=== PATIENT | female | born 1955 | race Caucasian/White ===

== ENCOUNTER → 2017-11-07 | Outpatient (CLI) | payer MEDICARE, SELFPAY | PROVIDERS: Visit Provider Physician Assistant | DX: I48.91 Unspecified atrial fibrillation (principal); I25.10 Atherosclerotic heart disease of native coronary artery without angina pectoris | CPT/HCPCS: 36415; 71020; 80053; 83735; 84443 ==

== ENCOUNTER → 2017-11-14 08:22 | Outpatient (CLI) | payer MEDICARE, SELFPAY ==
--- NOTE | 2017-11-14 08:35 | CA_ITS ---
PROCEDURE: 2-D M-mode and color Doppler study INDICATIONS FOR THE TEST: Chest pain COPD Heart Murmur Tobacco Smoking Palpitations Fatigue Syncope Edema HypertensionXDiabetes Mellitus Rheumatic Fever SOB BEARD ObesityXHyperlipidemiaX Family History HD Additional History CM,ICD,CAD,CABG PATIENT INFORMATION HEIGHT: 61 WEIGHT:190 GENDER: Female B/P:140/80 2-D/M-MODE INTERPRETATION: 2-D MEASUREMENTS OBSERVED VALUES IN CMS Right Ventricular Dimension (RVDd) 2.2 Interventricular Septum (Thickness)(IVsd) .6 Left Ventricular Internal Dimensions(LVIDd) 6.9 Left Ventricular Posterior Wall (Thickness)(LVPWd) .6 Aortic Root 3.0 Aortic Cusp Separation 1.4 Left Atrial Dimensions (LAD) 3.9 2D 1. Left atrium is mildly enlarged, left ventricle is moderately dilated, there is severely reduced left ventricular systolic function, visually estimated ejection fraction approximately 25-30%, left ventricle is globally hypokinetic, superimposed segmental wall motion abnormalities cannot be excluded as endocardial surfaces are very poorly visualized. 2. The right atrium and right ventricle are normal size and contractility, there is a catheter noted in the right ventricle which is likely an ICD lead. 3. The aortic valve is minimally thickened and fibrosed. 4. The mitral and tricuspid valve leaflets are minimally thickened. 5. The pulmonic valve is poorly visualized. 6. No significant pericardial effusion noted. DOPPLER INTERROGATION: Doppler interrogation of the aortic, mitral and tricuspid valvular presence of mild mitral and tricuspid regurgitation, tricuspid regurgitant jet velocity is insufficient for calculation of the right ventricular systolic pressure, grade 1 diastolic dysfunction seen without tissue Doppler evidence of raised left atrial pressure. CONCLUSION: 1. Mildly enlarged left atrium, moderately dilated left ventricle, severely reduced left ventricular systolic function visually estimated ejection fraction is approximately 25-30% as described above. Grade 1 diastolic dysfunction seen without tissue Doppler evidence of raised left atrial pressure. 2. Mild mitral and tricuspid regurgitation. 3. No significant pericardial effusion noted.
== END ==
PROVIDERS: Family Provider Family Medicine; PCP Family Medicine; Visit Provider Physician Assistant
DX: I42.8 Other cardiomyopathies (principal); I48.91 Unspecified atrial fibrillation; I25.10 Atherosclerotic heart disease of native coronary artery without angina pectoris
CPT/HCPCS: 93306

== ENCOUNTER → 2017-11-25 10:21 | Outpatient (CLI) | payer MEDICARE, SELFPAY ==
[2017-11-25 11:58] LABS: Anion Gap 15.3 mEq/L (5-15); Blood Urea Nitrogen 18 mg/dL (7-18); Carbon Dioxide 25 mmol/L (21.0-32.0); Chloride 106 mmol/L (98-107); Creatinine,Serum 1.14 mg/dL (0.55-1.02); Estimated Glomerular Filt Rate 48 ml/min (>60); GFR (African American) 58 ML/MIN (>60); Glucose 112 mg/dL (74-106); Potassium 4.3 mmoL/L (3.5-5.1); Sodium 142 mmol/L (136-145)
== END ==
PROVIDERS: PCP Nurse Practitioner; Visit Provider Physician Assistant
DX: I48.91 Unspecified atrial fibrillation (principal); I42.9 Cardiomyopathy, unspecified; I10 Essential (primary) hypertension
CPT/HCPCS: 36415; 80048

== ENCOUNTER → 2017-12-20 11:45 | Outpatient (CLI) | payer MEDICARE, SELFPAY ==
[2017-12-20 13:00] LABS: Anion Gap 13.6 mEq/L (5-15); Blood Urea Nitrogen 20 mg/dL (7-18); Carbon Dioxide 28 mmol/L (21.0-32.0); Chloride 107 mmol/L (98-107); Creatinine,Serum 1.28 mg/dL (0.55-1.02); Estimated Glomerular Filt Rate 42 ml/min (>60); GFR (African American) 51 ML/MIN (>60); Glucose 141 mg/dL (74-106); Potassium 4.6 mmoL/L (3.5-5.1); Sodium 144 mmol/L (136-145)
== END ==
PROVIDERS: PCP Nurse Practitioner; Visit Provider Physician Assistant
DX: I25.10 Atherosclerotic heart disease of native coronary artery without angina pectoris (principal); I10 Essential (primary) hypertension
CPT/HCPCS: 36415; 80048

== ENCOUNTER → 2018-04-15 09:34 | Outpatient (CLI) | payer MEDICARE, SELFPAY ==
--- NOTE | 2018-04-15 09:49 | XR_ITS ---
XR chest 2V HISTORY: ITS.REASON: AMIODARONE SURVEILLANCE ORDERING PHYSICIAN: BRITTNY Pinzon PATIENT AGE: 62 years COMPARISON: 11/07/2017 FINDINGS: Prior median sternotomy/CABG. Bipolar pacemaker present from left subclavian approach. Mild cardiomegaly without failure. Lungs are clear bilaterally.. No pulmonary fibrosis apparent. No acute bony anomalies. IMPRESSION: Prior CABG with mild cardiomegaly and cardiac pacemaker. No radiographic evidence of amiodarone lung toxicity
[2018-04-15 11:23] LABS: Albumin Level 4.4 gm/dL (3.4-5.0); Albumin/Globulin Ratio 1.4 (1.1-1.8); Chloride 102 mmol/L (98-107); Globulin 3.2 gm/dl (1.3-3.2); Glucose 125 mg/dL (74-106); Sodium 137 mmol/L (136-145); Total Protein,Serum 7.6 gm/dL (6.4-8.2)
[2018-04-15 11:25] LABS: Alanine Aminotransferase 57 U/L (12-78); Alkaline Phosphatase 112 U/L (46-116); Anion Gap 14.7 mEq/L (5-15); Aspartate Amino Transferase 24 U/L (15-37); Bilirubin,Total 0.3 mg/dL (0.2-1.0); Blood Urea Nitrogen 29 mg/dL (7-18); Calcium 10.1 mg/dL (8.5-10.1); Carbon Dioxide 25 mmol/L (21.0-32.0); Estimated Glomerular Filt Rate 38 ml/min (>60); GFR (African American) 46 ML/MIN (>60); Potassium 4.7 mmoL/L (3.5-5.1); Thyroid Stimulating Hormone 1.77 uIU/ml (0.358-3.740)
== END ==
PROVIDERS: Visit Provider Physician Assistant
DX: Z79.899 Other long term (current) drug therapy (principal)
CPT/HCPCS: 36415; 71046; 80053; 84443

== ENCOUNTER → 2018-05-20 09:12 | Outpatient (CLI) | payer MEDICARE, SELFPAY ==
[2018-05-20 10:10] LABS: Anion Gap 11.7 mEq/L (5-15); Blood Urea Nitrogen 23 mg/dL (7-18); Carbon Dioxide 27 mmol/L (21.0-32.0); Chloride 106 mmol/L (98-107); Estimated Glomerular Filt Rate 38 ml/min (>60); GFR (African American) 46 ML/MIN (>60); Glucose 124 mg/dL (74-106); Potassium 4.7 mmoL/L (3.5-5.1); Sodium 140 mmol/L (136-145)
== END ==
PROVIDERS: Visit Provider Physician Assistant
DX: I10 Essential (primary) hypertension (principal); I25.10 Atherosclerotic heart disease of native coronary artery without angina pectoris; N28.9 Disorder of kidney and ureter, unspecified
CPT/HCPCS: 36415; 80048

== ENCOUNTER → 2018-06-09 13:19 | Outpatient (CLI) | payer MEDICARE, SELFPAY ==
[2018-06-09 14:57] LABS: Anion Gap 15.6 mEq/L (5-15); Blood Urea Nitrogen 18 mg/dL (7-18); Calcium 9.4 mg/dL (8.5-10.1); Carbon Dioxide 25 mmol/L (21.0-32.0); Chloride 108 mmol/L (98-107); Creatinine,Serum 1.29 mg/dL (0.55-1.02); Estimated Glomerular Filt Rate 42 ml/min (>60); GFR (African American) 51 ML/MIN (>60); Glucose 121 mg/dL (74-106); Magnesium 2.2 mg/dL (1.4-2.2); Potassium 4.6 mmoL/L (3.5-5.1); Sodium 144 mmol/L (136-145)
== END ==
PROVIDERS: Visit Provider Physician Assistant
DX: I50.9 Heart failure, unspecified (principal); I25.10 Atherosclerotic heart disease of native coronary artery without angina pectoris
CPT/HCPCS: 36415; 80048; 83735

== ENCOUNTER → 2018-10-27 12:33 | Outpatient (CLI) | payer MEDICARE, SELFPAY ==
--- NOTE | 2018-10-27 12:43 | XR_ITS ---
XR chest 2V HISTORY: Heart disease, amiodarone therapy ITS.REASON: CAD, AMIODARONE THERAPY ORDERING PHYSICIAN: BRITTNY Pinzon PATIENT AGE: 63 years COMPARISON: 04/15/2018 FINDINGS: There is cardiomegaly without failure in this patient that has had a prior CABG with a bipolar pacemaker present. There is a faint area of increased density in the right middle lobe region suggesting an area of wispy infiltrate. No other significant anomalies are evident. IMPRESSION: 1. Infiltrate in the region of the right middle lobe which could be infectious or inflammatory. Cannot exclude the possibility of amiodarone toxicity in the absence of pneumonia symptoms. 2. Cardiomegaly with pacemaker, prior CABG
[2018-10-27 14:09] LABS: Alanine Aminotransferase 48 U/L (12-78); Albumin Level 4.1 gm/dL (3.4-5.0); Albumin/Globulin Ratio 1.3 (1.1-1.8); Alkaline Phosphatase 104 U/L (46-116); Anion Gap 11.4 mEq/L (5-15); Aspartate Amino Transferase 14 U/L (15-37); Bilirubin,Total 0.4 mg/dL (0.2-1.0); Blood Urea Nitrogen 15 mg/dL (7-18); Calcium 8.8 mg/dL (8.5-10.1); Carbon Dioxide 27 mmol/L (21.0-32.0); Chloride 108 mmol/L (98-107); Chol/HDL Ratio 2.1 (1-3.5); Cholesterol 120 mg/dL (140-200); Estimated Glomerular Filt Rate 45 ml/min (>60); GFR (African American) 55 ML/MIN (>60); Globulin 3.2 gm/dl (1.3-3.2); Glucose 102 mg/dL (74-106); HDL Cholesterol 57 mg/dL (29-89); LDL Cholesterol 47 mg/dL (0-130); Potassium 4.4 mmoL/L (3.5-5.1); Sodium 142 mmol/L (136-145); Thyroid Stimulating Hormone 1.49 uIU/ml (0.358-3.740); Total Protein,Serum 7.3 gm/dL (6.4-8.2); Triglycerides 82 mg/dL (30-200); VLDL Cholesterol 16 mg/dL (0-40)
== END ==
PROVIDERS: Visit Provider Physician Assistant
DX: Z79.899 Other long term (current) drug therapy (principal); E78.5 Hyperlipidemia, unspecified
CPT/HCPCS: 36415; 71046; 80053; 80061; 84443

== ENCOUNTER → 2018-10-30 12:36 | Outpatient (CLI) | payer MEDICARE, SELFPAY ==
[2018-10-30 13:54] VITALS: PULSE 70
--- NOTE | 2018-10-30 14:22 | CT_ITS ---
CT chest wo con HISTORY: Amiodarone therapy, cough, abnormal chest x-ray ITS.REASON: ABN CXR,HIGH RISK MEDS ORDERING PHYSICIAN: BRITTNY Pinzon PATIENT AGE: 63 years COMPARISON: 10/27/2018 Technique: Axial images obtained with sagittal and coronal reformats. All CT scans at the facility use one or more dose reduction, viz: automated exposure control, ma/kV adjustment per patient size (including targeted exams where dose is matched to indication, i.e. head), or iterative reconstruction technique. FINDINGS: No mediastinal or hilar mass or adenopathy is evident. There is an AICD device present from a left subclavian approach. There has been a prior CABG. Normal heart size. No evidence of pericardial effusion.. There is some superficial patchy areas of groundglass density in the superior segment of the right lower lobe. This is nonspecific. There is also some patchy groundglass density in the infrahilar region on the left within the left lower lobe. These would correspond to the radiographic abnormalities. Atelectatic changes are present in the left lung base. There are some mild fibrotic changes in the lung bases. Upper abdominal images show a hyperdense liver measuring up to 80 Hounsfield units. This may also be seen with amiodarone toxicity. No acute bony anomalies. IMPRESSION: 1. There are scattered groundglass infiltrates in both lower lobes. These are nonspecific but can be seen with amiodarone toxicity. There is some minimal fibrotic change in the lung bases which are also nonspecific. 2. Hyperdensity of the liver may also be seen with amiodarone toxicity. High hepatic attenuation may also be seen in patient's exposed to amiodarone in the absence of drug toxicity.
== END ==
PROVIDERS: PCP Family Medicine; Visit Provider Physician Assistant
DX: R93.89 Abnormal findings on diagnostic imaging of other specified body structures (principal); Z79.899 Other long term (current) drug therapy
CPT/HCPCS: 71250; 94060; 94618; 94640; 94726; 94729

== ENCOUNTER → 2018-11-14 11:55 | Outpatient (POV) | payer MEDICARE, SELFPAY | PROVIDERS: Visit Provider Internal Medicine | DX: Z00.00 Encounter for general adult medical examination without abnormal findings (principal) ==

== ENCOUNTER → 2019-04-14 14:33 | Outpatient (POV) | payer MEDICARE, SELFPAY | PROVIDERS: Visit Provider Internal Medicine | DX: Z00.00 Encounter for general adult medical examination without abnormal findings (principal) ==

== ENCOUNTER → 2019-08-10 10:51 | Outpatient (CLI) | payer MEDICARE, SELFPAY ==
--- NOTE | 2019-08-10 10:55 | CT_ITS ---
PROCEDURE: CT LUNG SCREENING CLINICAL INDICATION: H/O NICOTINE DEPENDENCE COMPARISON: CHESTWO CT chest wo con from 10/30/2018 TECHNIQUE: The exam was performed on a GE Light Speed [address] scanner using 2.90 mGy CTDI. A low dose helical CT CHEST was performed on a multi-detector scanner. All CT scans at the facility use one or more dose reduction, viz: automated exposure control, ma/kV adjustment per patient size (including targeted exams where dose is matched to indication, i.e. head), or iterative reconstruction technique. The LDCT was performed in a facility that meets the criteria for the screening program. Data regarding this exam was submitted to ACR which is an approved registry. The order for this exam indicates that it came as a result of a lung cancer screening counseling shard decision-making visit that included all the elements required of such a visit including smoking cessation. The radiologist interpreting this exam meets the CMS criteria for the LDCT lung cancer screening program. The exam is reported using the Lung-RADS classification scale and reported to the ACR registry. NOTE: This study was performed for the specific purposes of lung cancer screening and is not an alternative to diagnostic chest CT. RADIATION DOSE: CTDI vol(CT dose Index-volume) = 2.90mG DLP (Dose Length Product) = 97 mGcm FINDINGS: There is a noncalcified 2 millimeter nodule in the posterior aspect of the lingula. OTHER FINDINGS: There are a few noncalcified pleural-based indistinct nodular areas along the posterior aspect of the superior segment of the right lower lobe. There are coronary and aortic arch calcified plaques. Heart size is normal. Hilar and mediastinal areas are unremarkable. IMPRESSION: Noncalcified 2.0 millimeter lingular nodule. Lung rads 2, benign. Suggest annual follow-up if risk factors. Pleural based small right lower lobe nodular densities are more nonspecific and could be focal pleural thickening although likely benign as well. Dictated by: Je Giles 08/13/2019 17:19 Electronically signed by Je Giles in [place] 08/13/2019 17:19
== END ==
PROVIDERS: PCP Nurse Practitioner; Visit Provider Nurse Practitioner
DX: Z87.891 Personal history of nicotine dependence (principal); Z12.2 Encounter for screening for malignant neoplasm of respiratory organs

== ENCOUNTER → 2019-11-30 09:57 | Outpatient (CLI) | payer MEDICARE, SELFPAY ==
--- NOTE | 2019-11-30 10:42 | ECG_ITS ---
APPROVED REPORT Exam: Resting ECG HR:71 bpm ECG Measurements Heart Rate 71 AXES FL 150 P 89 QRSd 96 QRS 88 QT 428 T -63 QTc 465 <Conclusion> Electronic atrial pacemaker Incomplete RBBB NDST-T Changes Possible Old Lateral AL Abnormal EKG Electronically signed by : Eliud Massey, 11/30/2019 10:55:50
[2019-11-30 11:55] LABS: Anion Gap 10.5 mEq/L (5-15); Blood Urea Nitrogen 15 mg/dL (7-18); Calcium 9.1 mg/dL (8.5-10.1); Carbon Dioxide 29 mmol/L (21.0-32.0); Chloride 107 mmol/L (98-107); Creatinine,Serum 1.09 mg/dL (0.55-1.02); Estimated Glomerular Filt Rate 51 ml/min (>60); GFR (African American) 61 ML/MIN (>60); Glucose 109 mg/dL (74-106); Magnesium 1.9 mg/dL (1.4-2.2); Potassium 4.5 mmoL/L (3.5-5.1); Sodium 142 mmol/L (136-145)
== END ==
PROVIDERS: Visit Provider Internal Medicine Clinical Cardiac Electrophysiology
DX: I48.0 Paroxysmal atrial fibrillation (principal)
CPT/HCPCS: 36415; 80048; 83735; 93005

== ENCOUNTER → 2019-12-04 11:14 | Outpatient (CLI) | payer MEDICARE, SELFPAY ==
--- NOTE | 2019-12-04 11:30 | ECG_ITS ---
APPROVED REPORT Exam: Resting ECG HR:73 bpm ECG Measurements Heart Rate 73 AXES WV 178 P 46 QRSd 92 QRS 88 QT 472 T 59 QTc 519 <Conclusion> Electronic atrial pacemaker Abnormal ECG Electronically signed by : Jose Pedraza, 12/05/2019 19:06:30
== END ==
PROVIDERS: PCP Nurse Practitioner; Visit Provider Internal Medicine Clinical Cardiac Electrophysiology
DX: I48.91 Unspecified atrial fibrillation (principal)
CPT/HCPCS: 93005

== ENCOUNTER → 2020-03-31 11:20 | Outpatient (CLI) | payer MEDICARE, SELFPAY ==
[2020-03-31 13:12] LABS: T4 (Thyroxine) 9.5 ug/dl (5.53-11.0); Triiodothryronine (T3) Uptake 39 % (23.5-40.5)
[2020-03-31 13:13] LABS: Free T4 (Free Thyroxine) 1.49 ng/dl (0.78-2.19)
[2020-03-31 13:26] LABS: Thyroid Stimulating Hormone < 0.02 uIU/mL (0.465-4.68)
== END ==
PROVIDERS: Visit Provider Internal Medicine Endocrinology, Diabetes & Metabolism
DX: E03.9 Hypothyroidism, unspecified (principal); E06.9 Thyroiditis, unspecified
CPT/HCPCS: 36415; 84436; 84439; 84443; 84479

== ENCOUNTER → 2021-01-10 10:23 | Outpatient (POV) | payer MEDICARE, SELFPAY | PROVIDERS: Visit Provider Dermatology | DX: Z00.00 Encounter for general adult medical examination without abnormal findings (principal) ==

== ENCOUNTER → 2021-03-09 06:36 | Outpatient (CLI) | payer MEDICARE, SELFPAY ==
--- NOTE | 2021-03-09 06:43 | CT_ITS ---
PROCEDURE: CT LUNG SCREENING CLINICAL INDICATION: CURRENT SMOKER 30 pack year smoking history COMPARISON: CT CT LUNG SCREENING from 08/10/2019 TECHNIQUE: The exam was performed on a GE Light Speed [address] scanner using 2.90 mGy CTDI. A low dose helical CT CHEST was performed on a multi-detector scanner. All CT scans at the facility use one or more dose reduction, viz: automated exposure control, ma/kV adjustment per patient size (including targeted exams where dose is matched to indication, i.e. head), or iterative reconstruction technique. The LDCT was performed in a facility that meets the criteria for the screening program. Data regarding this exam was submitted to ACR which is an approved registry. The order for this exam indicates that it came as a result of a lung cancer screening counseling shard decision-making visit that included all the elements required of such a visit including smoking cessation. The radiologist interpreting this exam meets the [facility] criteria for the LDCT lung cancer screening program. The exam is reported using the Lung-RADS classification scale and reported to the ACR registry. NOTE: This study was performed for the specific purposes of lung cancer screening and is not an alternative to diagnostic chest CT. RADIATION DOSE: CTDI vol(CT dose Index-volume) = 2.90mG DLP (Dose Length Product) = 100.03 mGcm FINDINGS: COPD changes. There is a small patchy subpleural area of increased density in the right lower lobe posteriorly and also in the left lower lobe and may be due to areas of atelectasis or patchy infiltrate. Scarring is present in the left lower lobe medially. 3 mm noncalcified nodule in the lingula once again noted unchanged. No new nodules are evident. OTHER FINDINGS: Prior median sternotomy. Artifact present from cardiac pacemaker device. IMPRESSION: Lung-RADS Category 2 Benign Appearance or Behavior Follow-up: Continue annual screening with LDCT in 12 months Atelectasis versus patchy ground-glass infiltrate in the right lower lobes posteriorly Dictated by: Rafiq Servin MD 03/10/2021 13:37 Rafiq Servin MD in [place] 03/10/2021 13:37
== END ==
PROVIDERS: PCP Nurse Practitioner Family; Visit Provider Nurse Practitioner Family
DX: Z87.891 Personal history of nicotine dependence (principal); Z12.2 Encounter for screening for malignant neoplasm of respiratory organs
CPT/HCPCS: 71271

== ENCOUNTER → 2021-04-04 08:07 | Outpatient (CLI) | payer MEDICARE, SELFPAY | PROVIDERS: Visit Provider Surgery | DX: Z01.812 Encounter for preprocedural laboratory examination (principal); Z20.822 Contact with and (suspected) exposure to COVID-19; Z12.11 Encounter for screening for malignant neoplasm of colon | CPT/HCPCS: U0003 ==

== ENCOUNTER 2021-04-06 07:08 | Day surgery (SDC) | payer MEDICARE, SELFPAY ==
[2021-04-04 10:02] VITALS: BMI 37.8
[2021-04-06] VITALS (8 sets, daily range): BP systolic 96–173; BP diastolic 54–80; PULSE 70–74; RESP 16–18; TEMP 36.1–37.1; O2SAT 93–99
--- NOTE | 2021-04-06 08:36 | P.PCN_ITS ---
- Procedure: Date: 04/06/21 Patient Date of :: 1955 Procedure Performed:: Colonoscopy with polypectomy Indications:: Screening Performing Provider:: Hayes Snyder MD Referring Provider:: . Sedation:: Monitored anesthesia care Procedure:: After informed consent was obtained the patient was taken to the endoscopy suite. Sedation ensued after the patient was transferred to the left lateral decubitus position. Pulse, blood pressure, and oxygen saturation were monitored throughout the procedure. Digital rectal exam revealed no significant ab normality. The colonoscope was placed in position. The entire colon was evaluated. The colonoscope was carefully removed and the patient was transferred to recovery in stable condition. Please see findings and specimens below for detail. Findings:: Bowel preparation relatively fair Moderate lack of relaxation Polyps (see specimens) Specimens:: Lobulated complex cecal polyp (snare) Cluster of hyperplastic-appearing polyps between 10-15 cm (multiple biopsies) Recommendations:: Timing of repeat colonoscopy is pending pathology but will likely be between 2-3 years secondary to complex/lobulated nature of cecal polyp and lack of relaxation. Complications:: No immediate Estimated blood obtained (mL): 1
--- NOTE | 2021-04-06 10:16 | P.PN_ITS ---
[facility] Anesthesia Checklist - Patient Identification Patient Identification: Arm Band - Structural Data Admitted From: Home Planned Operative Procedure/s: Colonoscopy Consent for Planned Operative Procedure(s) Verified: Yes Verified Documents: Surgical Consent, History and Physical - NPO Status Verified Time NPO: 00:00 - Airway Assessment C-Spine Mobility Assessed: Yes TMJ Mobility Assessed: Yes Dentition: Poor Dentition - Neurological Assessment Level of Consciousness: Awake, Alert - Anesthesia Plan Anesthesia Risk discussed: Yes Anesthesia Plan: Verified ASA Class: III Anesthesia Type: MAC [facility] History Medical History: Reports:: Arrhythmia, Atherosclerotic Heart Disease, Atrial F ibrillation, Hyperlipidemia, Hypertension, Internal Pacemaker Denies:: Cancer, Diabetes Mellitus Type 1, Diabetes Mellitus Type 2, MRSA, Seizures *Have you ever received a pneumonia vaccine?: Yes *Have you received a flu vaccine this season?: Yes Other Medical History: Reports: Thyroid Disease Anesthesia experience/problems:: None Other Surgeries: Yes: Open Heart Surgery (2013), Pacemaker Amputation: No Fractures: No - *Social History Smoking Status: Never smoker Alcohol Intake: never Substance Use Type: denies use *Occupational Status:: disabled Housing: house Household Members: none *Travel in the last 8 weeks: None Family Hx:: No significant family history
== END 2021-04-06 09:49 | disposition home or self-care (01) ==
LOC: OUTP 07:10
PROVIDERS: PCP Nurse Practitioner Family; Visit Provider Surgery
PROC: 0DJD8ZZ Inspection of Lower Intestinal Tract, Via Natural or Artificial Opening Endoscopic (ICD-10-PCS; principal; 2021-04-06 08:30)
DX: Z12.11 Encounter for screening for malignant neoplasm of colon (principal); K63.5 Polyp of colon; K62.1 Rectal polyp; K63.89 Other specified diseases of intestine; I25.10 Atherosclerotic heart disease of native coronary artery without angina pectoris; I48.91 Unspecified atrial fibrillation; E78.5 Hyperlipidemia, unspecified; I10 Essential (primary) hypertension; Z95.0 Presence of cardiac pacemaker; Z79.82 Long term (current) use of aspirin; Z79.899 Other long term (current) drug therapy
CPT/HCPCS: 45380; 45385; 88305; J1610

== ENCOUNTER → 2022-03-14 13:58 | Outpatient (CLI) | payer MEDICARE, SELFPAY ==
--- NOTE | 2022-03-14 13:58 | CT_ITS ---
FINAL REPORT CLINICAL HISTORY: . lung cancer screening, previous smoker, quit 8 years ago, previously smoked 1-2 packs a day for 40 years COMPARISON: March 09, 2021 and August 10, 2019 FINDINGS: Low-Dose Chest CT CTDI vol (mGy): 2.90 DLP (mGy-cm): 107.59 Axial images were obtained from the lung apex to the mid abdomen by computed tomography. Low-dose protocol was utilized. FINDINGS: CHEST: There is no axillary adenopathy. There is no hilar or mediastinal adenopathy. The heart is proper size. There are postoperative changes from median sternotomy. A left subclavian pacemaker is present. There is no pericardial or pleural effusion. Limited images of the upper abdomen are unremarkable. Lung window images demonstrate mild pulmonary scarring. There is a 4 mm nodule in the posterior lingula which is stable. There are improved ground-glass opacities in the posterior lower lobes. There is a 5 mm pleural based nodule in the posterior right upper lobe which is stable. There is an 8 mm nodule in the right lower lobe on image 47. This previously measured 5 mm. There is a calcified granuloma in the left lower lobe. IMPRESSION: 8 mm nodule in the right lower lobe that previously measured 5 mm. Lung RADS category 4B. Recommend PET-CT for further evaluation. Reviewed, Interpreted and Dictated by Hola Poe III, MD Transcribed by Manju Murphy Authenticated by Hola Poe III, MD on 03/14/2022 03:28:42 PM [facility]
[2022-03-14 15:25] VITALS: PULSE 87; PULSE 90
== END ==
PROVIDERS: PCP Nurse Practitioner Family; Visit Provider Internal Medicine Pulmonary Disease
DX: Z87.891 Personal history of nicotine dependence (principal); Z12.2 Encounter for screening for malignant neoplasm of respiratory organs; R06.09 Other forms of dyspnea
CPT/HCPCS: 71271; 94060; 94618; 94640; 94727; 94729

== ENCOUNTER → 2022-03-17 08:15 | Outpatient (CLI) | payer MEDICARE, SELFPAY | PROVIDERS: Visit Provider Ophthalmology | DX: Z01.812 Encounter for preprocedural laboratory examination (principal); Z11.52 Encounter for screening for COVID-19 | CPT/HCPCS: C9803; U0003; U0005 ==

== ENCOUNTER 2022-03-20 06:51 | Day surgery (SDC) | payer MEDICARE, SELFPAY ==
[2022-03-15 14:09] VITALS: BMI 37.0
[2022-03-20 07:08] VITALS: BP 127/60; PULSE 65; RESP 18; TEMP 36.3; O2SAT 98
[2022-03-20 07:22] LABS: POC Glucose,Bedside 132 (70-110)
[2022-03-20 08:36] VITALS: BP 139/62; PULSE 66; RESP 18; O2SAT 99
[2022-03-20 08:41] VITALS: BP 133/65; PULSE 65; RESP 18; O2SAT 99
[2022-03-20 08:46] VITALS: BP 123/61; PULSE 65; RESP 18; O2SAT 99
[2022-03-20 08:51] VITALS: BP 131/66; PULSE 66; RESP 18; O2SAT 100
[2022-03-20 08:55] VITALS: BP 140/69; PULSE 85; RESP 16; TEMP 36.6; O2SAT 94
== END 2022-03-20 09:00 | disposition home or self-care (01) ==
LOC: OR 06:52
PROVIDERS: PCP Nurse Practitioner Family; Visit Provider Ophthalmology
DX: H25.813 Combined forms of age-related cataract, bilateral (principal); H02.831 Dermatochalasis of right upper eyelid; H02.834 Dermatochalasis of left upper eyelid; E11.9 Type 2 diabetes mellitus without complications; I10 Essential (primary) hypertension; E07.9 Disorder of thyroid, unspecified; Z79.82 Long term (current) use of aspirin; Z79.84 Long term (current) use of oral hypoglycemic drugs; Z79.899 Other long term (current) drug therapy
CPT/HCPCS: 66984; 82962; V2632

== ENCOUNTER → 2022-03-31 08:10 | Outpatient (CLI) | payer MEDICARE, SELFPAY | PROVIDERS: Visit Provider Ophthalmology | DX: Z01.812 Encounter for preprocedural laboratory examination (principal); Z20.822 Contact with and (suspected) exposure to COVID-19 | CPT/HCPCS: C9803; U0003; U0005 ==

== ENCOUNTER 2022-04-03 06:32 | Day surgery (SDC) | payer MEDICARE, SELFPAY ==
[2022-03-29 11:01] VITALS: BMI 37.0
[2022-04-03] VITALS (7 sets, daily range): BP systolic 119–134; BP diastolic 57–75; PULSE 67–80; RESP 18; TEMP 36.4–36.6; O2SAT 94–100
[2022-04-03 07:11] LABS: POC Glucose,Bedside 128 (70-110)
== END 2022-04-03 08:53 | disposition home or self-care (01) ==
LOC: OR 06:34
PROVIDERS: PCP Nurse Practitioner Family; Visit Provider Ophthalmology
DX: H25.813 Combined forms of age-related cataract, bilateral (principal); H02.831 Dermatochalasis of right upper eyelid; H02.834 Dermatochalasis of left upper eyelid; I48.91 Unspecified atrial fibrillation; I10 Essential (primary) hypertension; E78.5 Hyperlipidemia, unspecified; E05.90 Thyrotoxicosis, unspecified without thyrotoxic crisis or storm; I51.89 Other ill-defined heart diseases
CPT/HCPCS: 66984; 82962; V2632

== ENCOUNTER → 2022-06-12 14:46 | Outpatient (CLI) | payer MEDICARE, SELFPAY ==
--- NOTE | 2022-06-12 14:46 | CT_ITS ---
FINAL REPORT TECHNIQUE: Axial images were obtained from the lung apex to the mid abdomen by computed tomography. Coronal reformatted images were obtained. This study was performed with techniques to keep radiation doses as low as reasonably achievable, (ALARA). Individualized dose reduction techniques using automated exposure control or adjustment of mA and/or kV according to the patient''s size were employed. CLINICAL HISTORY: 3 mth F/U COMPARISON: March 14, 2022 FINDINGS: Postoperative changes are seen from sternotomy. There is a left subclavian pacemaker. There is no axillary adenopathy. There is no hilar or mediastinal adenopathy. Heart size is normal. There is no pericardial or pleural effusion. Limited images of the upper abdomen are unremarkable. An 8 mm nodule is again seen in the right lower lobe on image 44, stable. There is a 4 mm nodule in the posterior lingula that previously measured 4 mm. There is a stable 5 mm pleural based nodule in the posterior right upper lobe. There is no new mass or pulmonary nodule. IMPRESSION: Stable pulmonary nodules. Recommend six-month follow-up. Reviewed, Interpreted and Dictated by Hola Poe III, MD Transcribed by Jurgen Gomez Authenticated and [facility]
== END ==
PROVIDERS: PCP Nurse Practitioner Family; Visit Provider Internal Medicine Pulmonary Disease
DX: R91.8 Other nonspecific abnormal finding of lung field (principal)
CPT/HCPCS: 71250

== ENCOUNTER → 2023-01-29 10:40 | Outpatient (CLI) | payer MEDICARE, SELFPAY ==
--- NOTE | 2023-01-29 10:46 | XR_ITS ---
FINAL REPORT CLINICAL HISTORY: RT HIP PAIN FINDINGS: Right hip with pelvis Three views were obtained. There is no acute fracture. There is no dislocation. The joint spaces are preserved. There is no acute soft tissue abnormality. IMPRESSION: No acute process. Reviewed, Interpreted and Dictated by Leodan Up MD Transcribed by Jurgen Gomez Authenticated and [facility]
== END ==
PROVIDERS: PCP Nurse Practitioner Family; Visit Provider Nurse Practitioner Family
DX: M25.551 Pain in right hip (principal)
CPT/HCPCS: 73502

== ENCOUNTER → 2023-02-12 09:06 | Outpatient (CLI) | payer MEDICARE, SELFPAY ==
--- NOTE | 2023-02-12 09:14 | XR_ITS ---
FINAL REPORT CLINICAL HISTORY: POST MENOPAUSAL FINDINGS: Using L1-4, the bone mineral density of the spine is 0.987 g/cm2, corresponding to T-score of -0.5. Using the left hip, the bone mineral density of the femoral neck is 0.757 g/cm2, corresponding to a T-score of -0.8. FRAX data: 7.4% risk for major osteoporotic fracture. Using the right hip, the bone mineral density of the femoral neck is 0.680 g/cm2, corresponding to a T-score of -1.5. FRAX data: 8.6% risk for major osteoporotic fracture. IMPRESSION: Diminished bone mineral density of the right hip consistent with osteopenia. Normal bone mineral density of the lumbar spine and left hip. Reviewed, Interpreted and Dictated by Leodan Up MD Transcribed by Jurgen Gomez Authenticated and . [facility]
--- NOTE | 2023-02-12 09:14 | MM_ITS ---
PROCEDURE INFORMATION: Exam: Bilateral Screening 3D Mammography Exam date and time: 02/12/2023 9:38 AM Age: 67 years old Clinical indication: Baseline. History of right benign excisional biopsy. TECHNIQUE: Imaging protocol: Bilateral Screening tomosynthesis and 2D mammography including computer-aided detection (CAD) when performed. COMPARISON: No relevant prior studies available.If prior mammograms are provided, I am happy to add an addendum. FINDINGS: MAMMOGRAPHY: Breast composition: There are scattered areas of fibroglandular density. Mass: Scattered bilateral oval sub cm circumscribed masses. No dominant or suspicious mass. Architectural distortion: None. Calcifications: No suspicious calcifications. Asymmetric density: None. Skin thickening: None. Axillary adenopathy: None. Other: Pacemaker in the left axilla, limits evaluation and accentuates the importance of clinical breast exam. IMPRESSION: Scattered bilateral sub cm oval masses may be considered benign finding on screening mammography. No mammographic evidence of malignancy. Annual screening is recommended unless otherwise clinically indicated. ASSESSMENT: BI-RADS Category 2: Benign
== END ==
PROVIDERS: PCP Nurse Practitioner Family; Visit Provider Nurse Practitioner Family
DX: Z12.31 Encounter for screening mammogram for malignant neoplasm of breast (principal); Z78.0 Asymptomatic menopausal state; Z13.820 Encounter for screening for osteoporosis
CPT/HCPCS: 77063; 77067; 77080

== ENCOUNTER → 2023-03-15 12:43 | Outpatient (CLI) | payer MEDICARE, SELFPAY ==
--- NOTE | 2023-03-15 12:44 | CT_ITS ---
FINAL REPORT TECHNIQUE: Axial images were obtained through the chest without contrast. This study was performed with techniques to keep radiation doses as low as reasonably achievable (ALARA). Individualized dose reduction techniques using automated exposure control or adjustment of mA and/or kV according to the patient's size were employed. CLINICAL HISTORY: 9 mth F/U March 2022 COMPARISON: 07/02/2022 FINDINGS: The heart size is normal. There is no pericardial or pleural effusion. Limited images of the upper abdomen are unremarkable. There is a pleural base nodule in the posterior right upper lobe measuring 5 mm, unchanged. There is an ill-defined right lower lobe nodule measuring 7 mm. Finding is best seen on image 135 of series 3. There is a 4 mm nodule in the posterior lingula which is stable. Finding is best seen on image 123. No new mass or nodule is identified. There is streak artifact from median sternotomy wires and left subclavian pacer. IMPRESSION: Stable nodules as detailed above. Resume routine screening in 12 months. Reviewed, Interpreted and Dictated by Leodan Up MD Transcribed by Kadie Gray Authenticated and [facility][1]
== END ==
PROVIDERS: PCP Nurse Practitioner Family; Visit Provider Internal Medicine Pulmonary Disease
DX: R91.8 Other nonspecific abnormal finding of lung field (principal); R06.02 Shortness of breath
CPT/HCPCS: 71250

== ENCOUNTER → 2023-04-04 11:50 | Outpatient (CLI) | payer MEDICARE, SELFPAY ==
[2023-04-04 12:44] LABS: Basophils # 0.1 K/mm3 (0-0.2); Basophils % 0.8 % (0.1-2.0); Eosinophils # 0.1 K/mm3 (0.0-0.4); Eosinophils % 1.5 % (0.1-12.0); Hematocrit 44.3 % (37.0-47.0); Hemoglobin 14.4 g/dL (12.2-16.2); Lymphocytes # 2.4 K/mm3 (0.7-4.5); Lymphocytes % 35.5 % (10-50); Mean Corpuscular HGB Conc 32.6 g/dL (31.8-35.4); Mean Corpuscular Hemoglobin 29.9 pg (27.0-31.2); Mean Corpuscular Volume 91.8 fl (81-99); Mean Platelet Volume 13.7 fl (7.4-10.4); Monocytes # 0.3 K/mm3 (0.1-1.0); Monocytes % 4.5 % (1.7-9.3); Neutrophils % 57.7 % (37.0-80.0); Platelet Count 127 K/mm3 (142-424); Red Blood Count 4.82 M/mm3 (4.20-5.40); Red Cell Distribution Width 14.5 % (11.5-17.5); White Blood Count 6.9 K/mm3 (4.8-10.8)
[2023-04-04 15:29] LABS: Vitamin B12 519 pg/mL (239-931)
[2023-04-06 11:53] LABS: Peripheral Smear Review Scanned Result
== END ==
PROVIDERS: PCP Nurse Practitioner Family; Visit Provider Internal Medicine Medical Oncology
DX: D69.9 Hemorrhagic condition, unspecified (principal)
CPT/HCPCS: 36415; 82607; 82746; 85025

== ENCOUNTER 2023-04-12 11:00 | Outpatient (RCR) | payer MEDICARE, SELFPAY | END 2023-04-12 11:05 | disposition home or self-care (01) | LOC: PT 11:00 | PROVIDERS: PCP Nurse Practitioner Family; Visit Provider Nurse Practitioner Family | DX: M25.551 Pain in right hip (principal); M25.512 Pain in left shoulder; M54.41 Lumbago with sciatica, right side | CPT/HCPCS: 20560; 20561; 97010; 97035; 97110; 97112; 97140; 97163; 97164; 97530 ==

== ENCOUNTER → 2023-04-15 08:11 | Outpatient (CLI) | payer MEDICARE, SELFPAY ==
--- NOTE | 2023-04-15 08:16 | US_ITS ---
FINAL REPORT TECHNIQUE: Ultrasound images through the abdomen were obtained. CLINICAL HISTORY: LOW PLATLETS FINDINGS: Pancreas is unremarkable. Liver is fatty infiltrated without focal lesion. There are no gallstones or pericholecystic fluid. Gallbladder wall thickness is normal. Common duct is within normal limits at 3 mm. The right kidney measures 10.4 cm in length. Left kidney measures 10.2 cm in length. There is no hydronephrosis. Spleen is normal measuring 9.1 cm. There is no abdominal aortic aneurysm. There is no evidence of ascites. IMPRESSION: Fatty infiltration of the liver, otherwise unremarkable exam. Reviewed, Interpreted and Dictated by Shikha Merlos MD Transcribed by Beverly Lee Authenticated and [facility]
== END ==
PROVIDERS: PCP Nurse Practitioner Family; Visit Provider Internal Medicine Medical Oncology
DX: D64.9 Anemia, unspecified (principal); R10.11 Right upper quadrant pain; R10.12 Left upper quadrant pain
CPT/HCPCS: 76700

== ENCOUNTER 2023-05-26 22:49 | Emergency (ER) | payer MEDICARE, SELFPAY ==
[2023-05-26 22:52] VITALS: BP 189/108; PULSE 61; O2SAT 96
[2023-05-26 22:56] VITALS: BP 189/108; PULSE 60; RESP 22; TEMP 36.4; O2SAT 97; BMI 36.2
[2023-05-26 23:00] VITALS: BP 182/82; PULSE 60; RESP 17; O2SAT 96
--- NOTE | 2023-05-26 23:00 | ECG_ITS ---
APPROVED REPORT Exam: Resting ECG HR:61 bpm ECG Measurements Heart Rate 61 AXES IN 171 P -34 QRSd 98 QRS 87 QT 435 T 133 QTc 438 Conclusion ELECTRONIC ATRIAL PACEMAKER ABNORMAL ECG UNCONFIRMED REPORT Electronically signed by : Jose Pedraza MD 05/27/2023 07:09:08
--- NOTE | 2023-05-26 23:02 | XR_ITS ---
PROCEDURE INFORMATION: Exam: XR Chest Exam date and time: 05/26/2023 11:15 PM Age: 67 years old Clinical indication: Other: Palpitations; Prior surgery; Surgery date: 6+ months; Surgery type: Pacemaker TECHNIQUE: Imaging protocol: Radiologic exam of the chest. Views: 1 view. COMPARISON: CT CHEST WO CON 03/15/2023 12:52 PM FINDINGS: Tubes, catheters and devices: Pacer/AICD electrodes. Lungs: Normal pulmonary vessels. No focal infiltrates. Pleural spaces: Unremarkable. No pleural effusion. No pneumothorax. Heart/Mediastinum: Mild cardiomegaly. Prior CABG. Bones/joints: Unremarkable. IMPRESSION: No acute cardiopulmonary disease.
[2023-05-26 23:14] LABS: Basophils # 0.1 K/mm3 (0-0.2); Basophils % 0.8 % (0.1-2.0); Eosinophils # 0.2 K/mm3 (0.0-0.4); Eosinophils % 2.1 % (0.1-12.0); Hematocrit 42.9 % (37.0-47.0); Hemoglobin 13.9 g/dL (12.2-16.2); Lymphocytes # 3.2 K/mm3 (0.7-4.5); Lymphocytes % 42.2 % (10-50); Mean Corpuscular HGB Conc 32.4 g/dL (31.8-35.4); Mean Corpuscular Hemoglobin 29.6 pg (27.0-31.2); Mean Corpuscular Volume 91.4 fl (81-99); Mean Platelet Volume 13.2 fl (7.4-10.4); Monocytes # 0.5 K/mm3 (0.1-1.0); Monocytes % 6.1 % (1.7-9.3); Neutrophils # 3.8 K/mm3 (1.8-7.8); Neutrophils % 48.8 % (37.0-80.0); Platelet Count 129 K/mm3 (142-424); Red Cell Distribution Width 14.3 % (11.5-17.5); White Blood Count 7.7 K/mm3 (4.8-10.8)
[2023-05-26 23:16] LABS: Alanine Aminotransferase 40 U/L (12-78); Albumin/Globulin Ratio 1.5 (1.1-1.8); Alkaline Phosphatase 108 U/L (38-126); Anion Gap 14.4 mEq/L (5-15); Aspartate Amino Transferase 35 U/L (14-36); Bilirubin,Total 0.4 mg/dl (0.2-1.3); Blood Urea Nitrogen 19 mg/dl (7-17); Calcium 10.2 mg/dl (8.4-10.2); Carbon Dioxide 28 mmol/L (22.0-30.0); Chloride 105 mmol/L (98-107); Creatinine Clearance Estimated 75 mL/min (50-200); Estimated Glomerular Filt Rate 62 ml/min (>60); GFR (African American) 76 ML/MIN (>60); Globulin 3.4 g/dL (1.3-3.2); Glucose 103 mg/dl (74-100); Potassium 4.4 mmoL/L (3.5-5.1); Sodium 143 mmol/L (136-145); Total Protein,Serum 8.4 g/dl (6.3-8.2)
[2023-05-26 23:29] LABS: Troponin I < 0.01 ng/ml (0.00-0.034)
[2023-05-26 23:31] VITALS: BP 156/68; PULSE 60; RESP 13; O2SAT 96
[2023-05-26 23:37] LABS: Magnesium 2.1 mg/dl (1.6-2.3)
--- NOTE | 2023-05-26 23:50 | HMH.EDGENADL ---
Discharge Plan Disposition Patient Disposition: Home, Self-Care Condition: Good Prescriptions Prescriptions: No Action losartan 50 mg tablet 50 mg PO DAILY furosemide 20 mg tablet 20 mg PO DAILY carvedilol 25 mg tablet 25 mg PO DAILY sotalol 120 mg tablet 120 mg PO DAILY atorvastatin 80 mg tablet 80 mg PO DAILY aspirin [Adult Low Dose Aspirin] 81 mg tablet,delayed release (DR/EC) 81 mg PO DAILY Xarelto 20 mg tablet 20 mg PO DAILY Rx Instructions: must administer with evening meal levothyroxine 75 mcg tablet 75 mcg PO DAILY albuterol sulfate 90 mcg/actuation HFA aerosol inhaler 2 inh IH Q6H PRN (Reason: shortness of breath or wheezing) 90 Days Qty: 8.5 3RF potassium chloride 20 mEq tablet,ER particles/crystals 20 meq PO metformin 500 mg tablet extended release 24 hr 500 mg PO DAILY Referrals Follow up/Referrals: Provider,Referral, MD [Primary Care Provider] - See instructions Activity Restrictions/Add. Instructions Additional Instructions/Restrictions: You were evaluated in the emergency department today. Please contact your design engineer marine equipment in the morning and ask them if they would like to make any medication changes related to your atrial fibrillation. Return to the emergency department for any new or worsening symptoms. Clinical Impressions Clinical Impression: Heart palpitations Atrial fibrillation Qualifiers: Atrial fibrillation type: paroxysmal Qualified Code(s): I48.0 - Paroxysmal atrial fibrillation Instructions Patient Instructions: DI for Atrial Fibrillation Discharge ED Provider: Lani Price General Adult HPI General Chief complaint: Arrhythmia/Palpitations Stated complaint: heart fluttering Time Seen by Provider: 05/26/23 22:59 Mode of Arrival: Family Vehicle Source of Information: Patient Limitations: No Limitations Description of Symptoms (Recalled from ER Triage Doc. by RN): 67 yo presents with CC of heart palpitations after laying down for approximately an hour. Patient has a history of controlled atrial fib; for which she takes medication for and follows with cardiology in [facility]. Patient states she is not having any chest discomfort, but got nervous when she checked vs and noted elevated HR, and ^BP. History of Present Illness HPI narrative: This patient is a 67-year-old female with a history of atrial fibrillation status post AICD placement on Xarelto presented to the emergency department for evaluation with concern for palpitations. She reports that she recently saw her design engineer marine equipment at [facility] in [place], who decreased her sotalol from 120 mg to 80 mg. She has been compliant with this, but tonight whenever she went to bed she started feeling palpitations. It felt like her heart was racing. This lasted for approximately an hour. She states that she checked her vital signs and her heart rate was in the 120s. She was also hypertensive with systolics in the 180s. Given this, she decided to come to the emergency department for evaluation. Prior to arrival, her palpitations resolved, however she notes that she has a pressure and sensation of fullness in her upper chest. No other recent symptoms such as fevers, chills, cough, congestion, shortness of breath, abdominal pain, nausea, vomiting, or other concerns. She notes that she felt well all day today. Related Data Home Medications Medication Instructions Recorded Confirmed aspirin 81 mg tablet,delayed 81 mg PO DAILY Blood thinner 10/10/20 05/22/23 release (Adult Low Dose Aspirin) atorvastatin 80 mg tablet 80 mg PO DAILY Cholesterol 10/10/20 05/22/23 carvedilol 25 mg tablet 25 mg PO DAILY bp 10/10/20 05/22/23 furosemide 20 mg tablet 20 mg PO DAILY Fluid 10/10/20 05/22/23 losartan 50 mg tablet 50 mg PO DAILY bp 10/10/20 05/22/23 sotalol 120 mg tablet 120 mg PO DAILY bp 10/10/20 05/22/23 rivaroxaban 20 mg tablet (Xarelto) 20 mg PO D
--- NOTE | 2023-05-26 23:55 | PC.NURSE ---
Rounded on pt. No needs voiced at this time.
[2023-05-27] VITALS: BP 131/62; PULSE 60; RESP 12; O2SAT 96
--- NOTE | 2023-05-27 00:16 | PC.NURSE ---
Dr. Price at [facility]
[2023-05-27 00:30] VITALS: BP 119/68; PULSE 61; RESP 12; O2SAT 97
[2023-05-27 01:01] VITALS: BP 139/64; PULSE 60; RESP 12; O2SAT 95
[2023-05-27 01:31] VITALS: BP 165/69; RESP 8; O2SAT 95
[2023-05-27 01:42] LABS: Troponin I 0.02 ng/ml (0.00-0.034)
[2023-05-27 02:01] VITALS: BP 160/66; PULSE 55; RESP 14; O2SAT 95
--- NOTE | 2023-05-27 02:02 | PC.NURSE ---
call placed to [id number] and spoke with wendy. requested sotalol dose
[2023-05-27 02:24] VITALS: BP 172/94; PULSE 71; RESP 15; TEMP 36.7; O2SAT 98
== END 2023-05-27 02:28 | disposition home or self-care (01) ==
PROVIDERS: Emergency Provider Emergency Medicine
DX: I48.0 Paroxysmal atrial fibrillation (principal); Z95.810 Presence of automatic (implantable) cardiac defibrillator; Z79.01 Long term (current) use of anticoagulants; J44.9 Chronic obstructive pulmonary disease, unspecified; Z87.891 Personal history of nicotine dependence
CPT/HCPCS: 71045; 80053; 83735; 84484; 85025; 93005; 99285

== ENCOUNTER → 2023-08-07 14:54 | Outpatient (CLI) | payer MEDICARE, SELFPAY ==
[2023-08-07 15:46] LABS: Alanine Aminotransferase 40 U/L (12-78); Albumin/Globulin Ratio 1.5 (1.1-1.8); Alkaline Phosphatase 107 U/L (38-126); Anion Gap 17.3 mEq/L (5-15); Aspartate Amino Transferase 31 U/L (14-36); Bilirubin,Total 0.6 mg/dl (0.2-1.3); Blood Urea Nitrogen 15 mg/dl (7-17); Carbon Dioxide 25 mmol/L (22.0-30.0); Chloride 105 mmol/L (98-107); Chol/HDL Ratio 2.7 (1-3.5); Cholesterol 109 mg/dl (140-200); Estimated Glomerular Filt Rate 62 ml/min (>60); GFR (African American) 75 ML/MIN (>60); Globulin 3.3 g/dL (1.3-3.2); Glucose 110 mg/dl (74-100); HDL Cholesterol 40 mg/dl (40-60); Potassium 5.3 mmoL/L (3.5-5.1); Sodium 142 mmol/L (136-145); Total Protein,Serum 8.3 g/dl (6.3-8.2); Triglycerides 123 mg/dl (30-150); VLDL Cholesterol 25 mg/dL (0-40)
[2023-08-07 15:57] LABS: Direct LDL Cholesterol 57.83 mg/dL (100-129)
[2023-08-07 16:07] LABS: Hemoglobin A1C 6.6 % (4.0-6.0)
[2023-08-07 16:17] LABS: Thyroid Stimulating Hormone 1.32 uIU/mL (0.465-4.68)
== END ==
PROVIDERS: PCP Nurse Practitioner Family; Visit Provider Nurse Practitioner Family
DX: E11.9 Type 2 diabetes mellitus without complications (principal); E78.5 Hyperlipidemia, unspecified; Z79.84 Long term (current) use of oral hypoglycemic drugs
CPT/HCPCS: 80053; 80061; 83036; 84443

== ENCOUNTER → 2023-10-01 12:03 | Outpatient (CLI) | payer MEDICARE, SELFPAY ==
--- NOTE | 2023-10-01 12:14 | XR_ITS ---
FINAL REPORT CLINICAL HISTORY: right foot pain, swelling FINDINGS: Right foot Three views were obtained. There is no acute fracture or dislocation. There are mild degenerative changes. Note is made of plantar calcaneal spur. No soft tissue abnormality is identified. IMPRESSION: No acute process. Reviewed, Interpreted and Dictated by Hola Poe III, MD Transcribed by Kadie Gray Authenticated and [facility]
[2023-10-01 13:55] LABS: Ferritin 54.9 ng/ml (11.1-264)
[2023-10-01 16:10] LABS: Vitamin B12 560 pg/mL (239-931)
== END ==
LOC: LAB 12:05
PROVIDERS: PCP Nurse Practitioner Family; Visit Provider Nurse Practitioner Family
DX: D69.6 Thrombocytopenia, unspecified (principal); R20.0 Anesthesia of skin; M79.671 Pain in right foot; M79.89 Other specified soft tissue disorders; L03.031 Cellulitis of right toe; B96.89 Other specified bacterial agents as the cause of diseases classified elsewhere
CPT/HCPCS: 36415; 73630; 82607; 82728; 84443; 87070; 87205

== ENCOUNTER → 2023-10-01 13:30 | Outpatient (CLI) | payer MEDICARE, SELFPAY | PROVIDERS: PCP Nurse Practitioner Family; Visit Provider Nurse Practitioner Family | DX: I48.91 Unspecified atrial fibrillation (principal) ==

== ENCOUNTER → 2023-10-30 13:45 | Outpatient (CLI) | payer MEDICARE, SELFPAY ==
[2023-10-30 15:12] LABS: Hemoglobin A1C 6.7 % (4.0-6.0)
[2023-10-30 15:19] LABS: Microalbumin < 6.000 mg/L (0-16.7)
[2023-10-30 15:24] LABS: Alanine Aminotransferase 33 U/L (12-78); Albumin Level 4.7 g/dl (3.5-5.0); Albumin/Globulin Ratio 1.6 (1.1-1.8); Alkaline Phosphatase 88 U/L (38-126); Anion Gap 11.6 mEq/L (5-15); Aspartate Amino Transferase 30 U/L (14-36); Bilirubin,Total 0.5 mg/dl (0.2-1.3); Blood Urea Nitrogen 16 mg/dl (7-17); Calcium 9.4 mg/dl (8.4-10.2); Carbon Dioxide 27 mmol/L (22.0-30.0); Chloride 104 mmol/L (98-107); Cholesterol 114 mg/dl (140-200); Estimated Glomerular Filt Rate 62 ml/min (>60); GFR (African American) 75 ML/MIN (>60); Glucose 115 mg/dl (74-100); HDL Cholesterol 38 mg/dl (40-60); Potassium 4.6 mmoL/L (3.5-5.1); Sodium 138 mmol/L (136-145); Total Protein,Serum 7.7 g/dl (6.3-8.2); Triglycerides 108 mg/dl (30-150); VLDL Cholesterol 22 mg/dL (0-40)
[2023-10-30 15:35] LABS: Direct LDL Cholesterol 61.74 mg/dL (100-129)
[2023-10-30 15:53] LABS: Thyroid Stimulating Hormone 0.86 uIU/mL (0.465-4.68)
== END ==
PROVIDERS: PCP Nurse Practitioner Family; Visit Provider Nurse Practitioner Family
DX: E11.40 Type 2 diabetes mellitus with diabetic neuropathy, unspecified (principal); E78.5 Hyperlipidemia, unspecified; I10 Essential (primary) hypertension; E03.9 Hypothyroidism, unspecified; Z79.84 Long term (current) use of oral hypoglycemic drugs; Z87.891 Personal history of nicotine dependence
CPT/HCPCS: 80053; 80061; 82043; 83036; 84443

== ENCOUNTER 2023-11-25 09:37 | Outpatient (CLI) | payer MEDICARE, SELFPAY ==
[2023-11-25 10:20] LABS: Basophils # 0.1 K/mm3 (0-0.2); Basophils % 0.8 % (0.1-2.0); Eosinophils # 0.2 K/mm3 (0.0-0.4); Eosinophils % 2.4 % (0.1-12.0); Hematocrit 40.9 % (37.0-47.0); Hemoglobin 13.7 g/dL (12.2-16.2); Lymphocytes # 2.3 K/mm3 (0.7-4.5); Lymphocytes % 35.9 % (10-50); Mean Corpuscular HGB Conc 33.4 g/dL (31.8-35.4); Mean Corpuscular Hemoglobin 31.5 pg (27.0-31.2); Mean Corpuscular Volume 94.6 fl (81-99); Mean Platelet Volume 13.7 fl (7.4-10.4); Monocytes # 0.4 K/mm3 (0.1-1.0); Monocytes % 5.5 % (1.7-9.3); Neutrophils # 3.6 K/mm3 (1.8-7.8); Neutrophils % 55.4 % (37.0-80.0); Platelet Count 87 K/mm3 (142-424); Red Blood Count 4.33 M/mm3 (4.20-5.40); Red Cell Distribution Width 14.3 % (11.5-17.5); White Blood Count 6.5 K/mm3 (4.8-10.8)
== END 2023-11-25 23:59 ==
LOC: LAB 09:38
PROVIDERS: Internal Medicine Medical Oncology; PCP Nurse Practitioner Family; Visit Provider Internal Medicine Medical Oncology
DX: D69.3 Immune thrombocytopenic purpura (principal)
CPT/HCPCS: 36415; 85025

== ENCOUNTER 2024-01-27 12:55 | Outpatient (CLI) | payer MEDICARE, SELFPAY ==
[2024-01-27 13:15] LABS: Basophils # 0.1 K/mm3 (0-0.2); Eosinophils # 0.1 K/mm3 (0.0-0.4); Eosinophils % 1.9 % (0.1-12.0); Hematocrit 41.5 % (37.0-47.0); Hemoglobin 13.2 g/dL (12.2-16.2); Lymphocytes % 33.8 % (10-50); Mean Corpuscular HGB Conc 31.8 g/dL (31.8-35.4); Mean Corpuscular Hemoglobin 31.4 pg (27.0-31.2); Mean Corpuscular Volume 98.7 fl (81-99); Mean Platelet Volume 14.5 fl (7.4-10.4); Monocytes # 0.3 K/mm3 (0.1-1.0); Monocytes % 5.2 % (1.7-9.3); Neutrophils # 3.4 K/mm3 (1.8-7.8); Neutrophils % 58.1 % (37.0-80.0); Platelet Count 125 K/mm3 (142-424); Red Cell Distribution Width 14.5 % (11.5-17.5); White Blood Count 5.9 K/mm3 (4.8-10.8)
[2024-01-27 14:20] LABS: Alanine Aminotransferase 35 U/L (12-78); Albumin Level 4.5 g/dl (3.5-5.0); Albumin/Globulin Ratio 1.6 (1.1-1.8); Alkaline Phosphatase 104 U/L (38-126); Anion Gap 13.8 mEq/L (5-15); Aspartate Amino Transferase 28 U/L (14-36); Bilirubin,Total 0.3 mg/dl (0.2-1.3); Blood Urea Nitrogen 10 mg/dl (7-17); Calcium 9.6 mg/dl (8.4-10.2); Carbon Dioxide 24 mmol/L (22.0-30.0); Chloride 108 mmol/L (98-107); Chol/HDL Ratio 3.3 (1-3.5); Cholesterol 115 mg/dl (140-200); Estimated Glomerular Filt Rate 71 ml/min (>60); GFR (African American) 86 ML/MIN (>60); Globulin 2.8 g/dL (1.3-3.2); Glucose 134 mg/dl (74-100); HDL Cholesterol 35 mg/dl (40-60); Potassium 4.8 mmoL/L (3.5-5.1); Sodium 141 mmol/L (136-145); Total Protein,Serum 7.3 g/dl (6.3-8.2); Triglycerides 80 mg/dl (30-150); VLDL Cholesterol 16 mg/dL (0-40)
[2024-01-27 14:31] LABS: Direct LDL Cholesterol 62.78 mg/dL (100-129)
[2024-01-27 14:41] LABS: Microalbumin < 6.000 mg/L (0-16.7)
[2024-01-27 14:50] LABS: Thyroid Stimulating Hormone 0.98 uIU/mL (0.465-4.68)
[2024-01-27 16:01] LABS: Hemoglobin A1C 7.1 % (4.0-6.0)
== END 2024-01-27 23:59 ==
LOC: LAB.DROPOF 12:55
PROVIDERS: PCP Nurse Practitioner Family; Visit Provider Nurse Practitioner Family
DX: R06.02 Shortness of breath; E03.9 Hypothyroidism, unspecified; E11.40 Type 2 diabetes mellitus with diabetic neuropathy, unspecified; E78.5 Hyperlipidemia, unspecified; Z79.84 Long term (current) use of oral hypoglycemic drugs
CPT/HCPCS: 80053; 80061; 82043; 83036; 84443; 85025

== ENCOUNTER 2024-02-04 13:44 | Outpatient (CLI) | payer MEDICARE, SELFPAY ==
[2024-02-04 15:17] VITALS: BMI 36.9
== END 2024-02-04 23:59 ==
PROVIDERS: PCP Nurse Practitioner Family; Visit Provider Nurse Practitioner Family
DX: E11.40 Type 2 diabetes mellitus with diabetic neuropathy, unspecified (principal); Z79.84 Long term (current) use of oral hypoglycemic drugs
CPT/HCPCS: 97802

== ENCOUNTER 2024-02-25 10:24 | Outpatient (CLI) | payer MEDICARE, SELFPAY ==
[2024-02-25 10:58] LABS: Basophils # 0.1 K/mm3 (0-0.2); Basophils % 1.1 % (0.1-2.0); Eosinophils # 0.1 K/mm3 (0.0-0.4); Eosinophils % 2.3 % (0.1-12.0); Hematocrit 40.1 % (37.0-47.0); Hemoglobin 12.8 g/dL (12.2-16.2); Lymphocytes # 2.4 K/mm3 (0.7-4.5); Lymphocytes % 37.2 % (10-50); Mean Corpuscular HGB Conc 31.9 g/dL (31.8-35.4); Mean Corpuscular Hemoglobin 30.6 pg (27.0-31.2); Mean Platelet Volume 14.3 fl (7.4-10.4); Monocytes # 0.3 K/mm3 (0.1-1.0); Monocytes % 4.7 % (1.7-9.3); Neutrophils # 3.5 K/mm3 (1.8-7.8); Neutrophils % 54.8 % (37.0-80.0); Platelet Count 111 K/mm3 (142-424); Red Blood Count 4.18 M/mm3 (4.20-5.40); Red Cell Distribution Width 14.2 % (11.5-17.5); White Blood Count 6.4 K/mm3 (4.8-10.8)
== END 2024-02-25 23:59 ==
LOC: LAB 10:25
PROVIDERS: PCP Nurse Practitioner Family; Visit Provider Internal Medicine Medical Oncology
DX: D69.3 Immune thrombocytopenic purpura (principal)
CPT/HCPCS: 36415; 85025

== ENCOUNTER 2024-02-27 07:45 | Outpatient (CLI) | payer MEDICARE, SELFPAY ==
--- NOTE | 2024-02-27 07:45 | MM_ITS ---
PROCEDURE INFORMATION: Exam: MG Bilateral Screening 3D Mammography Exam date and time: 02/27/2024 7:54 AM Age: 68 years old Clinical indication: Screening examination TECHNIQUE: Imaging protocol: Bilateral Screening tomosynthesis and 2D mammography including computer-aided detection (CAD) when performed. COMPARISON: MG MM DIG SCREENING MAMM BI W/CAD 02/12/2023 9:38 AM FINDINGS: MAMMOGRAPHY: Breast composition: There are scattered areas of fibroglandular density. Mass: None. Architectural distortion: None. Calcifications: No suspicious calcifications. Asymmetric density: None. Skin thickening: None. Axillary adenopathy: None. IMPRESSION: No mammographic evidence of malignancy. Annual screening is recommended unless otherwise clinically indicated. ASSESSMENT: BI-RADS Category 1: Negative
== END 2024-02-27 23:59 ==
LOC: RAD 07:45
PROVIDERS: PCP Nurse Practitioner Family; Visit Provider Nurse Practitioner Family
DX: Z12.31 Encounter for screening mammogram for malignant neoplasm of breast (principal)
CPT/HCPCS: 77063; 77067

== ENCOUNTER 2024-03-10 08:15 | Day surgery (SDC) | payer MEDICARE, SELFPAY ==
[2024-03-09 12:21] VITALS: BMI 35.8
[2024-03-10 08:30] VITALS: BP 148/47; PULSE 62; RESP 18; TEMP 36.3; O2SAT 98
--- NOTE | 2024-03-10 08:34 | HMH.SCOPE ---
Procedure: Date: 03/10/24 Patient Date of :: 1955 Indications:: History of colon polyps Note: Colonoscopy in March 2021 was somewhat complicated by moderate lack of relaxation. A lobulated complex cecal polyp was excised by way of snare and found to be inflammatory. A cluster of hyperplastic-appearing polyps between 10 and 15 cm were also noted. Multiple biopsies confirmed hyperplasia. Performing Provider:: Hayes Snyder MD Referring Provider:: . Sedation:: Monitored anesthesia care Procedure:: After informed consent was obtained the patient was taken to the endoscopy suite. Sedation ensued after the patient was transferred to the left lateral decubitus position. Pulse, blood pressure, and oxygen saturation were monitored throughout the procedure. Digital rectal exam revealed no significant abnormality. The colonoscope was placed in position. The entire colon was evaluated. The colonoscope was carefully removed and the patient was transferred to recovery in stable condition. Please see findings and specimens below for detail. Complications:: No immediate Colonoscopy Component Colonoscopy Component Was a colonoscopy performed during today's procedure?: Yes Recommended follow up colonoscopy of at least 10 years?: No If no, follow up colonoscopy recommended in ___ years?: (See above) Reason for not recommending >/= 10 yr follow-up interval?: (See above)
[2024-03-10 08:42] LABS: POC Glucose,Bedside 118 (70-110)
[2024-03-10] MEDS: LACTATED RINGERS 1000ML 1,000 ML 25 ML IV (08:47)
--- NOTE | 2024-03-10 09:01 | SUR.PREOP ---
Colonoscopy cancelled today r/t Anesthesia needs cardiac clearance before procedure, Dr Snyder in agreement, Patient is in agreement as well and will see cardio doctor tomorrow, IV removed and patient dressing
--- NOTE | 2024-03-10 09:10 | SUR.PREOP ---
SPOKE WITH MARLON IN DR MERINO'S OFFICE TO UPDATE ON PROCEDURE CANCELLATION PER ANESTHESIA FOR NOT HAVING CARDIAC CLEARANCE. INSTRUCTED BJ THAT PT IS SEEING CARDIOLOGY 03/11/24 AND WILL NEED TO OBTAIN A CARDIAC CLEARANCE AND PT WILL NEED RESCHEDULED FOR COLONOSCOPY. VERBALIZED UNDERSTANDING.
== END 2024-03-10 09:09 | disposition home or self-care (01) ==
PROVIDERS: PCP Nurse Practitioner Family; Visit Provider Surgery
PROC: 0DJD8ZZ Inspection of Lower Intestinal Tract, Via Natural or Artificial Opening Endoscopic (ICD-10-PCS; CPT G0105; principal; 2024-03-10 09:30)
DX: Z53.8 Procedure and treatment not carried out for other reasons (principal); Z86.010 Personal history of colon polyps; Z79.899 Other long term (current) drug therapy
CPT/HCPCS: G0105; 82962

== ENCOUNTER 2024-03-16 07:45 | Outpatient (CLI) | payer MEDICARE, SELFPAY ==
--- NOTE | 2024-03-16 07:46 | CT_ITS ---
FINAL REPORT TECHNIQUE: Thin section axial images were obtained from the lung apices to the upper abdomen by computed tomography. Reformatted images were obtained and reviewed. This study was performed with techniques to keep radiation doses al low as reasonably achievable (ALARA). Individualized dose reduction techniques using automated exposure control or adjustment of mA and/or kV according to the patient's size were employed. CLINICAL HISTORY: lung cancer screening former smoker, quit 10 years ago. smoked 2 ppds per day 40 years COMPARISON: 03/15/2023 FINDINGS: CHEST CT LOW DOSE 69-year-old female, former smoker who quit 10 years ago, 12-[id number] history. CTDI vol (mGy): 2.9 DLP (mGy-cm): 99.77 The patient has undergone a previous midline sternotomy. A left subclavian pacer is present. There is no axillary adenopathy. Small nonspecific mediastinal nodes are present. The heart is normal in size. A small right pleural effusion is present. There is mild emphysema and mild pulmonary scarring. Lung window images demonstrate a 4 mm pleural-based nodule in the posterior right upper lobe seen best on image #18, stable. There is a 7 mm groundglass nodule in the right lower lobe seen best on image #43, also stable. A small calcified granuloma is present in the left lower lung field. No evidence of new mass or nodule is present. Limited images of the upper abdomen are unremarkable. IMPRESSION: Lung-RADS category 2. Recommend 12 month follow up low dose chest CT. Reviewed, Interpreted and Dictated by Hola Poe III, MD Transcribed by Ashley Mascorro Authenticated and [facility]
== END 2024-03-16 23:59 | disposition home or self-care (01) ==
LOC: RAD 07:46
PROVIDERS: PCP Nurse Practitioner Family; Visit Provider Internal Medicine Pulmonary Disease
DX: F17.210 Nicotine dependence, cigarettes, uncomplicated (principal); Z12.2 Encounter for screening for malignant neoplasm of respiratory organs
CPT/HCPCS: 71271

== ENCOUNTER 2024-03-31 06:16 | Day surgery (SDC) | payer MEDICARE, SELFPAY ==
[2024-03-30 09:39] VITALS: BMI 34.5
--- NOTE | 2024-03-30 09:42 | SUR.PREOP ---
[id number]- Reviewed medical chart and heart history with Juliet TYLER before pre-oping patient via telephone. Ok per anesthesia to proceed with case.
[2024-03-31] VITALS (7 sets, daily range): BP systolic 101–147; BP diastolic 44–73; PULSE 52–61; RESP 16–18; TEMP 36.5–36.6; O2SAT 95–97; BMI 34.5
[2024-03-31 06:36] LABS: POC Glucose,Bedside 104 (70-110)
[2024-03-31] MEDS: LACTATED RINGERS 1000ML 1,000 ML 100 ML IV (06:47)
--- NOTE | 2024-03-31 07:11 | HMH.SCOPE ---
Procedure: Date: 03/31/24 Patient Date of :: 1955 Procedure Performed:: Colonoscopy with polypectomy Indications:: History of colon polyps Colonoscopy March 2021 was somewhat complicated by poor relaxation. A cluster of hyperplastic-appearing polyps between 10 and 15 cm was noted. Biopsies confirmed hyperplasia. An additional cecal polyp was excised. Performing Provider:: Hayes Snyder MD Referring Provider:: . Sedation:: Monitored anesthesia care Procedure:: After informed consent was obtained the patient was taken to the endoscopy suite. Sedation ensued after the patient was transferred to the left lateral decubitus position. Pulse, blood pressure, and oxygen saturation were monitored throughout the procedure. Digital rectal exam revealed no significant abnormality. The colonoscope was placed in position. The entire colon was evaluated. The colonoscope was carefully removed and the patient was transferred to recovery in stable condition. Please see findings and specimens below for detail. Findings:: Bowel preparation moderate Sessile polyp at 15 cm Specimens:: Sessile polyp at 15 cm (cold snare) Recommendations:: Timing of repeat colonoscopy is pending pathology will likely be between 3-5 years. Complications:: No immediate Estimated blood obtained (mL): 1 Colonoscopy Component Colonoscopy Component Was a colonoscopy performed during today's procedure?: Yes Recommended follow up colonoscopy of at least 10 years?: No If no, follow up colonoscopy recommended in ___ years?: (See above) Reason for not recommending >/= 10 yr follow-up interval?: (See above)
--- NOTE | 2024-03-31 07:14 | EXP.ANES.CKL ---
[facility] Disclaimer: The information contained in this section may have been updated after the patient was seen, as this information can be updated by other users. Medical History Allergic rhinitis Pre-diabetes Hypothyroidism Hyperlipidemia Hypertension Past heart attack Encounter for screening for malignant neoplasm of lung Pulmonary emphysema COPD (chronic obstructive pulmonary disease) Dyspnea on exertion Multiple pulmonary nodules Screening for lung cancer Stopped smoking with greater than 30 pack year history Surgical History AICD (automatic cardioverter/defibrillator) present H/O bladder repair surgery H/O cardiac radiofrequency ablation Hx of CABG History of tubal ligation History of hysterectomy History of colonoscopy History of permanent cardiac pacemaker placement Family History Other Diabetes Heart attack Social History (Updated 03/31/24 @ 06:29 by Melinda Pinto RN) Smoking Status: Former smoker smoking status stop date: oct 2014 alcohol intake: never substance use type: denies use current occupational status: retired Travel in the last 8 weeks: None household members: none housing: house current occupational exposures/hazards: No caffeine: Yes [facility] Anesthesia Checklist Patient Identification Patient Identification: Arm Band, Family and Verbal (Name & ) Structural Data Admitted From: Home Planned Operative Procedure/s: Colonoscopy Consent for Planned Operative Procedure(s) Verified: Yes Verified Documents: Surgical Consent and History and Physical NPO Status Verified Time NPO: 02:30 Chart Verification Results Verified: CBC, BMP, ECG and Chest Xray Additional verifications Fingerstick Blood Glucose: 104 Patient : No Anesthesia Reactions: No Cardiovascular Assessment Heart Sounds: S1 & S2 Pulse Rhythm: Irregular Peripheral Edema: No Airway Assessment Mallampati Score:: Class II C-Spine Mobility Assessed: Yes (FROM) TMJ Mobility Assessed: Yes Dentition: Dentures-good fit (Nothing loose per pt.) Neurological Assessment Level of Consciousness: Awake, Alert, Appropriate and Follows Commands Hx Seizures: No Numbness or tingling in extremities: Yes (RT. Foot) Anesthesia Plan Anesthesia Risk discussed: Yes Anesthesia Plan: Verified ASA Class: III Anesthesia Type: MAC
--- NOTE | 2024-03-31 07:55 | EXP.ANES.I ---
[facility] Anesthesia Record Part I Anesthesia Record I Intake, IV Amount: 400 Hydration: Adequate Estimated blood loss (mL): 1 Urine output (mL): 0 Blood Products used (#): none Blood Pressure: 101/44 SaO2: 95 Pulse Rate: 52 Airway Patency: Patent Respiratory Rate: 16 Temperature: 97.9 F Patient is:: Awake (Talking) and Stable Stable to PACU at:: 07:55
[2024-03-31 08:01] LABS: POC Glucose,Bedside 99 (70-110)
== END 2024-03-31 08:22 | disposition home or self-care (01) ==
PROVIDERS: PCP Nurse Practitioner Family; Visit Provider Surgery
PROC: 0DJD8ZZ Inspection of Lower Intestinal Tract, Via Natural or Artificial Opening Endoscopic (ICD-10-PCS; CPT 45385; principal; 2024-03-31 07:30)
DX: Z12.11 Encounter for screening for malignant neoplasm of colon (principal); Z86.010 Personal history of colon polyps; K63.5 Polyp of colon; R73.03 Prediabetes
CPT/HCPCS: 45385; 82962

== ENCOUNTER 2024-04-21 15:00 | Outpatient (CLI) | payer MEDICARE, SELFPAY ==
[2024-04-21 14:50] LABS: Alanine Aminotransferase 28 U/L (12-78); Albumin Level 4.6 g/dl (3.5-5.0); Albumin/Globulin Ratio 1.6 (1.1-1.8); Alkaline Phosphatase 104 U/L (38-126); Anion Gap 16.9 mEq/L (5-15); Aspartate Amino Transferase 23 U/L (14-36); Bilirubin,Total 0.5 mg/dl (0.2-1.3); Blood Urea Nitrogen 12 mg/dl (7-17); Carbon Dioxide 27 mmol/L (22.0-30.0); Chloride 103 mmol/L (98-107); Estimated Glomerular Filt Rate 71 ml/min (>60); GFR (African American) 86 ML/MIN (>60); Globulin 2.9 g/dL (1.3-3.2); Glucose 129 mg/dl (74-100); Potassium 4.9 mmoL/L (3.5-5.1); Sodium 142 mmol/L (136-145); Total Protein,Serum 7.5 g/dl (6.3-8.2)
[2024-04-21 15:01] LABS: Hemoglobin A1C 6.5 % (4.0-6.0); Microalbumin < 6.000 mg/L (0-16.7)
[2024-04-21 15:19] LABS: Thyroid Stimulating Hormone 0.29 uIU/mL (0.465-4.68)
[2024-04-21 15:37] LABS: Vitamin B12 400 pg/mL (239-931)
== END 2024-04-21 23:59 | disposition home or self-care (01) ==
LOC: LAB.DROPOF 15:01
PROVIDERS: PCP Nurse Practitioner Family; Visit Provider Nurse Practitioner Family
DX: E03.9 Hypothyroidism, unspecified (principal); E78.5 Hyperlipidemia, unspecified; E11.40 Type 2 diabetes mellitus with diabetic neuropathy, unspecified; Z68.34 Body mass index [BMI] 34.0-34.9, adult; Z79.84 Long term (current) use of oral hypoglycemic drugs
CPT/HCPCS: 80053; 82043; 82607; 82728; 83036; 84443

== ENCOUNTER 2024-05-19 11:56 | Outpatient (CLI) | payer MEDICARE, SELFPAY ==
[2024-05-19 12:23] LABS: Basophils % 0.8 % (0.1-2.0); Eosinophils # 0.1 K/mm3 (0.0-0.4); Eosinophils % 2.4 % (0.1-12.0); Hematocrit 39.1 % (37.0-47.0); Hemoglobin 12.9 g/dL (12.2-16.2); Lymphocytes # 1.8 K/mm3 (0.7-4.5); Lymphocytes % 33.4 % (10-50); Mean Corpuscular HGB Conc 33.1 g/dL (31.8-35.4); Mean Corpuscular Hemoglobin 31.5 pg (27.0-31.2); Mean Corpuscular Volume 95.1 fl (81-99); Mean Platelet Volume 14.4 fl (7.4-10.4); Monocytes # 0.3 K/mm3 (0.1-1.0); Monocytes % 5.7 % (1.7-9.3); Neutrophils # 3.1 K/mm3 (1.8-7.8); Neutrophils % 57.7 % (37.0-80.0); Platelet Count 115 K/mm3 (142-424); Red Blood Count 4.11 M/mm3 (4.20-5.40); Red Cell Distribution Width 14.8 % (11.5-17.5); White Blood Count 5.3 K/mm3 (4.8-10.8)
[2024-05-19 12:51] LABS: Alanine Aminotransferase 32 U/L (12-78); Albumin Level 4.5 g/dl (3.5-5.0); Albumin/Globulin Ratio 1.6 (1.1-1.8); Alkaline Phosphatase 106 U/L (38-126); Anion Gap 13.7 mEq/L (5-15); Aspartate Amino Transferase 25 U/L (14-36); Bilirubin,Total 0.5 mg/dl (0.2-1.3); Blood Urea Nitrogen 16 mg/dl (7-17); Calcium 10.2 mg/dl (8.4-10.2); Carbon Dioxide 26 mmol/L (22.0-30.0); Chloride 103 mmol/L (98-107); Estimated Glomerular Filt Rate 71 ml/min (>60); GFR (African American) 86 ML/MIN (>60); Globulin 2.9 g/dL (1.3-3.2); Glucose 127 mg/dl (74-100); Potassium 4.7 mmoL/L (3.5-5.1); Sodium 138 mmol/L (136-145); Total Protein,Serum 7.4 g/dl (6.3-8.2)
[2024-05-19 13:05] LABS: T4 (Thyroxine) 6.7 ug/dl (5.53-11.0)
[2024-05-19 13:18] LABS: Thyroid Stimulating Hormone 1.53 uIU/mL (0.465-4.68)
[2024-05-19 18:11] LABS: Free T4 (Free Thyroxine) 0.96 ng/dl (0.78-2.19)
[2024-05-20 08:21] LABS: Triiodothyronine (T3) Free 2.4 pg/mL (2.0-4.4)
[2024-05-20 15:34] LABS: Hemoglobin A1C 6.5 % (4.0-6.0)
== END 2024-05-19 23:59 | disposition home or self-care (01) ==
LOC: LAB.DROPOF 11:56
PROVIDERS: PCP Nurse Practitioner Family; Visit Provider Nurse Practitioner Family
DX: E03.9 Hypothyroidism, unspecified (principal); D69.6 Thrombocytopenia, unspecified; E78.5 Hyperlipidemia, unspecified; E11.40 Type 2 diabetes mellitus with diabetic neuropathy, unspecified; I10 Essential (primary) hypertension
CPT/HCPCS: 80050; 80053; 83036; 84436; 84439; 84443; 84481; 85025

== ENCOUNTER 2024-07-29 08:14 | Outpatient (CLI) | payer MEDICARE, SELFPAY ==
--- NOTE | 2024-07-29 08:31 | CA_ITS ---
FINAL REPORT CLINICAL HISTORY: BLE pain, Pain at rest in bilaterl upper legs and inguinal area. Ex-smoker, CAD/CABG, DM, HTN, HLD FINDINGS: Right lower extremity, flow velocities (cm per second): Common femoral artery: 156 Profunda: 77 Proximal SFA: 178 Mid SFA 112 Distal SFA: 147 Posterior tibial artery mid: 101 Posterior tibial artery distal: 72 Anterior tibial artery: 39 Peroneal: 72 Waveforms are biphasic with the exception of the tibial waveforms which are monophasic and biphasic. There is moderate echogenic plaque in the right common femoral artery. Left lower extremity, flow velocities (cm per second): Common femoral artery: 113 Profunda: 80 Proximal SFA: 69 Mid SFA: 113 Distal SFA: 327 Posterior tibial artery mid: 79 Posterior tibial artery distal: 55 Anterior tibial artery: 55 Peroneal: 43 There is moderate plaque in the left common femoral artery. There are biphasic waveforms in the common femoral artery. There are biphasic waveforms in the femoral artery. There is a focal stenosis in the distal left superficial femoral artery. There are monophasic waveforms distal to the stenosis in the distal superficial femoral, popliteal and tibial vessels. IMPRESSION: Moderate plaque in the common femoral arteries bilaterally. Significant stenosis in the distal left superficial femoral artery with monophasic waveforms distal to the stenosis. Recommend CTA. Reviewed, Interpreted and Dictated by Leodan Up MD Transcribed by Kadie Gray Authenticated and [facility]
--- NOTE | 2024-07-29 09:05 | XR_ITS ---
FINAL REPORT CLINICAL HISTORY: right lower back pain with radiculopathy COMPARISON: None FINDINGS: 3 views of the lumbar spine were obtained. There is no evidence of fracture. There is no malalignment. The vertebrae are normal in height. Moderate facet sclerosis is noted in the lower lumbar spine. No paraspinous soft tissue abnormalities identified. IMPRESSION: Degenerative changes without acute process. Reviewed, Interpreted and Dictated by Leodan Up MD Transcribed by Leah Flowers Authenticated and . [facility]
--- NOTE | 2024-07-29 09:05 | XR_ITS ---
FINAL REPORT CLINICAL HISTORY: Right hip pain COMPARISON: None FINDINGS: RIGHT HIP Two views of the right hip and an AP pelvis demonstrate no acute fracture or dislocation. The joint spaces appear normal. The visualized bony structures are well aligned. No soft tissue abnormality is seen. IMPRESSION: No acute bony abnormality. Reviewed, Interpreted and Dictated by Leodan Up MD Transcribed by Leah Flowers Authenticated and [facility]
== END 2024-07-29 23:59 | disposition home or self-care (01) ==
LOC: RT 08:15
PROVIDERS: PCP Nurse Practitioner Family; Visit Provider Nurse Practitioner Family
DX: I73.9 Peripheral vascular disease, unspecified (principal); R20.8 Other disturbances of skin sensation; E11.40 Type 2 diabetes mellitus with diabetic neuropathy, unspecified; M54.50 Low back pain, unspecified; M25.551 Pain in right hip
CPT/HCPCS: 72100; 73502; 93925

== ENCOUNTER 2024-08-17 12:23 | Outpatient (CLI) | payer MEDICARE, SELFPAY ==
[2024-08-17 13:39] LABS: Albumin Level 4.3 g/dl (3.5-5.0); Chloride 104 mmol/L (98-107); Potassium 4.3 mmoL/L (3.5-5.1); Sodium 138 mmol/L (136-145)
[2024-08-17 13:41] LABS: Blood Urea Nitrogen 15 mg/dl (7-17); Estimated Glomerular Filt Rate 71 ml/min (>60); GFR (African American) 86 ML/MIN (>60)
[2024-08-17 13:42] LABS: Alanine Aminotransferase 30 U/L (12-78); Albumin/Globulin Ratio 1.7 (1.1-1.8); Alkaline Phosphatase 81 U/L (38-126); Anion Gap 11.3 mEq/L (5-15); Aspartate Amino Transferase 26 U/L (14-36); Bilirubin,Total 0.6 mg/dl (0.2-1.3); Calcium 9.7 mg/dl (8.4-10.2); Carbon Dioxide 27 mmol/L (22.0-30.0); Globulin 2.6 g/dL (1.3-3.2); Glucose 198 mg/dl (74-100); Total Protein,Serum 6.9 g/dl (6.3-8.2)
== END 2024-08-17 23:59 | disposition home or self-care (01) ==
LOC: LAB 12:25
PROVIDERS: PCP Nurse Practitioner Family; Visit Provider Nurse Practitioner Family
DX: I10 Essential (primary) hypertension (principal); E11.42 Type 2 diabetes mellitus with diabetic polyneuropathy
CPT/HCPCS: 36415; 80053

== ENCOUNTER 2024-08-18 10:10 | Outpatient (CLI) | payer MEDICARE, SELFPAY ==
--- NOTE | 2024-08-18 10:11 | CT_ITS ---
FINAL REPORT TECHNIQUE: Thin section axial CT images of the abdomen, pelvis and lower extremities were obtained with contrast. Multiplanar reformatted images were also obtained and reviewed. This study was performed with techniques to keep radiation doses as low as reasonably achievable, (ALARA). Individualized dose reduction techniques using automated exposure control or adjustment of mA and/or kV according to the patient's size were employed. CLINICAL HISTORY: Peripheral vascular disease. COMPARISON: None. FINDINGS: ABDOMEN AND PELVIS: There are diffuse vascular calcifications. There is no abdominal aortic aneurysm or dissection. Celiac axis is not imaged. SMA origin is not imaged. Right renal artery origin is not imaged. Left renal artery origin is partially imaged. The inferior mesenteric artery is patent. There is no significant stenosis of the right common iliac artery or external right iliac artery. There is no significant stenosis of the left common iliac artery or external left iliac artery. The internal iliac arteries are patent. RIGHT LOWER EXTREMITY: There is mild irregularity of the SFA. There is no significant stenosis of the right common femoral or superficial femoral arteries. The right deep femoral artery is patent. The right popliteal artery is patent. There is three-vessel runoff to the distal lower leg. LEFT LOWER EXTREMITY: There is mild irregularity of the SFA. There is no significant stenosis of the left common femoral or superficial femoral arteries. The left deep femoral artery is patent. The left popliteal artery is patent. There is three-vessel runoff to the distal lower leg. IMPRESSION: No significant vascular disease. Reviewed, Interpreted and Dictated by Hola Poe III, MD Transcribed by Orquidea Ramires PA-C Authenticated and [facility]
[2024-08-18] MEDS: 0.9 % SODIUM CHLORIDE 50 ML VIAL IV (10:54)
[2024-08-18] MEDS: IOPAMIDOL-370 (76%);100ML BOTTLE 100 ML IV (10:54)
[2024-08-18] MEDS: SODIUM CHLORIDE 0.9% 10ML SYR (RAD ONLY) 10 ML IV (10:54)
== END 2024-08-18 23:59 | disposition home or self-care (01) ==
LOC: RAD 10:11
PROVIDERS: PCP Nurse Practitioner Family; Visit Provider Nurse Practitioner Family
DX: I73.9 Peripheral vascular disease, unspecified (principal)
CPT/HCPCS: 73706; Q9967

== ENCOUNTER 2024-08-27 12:42 | Outpatient (CLI) | payer MEDICARE, SELFPAY ==
--- NOTE | 2024-08-27 12:43 | CT_ITS ---
FINAL REPORT TECHNIQUE: Axial imaging of the lumbar spine was obtained without contrast. Reformatted images were also obtained and reviewed.This study was performed with techniques to keep radiation doses as low as reasonably achievable, (ALARA). Individualized dose reduction techniques using automated exposure control or adjustment of mA and/or kV according to the patient's size were employed. CLINICAL HISTORY: LBP with sciatica, facet joint syndrome FINDINGS: There is no acute fracture or subluxation. The vertebra are normal height. There is no malalignment. Facets are properly aligned. Prevertebral soft tissues unremarkable. At L4-5 there is moderate diffuse disc bulge with moderate bilateral facet hypertrophy and moderate to high-grade bilateral neuroforaminal narrowing. At L5-S1 there is mild diffuse disc bulge with mild bilateral neuroforaminal narrowing. IMPRESSION: No acute bony abnormality. Diffuse disc bulge at L4-5 with moderate facet hypertrophy and moderate to high-grade bilateral neuroforaminal narrowing. Reviewed, Interpreted and Dictated by Leodan Up MD Transcribed by Beverly Lee Authenticated and [facility]
== END 2024-08-27 23:59 | disposition home or self-care (01) ==
LOC: RAD 12:43
PROVIDERS: PCP Nurse Practitioner Family; Visit Provider Nurse Practitioner Family
DX: M47.816 Spondylosis without myelopathy or radiculopathy, lumbar region (principal); M54.50 Low back pain, unspecified; R20.8 Other disturbances of skin sensation
CPT/HCPCS: 72131

== ENCOUNTER 2024-09-14 09:07 | Outpatient (CLI) | payer MEDICARE, SELFPAY ==
[2024-09-14 09:30] LABS: Basophils # 0.1 K/mm3 (0-0.2); Basophils % 1.3 % (0.1-2.0); Eosinophils # 0.1 K/mm3 (0.0-0.4); Eosinophils % 2.1 % (0.1-12.0); Hematocrit 39.2 % (37.0-47.0); Hemoglobin 13.1 g/dL (12.2-16.2); Lymphocytes # 2.1 K/mm3 (0.7-4.5); Lymphocytes % 38.5 % (10-50); Mean Corpuscular HGB Conc 33.5 g/dL (31.8-35.4); Mean Corpuscular Volume 92.6 fl (81-99); Mean Platelet Volume 13.9 fl (7.4-10.4); Monocytes # 0.3 K/mm3 (0.1-1.0); Monocytes % 5.8 % (1.7-9.3); Neutrophils # 2.9 K/mm3 (1.8-7.8); Neutrophils % 52.4 % (37.0-80.0); Platelet Count 103 K/mm3 (142-424); Red Blood Count 4.23 M/mm3 (4.20-5.40); Red Cell Distribution Width 14.3 % (11.5-17.5); White Blood Count 5.5 K/mm3 (4.8-10.8)
[2024-09-14 10:29] LABS: Free T4 (Free Thyroxine) 1.17 ng/dl (0.78-2.19)
[2024-09-14 12:27] LABS: Thyroid Stimulating Hormone 0.99 uIU/mL (0.465-4.68)
[2024-09-14 12:55] LABS: Albumin Level 4.4 g/dl (3.5-5.0)
[2024-09-14 12:57] LABS: Blood Urea Nitrogen 19 mg/dl (7-17); Estimated Glomerular Filt Rate 55 ml/min (>60); GFR (African American) 67 ML/MIN (>60)
[2024-09-14 12:58] LABS: Alanine Aminotransferase 27 U/L (12-78); Alkaline Phosphatase 99 U/L (38-126); Aspartate Amino Transferase 40 U/L (14-36); Bilirubin,Total 0.6 mg/dl (0.2-1.3); Carbon Dioxide 23 mmol/L (22.0-30.0)
[2024-09-14 15:25] LABS: Chloride 106 mmol/L (98-107); Sodium 141 mmol/L (136-145)
[2024-09-14 15:28] LABS: Bilirubin,Direct 0.2 mg/dl (0.0-0.4); Bilirubin,Indirect 0.3 mg/dL (0.0-0.9); Bilirubin,Unconjugated 0.3 mg/dL (0.0-1.1); Calcium 10.1 mg/dl (8.4-10.2); Chol/HDL Ratio 2.2 (1-3.5); Cholesterol 101 mg/dl (140-200); Glucose 147 mg/dl (74-100); HDL Cholesterol 46 mg/dl (40-60); Total Protein,Serum 7.1 g/dl (6.3-8.2); Triglycerides 102 mg/dl (30-150); VLDL Cholesterol 20 mg/dL (0-40)
== END 2024-09-14 23:59 | disposition home or self-care (01) ==
LOC: LAB 09:08
PROVIDERS: PCP Nurse Practitioner Family; Visit Provider Nurse Practitioner
DX: I10 Essential (primary) hypertension (principal); I25.810 Atherosclerosis of coronary artery bypass graft(s) without angina pectoris; E03.9 Hypothyroidism, unspecified; E78.5 Hyperlipidemia, unspecified
CPT/HCPCS: 36415; 80048; 80061; 80076; 84439; 84443; 85025

== ENCOUNTER 2024-09-23 12:24 | Outpatient (CLI) | payer MEDICARE, SELFPAY ==
--- NOTE | 2024-09-23 12:54 | CA_ITS ---
APPROVED REPORT EXAM: Comprehensive 2D, Doppler, and color-flow Echocardiogram Chronometer Assembler And Adjuster: Eula Shea CRT Ht: 5 ft 2 in Wt: 195lbs BSA: 1.89 BP: 122/46 mmHg Indications: CABG, PR, AICD, A FIB, ABLATION ECHO 07/03 20% AT [facility] ECHO 11/28 25-30% 2D Dimensions Left Atrium 3.64 cm LVEF (Hernández's) 24.90 % LVOT 1.76 cm (M/F) 1.5-2.5 LV Volume 131.60 mL LA Volume 31.70 mL LA Volume Index 16.80 mL/m2 (M/F) 16-34 EF AP4 25.70 % EF AP2 35.7 % EF BP 24.9 % GL Strain -7.1 % M-Mode Dimensions RVDd 2.47 cm (0.9-2.6) LVDd 6.61 cm (3.5-5.7) Ao Diam 3.46 cm (2.0-3.7) LVDs 5.68 cm (3.5-5.7) IVSd 0.68 cm (0.6-1.1) PWd 0.75 cm (0.6-1.1) EF (Teich) 29.20% FS 14.10% EDV (Teich) 224.40 mL TAPSE 1.09 (<1.7) ESV (Teich) 158.80 mL LV Diastology E Decel Time 333 (160-240 msec) E/A Ratio 0.71 MED E' 4.0 (>= 7 cm/sec) MED A' 9.10 cm/s E'/MED E' Ratio 14.77 (<= 14) LAT E' 5.3 (>= 10 cm/sec) LAT A' 7.40 cm/s E/LAT E' Ratio 11.15 (<= 14) Aortic Valve AoV Peak Michael. 132.0 (50-130 cm/s) AO Peak GR. 7.00 mmHg Mitral Valve MV E Max Michael. 59.0 (40-130 cm/s) MV A Velocity 83.0 (40-130 cm/s) E/A Ratio 0.71 MV Decel. Time 333 (160-240 ms) Tricuspid Valve TR P. Velocity 462.00 cm/s RAP Estimate 10.00 mmHg RVSP 95.40 mmHg Left Ventricle The left ventricle is normal size. Left ventricular systolic function is severely decreased. There is normal LV wall thickness. There is severe global hypokinesis present. The mid to distal septal, anteroseptal, and anterior LV vaca or akinetic. The LV apex is akinetic. Grade 2 diastolic dysfunction is present. LVEF is 20%. Right Ventricle The right ventricle is normal size. The right ventricular systolic function is normal. Atria Left atrium is mildly dilated. The right atrium size is normal. There is no Doppler evidence of interatrial shunt. Aortic Valve The aortic valve is mildly thickened. There is no aortic valvular stenosis. Trace aortic regurgitation. Mitral Valve The mitral valve leaflets are mildly thickened. The posterior MV leaflet is tethered and restricted in motion. No evidence of mitral valve stenosis. Moderate mitral regurgitation. The MR jet is eccentric and posteriorly directed. The mechanism of MR is likely due to tethering of the posterior MV leaflet ([place] class IIIb). Tricuspid Valve The tricuspid valve leaflets are thin and pliable. Trace tricuspid regurgitation. There is insufficient TR jet to estimate RVSP. Pulmonic Valve The pulmonary valve is normal in structure. Trace pulmonic regurgitation. Great Vessels The aortic root is normal in size. The ascending aorta is not well-visualized. IVC is normal in size and collapses >50% with inspiration. Pericardium There is no pericardial effusion. Other Information Study Quality: Fair Conclusion Severely reduced LV systolic function (LVEF 20%). The mid to distal septal, anteroseptal, and anterior LV vaca or akinetic. The LV apex is akinetic. Grade 2 diastolic dysfunction. Mild LA dilation. Tethering of the posterior MV leaflet. Moderate MR (eccentric jet). Electronically signed by : Heike Long MD 09/28/2024 00:43:37
== END 2024-09-23 23:59 | disposition home or self-care (01) ==
LOC: RT 12:25
PROVIDERS: PCP Nurse Practitioner Family; Visit Provider Nurse Practitioner
DX: I51.7 Cardiomegaly (principal); I25.810 Atherosclerosis of coronary artery bypass graft(s) without angina pectoris; E03.9 Hypothyroidism, unspecified; E78.5 Hyperlipidemia, unspecified
CPT/HCPCS: 93306

== ENCOUNTER 2024-11-10 08:00 | Outpatient (RCR) | payer MEDICARE, SELFPAY ==
--- NOTE | 2024-09-03 09:42 | HMH.PTOPEV ---
PT Outpatient Evaluation Rehab PT Outpatient Evaluation Start: 09/03/24 07:55 Freq: Status: Active Protocol: Document 09/03/24 07:55 MYLA (Rec: 09/03/24 09:41 MYLA [id number]) E-signed By Lamar Troncoso, PT Outpatient Therapy Subjective History Subjective History This is an initial PT evaluation for 69 y/o female, Melida Mcduffie, who presents with referral for LBP. Pt reports these symptoms started years ago. Pt reports progressive worsening over past few years. Pt has been going to the chiropractor for ~40 years but reports she hasn 't received much relief recently. Pt's referral reports she has L4-L5 disc bulges with impingement of nerve roots. Pt has not had PT in past for her back. Pt denies any recent injury. Pt reports she was thrown off of a horse when she was 14 years old and has possibly had pain since. Pt's sciatic pain is mostly R-sided but may be starting on the left side. Pt also feels some groin pulling and hip stiffness. Pt's shooting pain goes down to her big toe. Denies any previous spinal surgeries. PMH: AICD present (no ESTIM), Hypothyroidism, Hyperlipidemia , Hypertension, Past heart attack, Pulmonary emphysema, COPD, neuropathy, Lumbar CT 08/27: No acute bony abnormality. Diffuse disc bulge at L4-5 with moderate facet hypertrophy and moderate to high-grade bilateral neuroforaminal narrowing. New diagnosis of cancer in past 12 No months? Chief Complaint Pain,Stiff,Weakness Symptom Type Ache,Shooting Symptoms Relieved By Rest/Positioning,Heat,Ice,OTC Meds Symptoms Aggravated By Sitting,Standing,Physical Activity,Walking Prior Functional Limitations None Current Functional Limitations Housework,Standing,Squatting, Recreation Activity,Walking, Stairs Symptom Description Constant but Variable,Activity Dependent Level of pain today (0-10) 4 Pain scale - at its best (0-10) 1 Pain scale - at its worst (0-10) 10 Lumbopelvic Eval Posture Thoracic Spine Posture Standing Position Neutral Lumbar Spine Posture Standing Position Neutral Assistive device Assistive Devices None / NA Gait Observation General Gait Pattern Observation No Deviations/Normal Palapation tenderness right lumbar spinal tenderness Yes: R side 2/4 TTP paraspinal tenderness Yes: R side 1/4 TTP buttock tenderness Yes: R side 1/4 TTP Lumbar/Sacral Palpation Findings Tenderness Accessory Movement L-spine Vertebrae Accessory Movements Right P/A Butner,Left P/A Butner that Elicit Symptoms L3 right L4 right,left Range of Motion Lumbar Spine Active Flexion Range of 60 degrees Motion (degrees) Lumbar Spine Active Extension Range of 25 degrees Motion (degrees) Left Lumbar Spine Lateral Flexion Active 20 degrees Range of Motion (degrees) Right Lumbar Spine Lateral Flexion 15, painful Active Range of Motion (degrees) Lumbar Spine ROM Limitations Pain Manual Muscle Test Left Knee Extension Strength Grade 5 Normal Knee Flexion Strength Grade 5 Normal Hip Flexion Strength Grade 4 Good Hip Abduction Strength Grade 5 Normal Hip Adduction Strength Grade 5 Normal Hip External Rotation Strength Grade 4 Good Right Knee Extension Strength Grade 4 Good Knee Flexion Strength Grade 4 Good Hip Flexion Strength Grade 4- Good- Hip Abduction Strength Grade 4 Good Hip Adduction Strength Grade 4 Good Hip External Rotation Strength Grade 4- Good- Special Tests Hip Scouring (Quadrant) Test Negative Right Hip Chavez (NORA) Test Negative Right Hip Piriformis Test Positive Right Sciatic Nerve Tension Test Positive Left,Positive Right Crossed Straight Leg Raise Test Negative Left,Negative Right Sacroiliac Joint Compression Test Negative Left,Negative Right Sacroiliac Joint Distraction Test Negative Left,Negative Right Lumbar Long Henriette Distraction Test/Manual Negative Traction Oswestry Index Section 1 Pain Intensity The pain comes and goes and is severe Section 2 Personal Care (Washing,Dresing) increase the pain, but I manage not to change my way of doing it Section 3 Lifting I can lift heavy weights without extra pain Section 4 Walking I have some pain when walking but it does not increase with distance Section 5 Sitting I can sit in my favorite chair for as long as I like Section 6 Standing I can stand as long as I want without pain Section 7 Sleeping Because of pain, my normal nights sleep is less than 2 hours sleep Section 8 Social Life Pain has no significant effect on my social life apart from limiting Section 9 Traveling I get some pain when traveling , but none of my usual forms of travel m Section 10 Changing Degreee of Pain My pain is neither getting better or worse Score and Risk Level Oswestry Sc 18 Oswestry Risk Level Moderate Disability Outpatient Therapy Assessment Impairments Problems/Impairmments Palpation Tenderness,Impaired Range of Motion,Impaired Strength,Impaired Walking, Impaired Standing,Impaired Sitting,Impaired Household Care,Impaired Stair Climbing, Impaired Stepping on Uneven Surface,Impaired Squatting, Impaired Bending,Impaired Recreational Activities, Impaired Balance,Subjective C/ O Pain Prognosis Rehab Potential Good Comment Pt presents with chronic LBP with radiating pain. Pt would benefit from skilled PT to address pain and improve QOL. Clinical Impression Consistent with Diagnosis Yes Short Term Goals Number of Weeks 4 Increase Strength Yes: Improve R LE hip strength to 4/5 globally to improve function. Improve Ability to Climb Stairs Yes: Negotiate 12 6 steps without HR to improve community navigation. Improve Oswestry Score Yes: Improve by 2 points to improve QOL. Decrease Subjective C/O Pain Yes: 48 hour pain average ( worst/best/current) of 5/10 to decrease severity Patient to be Ind w/ HEP Yes: Verbalize compliance with HEP. Residential Goals Number of Weeks 8 Increase Range of Motion Yes: Lumbar AROM WNL to improve daily functioning. Increase Strength Yes: BLE 5/5 to maximize strength and return to PLOF. Improve Oswestry Score Yes: Improve to score of 14 ( mild disability). Decrease Subjective C/O Pain Yes: 48 hour pain average ( worst/best/current) of 3/10 to decrease severity Patient to be Ind w/ Advanced HEP Yes: Verbalize adherence to HEP. Outpatient Therapy Plan of Care Treatment Plan May Include Therapeutic Exercise Including Home Yes Exercise Program Manual Therapy Techniques Yes Neuromuscular Re-education Yes Therapeutic Activities to Return to Yes Previous Functional/Work Level Gait Training Yes ADL/Self Care Education Yes Mechanical Traction Yes Dry Needling Yes Thermal Modalities Yes Electrical Stimulation No: Pacemaker Ultrasound/Phonophoresis Yes Iontophoresis Yes Parrafin Yes Orthotics/Bracing/Splinting Yes Massage Yes Eval/Re-Eval Yes Aquatic Therapy Yes Frequency Times per week 2-3 times Duration Number of Weeks 6-8 weeks Addendums This patient is a candidate for social No or vocational rehab? Patient/Guardian verbally acknowledges Yes understanding of treatment program and consents to further treatment? Patient/Guardian verbally acknowledges Yes understanding of diagnosis, prognosis and goals for treatment? Eval Complexity PT Charges 95895 - Moderate Complexity Shoulder/Elbow Eval Shoulder Objective Measurements Elbow Objective Measurements PHYSICIAN CERTIFICATION: I certify the specified therapy services for Melida Mcduffie are required, authorized, and reviewed every 30 days.
--- NOTE | 2024-10-01 10:08 | HMH.RHREAS ---
Rehab Reassessment Rehab OP Re-assessment Start: 09/03/24 07:55 Freq: Status: Active Protocol: Document 10/01/24 09:43 MYLA (Rec: 10/01/24 10:06 MYLA [id number]) E-signed By Lamar Troncoso, PT Oswestry Index Section 1 Pain Intensity The pain comes and goes and is moderate Section 2 Personal Care (Washing,Dresing) my way of washing or dressing even though it causes some pain Section 3 Lifting I can lift heavy weights, but it gives me extra pain Section 4 Walking I have some pain when walking but it does not increase with distance Section 5 Sitting Pain prevents me from sitting for more than 1/2 hour Section 6 Standing I cannot stand more than 1/2 hour without increasing pain Section 7 Sleeping Because of my pain, my normal night's sleep is less than 6 hours sleep Section 8 Social Life Pain has no significant effect on my social life apart from limiting Section 9 Traveling I get some pain when traveling , but none of my usual forms of travel m Section 10 Changing Degreee of Pain My pain fluctuates, but overall is definitely getting better Score and Risk Level Oswestry Sc 17 Oswestry Risk Level Moderate Disability Rehab Re-assessment Subjective Subjective Pt reports she feels 50% improved since IE. 48 hour pain average: 03/20 HEP: They are helping . Reports good compliance with HEP. I still have the sciatica but the pain is better. The IT band stretch has made me sore Objective Objective Notes RLE MMTs: - Hip FLEX = 4/5 - Hip ABD = 5/5 - Hip ADD = 5/5 - Knee FLEX = 5/5 - Knee EXT = 5/5 Lumbar AROM: - FLEX= 70 - EXT= 20 - R SB= 25 - L SB= 25 Assessment Progress Assessment Progressing as Expected Assessment Notes This is a reassessment for Melida Mcduffie who presents to PT for c/o chronic LBP with radiating pain (RLE). Since IE , pt has been seen for 9 treatment visits that have consisted of modalities prn, education, and therapeutic exercises focusing on ROM and core strength. Pt with good attendance to scheduled PT visits and reports adherence to HEP. Since IE, pt with improvements in RLE strength and subjective c/o of pain. Pt still presents with some subjective c/o pain. Pt would continue to benefit from skilled outpatient physical therapy to address remaining deficits and achieve LTGs. Patient goals met ST) Improve R LE hip strength to 4/5 globally to improve function: met 2) Negotiate 12 6 steps without HR to improve community navigation: met 3) Improve by 2 points to improve QOL: Not met (improved by 1 point) 4) 48 hour pain average (worst /best/current) of 5/10 to decrease severity: met 5) Verbalize compliance with HEP: met LTG: In progress Plan Plan Continue 2-3 more weeks to achieve LTGs Frequency of Therapy 2-3x weekly Duration of therapy 2-3 more weeks Time and Billing Re-Eval Time 10 Re-Eval Billing Units 0 Charge for PT reassessment? No PHYSICIAN CERTIFICATION: I certify the specified therapy services for Melida Mcduffie are required, authorized, and reviewed every 30 days.
--- NOTE | 2024-10-27 12:17 | HMH.RHREAS ---
Rehab Reassessment Rehab OP Re-assessment Start: 09/03/24 07:55 Freq: Status: Active Protocol: Document 10/27/24 10:21 MYLA (Rec: 10/27/24 12:17 MYLA [id number]) E-signed By Lamar Troncoso, PT Oswestry Index Section 1 Pain Intensity The pain comes and goes and is very mild Section 2 Personal Care (Washing,Dresing) my way of washing or dressing even though it causes some pain Section 3 Lifting I can lift heavy weights, but it gives me extra pain Section 4 Walking I have some pain when walking but it does not increase with distance Section 5 Sitting Pain prevents me from sitting for more than one hour Section 6 Standing I have some pain on standing, but it does not increase with time Section 7 Sleeping I get pain in bed, but it does not prevent me from sleeping well Section 8 Social Life Pain has no significant effect on my social life apart from limiting Section 9 Traveling I get some pain when traveling , but none of my usual forms of travel m Section 10 Changing Degreee of Pain My pain fluctuates, but overall is definitely getting better Score and Risk Level Oswestry Sc 11 Oswestry Risk Level Mild Disability Rehab Re-assessment Subjective Subjective Pt reports she feels 50% improved since IE. 48 hour pain average: 12/21 HEP: Reports good compliance with HEP. Pt reports she has noticed a positive difference since beginning mechanical traction and MHP. Pt reports her pain has gone from her R leg/hip to her LB (centralized). Pt reports she wishes to continue PT as she now believes it is helping well. Objective Objective Notes RLE MMTs: - Hip FLEX = 4+/5 - Hip ABD = 5/5 - Hip ADD = 5/5 - Knee FLEX = 5/5 - Knee EXT = 5/5 Lumbar AROM: - FLEX= 80 - EXT= 20 - R SB= 25 - L SB= 25 Palpation: 1/ TTP R paraspinals ALICIA: Mild disability 11 Assessment Progress Assessment Progressing as Expected Assessment Notes This is a reassessment for Melida Mcduffie who presents to PT for c/o chronic LBP with radiating pain (RLE). Since IE , pt has been seen for 16 treatment visits that have consisted of modalities prn, education, traction, and therapeutic exercises focusing on ROM and core strength. Pt with good attendance to scheduled PT visits and reports adherence to HEP. Since IE, pt with improvements in RLE strength and subjective c/o of pain. Pt with improved pain complaints after addition of mechanical lumbar traction. Pt still presents with some subjective c/o pain and has the goal to have no RLE pain. Pt would continue to benefit from skilled outpatient physical therapy to address remaining deficits and achieve last LTG. Patient goals met ST/5 MET 1) Improve R LE hip strength to 4/5 globally to improve function: met 2) Negotiate 12 6 steps without HR to improve community navigation: met 3) Improve by 2 points to improve QOL: met 4) 48 hour pain average (worst /best/current) of 5/10 to decrease severity: met 5) Verbalize compliance with HEP: met LT/5 MET 1) Lumbar AROM WNL to improve daily functioning: Met 2) BLE 5/5 to maximize strength and return to PLOF: Not Met 3) Improve to score of 14 ( mild disability): Met 4) 48 hour pain average (worst /best/current) of 3/10 to decrease severity: Met 5) Verbalize adherence to HEP: Met Plan Plan Continue POC Frequency of Therapy 2x weekly Time and Billing Re-Eval Time 17 Re-Eval Billing Units 0 Charge for PT reassessment? No PHYSICIAN CERTIFICATION: I certify the specified therapy services for Melida Mcduffie are required, authorized, and reviewed every 30 days.
== END 2024-11-10 23:59 | disposition home or self-care (01) ==
LOC: PT 08:00
PROVIDERS: PCP Nurse Practitioner Family; Visit Provider Nurse Practitioner Family
DX: M54.9 Dorsalgia, unspecified (principal)
CPT/HCPCS: 97010; 97012; 97110; 97163

== ENCOUNTER 2024-11-27 09:30 | Outpatient (CLI) | payer MEDICARE, SELFPAY ==
[2024-11-27 09:54] LABS: Basophils % 0.5 % (0.1-2.0); Eosinophils # 0.1 K/mm3 (0.0-0.4); Eosinophils % 2.1 % (0.1-12.0); Hematocrit 39.2 % (37.0-47.0); Hemoglobin 12.5 g/dL (12.2-16.2); Lymphocytes # 1.9 K/mm3 (0.7-4.5); Lymphocytes % 32.9 % (10-50); Mean Corpuscular HGB Conc 31.9 g/dL (31.8-35.4); Mean Corpuscular Hemoglobin 30.2 pg (27.0-31.2); Mean Corpuscular Volume 94.7 fl (81-99); Mean Platelet Volume 13.6 fl (7.4-10.4); Monocytes # 0.5 K/mm3 (0.1-1.0); Monocytes % 8.1 % (1.7-9.3); Neutrophils # 3.3 K/mm3 (1.8-7.8); Neutrophils % 56.2 % (37.0-80.0); Platelet Count 106 K/mm3 (142-424); Red Blood Count 4.14 M/mm3 (4.20-5.40); Red Cell Distribution Width 14.6 % (11.5-17.5); White Blood Count 5.8 K/mm3 (4.8-10.8)
== END 2024-11-27 23:59 | disposition home or self-care (01) ==
LOC: LAB 09:31
PROVIDERS: PCP Nurse Practitioner Family; Visit Provider Internal Medicine Medical Oncology
DX: D69.3 Immune thrombocytopenic purpura (principal)
CPT/HCPCS: 36415; 85025

== ENCOUNTER 2024-11-30 16:00 | Outpatient (RCR) | payer MEDICARE, SELFPAY | END 2024-11-30 23:59 | disposition home or self-care (01) | LOC: PT 16:00 | PROVIDERS: PCP Nurse Practitioner Family; Visit Provider Nurse Practitioner Family | DX: M51.360 Other intervertebral disc degeneration, lumbar region with discogenic back pain only (principal) | CPT/HCPCS: 97012; 97110; 97530 ==

== ENCOUNTER 2024-12-16 14:31 | Outpatient (CLI) | payer MEDICARE, SELFPAY ==
[2024-12-16 14:54] LABS: Creatinine,Urine Random 14 mg/dL (Not Estab.)
[2024-12-16 14:59] LABS: Microalbumin < 6.000 mg/L (0-16.7)
[2024-12-16 15:00] LABS: Albumin Level 5.4 g/dl (3.5-5.0); Chloride 104 mmol/L (98-107); Potassium 4.9 mmoL/L (3.5-5.1); Sodium 140 mmol/L (136-145)
[2024-12-16 15:03] LABS: Alanine Aminotransferase 35 U/L (12-78); Albumin/Globulin Ratio 2.7 (1.1-1.8); Alkaline Phosphatase 104 U/L (38-126); Anion Gap 16.9 mEq/L (5-15); Aspartate Amino Transferase 28 U/L (14-36); Bilirubin,Total 0.5 mg/dl (0.2-1.3); Blood Urea Nitrogen 18 mg/dl (7-17); Calcium 9.4 mg/dl (8.4-10.2); Carbon Dioxide 24 mmol/L (22.0-30.0); Cholesterol 113 mg/dl (140-200); Estimated Glomerular Filt Rate 71 ml/min (>60); GFR (African American) 86 ML/MIN (>60); Glucose 110 mg/dl (74-100); Magnesium 2.1 mg/dl (1.6-2.3); Total Protein,Serum 7.4 g/dl (6.3-8.2); Triglycerides 119 mg/dl (30-150); VLDL Cholesterol 24 mg/dL (0-40)
[2024-12-16 15:04] LABS: Chol/HDL Ratio 2.7 (1-3.5); HDL Cholesterol 42 mg/dl (40-60)
[2024-12-16 15:17] LABS: Direct LDL Cholesterol 44.75 mg/dL (100-129)
[2024-12-16 15:22] LABS: T4 (Thyroxine) 7.7 ug/dl (5.53-11.0)
[2024-12-16 15:36] LABS: Thyroid Stimulating Hormone 1.38 uIU/mL (0.465-4.68)
[2024-12-17 10:10] LABS: Triiodothyronine (T3) Free 2.7 pg/mL (2.0-4.4)
== END 2024-12-16 23:59 | disposition home or self-care (01) ==
LOC: LAB.DROPOF 14:31
PROVIDERS: PCP Nurse Practitioner Family; Visit Provider Nurse Practitioner Family
DX: E11.40 Type 2 diabetes mellitus with diabetic neuropathy, unspecified (principal); I48.0 Paroxysmal atrial fibrillation; E03.9 Hypothyroidism, unspecified; I10 Essential (primary) hypertension; E78.5 Hyperlipidemia, unspecified; R20.8 Other disturbances of skin sensation; I25.810 Atherosclerosis of coronary artery bypass graft(s) without angina pectoris
CPT/HCPCS: 80053; 80061; 82043; 82570; 83735; 84436; 84443; 84481

== ENCOUNTER 2024-12-23 15:01 | Outpatient (CLI) | payer MEDICARE, SELFPAY ==
[2024-12-23 16:40] LABS: Hemoglobin A1C 6.6 % (4.0-6.0)
== END 2024-12-23 23:59 | disposition home or self-care (01) ==
PROVIDERS: PCP Nurse Practitioner Family; Visit Provider Nurse Practitioner Family
DX: E11.40 Type 2 diabetes mellitus with diabetic neuropathy, unspecified (principal)
CPT/HCPCS: 83036

== ENCOUNTER 2025-03-16 15:14 | Outpatient (CLI) | payer MEDICARE, SELFPAY ==
[2025-03-16 14:21] LABS: Alanine Aminotransferase 24 U/L (12-78); Albumin Level 4.8 g/dl (3.5-5.0); Alkaline Phosphatase 108 U/L (38-126); Aspartate Amino Transferase 21 U/L (14-36); Bilirubin,Total 0.6 mg/dl (0.2-1.3); Blood Urea Nitrogen 24 mg/dl (7-17); Calcium 9.5 mg/dl (8.4-10.2); Carbon Dioxide 24 mmol/L (22.0-30.0); Chloride 108 mmol/L (98-107); Chol/HDL Ratio 3.1 (1-3.5); Cholesterol 126 mg/dl (140-200); Estimated Glomerular Filt Rate 62 ml/min (>60); GFR (African American) 75 ML/MIN (>60); Globulin 2.4 g/dL (1.3-3.2); Glucose 91 mg/dl (74-100); HDL Cholesterol 41 mg/dl (40-60); Magnesium 2.4 mg/dl (1.6-2.3); Sodium 138 mmol/L (136-145); Total Protein,Serum 7.2 g/dl (6.3-8.2); Triglycerides 174 mg/dl (30-150); VLDL Cholesterol 35 mg/dL (0-40)
[2025-03-16 14:41] LABS: Creatinine,Urine Random 21 mg/dL (Not Estab.); Microalbumin < 6.000 mg/L (0-16.7)
[2025-03-16 16:06] LABS: Hemoglobin A1C 6.3 % (4.0-6.0)
[2025-03-17 15:11] LABS: Cortisol,AM 17.6 ug/dL (6.2-19.4)
== END 2025-03-16 23:59 | disposition home or self-care (01) ==
LOC: LAB.DROPOF 15:14
PROVIDERS: PCP Nurse Practitioner Family; Visit Provider Nurse Practitioner Family
DX: E03.9 Hypothyroidism, unspecified (principal); E78.5 Hyperlipidemia, unspecified; I10 Essential (primary) hypertension; E11.40 Type 2 diabetes mellitus with diabetic neuropathy, unspecified; R53.83 Other fatigue
CPT/HCPCS: 80053; 80061; 82043; 82533; 82570; 83036; 83735; 84443

== ENCOUNTER 2025-03-19 16:38 | Outpatient (CLI) | payer MEDICARE, SELFPAY ==
--- NOTE | 2025-03-19 17:00 | MM_ITS ---
PROCEDURE INFORMATION: Exam: MG Bilateral Screening 3D Mammography Exam date and time: 03/19/2025 4:44 PM Age: 69 years old Clinical indication: Screening examination TECHNIQUE: Imaging protocol: Bilateral Screening tomosynthesis and 2D mammography including computer-aided detection (CAD) when performed. COMPARISON: 1. MG MM DIG SCREENING MAMM BI W/CAD 02/27/2024 7:54 AM 2. MG MM DIG SCREENING MAMM BI W/CAD 02/12/2023 9:38 AM FINDINGS: MAMMOGRAPHY: Breast composition: The breasts are almost entirely fatty. Mass: None. Architectural distortion: None. Calcifications: No suspicious calcifications. Asymmetric density: None. Skin thickening: None. Axillary adenopathy: A power pack overlies the left chest and obscures underlying breast tissue in the axillary tail region. IMPRESSION: No mammographic evidence of malignancy. Annual screening is recommended unless otherwise clinically indicated. ASSESSMENT: BI-RADS Category 1: Negative.
== END 2025-03-19 23:59 | disposition home or self-care (01) ==
LOC: RAD 16:40
PROVIDERS: PCP Nurse Practitioner Family; Referring Provider Nurse Practitioner Family; Visit Provider Nurse Practitioner Family
DX: Z12.31 Encounter for screening mammogram for malignant neoplasm of breast (principal); R92.313 Mammographic fatty tissue density, bilateral breasts
CPT/HCPCS: 77063; 77067

== ENCOUNTER 2025-03-23 13:56 | Outpatient (CLI) | payer MEDICARE, SELFPAY ==
--- OUTSIDE RECORDS SUMMARY | 2025-03-23 13:59 | XMS_ITS ---
Laboratory report Created on: March 19, 2025 ANDREWYESSYY : 1955 Sex: Female Author Organization Unknown PROBLEMS Problems List Code Description RESULTS Laboratory Orders Date Order Code Test 2025-03-16 [id number] CORTISOL - AM Laboratory Results Date LOINC Test Value Unit Reference Range Interpre tation 2025-03-16 [id number] CORTISOL - AM 17.6 UG/DL 6.2-19.4
--- NOTE | 2025-03-23 14:00 | CT_ITS ---
FINAL REPORT TECHNIQUE: Axial CT images of the chest were obtained without contrast. Coronal and sagittal reformatted images were also obtained. This study was performed with techniques to keep radiation doses as low as reasonably achievable, (ALARA). Individualized dose reduction techniques using automated exposure control or adjustment of mA and/or kV according to the patient's size were employed. CLINICAL HISTORY: Lung cancer screening FORMER SMOKER QUIT 11 YEARS AGO, 1.5 PPD X 40 YEARS COMPARISON: 03/16/2024 FINDINGS: CT CHEST WITHOUT, LOW DOSE SCREENING CTDl vol(mGy): 2.90 DLP (mGy-cm): 109.68 There is no axillary adenopathy. There is no hilar or mediastinal adenopathy. The heart size is normal. There is no pericardial or pleural effusion. Lung window images demonstrate scarring at the left lung base. There is a posterior right upper lobe pleural-based nodule measuring 7 mm best seen on image 22 of series 4. This does not appear to be significantly changed in size compared to previous exam. The previously noted groundglass nodule in the right lower lobe is again identified measuring 8 mm in diameter, image 47. Limited images of the upper abdomen are unremarkable. IMPRESSION: Stable pleural-based nodule posterior right upper lobe and stable groundglass nodule right lower lobe. Lung RADS category 2. Recommend 12 month follow-up low-dose chest CT per Fleischner criteria. Reviewed, Interpreted and Dictated by Leodan Up MD Transcribed by Leah Flowers Authenticated and . [facility]
[2025-03-23 15:10] VITALS: PULSE 60
[2025-03-23] MEDS: ALBUTEROL 0.083% 2.5 MG/3 ML NEB IH (15:10)
== END 2025-03-23 23:59 | disposition home or self-care (01) ==
PROVIDERS: PCP Nurse Practitioner Family; Visit Provider Internal Medicine Pulmonary Disease
DX: Z12.2 Encounter for screening for malignant neoplasm of respiratory organs (principal); R91.1 Solitary pulmonary nodule; J94.8 Other specified pleural conditions; Z87.891 Personal history of nicotine dependence
CPT/HCPCS: 71271; 94010; 94640

== ENCOUNTER 2025-04-09 08:23 | Outpatient (CLI) | payer MEDICARE, SELFPAY ==
--- NOTE | 2025-04-09 | CA_ITS ---
APPROVED REPORT EXAM: Comprehensive 2D, Doppler, and color-flow Echocardiogram Tv Production Assistant: Eula Shea CRT Ht: 5 ft 2 in Wt: 196lbs BSA: 1.90 BP: 149/75 mmHg Indications: COPD, Diabetes, Fatigue, Hyperlipidemia, Hypertension/HDD, AICD, CABG Echo Enhancing Agent Indication: Endocardial border delineation Agent(s) / Amount(s) Used: Definity 2 cc Comments: definity given 2D Dimensions LA Volume 24.00 mL LA Volume Index 12.40 mL/m2 (M/F) 16-34 M-Mode Dimensions RVDd 2.68 cm (0.9-2.6) LA Diam 3.35 cm (1.9-4.0) LVDd 5.39 cm (3.5-5.7) LVDs 4.64 cm (3.5-5.7) IVSd 0.86 cm (0.6-1.1) PWd 1.03 cm (0.6-1.1) EF (Teich) 29.40% FS 13.90% EDV (Teich) 140.70 mL TAPSE 1.98 (<1.7) ESV (Teich) 99.30 mL LV Diastology E Decel Time 337 (160-240 msec) E/A Ratio 0.56 MED A' 10.00 cm/s LAT A' 11.90 cm/s Aortic Valve AI PHT 561.00 ms AO Peak GR. 4.60 mmHg Mitral Valve MV E Max Michael. 38.0 (40-130 cm/s) MV A Velocity 67.0 (40-130 cm/s) E/A Ratio 0.56 MV PHT 99.0 ms Pulmonary Valve PV Peak Velocity 92.0 (50-150 cm/s) Tricuspid Valve TR P. Velocity 137.00 cm/s RAP Estimate 10.00 mmHg RVSP 17.50 mmHg Left Ventricle The left ventricle is normal size. The left ventricular systolic function is severely reduced. There is increased LV wall thickness. There is severe global hypokinesis. The septal, anteroseptal, and anterior LV vaca are nearly akinetic. The LV apex is akinetic. Grade 1 diastolic dysfunction is present. No left ventricle thrombus noted on this study. Right Ventricle The right ventricle is normal size. The right ventricular systolic function is normal. Atria Left atrium is mildly dilated. The right atrium size is normal. There is no Doppler evidence of interatrial shunt. Aortic Valve The aortic valve is mildly thickened. Trace aortic regurgitation. There is no aortic valvular stenosis. Mitral Valve The posterior mitral valve leaflet appears tethered. No evidence of mitral valve stenosis. At least mild mitral regurgitation is present. The MR jet is eccentric and may be underestimated in the setting of technically difficult study. Tricuspid Valve Tricuspid valve is grossly normal in structure and function. Trace tricuspid regurgitation. Pulmonic Valve The pulmonary valve is normal in structure. Mild pulmonic regurgitation. Great Vessels The aortic root is normal in size. IVC is normal in size and collapses >50% with inspiration. Pericardium There is no pericardial effusion. Other Information Study Quality: Technically Difficult Conclusion Technically difficult study due to poor acoustic windows. Severely reduced LV systolic function (LVEF 20%). The septal, anteroseptal, and anterior LV vaca are nearly akinetic. The LV apex is akinetic. Mild LA dilation. Tethering of the posterior MV leaflet. At least mild MR is present. The MR jet is eccentric and may be underestimated in the setting of technically difficult study. Electronically signed by : Heike Long MD 04/18/2025 20:19:03
[2025-04-09] MEDS: DEFINITY US ECHO CONTRAST 2ML INJ 2 MG IV (09:45)
== END 2025-04-09 23:59 | disposition home or self-care (01) ==
LOC: RT 08:25
PROVIDERS: PCP Nurse Practitioner Family; Visit Provider Physician Assistant
DX: I08.8 Other rheumatic multiple valve diseases (principal); I11.9 Hypertensive heart disease without heart failure; J44.9 Chronic obstructive pulmonary disease, unspecified; E11.9 Type 2 diabetes mellitus without complications; E78.5 Hyperlipidemia, unspecified; R93.1 Abnormal findings on diagnostic imaging of heart and coronary circulation; Z95.810 Presence of automatic (implantable) cardiac defibrillator; Z95.1 Presence of aortocoronary bypass graft
CPT/HCPCS: 93306; Q9957

== ENCOUNTER 2025-04-16 07:36 | Outpatient (CLI) | payer MEDICARE, SELFPAY ==
--- NOTE | 2025-04-16 08:00 | US_ITS ---
FINAL REPORT TECHNIQUE: Sonographic images of the thyroid gland were obtained in the longitudinal and transverse planes. CLINICAL HISTORY: hypothyroidism COMPARISON: None FINDINGS: The right lobe measures 1.0 x 4.1 x 1.4 cm. The right lobe is homogeneous. Peripherally calcified lesion measuring 7 mm. There are several tiny colloid cyst. There is also a mixed cystic and solid 15 mm TR 3 nodule. The left lobe measures 1.1 x 4.7 x 1.5 cm. The left lobe is homogeneous. Several subcentimeter TR 3 and TR 4 nodules. No nodules measure greater than 1 cm in size. The isthmus measures 4 mm. There is a 7 mm mixed cystic and solid nodule with calcifications, TR 4. IMPRESSION: 15 mm TR 3 lesion right thyroid. Recommend follow-up per TI-RADS criteria. Bilateral subcentimeter TR 4 nodules. Based on size, no follow-up required. Reviewed, Interpreted and Dictated by Shikha Merlos MD Transcribed by Terese Moore Authenticated and [facility]
== END 2025-04-16 23:59 | disposition home or self-care (01) ==
PROVIDERS: PCP Nurse Practitioner Family; Visit Provider Nurse Practitioner Family
DX: E04.2 Nontoxic multinodular goiter (principal); E07.9 Disorder of thyroid, unspecified; E03.9 Hypothyroidism, unspecified
CPT/HCPCS: 76536

== ENCOUNTER 2025-04-19 12:22 | Outpatient (CLI) | payer MEDICARE, SELFPAY ==
--- OUTSIDE RECORDS SUMMARY | 2025-02-15 20:00 | XMS_ITS | Encounter Summary ---
Author Organization [employer] Address [address] [place] [address] Care Team Providers Care Watchguard Name Role Phone Lucía Roman APRN Primary Care Provider [phone] Ranjan Talley MD Unavailable Reason for Visit * Reason Comments Pacemaker /ICD Home Monitoring Encounter Details Date Type Department Care Team (Late st Contact Info) Description 02/15/2025 8:00 PM EDT Clinical Support [facility] Electrophysiology [address] [facility] [address] [place] [address] Ranjan Talley MD [address] [facility] [address] [place] [address] Encounter for adjustment or management of cardiac device (Primary Dx) Social History Tobacco Use Types Packs/Day Years Used Date Smoking Tobacco: Former Cigarettes 1.8 40 1 974 - 2014 Passive Smoke Exposure: Never Smokeless Tobacco: Never Alcohol Use Standard Drinks/Week Comments Not Currently 0 (1 standard drink = 0.6 oz pur e alcohol) Interpersonal Safety Answer Date Record ed Family or friends hurt you Not on file 11/19 Family or friends insult you Not on file 07/2024 Family or friends threaten you Not on file 0 11/19/2023 Family or friends scream or curse at you Not on file 11/19/2023 Housing Stability Answer Date Recorded Living situation today Not on file Living situation problems Not on file 2023 Family and Community Support Answer Alonzo e Recorded Help with Day to Day Activities Not on file 11/19/2023 Feeling Lonely or Isolated Not on file 11/19 Educational Attainment Answer Date Wicho rded Speak language other than Thai at home Not on file 11/19/2023 Want help with school or training Not on file 11/19/2023 Depression Answer Date Recorded PHQ-2 Risk Not on file 11/19/2023 Disabilities Answer Date Recorded Difficulty concentrating Not on file 024 Difficulty doing errands alone Not on file 0 11/19/2023 Substance Use Answer Date Recorded Used prescription meds for non-medical reasons N ot on file 11/19/2023 Used illegal drugs past 12 months Not on file 11/19/2023 Comments No Sex and Gender Information Value Date Recorded Sex Assigned at Not on file Legal Sex Female 5:07 PM CDT Gender Identity Not on file Sexual Orientation Not on file documented as of this encounter Plan of Treatment Upcoming Encounters Date Type Department Care Team (Late st Contact Info) Description 04/27/2025 8:30 AM EDT Office Visit [facility] Electrophysiology [address] [place], [place] [phone] [place] [address] Ranjan Talley MD [address] [place] [address] [address] [place] [phone] documented as of this encounter Visit Diagnoses Diagnosis Encounter for adjustment or management of cardiac device- Primary documented in this encounter Care Teams Watchguard Relationship Specialty Start Date End Date Lucía Roman, MARKETING LIAISON [address] [place] [id number] PCP - General Nurse Practitioner 04/25/23 Ranjan Talley MD [address] [place] [address] [address] [place] [address] Self Propelled Dredge Operator Electrophysiology 08/17/24 documented as of this encounter
--- OUTSIDE RECORDS SUMMARY | 2025-03-17 06:00 | XMS_ITS | Encounter Summary ---
Author Organization [employer] Address [address] [place] [address] Care Team Providers Care Direct Service Provider Name Role Phone Lucía Roman APRN Primary Care Provider Ranjan Talley MD Unavailable Reason for Visit * Reason Comments Pacemaker /ICD Home Monitoring Encounter Details Date Type Department Care Team (Late st Contact Info) Description 03/17/2025 6:00 AM EDT Clinical Support [facility] Electrophysiology [address] [place] [address] Ranjan Talley MD [address] [facility] [place] [address] Encounter for adjustment or management of cardiac [...] Date Wicho rded Speak language other than Chadian at home Not on file 11/19/2023 Want [...] Description 04/27/2025 8:30 AM EDT Office Visit [facility] Electrophysiology [address] [place], [place] [address] [place] [address] Ranjan Talley MD [address] [place] [address] [address] [place] [phone] documented as of this encounter Visit Diagnoses Diagnosis Encounter for adjustment or management of cardiac device- Primary documented in this encounter Care Teams Direct Service Provider Relationship Specialty Start Date End Date Lucía Roman, INTERNET SALESPERSON [address] [place] [id number] PCP - General Nurse Practitioner 04/25/23 Ranjan Talley MD [address] [place] [address] [address] [place] [address] Senior Data Modeler Electrophysiology 08/17/24 documented as of this encounter
--- OUTSIDE RECORDS SUMMARY | 2025-03-29 06:00 | XMS_ITS | Encounter Summary ---
Author Organization [employer] Address [address] [place] [address] Care Team Providers Care Trans Router Name Role Phone Lucía Roman APRN Primary Care Provider [phone] Ranjan Talley MD Unavailable Reason for Visit * Reason Comments Pacemaker /ICD Home Monitoring Encounter Details Date Type Department Care Team (Late st Contact Info) Description 03/29/2025 6:00 AM EDT Clinical Support [facility] Electrophysiology [address] [facility] [address] [place] [address] Rnajan Talley MD [address] [facility] [address] [place] [address] Encounter for adjustment or management of cardiac [...] Date Wicho rded Speak language other than Jamaican at home Not on file 11/19/2023 Want [...] Description 04/27/2025 8:30 AM EDT Office Visit [facility] Electrophysiology [address] [place], [place] [address] [place] [address] Ranjan Talley MD [address] [place] [address] [address] [place] [phone] documented as of this encounter Visit Diagnoses Diagnosis Encounter for adjustment or management of cardiac device- Primary documented in this encounter Care Teams Trans Router Relationship Specialty Start Date End Date Lucía Roman, FARROWING MANAGER [address] [place] [address] PCP - General Nurse Practitioner 04/25/23 Ranjan Talley MD [address] [place] [address] [address] [place] [address] Veterinary Anatomist Electrophysiology 08/17/24 documented as of this encounter
--- OUTSIDE RECORDS SUMMARY | 2025-04-19 12:25 | XMS_ITS | Referral Summary ---
Author Organization [facility] Address [address] [place] [address] Care Team Providers Care Classroom Instructor Name Role Phone Lucía Roman APRN Primary Care Provider Ranjan Talley MD Unavailable Encounters Date Type Department Care Team Description 04/11/2025 Refill [facility] Electrophysiology [address] [place] [phone] Ranjan Talley MD 03/29/2025 6:00 AM EDT Clinical Support [facility] Electrophysiology [address] [place] [phone] Ranjan Talley MD Encounter for adjustment or management of cardiac device (Primary Dx) 03/17/2025 6:00 AM EDT Clinical Support [facility] Electrophysiology [address] [place] [phone] Ranjan Talley MD Encounter for adjustment or management of cardiac device (Primary Dx) 02/23/2025 Orders Only [facility] Electrophysiology [address] [place] [phone] Temo Mcdaniel, KHUSHBOO Palpitations 02/23/2025 Orders Only [facility] Electrophysiology [address] [place] [phone] Temo Mcdaniel, RN Palpitations 02/23/2025 Telephone [facility] Cardiology [address] [place], [place] [phone] Ranjan Talley MD Medication Refill 02/15/2025 8:00 PM EDT Clinical Support [facility] Electrophysiology [address] [address] Ranjan Talley MD Encounter for adjustment or management of cardiac device (Primary Dx) from Last 3 Months Allergies No known active allergies Medications atorvastatin (LIPITOR) 80 MG tablet Take 1 tablet (80 mg total) by mouth daily. 04/12/20 23 Active furosemide (LASIX) 20 MG tablet Take 1 tablet (20 mg total) by mouth daily. 04/01/20 23 Active levothyroxine (SYNTHROID, LEVOTHROID) 75 MCG tablet Take 1 tablet (75 mcg total) by mouth daily. 04/15/20 23 Active metFORMIN (GLUCOPHAGE-XR) 500 MG 24 hr tablet Take 1 tablet (500 mg total) by mouth daily. 04/01/20 23 Active isosorbide mononitrate (IMDUR) 30 MG 24 hr tabletIndications: Palpitations TAKE 1 TABLET BY MOUTH DAILY. 90 tablet 4 07/14/20 24 Active rivaroxaban (Xarelto) 20 mg tabletIndications: Ischemic cardiomyopathy with implantable cardioverter-defib rillator (ICD) TAKE 1 TABLET BY MOUTH DAILY WITH DINNER. 90 tablet 3 08/12/20 24 Active potassium chloride (KLOR-CON) 20 MEQ tabletIndications: Ischemic cardiomyopathy with implantable cardioverter-defib rillator (ICD) TAKE 1 TABLET BY MOUTH ONCE DAILY 30 tablet 9 10/27/20 24 Active gabapentin (NEURONTIN) 300 MG capsule Take 1 capsule (300 mg total) by mouth 3 (three) times daily. 09/25/20 24 Active fluticasone propionate (FLONASE) 50 mcg/actuation nasal spray 1 spray daily. 10/27/20 24 Active albuterol 90 mcg/actuation inhaler Inhale by mouth via inhaler every 6 (six) hours as needed for wheezing. Active dapagliflozin propanediol (Farxiga) 5 mg tabletIndications: Chronic combined systolic and diastolic congestive heart failure (HCC) Take 1 tablet (5 mg total) by mouth daily. 90 tablet 3 10/29/20 24 Active carvediloL (COREG) 25 MG tabletIndications: Ischemic cardiomyopathy with implantable cardioverter-defib rillator (ICD) TAKE 1 TABLET BY MOUTH 2 (TWO) TIMES DAILY. 180 tablet 3 11/12/19 25 Active sacubitriL-valsart an (ENTRESTO) 49-51 mg tabletIndications: Palpitations Take 1 tablet by mouth 2 (two) times daily. 180 tablet 3 02/24/20 25 Active sotaloL (BETAPACE) 80 MG tablet Take 1 tablet by mouth twice daily 180 tablet 3 04/12/20 25 Active sotaloL (BETAPACE) 80 MG tablet Take 1 tablet (80 mg total) by mouth 2 (two) times daily. 180 tablet 3 04/21/20 24 025 Discontinued Active Problems No known active problems Resolved Problems Problem Noted Date Diagnosed Date Resolved Date Encounter for adjustment or management of cardiac device 11/25/2024 12/28/2024 Hyperlipidemia 04/01/2024 04/01/2024 12/28/2024 COPD (chronic obstructive pulmonary disease) 04/01/2024 12/28/2024 Chronic ITP (idiopathic thrombocytopenia) 04/01/2024 04/01/2024 12/28/2024 AICD (automatic cardioverter /defibrillator) present 04/01/2024 12/28/2024 Atrial fibrillation, persistent 12/05/2021 12/28/2024 Overview (04/01/2024): H.o multiple cardioversions H.o amiodarone toxicity Sick sinus syndrome 12/05/2021 04/01/2024 12/28/19 25 Chronic combined systolic an d diastolic congestive heart failure 06/27/2021 04/01/2024 12/28/2024 Cardiomyopathy, ischemic 01/24/2021 04/01/2024 Hypothyroidism 07/21/2020 04/01/2024 12/28/2024 Hypertension 07/21/2020 04/01/2024 12/28/2024 Arteriosclerosis of coronary artery 11/26/201904/0112/28/2024 Social History Tobacco Use Types Packs/Day Years Used Date Smoking Tobacco: Former Cigarettes 1.8 40 1 974 - 2014 Passive Smoke Exposure: Never Smokeless Tobacco: Never Tobacco Cessation:Counseling Given: Not Answered Alcohol Use Standard Drinks/Week Comments Not Currently [...] Date Wicho rded Speak language other than Czech at home Not on file 11/19/2023 Want [...] on file Sexual Orientation Not on file Last Filed Vital Signs Vital Sign Reading Time Taken Comments Blood Pressure 135/80 01/07/2025 1:49 PM EST Pulse 61 01/07/2025 1:49 PM EST Temperature 36.8 C (98.3 F) 12/28/2024 1:12 PM EST Respiratory Rate 14 12/28/2024 6:15 PM EST Oxygen Saturation 96% 01/07/2025 1:49 PM EST Inhaled Oxygen Concentration - - Weight 89.5 kg (197 lb 6.4 oz) 01/07/2025 1:49 P M EST Height 157.5 cm (5' 2 ) 01/07/2025 1:49 PM EST Body Mass Index 36.1 01/07/2025 1:49 PM EST Plan of Treatment Upcoming Encounters Date Type Department Care Team (Late st Contact Info) Description 04/27/2025 8:30 AM EDT Office Visit [facility] Electrophysiology [address] [facility] [address] [place] [phone] Ranjan Talley MD [address] [facility] [address] [place] [address] Medical Devices Implanted Type Area Traffic Sign Supervisor Device Identifier Shelf Expiration Date Model / Serial / Lot Icd-08/06/2016 Implanted: (Quantity not on file) ICD [employer] 2411-36 / [id number] / Description:DEPENDENT Defib Snover Vr Df-1 [id number] - [id number] Implanted:Qty : 1 on 12/28/2024 at [facility] PACEMAKER/ ICD BI VALVE DEVICE Chest Wall GRIMM LAB:VASC DEV [id number] / / Insurance [employer] MEDICARE HMO Advance Directives For more information, please contact: [phone] Documents on File Type Date Recorded Patient Radiation Monitor Expl anation Advance Directives and Livin g Will 06/25/2023 6:35 AM * Full Code (Latest Code Status on File) Date Activated Date Inactivated Comments 12/28/2024 3:46 PM 12/29/2024 4:27 AM * Full Code Date Activated Date Inactivated Comments 12/28/2024 11:51 AM 12/28/2024 3:46 PM Care Teams Classroom Instructor Relationship Specialty Start Date End Date Lucía Roman, X RAY NURSE [address] [place] [address] PCP - General Nurse Practitioner 04/25/23 Ranjan Talley MD [address] [facility] [place] [address] Surgical Territory Manager Electrophysiology 08/17/24
--- OUTSIDE RECORDS SUMMARY | 2025-04-19 12:25 | XMS_ITS | Clinical Summary ---
Author Organization [facility] Address [address] [facility] [address] [place] [address] Phone Care Team Providers Care Donor Technician Name Role Phone Wally POLLACK, Branden Rai [ ] Conditions or Problems Problem Name Problem Code Onset Date Status Entry Date Provider Comment Standard Description Annotate ACUTE RESPIRATORY FAILURE 14292804 (SNOMED CT) 11/18 Active 11/18 Joyce Koo Acute respiratory failure ELEVATED LFTS 279067323 (SNOMED CT) 11/18 Active 11/18 Joyce Koo Liver function tests outside reference range ANEMIA 100296257 (SNOMED CT) 11/18 Active 11/18 Joyce Koo Anemia LEUKOCYTOSIS 754634566 (SNOMED CT) 11/18 Active 11/18 Joyce Koo Leukocytosis PNEUMONIA 797316061 (SNOMED CT) 11/18 Active 11/18 Joyce Koo Pneumonia PULMONARY INFILTRATE 72392787 (SNOMED CT) 11/18 Active 11/18 Joyce Koo Disorder of lung PLEURAL EFFUSION 02485445 (SNOMED CT) 11/18 Active 11/18 Joyce Koo Pleural effusion CAD 26886098 (SNOMED CT) 11/18 Active 11/18 Joyce Koo Coronary arteriosclerosis HX OF CABG 280604900 (SNOMED CT) 11/18 Active 11/18 Joyce Koo History of coronary artery bypass grafting Medications Medication Instructions Start Date Stop Date Generic Name NDC Provider LISINOPRIL 10 MG TABS p.o. b.i.d. 5 LISINOPRIL 10220798443 Jozef Omer DIGOXIN 125 MCG TABS p.o. daily 5 DIGOXIN 48057334513 Jozef Omer CARVEDILOL 3.125 MG TABS p.o. b.i.d. 5 CARVEDILOL 60264563357 Jozef Omer LIPITOR 40 MG TABS 2 tabs p.o. at bedtime 5 ATORVASTATIN CALCIUM 49122276054 Jozef Omer ASPIRIN 81 MG ORAL TABLET p.o. daily 5 ASPIRIN 65741918451 Jozef Omer NORVASC 5 MG TABS p.o. b.i.d. 5 AMLODIPINE BESYLATE 35084540953 Jozef Omer Medications Administered No information available. Allergies, Adverse Reactions, Alerts No information available. Results Date Name Value Unit Range Flag Description Clinical Lists Update: Prelo ad CIGARET SMKG yes Tobacco smoking status Office Visit: hosp f/u rm1 MEDS REVIEW Done Documenta tion of current medications (procedure) SMOK STATUS Former smoker Tob acco smoking status Plan of Care No information available. Procedures No information available. Vital Signs Date Name Value Unit Description BMI (Body Mass Index) 30.23 kg/m2 Bod y Mass Index (Ratio) Body Temperature 97.9 [degF] temperat ure E&M BP Diastolic 80 mm[Hg] blood pressu re, diastolic BP Systolic 130 mm[Hg] blood pressur e, systolic Heart Rate 74 /min pulse rate Height 61 [in_us] height E&M Respiratory Rate 12 /min respirat ory rate E&M Weight Measured 159.4 [lb_av] weight E& M Weight Measured 159.4 [lb_av] weight E& M Immunizations No information available. Advance Directives No information available.
--- OUTSIDE RECORDS SUMMARY | 2025-04-19 12:25 | XMS_ITS | Encounter Summary ---
Author Organization [facility] Address [address] [facility] [place] [address] Care Team Providers Care Asphalt Patcher Name Role Phone AbelLucía TITO Primary Care Provider Ranjan Talley MD Unavailable Reason for Visit * Reason Onset Date Comments Medication Refill Medication Refill 01/03/2023 Encounter Details Date Type Department Care Team (Late st Contact Info) Description 01/02/2023 Telephone [facility] Electrophysiology [address] [place] [address] [address] [facility] [place] [address] Ranjan Talley MD [address] [place] [address] [address] [place] [address] Medication Refill; Medication Refill Social History Tobacco Use Types Packs/Day Years Used Date Smoking Tobacco: Never Assessed Comments Unknown Sex and Gender Information Value Date Recorded Sex Assigned at Not on file Legal Sex Female 5:07 PM CDT Gender Identity Not on file Sexual Orientation Not on file documented as of this encounter Miscellaneous Notes * Telephone Encounter - Joyce Todd CMA - 01/04/2023 1:18 PM EST Gabe Strickland RN completed this on 01/03/2023 BARIATRIC * Telephone Encounter - Lizbeth Bradley - 01/03/2023 8:31 AM EST PT Calling needs refill on her Potassium Chloride BARIATRIC documented in this encounter Plan of Treatment Upcoming Encounters Date Type Department Care Team (Late st Contact Info) Description 04/27/2025 8:30 AM EDT Office Visit [facility] Electrophysiology [address] [place], [place] [address] [place] [address] Ranjan Talley MD [address] [place] [address] [place] [phone] documented as of this encounter Visit Diagnoses Diagnosis Ischemic cardiomyopathy with implantable cardioverter-defibrillator (ICD)- Primary documented in this encounter Care Teams Asphalt Patcher Relationship Specialty Start Date End Date Lucía Roman, PRINTED CIRCUIT BOARD DESIGNER [address] [address] PCP - General Nurse Practitioner 04/25/23 Ranjan Talley MD [address] [place] [address] [address] Health Service Coordinator Electrophysiology 08/17/24 documented as of this encounter
--- OUTSIDE RECORDS SUMMARY | 2025-04-19 12:26 | XMS_ITS | Encounter Summary ---
Author Organization [facility] Address [address] [place] [address] Care Team Providers Care Sap Security Architect Name Role Phone Abel Lucía FRANCIS Primary Care Provider Ranjan Talley MD Unavailable Encounter Details Date Type Department Care Team (Late st Contact Info) Description 02/23/2025 Orders Only [facility] Electrophysiology [address] [place] [address] [address] Temo Mcdaniel RN Palpitations Social History Tobacco Use Types Packs/Day Years [...] Date Wicho rded Speak language other than Cam[place] at home Not on file 11/19/2023 Want [...] Description 04/27/2025 8:30 AM EDT Office Visit [facility] Electrophysiology [address] [facility] [address] [place] [address] Ranjan Talley MD [address] [facility] [address] [place] [address] documented as of this encounter Visit Diagnoses Diagnosis Palpitations documented in this encounter Care Teams Sap Security Architect Relationship Specialty Start Date End Date Lucía Roman, [employer]ER [address] [place] [id number] PCP - General Nurse Practitioner 04/25/23 Ranjan Talley MD [address] [facility] [address] [place], [place] [id number] Cleaning Team Member Electrophysiology 08/17/24 documented as of this encounter
--- OUTSIDE RECORDS SUMMARY | 2025-04-19 12:26 | XMS_ITS | Encounter Summary ---
Author Organization [facility] In iatives Address [address] [place] [address] Care Team Providers Care Want Ad Receiver Name Role Phone Abel Lucíasheryl FRANCIS Primary Care Provider Ranjan Talley MD Unavailable Encounter Details Date Type Department Care Team (Late st Contact Info) Description 08/03/2021 Transcribed Document [facility] [place] Family Medicine [facility] [place] [address] ProviderSharla MD [address] [place] [id number] Social History Tobacco Use Types Packs/Day Years Used Date Smoking Tobacco: Never Assessed Comments Unknown Sex and Gender Information Value Date Recorded Sex Assigned at Not on file Legal Sex Female 5:07 PM CDT Gender Identity Not on file Sexual Orientation Not on file documented as of this encounter Miscellaneous Notes * Cerner Conversion Note - Sharla ProviderMD - 08/03/2021 2:42 PM CDT [facility] [place] [address] MITZI MCDUFFIE :1955 Visit Time:08/02/2021 Your Visit Summary Your Care Team Admitting Physician - RANJAN TALLEY MD-CAR Attending Physician - RANJAN TALLEY MD-CAR Primary Care Physician - DARREL BELL MD-[facility] Referring Physician - RANJAN TALLEY MD-CAR These Are Your Goals No qualifying data available. Discharge Vitals Temperature 36.9 ??C Heart Rate 79 Blood Pressure 113/49 What to do next Instructions From Your Care Team Discharge Activity: Discharge Activity: No strenuous activities Diet: Discharge Diet: Resume usual diet as tolerated Wound/Incision Care Instructions: Keep operative site/wound clean and dry Showering/Bathing Instructions: No tub bathing, soaking, or swimming x 3 days Driving Restriction: Do Not Drive 3 days post procedure. Return to Work or School: May return to work in 1 week. Follow-Up Appointments Follow Up with RANJAN TALLEY When 09/05/2021 08:30 AM EDT Where: [address] [facility] [address] [place] [id number]- Business (1) Medications What How Much When Instructions Next Dose potassium chloride (potassium chloride 20 mEq oral tablet, extended release) 2 Tablet(s) Oral Every Day atorvastatin (Lipitor 80 mg oral tablet) 1 Tablet(s) Oral Every Day carvedilol (Coreg 25 mg oral tablet) 1 Tablet(s) Oral Two Times A Day furosemide (furosemide 20 mg oral tablet) 1 Tablet(s) Oral Every Day levothyroxine (levothyroxine 75 mcg (0.075 mg) oral tablet) 1 Tablet(s) Oral Every Day losartan (losartan 50 mg oral tablet) 1 Tablet(s) Oral Two Times A Day sotalol (sotalol 120 mg oral tablet) 0.5 Tablet(s) Oral Two Times A Day aspirin (aspirin 81 mg oral tablet, chewable) 1 Tablet(s) Oral Every Day rivaroxaban (Xarelto 20 mg oral tablet) 1 Tablet(s) Oral Every Evening Take your medications faithfully. Do NOT skip medication. Do NOT stop taking medications without the direction of a physician. Carry a list of your medications with you at all times, and take this medication list with you to your first follow up visit. Report any side effects. Avoid herbal remedies unless discussed with your physician. As part of your treatment plan, your physician may have prescribed a limited course of a controlled substance. This medication may be given to help people with moderate or severe pain or for other medical conditions, but there are risks involved with treatment. Common side effects may include nausea, constipation, drowsiness, sweating, itching, dry mouth, and rash. More serious side effects may include cognitive and motor impairment, like problems with thinking, concentrating, alertness, and movement (e.g. slowed reflexes), and driving and operating heavy machinery can be dangerous. It is important for you to talk to your physician if you have these side effects or questions. These controlled substances can produce physical dependence and be habit-forming if taken for an extended period of time, which means that the body has gotten used to them and may experience withdrawal symptoms if they are abruptly stopped. Withdrawal symptoms can include runny nose, sweating, goose bumps, diarrhea, abdominal cramping, rapid heartbeat, difficulty sleeping, and nervousness. Please dispose of unused and medications per your retail pharmacy guidance. Allergies All Meds in D5W Immunizations This Visit No Immunizations Found Education Materials Cardiac Ablation Cardiac ablation is a procedure to destroy (ablate) some heart tissue that is sending bad signals. These bad signals cause problems in heart rhythm. The heart has many areas that make these signals. If there are problems in these areas, they can make the heart beat in a way that is not normal. Destroying some tissues can help make the heart rhythm normal. Tell your doctor about: ??? Any allergies you have. ??? All medicines you are taking. These include vitamins, herbs, eye drops, creams, and kgyn-zij-ptkmnih medicines. ??? Any problems you or family members have had with medicines that make you fall asleep (anesthetics). ??? Any blood disorders you have. ??? Any surgeries you have had. ??? Any medical conditions you have, such as kidney failure. ??? Whether you are or may be . What are the risks? This is a safe procedure. But problems may occur, including: ??? Infection. ??? Bruising and bleeding. ??? Bleeding into the chest. ??? Stroke or blood clots. ??? Damage to nearby areas of your body. ??? Allergies to medicines or dyes. ??? The need for a pacemaker if the normal system is damaged. ??? Failure of the procedure to treat the problem. What happens before the procedure? Medicines Ask your doctor about: ??? Changing or stopping your normal medicines. This is important. ??? Taking aspirin and ibuprofen. Do not take these medicines unless your doctor tells you to take them. ??? Taking other medicines, vitamins, herbs, and supplements. General instructions ??? Follow instructions from your doctor about what you cannot eat or drink. ??? Plan to have someone take you home from the hospital or clinic. ??? If you will be going home right after the procedure, plan to have someone with you for 24 hours. ??? Ask your doctor what steps will be taken to prevent infection. What happens during the procedure? An IV tube will be put into one of your veins. ??? You will be given a medicine to help you relax. ??? The skin on your neck or groin will be numbed. ??? A cut (incision) will be made in your neck or groin. A needle will be put through your cut and into a large vein. ??? A tube (catheter) will be put into the needle. The tube will be moved to your heart. ??? Dye may be put through the tube. This helps your doctor see your heart. ??? Small devices (electrodes) on the tube will send out signals. ??? A type of energy will be used to destroy some heart tissue. ??? The tube will be taken out. ??? Pressure will be held on your cut. This helps stop bleeding. ??? A bandage will be put over your cut. The exact procedure may vary among doctors and hospitals. What happens after the procedure? You will be watched until you leave the hospital or clinic. This includes checking your heart rate, breathing rate, oxygen, and blood pressure. ??? Your cut will be watched for bleeding. You will need to lie still for a few hours. ??? Do not drive for 24 hours or as long as your doctor tells you. Summary ??? Cardiac ablation is a procedure to destroy some heart tissue. This is done to treat heart rhythm problems. ??? Tell your doctor about any medical conditions you may have. Tell him or her about all medicines you are taking to treat them. ??? This is a safe procedure. But problems may occur. These include infection, bruising, bleeding, and damage to nearby areas of your body. ??? Follow what your doctor tells you about food and drink. You may also be told to change or stop some of your medicines. ??? After the procedure, do not drive for 24 hours or as long as your doctor tells you. This information is not intended to replace advice given to you by your health care provider. Make sure you discuss any questions you have with your health care provider. Document Revised: 09/29/2020 Document Reviewed: 09/29/2020 [employer] Patient Education ?? 2020 [employer] Cardiac Ablation, Care After This sheet gives you information about how to care for yourself after your procedure. Your health care provider may also give you more specific instructions. If you have problems or questions, contact your health care provider. What can I expect after the procedure? After the procedure, it is common to have: ??? Bruising around the insertion site. ??? Tenderness around the insertion site. ??? Skipped heartbeats. ??? Tiredness (fatigue). Follow these instructions at home: Insertion site care ??? Follow instructions from your health care provider about how to take care of your insertion site. Make sure you: ? Wash your hands with soap and water for at least 20 seconds before and after you change your bandage (dressing). If soap and water are not available, use hand women's activities adviser. ? Change your dressing as told by your health care provider. ? Leave stitches (sutures), skin glue, or adhesive strips in place. These skin closures may need to stay in place for up to 2 weeks. If adhesive strip edges start to loosen and curl up, you may trim the loose edges. Do not remove adhesive strips completely unless your health care provider tells you to do that. ??? Check your insertion site every day for signs of infection. Check for: ? More redness, swelling, or pain. ? Fluid or blood. ? Warmth. ? Pus or a bad smell. ??? If your insertion site starts to bleed, lie down on your back, apply firm pressure to the area, and contact your health care provider. Driving ??? If you were given a sedative during the procedure, it can affect you for several hours. Do not drive or operate machinery until your health care provider says that it is safe. ??? Ask your health care provider when it is safe for you to drive again after the procedure. Activity ??? Avoid activities that take a lot of effort for at least 3 days after your procedure. ??? Do not lift anything that is heavier than 10 lb (4.5 kg), or the limit that you are told, until your health care provider says that it is safe. ??? Return to your normal activities as told by your health care provider. Ask your health care provider what activities are safe for you. General instructions ??? Take zjax-vmp-qshvryn and prescription medicines only as told by your health care provider. ??? Do not use any products that contain nicotine or tobacco, such as cigarettes, e-cigarettes, and chewing tobacco. If you need help quitting, ask your health care provider. ??? Do not take baths, swim, or use a hot tub until your health care provider approves. Ask your health care provider if you may take showers. You may only be allowed to take sponge baths. ??? Do not drink alcohol for 24 hours after your procedure. ??? Keep all follow-up visits as told by your health care provider. This is important. Contact a health care provider if you: ??? Notice these things around the catheter insertion site: ? More redness, swelling, or pain. ? Fluid or blood that stops after applying firm pressure to the area. ? Warmth when you touch the area. ? Pus or a bad smell. ??? Have a fever. ??? Are sweating a lot. ??? Feel nauseous. ??? Have pain or numbness in the arm or leg closest to your insertion site. Get help right away if: ??? Your insertion site suddenly swells. ??? Your insertion site is bleeding and the bleeding does not stop after applying firm pressure to the area. ??? You have chest pain or discomfort that spreads to your neck, jaw, or arm. ??? You have a fast or irregular heartbeat. ??? You have shortness of breath. ??? You are dizzy or light-headed and feel the need to lie down. These symptoms may represent a serious problem that is an emergency. Do not wait to see if the symptoms will go away. Get medical help right away. Call your local emergency services (911 in the [place] Do not drive yourself to the hospital. Summary ??? After the procedure, it is common to have bruising and tenderness at the insertion site in your groin or your neck. ??? Check your insertion site every day for more redness, swelling, or pain. These are signs of infection. ??? Contact a health care provider if you notice any signs of infection. Also, contact a health care provider if you start sweating a lot, feel nauseous, or have pain or numbness in the arm or leg closest to your insertion site. ??? Get help right away if your puncture site is bleeding and the bleeding does not stop after applying firm pressure to the area. This is a medical emergency. This information is not intended to replace advice given to you by your health care provider. Make sure you discuss any questions you have with your health care provider. Document Revised: 09/05/2020 Document Reviewed: 09/05/2020 [employer] Patient Education ?? 2020 [employer]. potassium chloride (oral/injection) (denny TASS ee um) Fer Potassium 99, Klor-Con, K-Tab, Potassium Chloride Proamp What is the most important information I should know about potassium chloride? You should not use this medicine if you have high levels of potassium in your blood (hyperkalemia), or if you also take a 'potassium-sparing' diuretic. What is potassium chloride? Potassium is a mineral that is needed for several functions of your body, especially the beating of your heart. Potassium chloride is used to prevent or to treat low blood levels of potassium (hypokalemia). Potassium levels can be low as a result of a disease or from taking certain medicines, or after a prolonged illness with diarrhea or vomiting. Potassium chloride may also be used for purposes not listed in this medication guide. What should I discuss with my healthcare provider before taking potassium chloride? You should not use potassium chloride if you are allergic to it, or if: ?? you have high levels of potassium in your blood (hyperkalemia); or ?? you take a 'potassium-sparing' diuretic (water pill) such as amiloride, spironolactone, or triamterene. Tell your doctor if you have ever had: ?? heart problems; ?? high blood pressure; ?? liver or kidney disease; ?? a large tissue injury such as a severe burn; ?? an electrolyte imbalance (such as low levels of calcium or magnesium in your blood); ?? trouble swallowing; ?? slow digestion; ?? stomach bleeding, an ulcer, or a blockage in your stomach or intestines; ?? an adrenal gland disorder; ?? diabetes; or ?? severe dehydration. Tell your doctor if you are or . How should I take potassium chloride? Follow all directions on your prescription label and read all medication guides or instruction sheets. Your doctor may occasionally change your dose. Use the medicine exactly as directed. Potassium chloride oral is taken by mouth. Potassium chloride injection is given as a slow infusion into a vein. A healthcare provider will give you this medicine by injection if you have severely low potassium levels. Tell your caregivers if you feel any burning, pain, or swelling around the IV needle when potassium chloride is injected. Take oral potassium chloride with food if the medicine upsets your stomach. Always follow directions on the medicine label about giving this medicine to a child. Take the tablet or capsule with a full glass of water. Do not crush, chew, or suck on a potassium tablet or capsule. Sucking on the pill could irritate your mouth or throat. Measure liquid medicine carefully. Use the dosing syringe provided, or use a medicine dose-measuring device (not a kitchen spoon). Mix the oral solution with least 4 ounces of water before taking it. You may need to follow a special diet while using potassium chloride. Follow all instructions of your doctor or dietitian. Learn about the foods to eat or avoid to help control your condition. Call your doctor if you have trouble swallowing a potassium chloride capsule or tablet. You may be able to dissolve the tablet in water, or mix the medicine from a capsule with soft food. Carefully follow your doctor's instructions. You may need frequent medical tests. Your heart function may need to be checked using an electrocardiograph or ECG (sometimes called an EKG). Even if you have no symptoms, tests can help your doctor determine if this medicine is effective. Some tablets are made with a shell that is not absorbed or melted in the body. Part of this shell may appear in your stool. This is normal and will not make the medicine less effective. Store at room temperature away from moisture, heat, and light. Keep the medication in a closed container. What happens if I miss a dose? Take the medicine as soon as you can, but skip the missed dose if it is almost time for your next dose. Do not take two doses at one time. What happens if I overdose? Seek emergency medical attention or call the Poison Help line at . Overdose symptoms may include stomach pain, vomiting, irregular heartbeats, chest pain, muscle weakness, loss of movement, numbness or tingling, or feeling light-headed. What should I avoid while taking potassium chloride? Do not use potassium supplements or other products that contain potassium, unless your doctor has told you to. Salt substitutes or low-salt foods often contain potassium. Read the label of any food or medicine to see if it contains potassium. What are the possible side effects of potassium chloride? Get emergency medical help if you have signs of an allergic reaction: hives; difficult breathing; swelling of your face, lips, tongue, or throat. Stop using potassium chloride and call your doctor at once if you have: ?? severe throat irritation; ?? chest pain, trouble breathing; ?? pain, burning, bruising, swelling, irritation, or skin changes where the medicine was injected; ?? stomach bloating, severe vomiting, severe stomach pain; ?? high potassium level--nausea, weakness, tingly feeling, chest pain, irregular heartbeats, loss of movement; or ?? signs of stomach bleeding--bloody or tarry stools, coughing up blood or vomit that looks like coffee grounds. Common side effects may include: ?? nausea, vomiting, diarrhea; ?? gas, stomach pain; or ?? the appearance of a potassium chloride tablet in your stool. This is not a complete list of side effects and others may occur. Call your doctor for medical advice about side effects. You may report side effects to FDA at 6-314-GMJ-3256. What other drugs will affect potassium chloride? Tell your doctor about all your other medicines, especially: ?? medicine to prevent organ transplant rejection; ?? a diuretic or 'water pill'; or ?? heart or blood pressure medication. This list is not complete. Other drugs may affect potassium chloride, including prescription and fdxf-zmm-labcict medicines, vitamins, and herbal products. Not all possible drug interactions are listed here. Where can I get more information? Your pharmacist can provide more information about potassium chloride. Remember, keep this and all other medicines out of the reach of children, never share your medicines with others, and use this medication only for the indication prescribed. Every effort has been made to ensure that the information provided by [employer]. ('[employer]') is accurate, up-to-date, and complete, but no guarantee is made to that effect. Drug information contained herein may be time sensitive. [employer] information has been compiled for use by healthcare practitioners and consumers in the [place] and therefore [employer] does not warrant that uses outside of the [place] are appropriate, unless specifically indicated otherwise. [employer]'s drug information does not endorse drugs, diagnose patients or recommend therapy. [employer] drug information is an informational resource designed to assist licensed healthcare practitioners in caring for their patients and/or to serve consumers viewing this service as a supplement to, and not a substitute for, the expertise, skill, knowledge and judgment of healthcare practitioners. The absence of a warning for a given drug or drug combination in no way should be construed to indicate that the drug or drug combination is safe, effective or appropriate for any given patient. [employer] does not assume any responsibility for any aspect of healthcare administered with the aid of information [employer] provides. The information contained herein is not intended to cover all possible uses, directions, precautions, warnings, drug interactions, allergic reactions, or adverse effects. If you have questions about the drugs you are taking, check with your doctor, nurse or pharmacist. Copyright 3223-0174 [employer]. Version: 14.01. Revision Date: 04/07/2020. Emergency Awareness and Preventative Care STROKE is an EMERGENCY Every Minute Counts Act FAST and Check for these signs: FACE Does the face look uneven? ARM Does one arm drift down? SPEECH Does their speech sound strange? TIME Call at any sign of stroke Stroke Risk Factors Atrial Fibrillation (irregular heartbeat) Diabetes Family history of stroke Heart Disease Heavy alcohol use High Blood Pressure High Cholesterol Physical inactivity and obesity Smoking Cigarette Smoking The facts are clear, cigarette smoking will shorten your life. Smoking can cause many illnesses along the way. As a healthcare provider, we recommend that you stop smoking. Assistance with quitting is available by contacting 0-982-JJCL-NOW. This is a free resource providing counseling, support, and referral. Or you may contact your personal physician. National Suicide Prevention Lifeline: The National Suicide Prevention Lifeline is a national network of local crisis centers that provides free and confidential emotional support to people in suicidal crisis or emotional distress 24 hours a day, 7 days a week. Don't Wait! Stop a Heart Attack Before it Starts What is a heart attack? A heart attack is damage or to a part of the heart from severely decreased or lack of blood flow to the heart. Over time, arteries can become narrow from the buildup of fat and cholesterol, which is called plaque. The plaque can rupture causing a blood clot to form. When the blood clot forms, the artery can become severely narrowed or completely blocked, causing a heart attack. Heart attack is the leading cause of in the [place]. 85% of muscle damage occurs within the first 2 hours. Delay in the recognition of heart attack symptoms increases the chances of . Know the early symptoms of a heart attack: Nausea Feeling of fullness in chest Jaw Pain Pain that travels down one or both arms Fatigue/being tired Anxiety Back Pain Chest pressure, squeezing, or discomfort Shortness of breath Sweating, or a cold sweat Feeling of impending doom There are unusual signs of a heart attack, too! Women, the elderly, and diabetics may present with atypical symptoms: Fainting/dizziness Weakness Confusion Risk Factors for a Heart Attack Some heart disease risk factors, such as age and family history, cannot be changed. Others, like smoking and lack of exercise, can be changed. Smoking High Cholesterol High Blood Pressure Family History Obesity Age Gender (Males are at higher risk) Lack of Exercise Diabetes Diet Stress Excessive Alcohol Intake If you or someone you know is experiencing the signs and symptoms of a heart attack, DON???T DELAY. Call immediately and seek help. If someone collapses, perform CPR! Do not attempt to drive if you are having symptoms of heart attack. Hands-Only CPR Why Hands-Only CPR? Hands-Only CPR has been shown to be as effective as conventional CPR for cardiac arrests that occur outside of a hospital. Survival depends on immediately receiving CPR from someone nearby. How do you perform Hands-Only CPR? There are two easy steps: Call if you see a teen or adult collapse Push hard and fast in the center of the chest at a beat of 100 beats per minute. Save a life! 4 WAYS TO GET AHEAD OF SEPSIS SEPSIS is a MEDICAL EMERGENCY. Time matters! Infections put you and your family at risk for a life-threatening condition called sepsis. Sepsis is the body's extreme response to an infection. It is life-threatening, and without timely treatment, sepsis can rapidly lead to tissue damage, organ failure, and . Sepsis happens when an infection you already have-in your skin, lungs, urinary tract or somewhere else-triggers a chain reaction throughout your body. 1 PREVENT INFECTIONS Take good care of chronic conditions. Talk to your doctor about getting the recommended vaccines. 2 PRACTICE GOOD HYGIENE Wash your hands frequently. Keep cuts or open sores clean and covered until they are healed. 3 KNOW THE SYMPTOMS Confusion or disorientation Shortness of breath High heart rate Fever, shivering, or feeling very cold Extreme pain or discomfort Clammy or sweaty skin 4 ACT FAST Get medical care IMMEDIATELY if you suspect sepsis or if you have an infection that is not getting better or is getting worse. To learn more about sepsis and how to prevent infections, visit www.cdc.gov/sepsis. Test Results Laboratory or Other Results This Visit (last charted value for your 08/02/2021 visit) Hematology 08/03/2021 6:34 AM WBC: 9.7 K/uL -- Normal range between ( 4.5 and 10.5 ) RBC: 3.84 Million/uL -- Normal range between ( 3.93 and 5.22 ) Hct: 33.7 % -- Normal range between ( 34.1 and 44.9 ) Hgb: 11.0 g/dL -- Normal range between ( 11.2 and 15.7 ) Platelet Count: 108 K/uL -- Normal range between ( 163 and 369 ) MCH: 28.6 pg -- Normal range between ( 25.6 and 32.2 ) MCHC: 32.6 Gram/dL -- Normal range between ( 32.2 and 36.5 ) MCV: 87.8 fL -- Normal range between ( 79.0 and 94.8 ) Slide Review: No RDW: 18.3 % -- Normal range between ( 11.7 and 14.9 ) MPV: See Comment fL -- Normal range between ( 9.4 and 12.4 ) 08/02/2021 6:52 AM Eos %: 1.6 % -- Normal range between ( 0.0 and 7.0 ) [place] #: 0.64 K/uL -- Normal range between ( 0.16 and 1.00 ) Eos #: 0.10 x10(3)/uL -- Normal range between ( 0.00 and 0.80 ) [place] %: 10.5 % -- Normal range between ( 3.0 and 9.0 ) Baso %: 0.5 % -- Normal range between ( 0.0 and 1.5 ) Baso #: 0.03 x10(3)/uL -- Normal range between ( 0.00 and 0.20 ) Neut %: 58.9 % -- Normal range between ( 34.0 and 71.0 ) Neut #: 3.60 K/uL -- Normal range between ( 1.56 and 6.13 ) Lymph %: 28.0 % -- Normal range between ( 19.3 and 53.1 ) Lymph #: 1.71 x10(3)/uL -- Normal range between ( 1.00 and 3.90 ) IG#: 0.03 x10(3)/uL -- Normal range between ( 0.00 and 0.05 ) IG%: 0.50 % -- Normal range between ( 0.00 and 0.60 ) Microbiology 07/31/2021 9:00 AM SARS-CoV-2 (COVID19 PCR): Negative General Chemistry 08/03/2021 6:34 AM Creatinine Level: 1.00 mg/dL -- Normal range between ( 0.55 and 1.02 ) Sodium Level: 139 mmol/L -- Normal range between ( 136 and 146 ) Potassium Level: 3.2 mmol/L -- Normal range between ( 3.5 and 5.1 ) Chloride Level: 108 mmol/L -- Normal range between ( 102 and 112 ) Carbon Dioxide Level: 25 mmol/L -- Normal range between ( 21 and 32 ) Anion Gap: 9 -- Normal range between ( 9 and 20 ) Bilirubin Total: 0.6 mg/dL -- Normal range between ( 0.2 and 1.2 ) A/G Ratio: 1.0 -- Normal range between ( 1.1 and 2.5 ) ALT: 43 Units/Liter -- Normal range between ( 13 and 56 ) AST: 55 Units/Liter -- Normal range between ( 5 and 37 ) Globulin: 3.4 Gram/dL -- Normal range between ( 1.5 and 4.5 ) Alk Phos: 82 Units/Liter -- Normal range between ( 27 and 136 ) Bun/Creatinine: 14.0 -- Normal range between ( 8.0 and 20.0 ) Calcium Level: 8.1 mg/dL -- Normal range between ( 8.4 and 10.1 ) eGFR : >60 mL/min/1.73m2 eGFR NonAfrican: 55 mL/min/1.73m2 Glucose Level: 111 mg/dL -- Normal range between ( 74 and 106 ) Magnesium Level: 2.0 mg/dL -- Normal range between ( 1.5 and 2.4 ) Blood Urea Nitrogen: 14 mg/dL -- Normal range between ( 7 and 22 ) Protein Total: 6.8 Gram/dL -- Normal range between ( 6.4 and 8.2 ) Albumin Level: 3.4 Gram/dL -- Normal range between ( 3.4 and 5.0 ) Coagulation 08/02/2021 2:05 PM ACT POC: 334 Second(s) -- Normal range between ( 74 and 137 ) Echo 08/02/2021 7:40 AM EC Echo Complete: EC Echo Complete Patient Name:MITZI MCDUFFIE I have received and understand this information and was given the opportunity to ask questions. Patient/Putty Glazer Name: Patient/Putty Glazer Signature: Relationship to Patient: Clinician/Hospital Putty Glazer Signature: Date: Electronically signed by [facility], [facility] Conversion Data Processing Mechanic Cerner at 02/26/2023 4:37 PM CDT documented in this encounter Plan of Treatment Upcoming Encounters Date Type Department Care Team (Late st Contact Info) Description 04/27/2025 8:30 AM EDT Office Visit [facility] Electrophysiology [address] [place], [place] [address] [place] [address] Ranjan Talley MD [address] [place] [address] [address] [place] [address] documented as of this encounter Visit Diagnoses Not on filedocumented in this encounter Care Teams Want Ad Receiver Relationship Specialty Start Date End Date Lucía Roman, RAYON WINDER [address] [place] [address] PCP - General Nurse Practitioner 04/25/23 Ranjan Talley MD [address] [place] [address] [address] [place] [address] Wireless Cellular Technician Electrophysiology 08/17/24 documented as of this encounter
--- OUTSIDE RECORDS SUMMARY | 2025-04-19 12:26 | XMS_ITS | Encounter Summary ---
Author Organization [facility] Address [address] [place] [address] Care Team Providers Care Solution Consultant Name Role Phone Lucía Roman APRN Primary Care Provider Ranjan Talley MD Unavailable Encounter Details Date Type Department Care Team (Late st Contact Info) Description 08/03/2021 Transcribed Document [facility] Family Medicine [facility]ly [facility], [facility] [place] [address] ProviderSharla MD [address] [place] [id number] Social History Tobacco Use Types Packs/Day Years Used Date Smoking Tobacco: Never Assessed Comments Unknown Sex and Gender Information Value Date Recorded Sex Assigned at Not on file Legal Sex Female 5:07 PM CDT Gender Identity Not on file Sexual Orientation Not on file documented as of this encounter Miscellaneous Notes * Cerner Conversion Note - Sharla ProviderMD - 08/03/2021 11:24 AM CDT Final Discharge Planning Entered On: 08/03/2021 11:27 EDT Performed On: 08/03/2021 11:24 EDT by STEFAN CORONADO, RN-Care Management Final Discharge Planning Discharge Arrangements : Patient Post-Acute Information Patient Name: MITZI MCDUFFIE Gender: Female : [birth year] Age: 66 Years No Post-Acute Placement(s) Listed No Post-Acute Service(s) Listed No Cur[place] Referral(s) Listed Discharge To Care Management : Home/Residential/[facility] or Self Care -01 STEFAN CORONADO RN-Care Management - 08/03/2021 11:24 EDT Final Narrative Note Final Narrative Note : OPA-Cardiac ablation, ICD reprogramming, pulmonary vein isolation, Isuprel infusion and LV pacing. Pt. DC to home, no CM orders, Nursing to schedule f/u appointments. STEFAN CORONADO RN-Care Management - 08/03/2021 11:24 EDT Electronically signed by [facility] Conversion Solution Design And Analysis Manager Cerner at 02/26/2023 4:36 PM CDT documented in this encounter Plan of Treatment Upcoming Encounters Date Type Department Care Team (Late st Contact Info) Description 04/27/2025 8:30 AM EDT Office Visit [facility] Electrophysiology [address] [place], [place] [address] [place] [address] Ranjan Talley MD [address] [place] [address] [address] [place] [id number] documented as of this encounter Visit Diagnoses Not on filedocumented in this encounter Care Teams Solution Consultant Relationship Specialty Start Date End Date Lucía Roman, TITO [address] [address] PCP - General Nurse Practitioner 04/25/23 Ranjan Talley MD [address] [place] [address] [address] [place] [address] Exploration Driller Electrophysiology 08/17/24 documented as of this encounter
--- OUTSIDE RECORDS SUMMARY | 2025-04-19 12:26 | XMS_ITS | Encounter Summary ---
Author Organization [employer] Address [address] [place] [address] Care Team Providers Care Terrazzo Installer Name Role Phone Lucía Roman APRN Primary Care Provider Ranjan Talley MD Unavailable Reason for Visit * Reason Comments Medication Refill Encounter Details Date Type Department Care Team (Late Contact Info) Description 11/12/2023 Refill [facility] Electrophysiology [address] [place] [address] [address] Ranjan Talley MD [address] [place] [address] [address] [place] [address] Ischemic cardiomyopathy with implantable cardioverter-defibrillat or (ICD) Social History Tobacco Use Types Packs/Day Years Used Date Smoking Tobacco: Former Cigarettes 1.8 40 1 974 - 2014 Passive Smoke Exposure: Never Smokeless Tobacco: Never Alcohol Use Standard Drinks/Week Comments Not Currently 0 (1 standard drink = 0.6 oz pur e alcohol) Comments No Sex and Gender Information Value Date Recorded Sex Assigned at Not on file Legal Sex Female 5:07 PM CDT Gender Identity Not on file Sexual Orientation Not on file documented as of this encounter Plan of Treatment Upcoming Encounters Date Type Department Care Team (Late Contact Info) Description 04/27/2025 8:30 AM EDT Office Visit [facility] Electrophysiology [address] [place] [address] [address] Ranjan Talley MD [address] [place] [address] [address] documented as of this encounter Visit Diagnoses Diagnosis Ischemic cardiomyopathy with implantable cardioverter-defibrillator (ICD) documented in this encounter Care Teams Terrazzo Installer Relationship Specialty Start Date End Date Lucía Roman, MACHINE TECH [address] [address] PCP - General Nurse Practitioner 04/25/23 Ranjan Talley MD [address] [facility] [address] [address] Escrow Assistant Electrophysiology 08/17/24 documented as of this encounter
--- OUTSIDE RECORDS SUMMARY | 2025-04-19 12:26 | XMS_ITS | Encounter Summary ---
Author Organization [employer] Address [address] [place] [address] Care Team Providers Care Therapy Assistant Name Role Phone Lucía Roman APRN Primary Care Provider Ranjan Talley MD Unavailable Encounter Details Date Type Department Care Team (Late st Contact Info) Description 08/03/2021 Transcribed Document [facility] [place] [facility] [place] [address] ProviderSharla MD [address] [place] [phone] Social History Tobacco Use Types Packs/Day Years Used Date Smoking Tobacco: Never Assessed Comments Unknown Sex and Gender Information Value Date Recorded Sex Assigned at Not on file Legal Sex Female 5:07 PM CDT Gender Identity Not on file Sexual Orientation Not on file documented as of this encounter Miscellaneous Notes * Cerner Conversion Note - Historical ProviderMD - 08/03/2021 2:15 PM CDT Nursing Discharge Summary Entered On: 08/03/2021 14:17 EDT Performed On: 08/03/2021 14:15 EDT by Marti Joyner LPN-LVN-PATIENT CARE BEDSIDE Discharge Documentation Discharge Date/Time : 08/03/2021 14:15 EDT Patient Disposition, General : Discharge Discharge To : Home with ambulatory/outpatient follow-up Mode Of Departure, General Discharge : Wheelchair Accompanied By, Discharge : Daughter IV Discontinued : Yes Personal Belongings With Patient : Yes Pt's Own Supply of Medications Returned : No Prescriptions Given to Patient : Yes Medications Given to Patient : Yes Discharge Instructions Reviewed With, Opportunity For Questions Given : Patient, Daughter Patient Education Completed : Yes Teaching Method : Explanation Teaching Evaluation : Verbalizes understanding Marti Joyner LPN-LVN-PATIENT CARE BEDSIDE - 08/03/2021 14:15 EDT Electronically signed by [facility], [facility] Conversion Cooler Man Cerner at 02/26/2023 4:38 PM CDT documented in this encounter Plan of Treatment Upcoming Encounters Date Type Department Care Team (Late st Contact Info) Description 04/27/2025 8:30 AM EDT [facility] Visit [facility] Electrophysiology [address] [place] [address] Suite [facility] [place] [address] Ranjan Talley MD [address] [place] [address] [place] [id number] documented as of this encounter Visit Diagnoses Not on filedocumented in this encounter Care Teams Therapy Assistant Relationship Specialty Start Date End Date Lucía Roman, TITO [address] [address] PCP - General Nurse Practitioner 04/25/23 Ranjan Talley MD [address] [place] [address] [address] Final Assembler Electrophysiology 08/17/24 documented as of this encounter
--- OUTSIDE RECORDS SUMMARY | 2025-04-19 12:26 | XMS_ITS | Encounter Summary ---
Author Organization [employer] [facility] [employer] Address [address] [place] [address] Care Team Providers Care Chemistry Associate Name Role Phone Lucía Roman APRN Primary Care Provider Ranjan Talley MD Unavailable Encounter Details Date Type Department Care Team (Late st Contact Info) Description 08/02/2021 Transcribed Document [facility] [place] [address] ProviderSharla MD [address] [place] [address] Social History Tobacco Use Types Packs/Day Years Used Date Smoking Tobacco: Never Assessed Comments Unknown Sex and Gender Information Value Date Recorded Sex Assigned at Not on file Legal Sex Female 5:07 PM CDT Gender Identity Not on file Sexual Orientation Not on file documented as of this encounter Miscellaneous Notes * Cerner Conversion Note - Historical ProviderMD - 08/02/2021 2:52 PM CDT Patient: MITZI MCDUFFIE Age: 66 Years Sex: Female : 1955 Balance Wheel Facer: Ranjan Talley MD Indication: 65 year old female , with PMH significant for CAD s/p CABG 2013, ICM s/p [facility] DC ICD in 2015, Inappropriate ICD shocks, Paroxysmal Afib CHADS VASC 3 on Xarelto 20 mg daily and Sotalol 60 mg BID, hx of Amiodarone toxicity in 2018, HTN, HLD and Hypothyroidism. Patient said an ablation was discussed on her but Dr. blanton started her on sotalol. She also mentioned that she had some lung toxicity beside the thyroid toxicity with amiodarone. Her arrhythmia has been controlled so far with the sotalol with a borderline QT. We discussed the interaction with some antibiotics and hypokalemia in the past. She had also some inappropriate shocks. We discussed the risks and the benefits on an atrial fibrillation ablation and she is here for this. Procedure report: After written informed consent was obtained, the patient was brought to the Electrophysiology Laboratory in a fasting state. Sedation was managed by general anesthesia. The right and left groins were prepped and draped in the usual manner. 15 ml of 1% lidocaine was infiltrated in the groin for local anesthesia. The following catheters were placed using ultrasound guidance. 1)8 Fr in the right femoral vein. a venous sheath 8Fr in the right femoral vein with a long sheath for transeptal access and pentarray and 3.5 mm irrigated F/J ablation catheter 2.)8 Fr in the left femoral vein to advance a 6 Fr decapolar deflectable catheter which was placed in the CS for left atrial pacing and recording. 3.)11 Fr in the left femoral vein. This was used to 10 Fr phased area ICE catheter. The ICE catheter was used to inspect the heart prior to ablation. There was a very short CTI mostly the pouch visualized on ICE. There was no pericardial effusion present prior to ablation. Systemic anticoagulation with IV heparin boluses was administered immediately following sheaths insertion to achieve a target ACT greater around 250 sec. Next, the 10 Fr ICE catheter was used to assist with transseptal puncture and ablation. ICE imaging was used to confirm the presence of typical anatomy consisting of two left and two right pulmonary veins entering the left atrium. The transeptal puncture was difficult because the wire advanced in the SVC would be tangled on both the atrial and ventricular leads and the heart had also some rotation. We started with the non-deflectable baylis sheath then had to use the deflectable one to finally get transseptal. Successful puncture was verified by ultrasound and fluoroscopy. Systemic anticoagulation with IV heparin was increased following the trans-septal puncture to achieve a target ACT greater around 350 sec. A Pentarray catheter was advanced through the sheath and mapping of the LA was performed to create a 3D CARTO map. There was no scar on the posterior wall but some CFAE that were noted on the anterior septum. Next, RF ablation was then performed beginning with wide antral lesions set around the left and right pulmonary veins. Both veins were encircled and isolated including the carena areas under direct monitor of the temperature in the esophagus that raised on the posterior wall toward the right veins but the esosure was very effecitve to move the esophagus to the left side. Ablation was discontinued for any significant raise of the temperature, which occurrence did not happen during the case. Further ablation was performed anteriorly to eliminate the CFAEs as well. The study he was overall difficult on the posterior wall toward the right-sided veins. After a new map, there was still a gap on the posterior rosa as well as the anterior ridge. Further ablation was performed in those 2 areas. Isuprel was then infused at 1 mcg but no arrhythmia or PACs were observed. The ablation catheter was then placed in the left ventricle. Pacing was performed in the left ventricle and showed no retrograde conduction. The sheath was retracted from the left atrium into the right atrium. We started to ablate 2-3 lesions on the CTI but did not complete it because it would require a shorter curve with a small curve deflectable sheath to be able to complete it and the case was going on already for long time. Heparin was discontinued. ICE was used to verify the absence of a post-procedure pericardial effusion. All catheters were withdrawn and protamine sulfate was administered to reverse anticoagulation. The sheaths were all removed and Figure of 8 sutures were placed in each groin to achieve hemostasis. Complications: No immediate complications were observed. There was no pericardial effusion at the end of the procedure. Blood loss around 3 start 0 mL. Conclusion: Successful Procedure(s) of: 1. Pulmonary vein isolation 2. CFAE ablation 3. Isuprel infusion and LV pacing 4 ICD reprogramming pre-and postprocedure Plan: Monitor overnight. Electronically signed by [facility] Conversion Transportation Program Director Blancaner at 02/26/2023 4:51 PM CDT documented in this encounter Plan of Treatment Upcoming Encounters Date Type Department Care Team (Late st Contact Info) Description 04/27/2025 8:30 AM EDT Office Visit [facility] Electrophysiology [address] [place] [address] [address] [place] [address] [place] [address] [address] [place] [address] documented as of this encounter Visit Diagnoses Not on filedocumented in this encounter Care Teams Chemistry Associate Relationship Specialty Start Date End Date Lucía Roman, CHIEF DIGITAL OFFICER [address] [place] [address] PCP - General Nurse Practitioner 04/25/23 Ranjan Talley MD [address] [facility] [address] [place] [address] Changer Fixer Electrophysiology 08/17/24 documented as of this encounter
--- OUTSIDE RECORDS SUMMARY | 2025-04-19 12:26 | XMS_ITS | Encounter Summary ---
Author Organization [facility] Address [address] [place] [address] Care Team Providers Care Cashier Credit Name Role Phone Lucía Roman APRN Primary Care Provider [phone] Ranjan Talley MD Unavailable Encounter Details Date Type Department Care Team (Late st Contact Info) Description 08/03/2021 Transcribed Document [facility] Family Medicine [facility] [place] [address] ProviderSharla MD [address] [place] [phone] Social History Tobacco Use Types Packs/Day Years Used Date Smoking Tobacco: Never Assessed Comments Unknown Sex and Gender Information Value Date Recorded Sex Assigned at Not on file Legal Sex Female 5:07 PM CDT Gender Identity Not on file Sexual Orientation Not on file documented as of this encounter Miscellaneous Notes * Cerner Conversion Note - Sharla ProviderMD - 08/03/2021 12:28 PM CDT Spiritual Care Short Form Entered On: 08/03/2021 14:12 EDT Performed On: 08/03/2021 12:28 EDT by DANIEL HOWARD General Information, Spiritual Care Spiritual Care Referred by : Blood Bank Manager follow-up Reason for Visit : Follow Up Ministry Provided to : Patient Intervention/Comment/Summary Points : Post-op visit. Provided active listening and spiritual support. Patient anticipates discharge today. DANIEL HOWARD - 08/03/2021 14:11 EDT documented in this encounter Plan of Treatment Upcoming Encounters Date Type Department Care Team (Late st Contact Info) Description 04/27/2025 8:30 AM EDT Office Visit [facility] Electrophysiology [address] [facility] [address] [facility] [place] [address] Ranjan Talley MD [address] [facility] [address] [place], [place] [id number] documented as of this encounter Visit Diagnoses Not on filedocumented in this encounter Care Teams Cashier Credit Relationship Specialty Start Date End Date Lucía Roman, X RAY SERVICE ENGINEER [address] [place] [address] PCP - General Nurse Practitioner 04/25/23 Ranjan Talley MD [address] [facility] [address] [place] [address] Pipe Cleaner Electrophysiology 08/17/24 documented as of this encounter
--- OUTSIDE RECORDS SUMMARY | 2025-04-19 12:26 | XMS_ITS | Encounter Summary ---
Author Organization [facility] Address [address] [place] [address] Care Team Providers Care Activated Sludge Operator Name Role Phone Lucía Roman APRN Primary Care Provider Ranjan Talley MD Unavailable Reason for Visit * Reason Comments Medication Refill Encounter Details Date Type Department Care Team (Late st Contact Info) Description 04/11/2025 Refill [facility] Electrophysiology [address] [facility] [address] [place] [address] Ranjan Talley MD [address] [facility] [address] [place] [address] Social History Tobacco Use Types Packs/Day Years [...] Date Wicho rded Speak language other than Egyptian at home Not on file 11/19/2023 Want [...] Description 04/27/2025 8:30 AM EDT Office Visit [facility] Electrophysiology [address] [place] [address] [address] [facility] [place] [address] [place] [address] [place] [address] [address] [place] [address] documented as of this encounter Visit Diagnoses Not on filedocumented in this encounter Care Teams Activated Sludge Operator Relationship Specialty Start Date End Date Lucía Roman, SAFETY INVESTIGATOR/CAUSE ANALYST [address] [place] [id number] PCP - General Nurse Practitioner 04/25/23 [place] [address] [place] [address] [address] [place] [address] Newspaper Press Operator Apprentice Electrophysiology 08/17/24 documented as of this encounter
--- OUTSIDE RECORDS SUMMARY | 2025-04-19 12:26 | XMS_ITS | Encounter Summary ---
Author Organization [facility] Address [address] [place] [address] Care Team Providers Care Boot Turner Name Role Phone Abel Lucía FRANCIS Primary Care Provider [phone] Ranjan Talley MD Unavailable Encounter Details Date Type Department Care Team (Late st Contact Info) Description 02/23/2025 Orders Only [facility] Electrophysiology [address] [place] [address] [address] Temo Mcdaniel RN Palpitations Social [...] Date Wicho rded Speak language other than Nigerien at home Not on file 11/19/2023 Want [...] Description 04/27/2025 8:30 AM EDT Office Visit [facility] Electrophysiology [address] [facility] [address] [place] [address] Ranjan Talley MD [address] [facility] [address] [place] [address] documented as of this encounter Visit Diagnoses Diagnosis Palpitations documented in this encounter Care Teams Boot Turner Relationship Specialty Start Date End Date Lucía Roman, [employer] [address] [place] [address] PCP - General Nurse Practitioner 04/25/23 Ranjan Talley MD [address] [facility] [address] [place], [place] [id number] Cupola Man Electrophysiology 08/17/24 documented as of this encounter
--- OUTSIDE RECORDS SUMMARY | 2025-04-19 12:26 | XMS_ITS | Encounter Summary ---
Author Organization [facility] Address [address] [place] [address] Care Team Providers Care Insight Leader Name Role Phone Lucía Roman APRN Primary Care Provider [phone] Ranjan Talley MD Unavailable Encounter Details Date Type Department Care Team (Late st Contact Info) Description 08/02/2021 Transcribed Document [facility] Family Medicine [facility] [address] ProviderSharla MD [address] [place] [address] Social History Tobacco Use Types Packs/Day Years Used Date Smoking Tobacco: Never Assessed Comments Unknown Sex and Gender Information Value Date Recorded Sex Assigned at Not on file Legal Sex Female 5:07 PM CDT Gender Identity Not on file Sexual Orientation Not on file documented as of this encounter Miscellaneous Notes * Cerner Conversion Note - Sharla ProviderMD - 08/02/2021 7:51 PM CDT Event Note Entered On: 08/02/2021 19:52 EDT Performed On: 08/02/2021 19:51 EDT by TAVARES CARROLL RN Event Note Event Date/Time : 08/02/2021 19:50 EDT Description of Event : Report to Jolly CUELLO on 4IC. Pt transferred to [facility] via wheelchair with all belongings. TAVARES CARROLL RN - 08/02/2021 19:51 EDT Electronically signed by Arabella [facility] Conversion Volcanologist Cerkranthi at 02/26/2023 4:46 PM CDT documented in this encounter Plan of Treatment Upcoming Encounters Date Type Department Care Team (Late st Contact Info) Description 04/27/2025 8:30 AM EDT Office Visit [facility] Electrophysiology [address] [facility] [address] [place] [address] Ranjan Talley MD [address] [facility] [address] [place] [address] documented as of this encounter Visit Diagnoses Not on filedocumented in this encounter Care Teams Insight Leader Relationship Specialty Start Date End Date Lucía Roman, STOCK BROKER [address] [place] [address] PCP - General Nurse Practitioner 04/25/23 Ranjan Talley MD [address] [facility] [address] [place], [place] [id number] Behavior Analyst Electrophysiology 08/17/24 documented as of this encounter
--- OUTSIDE RECORDS SUMMARY | 2025-04-19 12:26 | XMS_ITS | Encounter Summary ---
Author Organization [facility] [employer] Address [address] [place] [address] Care Team Providers Care Unit Educator Name Role Phone Lucía Roman APRN Primary Care Provider Ranjan Talley MD Unavailable Encounter Details Date Type Department Care Team (Late st Contact Info) Description 08/02/2021 Transcribed Document [facility] [place] [facility] [place] [address] ProviderSharla MD [address] [place] [address] Social History Tobacco Use Types Packs/Day Years Used Date Smoking Tobacco: Never Assessed Comments Unknown Sex and Gender Information Value Date Recorded Sex Assigned at Not on file Legal Sex Female 5:07 PM CDT Gender Identity Not on file Sexual Orientation Not on file documented as of this encounter Miscellaneous Notes * Cerner Conversion Note - Sharla ProviderMD - 08/02/2021 7:35 AM CDT Spiritual Care Short Form Entered On: 08/02/2021 8:40 EDT Performed On: 08/02/2021 7:35 EDT by DANIEL HOWARD General Information, Spiritual Care Spiritual Care Referred by : Patient Reason for Visit : Referral/Consult Ministry Provided to : Patient, Family/Significant other Intervention/Comment/Summary Points : Provided pre-surgery visit and prayer with patient and daughter. DANIEL HOWARD - 08/02/2021 8:37 EDT documented in this encounter Plan of Treatment Upcoming Encounters Date Type Department Care Team (Late st Contact Info) Description 04/27/2025 8:30 AM EDT Office Visit [facility] Electrophysiology [address] [facility] [address] [place] [address] Ranjan Talley MD [address] [facility] [address] [place] [address] documented as of this encounter Visit Diagnoses Not on filedocumented in this encounter Care Teams Unit Educator Relationship Specialty Start Date End Date Lucía Roman, SUPERVISOR [employer] [address] [place] [address] PCP - General Nurse Practitioner 04/25/23 Ranjan Talley MD [address] [facility] [address] [place], [place] [id number] Plate Stacker Hand Electrophysiology 08/17/24 documented as of this encounter
--- OUTSIDE RECORDS SUMMARY | 2025-04-19 12:26 | XMS_ITS | Encounter Summary ---
Author Organization [employer] Address [address] [place] [address] Care Team Providers Care Drug And Alcohol Treatment Specialist Name Role Phone Lucía Roman APRN Primary Care Provider [phone] Ranjan Talley MD Unavailable Encounter Details Date Type Department Care Team (Late st Contact Info) Description 08/02/2021 Transcribed Document [facility] Family Medicine [facility] [place] [address] ProviderSharla MD [address] [place], [place] [id number] Social History Tobacco Use Types Packs/Day Years Used Date Smoking Tobacco: Never Assessed Comments Unknown Sex and Gender Information Value Date Recorded Sex Assigned at Not on file Legal Sex Female 5:07 PM CDT Gender Identity Not on file Sexual Orientation Not on file documented as of this encounter Miscellaneous Notes * Cerner Conversion Note - Sharla ProviderMD - 08/02/2021 4:50 PM CDT Admission History, Adult Entered On: 08/02/2021 16:51 EDT Performed On: 08/02/2021 16:50 EDT by TAVARES CARROLL RN Advance Directive Patient has Advance Directive *Q : No, patient refuses Advance Directive information TAVARES CARROLL RN - 08/02/2021 16:50 EDT Anesthesia/Transfusion History Family History of Anesthesia Reaction : No prior transfusion(s) Blood Transfusion Acceptable to Patient : Yes Transfusion History : Prior anesthesia without reaction Family History of Anesthesia Reaction : None Intubation History : Unknown TAVARES CARROLL RN - 08/02/2021 16:50 EDT Functional Assessment Living Situation : Home Patient Lives With : Significant other(s) Current Home Treatments : None TAVARES CARROLL RN - 08/02/2021 16:50 EDT General Info Preferred Name : Melida Support Person/Pt Rep Name : Nichole jenkins Contact Password : David Support Person/Pt Rep Contact Information : [phone] Want Family/Rep/Phys Notified of Admit : No Emergency Contact #1 : Nichole Emergency Contact #1 Phone Number : daughter Emergency Contact #1 Relationship : [phone] Emergency Contact #2 : none Emergency Contact #2 Phone Number : none Emergency Contact #2 Relationship : none Primary Language : Marshallese Preferred Communication Mode : Verbal Communication Barrier : None Foam Rubber Fabricator Needed : No TAVARES CARROLL RN - 08/02/2021 16:50 EDT Fall Risk Scales ABCs Fall Injury Risk Identification : None LING Hx Falls Immediate/Within 3 Months : No Ling Secondary Diagnosis : Yes LING Use of Ambulatory Aid : None LING IV Therapy or IV Access : No Scot Gait/Transferring : Normal, bedrest, immobile Ling Mental Status : Oriented to own ability Ling Fall Risk Score : 15 LING Fall Scale Risk Level : 0-24 Low Risk [place] Fall Interventions : Bed in low position, Non-slip footwear, Upper side-rails up, Wheels locked TAVARES CARROLL RN - 08/02/2021 16:50 EDT Health Histories Smoking Status : Former smoker, quit more than 30 days ago Smokeless Tobacco Status : Never TAVARES CARROLL RN - 08/02/2021 16:50 EDT Social History (As Of: 08/02/2021 16:51:39 EDT) Tobacco: Last Used: pt quit smoking in 2013. (Last Updated: 03/06/2016 08:03:54 EDT by RADHA GLEZ, RN) Alcohol: Alcohol Use History Yes. Alcohol Use Frequency Socially. (Last Updated: 02/28/2016 10:26:01 EDT by Wendie Daly, KHUSHBOO) Substance Abuse: Drug Use Hx: No. (Last Updated: 03/06/2016 08:03:58 EDT by RADHA GLEZ, RN) Height and Weight, Clinical Dosing Height Source : Stated Height Entry Format : [place] Height, Feet : 5 ft(Converted to: 152 cm, 60 Inch) Height, Inches : 1 Inch(Converted to: 0 ft 1 Inch, 2.54 cm) Clinical Height : 154.94 cm Weight Source : Standing scale Weight Entry Format : [place] Clinical Dosing Weight : 89.09 kg Weight, Pounds : 196 lb Body Surface Area (BSA) : 1.87 m2 Body Mass Index : 37.1 kg/m2 (HI) [place] Body Weight : 47 kg TAVARES CARROLL RN - 08/02/2021 16:50 EDT Infectious Disease History Does patient have symptoms of COVID-19? : No Has the Patient Been Tested for COVID-19 in the last 14 days? : Yes, Patient stated results Negative Does the Patient state known exposure to a COVID-19 positive case in the last 14 days? : No Patient Vaccinated for COVID-19 : Fully vaccinated TAVARES CARROLL RN - 08/02/2021 16:50 EDT Infectious Disease Risk Screening Grid Cough < 2 wks of unknown origin : NO Cough > 2 weeks : NO Blood in Sputum : NO Fever or self-reported Fever : NO Rash of unknown origin : NO Headache : NO Stiff neck : NO Night Sweats : NO Unexplained Weight Loss : NO Diarrhea (3 episode per day) : NO TAVARES CARROLL RN - 08/02/2021 16:50 EDT Physical contact outside [place] in the last 30 days : No Hospitalized in Foreign Country : No Infectious Disease History : Chicken pox/Shingles, Influenza, Measles, Mumps INF Disease TB Screening Calc : 0 INF Disease Recent Travel Calc : 0 TAVARES CARROLL RN - 08/02/2021 16:50 EDT Influenza Vaccine Asmt, Adult Previous Vaccines from Immunization Schedule : No qualifying data available. Influenza Immunization, Current Season : Yes TAVARES CARROLL RN - 08/02/2021 16:50 EDT Pneumococcal Vaccine Previous Vaccines from Immunization Schedule : No qualifying data available. Pneumonia Immunization Received : Yes TAVARES CARROLL RN - 08/02/2021 16:50 EDT Order Details Patient Needs Meds Crushed/Liquid : No TAVARES CARROLL RN - 08/02/2021 16:50 EDT Nutrition History Adaptive Feeding Equipment : Regular Eating Poorly Due to Decreased Appetite : No Unplanned Weight Loss in Past 3-6 Months : No Malnutrition Screening Tool Total(mal) : 0 Malnutrition Screening Tool Risk Level : Patient not at risk TAVARES CARROLL RN - 08/02/2021 16:50 EDT [place] Suicide Severity Rating Scale (C-SSRS) CSSRS Past Month Wish to be : No CSSRS Past Month Suicidal Thoughts : No CSSRS Lifetime Suicide Behavior : No Suicide Severity Rating Score : 0 Suicide Severity Rating : No Additional Care Required at this time TAVARES CARROLL RN - 08/02/2021 16:50 EDT Psychosocial History Do You Have a History of the Following? : Anxiety, Depression Currently in Unsafe Situation : No TAVARES CARROLL RN - 08/02/2021 16:50 EDT Sleep Apnea Risk Assmt BiPAP/CPAP Ordered for Home Use : Yes Hx of Obstructive Sleep Apnea Diagnosis : Yes BiPAP/CPAP Used at Home : No Reason BiPAP/CPAP Not Used at Home : just don't wear it Age over 50 Years Old : Yes Gender Male : No TAVARES CARROLL RN - 08/02/2021 16:50 EDT Valuables and Belongings Valuables and Belongings : Clothing Clothing : Common streetwear Clothing Disposition : Bedside TAVARES CARROLL RN - 08/02/2021 16:50 EDT documented in this encounter Plan of Treatment Upcoming Encounters Date Type Department Care Team (Late st Contact Info) Description 04/27/2025 8:30 AM EDT Office Visit [facility] Electrophysiology [address] [facility] [address] [place] [address] Ranjan Talley MD [address] [place] [address] [address] [place] [address] documented as of this encounter Visit Diagnoses Not on filedocumented in this encounter Care Teams Drug And Alcohol Treatment Specialist Relationship Specialty Start Date End Date Lucía Roman APRN [address] [place] [address] PCP - General Nurse Practitioner 04/25/23 Ranjan Talley MD [address] [place] [address] Repairer Veneer Sheet Electrophysiology 08/17/24 documented as of this encounter
--- OUTSIDE RECORDS SUMMARY | 2025-04-19 12:26 | XMS_ITS | Encounter Summary ---
Author Organization [employer] Address [address] [place] [address] Care Team Providers Care Application Helper Name Role Phone Lucía Roman APRN Primary Care Provider Hernandez Talley MD Unavailable Encounter Details Date Type Department Care Team (Late st Contact Info) Description 08/03/2021 Transcribed Document [facility] Family Medicine [facility] [place] [address] ProviderSharla MD [address] [place] [id number] Social History Tobacco Use Types Packs/Day Years Used Date Smoking Tobacco: Never Assessed Comments Unknown Sex and Gender Information Value Date Recorded Sex Assigned at Not on file Legal Sex Female 5:07 PM CDT Gender Identity Not on file Sexual Orientation Not on file documented as of this encounter Miscellaneous Notes * Cerner Conversion Note - Sharla Robledo MD - 08/03/2021 10:55 AM CDT Patient: MITZI MCDUFFIE Age: 66 years Sex: Female : 1955 Associated Diagnoses: None Author: HERNANDEZ TALLEY MD-CAR Allergies (1) Active Reaction All Meds in D5W None Documented [facility] Discharge Note - EP Primary Buildings And Grounds Superintendent: PCP: Lucía Roman Consults: NONE History of Present Illness: Patient is a 65 year old female , with PMH significant for CAD s/p CABG 2013, ICM s/p [facility] ICD in 2016, Inappropriate ICD shocks, Paroxysmal Afib CHADS VASC [...] antibiotics and hypokalemia in the past. She wants to follow-up with EP as she saw harvinder in the past. Patients reports one episode of heart racing before Thanksgiving did not receive a shock. She did not recall the episode captured on the download today. We transfer her monitoring to us today on Hay. In addition, we reprogrammed her device to have a monitor zone for VT lower to 170 beats per minutes. She did have one episode of A. fib on October 13 2020 that lasted 32 minutes. She also complained about some palpitation not picked up by the device every other day or so. We gave her a monitor for that. Ms. Mcduffie returns to clinic today for 6-month follow-up. Patient states that she has increased fatigue that is not easily relieved with rest. She states that she has frequent palpitations and she often feels tired and as though there is a heaviness in her chest. She states she has no chest pain, shortness of breath, PND or orthopnea. Device interrogation shows appropriately functioning [facility] AICD but heart rates about 230 beats per minutes where she got ATP 3 times but no shocks fortunately although the VF zone is 230 beats per minutes. In her life she get to shocks in the past. Device was reprogrammed to increase the VF zone 2/2/40 beats per minutes and extended delay detection. We had a very long conversation about different options that are limited in fact because her last GFR was 45 and we will repeat today to see where we are. We might have to decrease the Xarelto to 15 mg daily. Therefore it is unlikely that we can increase the sotalol further. The amiodarone is not an option because of prior toxicity so we are left trying to Tikosyn or doing an ablation. We discussed extensively the risks and benefits of an ablation as well as the complication about 3% that can be major and included stroke or even . Patient wants to proceed with ablation. We will stop the Xarelto the night before the procedure that she takes at night. We will hold the losartan the morning of the procedure as well as the carvedilol the morning of the procedure. She was still take her sotalol the morning of the procedure though. Patient admitted for PVI/ablation. Admitting Diagnosis: 1. atrial fibrillation Surgical History: History of Appendectomy History of CABG ?? 10/24/2014 Emergency coronary artery bypass graft x2, with the free internal mammary artery being anastomosed to the left anterior descending, saphenous vein being anastomosed to the obtuse marginal, endoscopic vein harvest.DPH/tja History of Hysterectomy Pertinent Labs/Results Blood Gases (Current Encounter/Past 24 Hours) No Blood Gas Results Found (Past 24 Hours) Labs (Last four charted values) WBC 9.7 (AUG 03) 6.1 (AUG 02) HB L 11.0 (AUG 03) 11.8 (AUG 02) HCT L 33.7 (AUG 03) 37.3 (AUG 02) Plt L 108 (AUG 03) L 101 (AUG 02) Na 139 (AUG 03) 140 (AUG 02) K L 3.2 (AUG 03) 4.0 (AUG 02) Cl 108 (AUG 03) 110 (AUG 02) CO2 25 (AUG 03) 23 (AUG 02) BUN 14 (AUG 03) 19 (AUG 02) Cr 1.00 (AUG 03) 1.00 (AUG 02) Glu R H 111 (AUG 03) H 124 (AUG 02) Ca L 8.1 (AUG 03) 9.3 (AUG 02) AST H 55 (AUG 03) ALT 43 (AUG 03) ALK P 82 (AUG 03) T Bili 0.6 (AUG 03) PTN 6.8 (AUG 03) ALB 3.4 (AUG 03) General: Alert and oriented. Eye: Pupils are equal, round and reactive to light. HENT: Normocephalic. Neck: Supple, Non-tender, No carotid bruit, No jugular venous distention. Respiratory: Lungs are clear to auscultation, Respirations are non-labored. Cardiovascular: No murmur, Good pulses equal in all extremities, Heart rate irregularly irregular. Jugular Veins: Not distended. Gastrointestinal: Soft, Non-tender, Non-distended, Normal bowel sounds. Musculoskeletal: Normal range of motion. Integumentary: Warm, Dry, [place]. Bilateral groins stable no hematoma or bleeding. STITCHES TO BE REMOVED Neurologic: Alert, Oriented. Psychiatric: Cooperative, Appropriate mood & affect. Cardiac Markers (Current Encounter/Past 24 Hours) No Cardiac Marker Results Found (Past 24 Hours) Telemetry: SR 75 Procedures this admission: 08/02/2021 Conclusion: Successful Procedure(s) of: 1. Pulmonary vein isolation 2. CFAE ablation 3. Isuprel infusion and LV pacing 4 ICD reprogramming pre-and postprocedure Discharge Diagnoses: 1. Successful PVI/ablation Discharge Medications: 1. Aspirin 81 MG Oral Tablet Delayed Release; take 1 tablet by mouth once daily 2. Atorvastatin Calcium 80 MG Oral Tablet; TAKE 1 TABLET DAILY 3. Carvedilol 25 MG Oral Tablet; TAKE ONE TABLET BY MOUTH TWICE A DAY 4. Doxycycline Hyclate 20 MG Oral Tablet 5. Furosemide 20 MG Oral Tablet; TAKE 1 TABLET EVERY OTHER DAY 6. Levothyroxine Sodium 75 MCG Oral Tablet 7. Losartan Potassium 50 MG Oral Tablet; TAKE 1 TABLET TWICE DAILY 8. Sotalol HCl - 120 MG Oral Tablet; TAKE 0.5 TABLET Twice daily 9. Xarelto 20 MG Oral Tablet; TAKE ONE TABLET DAILY WITH THE EVENING MEAL 10. Potassium 40 meq po daily for three days - CALLED IN NEW SCRIPT Allergies (1) Active Reaction All meds in D5W Disposition: Patient sent home in stable condition with family support. Discharge Instructions: Cardiac Diet. Post Cath Instructions. Activity as tolerated. Followup Appointments: PCP in 5 - 7 days. Primary Buildings And Grounds Superintendent in [address] Talley in 1 month Patient has been instructed on and verbalized an understanding of the above discharge instructions. Plan has been discussed and is in agreement with Dr. Gerri Velasco RN documenting for Dr. Talley documented in this encounter Plan of Treatment Upcoming Encounters Date Type Department Care Team (Late st Contact Info) Description 04/27/2025 8:30 AM EDT Office Visit [facility] Electrophysiology [address] [place] [address] [address] Hernandez Talley MD [address] [facility] [address] [place] [address] documented as of this encounter Visit Diagnoses Not on filedocumented in this encounter Care Teams Application Helper Relationship Specialty Start Date End Date Lucía Roman, EDITORIAL INTERN [address] [place] [address] PCP - General Nurse Practitioner 04/25/23 Hernandez Talley MD [address] [facility] [address] [place] [address] Buildings And Grounds Superintendent Electrophysiology 08/17/24 documented as of this encounter
--- OUTSIDE RECORDS SUMMARY | 2025-04-19 12:26 | XMS_ITS | Encounter Summary ---
Author Organization [facility] Address [address] [place] [address] Care Team Providers Care Middle School Football Coach Name Role Phone Lucía Roman APRN Primary Care Provider Ranjan Talley MD Unavailable Encounter Details Date Type Department Care Team (Late st Contact Info) Description 08/03/2021 Transcribed Document [facility] [place] [address] [place] [address] ProviderSharla MD [address] [place], [place] [id number] Social History Tobacco Use Types Packs/Day Years Used Date Smoking Tobacco: Never Assessed Comments Unknown Sex and Gender Information Value Date Recorded Sex Assigned at Not on file Legal Sex Female 5:07 PM CDT Gender Identity Not on file Sexual Orientation Not on file documented as of this encounter Miscellaneous Notes * Cerner Conversion Note - Sharla ProviderMD - 08/03/2021 12:07 PM CDT UM Authorization Entered On: 08/03/2021 12:07 EDT Performed On: 08/03/2021 12:07 EDT by JESSI ANDREW Rn-Utilization Review Primary Insurance Authorization Authorization and Policy Numbers : Insurance 1 Health Plan: [facility] MEDICARE REPL Policy Number: [id number] Authorization Number: [id number] Insurance Primary Name : [employer] MEDICARE REPL Policy Number: [id number] Observation Authorization Nbr-Primary : [id number] Historical Authorization Comments-Primary : No Authorization Comments Found ROSS, JESSI M, Rn-Utilization Review - 08/03/2021 12:07 EDT Electronically signed by Arabella, [facility] Conversion Signal Supervisor Cerner at 02/26/2023 4:42 PM CDT documented in this encounter Plan of Treatment Upcoming Encounters Date Type Department Care Team (Late st Contact Info) Description 04/27/2025 8:30 AM EDT Office Visit [facility] Electrophysiology [id number] [place] [address] [place] [address] [place] [address] [address] [place] [address] documented as of this encounter Visit Diagnoses Not on filedocumented in this encounter Care Teams Middle [employer] Football Coach Relationship Specialty Start Date End Date Lucía Roman, J2EE ENGINEER [address] [place] [address] PCP - General Nurse Practitioner 04/25/23 [place] [address] [place] [address] [address] [place] [address] Sales Engineer [employer]ered Products Electrophysiology 08/17/24 documented as of this encounter
--- OUTSIDE RECORDS SUMMARY | 2025-04-19 12:26 | XMS_ITS | Encounter Summary ---
Author Organization [facility] In iatives Address [address] [place] [address] Care Team Providers Care Behavioral Psychologist Name Role Phone Abel Lucía FRANCIS Primary Care Provider Ranjan Talley MD Unavailable Encounter Details Date Type Department Care Team (Late st Contact Info) Description 08/02/2021 Transcribed Document [facility] [place] Family Medicine [address] [place] [address] Sharla Robledo MD [address] [place] [address] Social History Tobacco Use Types Packs/Day Years Used Date Smoking Tobacco: Never Assessed Comments Unknown Sex and Gender Information Value Date Recorded Sex Assigned at Not on file Legal Sex Female 5:07 PM CDT Gender Identity Not on file Sexual Orientation Not on file documented as of this encounter Miscellaneous Notes * Cerner Conversion Note - Sharla ProviderMD - 08/02/2021 8:10 PM CDT Meds to Bed Enrollment Entered On: 08/03/2021 9:02 EDT Performed On: 08/02/2021 20:10 EDT by Chidi Medina Orange Peel Operator Cert Lead Meds to Bed Enrollment Patient Enrollment Decision: : Yes/enroll in meds to bed program Chidi Medina Orange Peel Operator Cert Lead - 08/03/2021 9:02 EDT documented in this encounter Plan of Treatment Upcoming Encounters Date Type Department Care Team (Late st Contact Info) Description 04/27/2025 8:30 AM EDT Office Visit [facility] Electrophysiology [address] [facility] [address] [place] [address] Ranjan Talley MD [address] [facility] [facility] [address] [place] [address] documented as of this encounter Visit Diagnoses Not on filedocumented in this encounter Care Teams Behavioral Psychologist Relationship Specialty Start Date End Date Lucía Roman, CURRICULUM COUNSELOR [address] [address] PCP - General Nurse Practitioner 04/25/23 Ranjan Talley MD [address] [facility] [address] [place], [place] [id number] Engraver Steel Plate Electrophysiology 08/17/24 documented as of this encounter
--- OUTSIDE RECORDS SUMMARY | 2025-04-19 12:26 | XMS_ITS | Encounter Summary ---
Author Organization [email or web address] Init [facility]atives Address [address] [place] [address] Care Team Providers Care Rubber Press Tender Name Role Phone Lucía Roman APRN Primary Care Provider Ranjan Talley MD Unavailable Encounter Details Date Type Department Care Team (Late st Contact Info) Description 08/03/2021 Transcribed Document [facility] [place] Family [facility] [place] [address] ProviderSharla MD [address] [place] [id number] Social History Tobacco Use Types Packs/Day Years Used Date Smoking Tobacco: Never Assessed Comments Unknown Sex and Gender Information Value Date Recorded Sex Assigned at Not on file Legal Sex Female 5:07 PM CDT Gender Identity Not on file Sexual Orientation Not on file documented as of this encounter Miscellaneous Notes * Cerner Conversion Note - Historical ProviderMD - 08/03/2021 2:41 PM CDT Nursing Discharge Summary Entered On: 08/03/2021 14:42 EDT Performed On: 08/03/2021 14:41 EDT by Marti Joyner LPN-LVN-PATIENT CARE BEDSIDE Discharge Documentation Discharge Date/Time : 08/03/2021 14:41 EDT Patient Disposition, General : Discharge Discharge To : Home with ambulatory/outpatient follow-up Mode Of Departure, General Discharge : Wheelchair Accompanied By, Discharge : Daughter IV Discontinued : Yes Personal Belongings With Patient : Yes Pt's Own Supply of Medications Returned : No patient supply of medications to return Prescriptions Given to Patient : Electronically sent Medications Given to Patient : No Discharge Instructions Reviewed With, Opportunity For Questions Given : Patient Patient Education Completed : Yes Teaching Method : Explanation Teaching Evaluation : Verbalizes understanding Marti Joyner LPN-LVN-PATIENT CARE BEDSIDE - 08/03/2021 14:41 EDT Electronically signed by [facility], [facility] Conversion Copy Worker Cerner at 02/26/2023 4:29 PM CDT documented in this encounter Plan of Treatment Upcoming Encounters Date Type Department Care Team (Late st Contact Info) Description 04/27/2025 8:30 AM EDT Office Visit [facility] Electrophysiology [address] [place] [address] [address] [facility] [place] [address] Ranjan Talley MD [address] [place] [address] [address] documented as of this encounter Visit Diagnoses Not on filedocumented in this encounter Care Teams Rubber Press Tender Relationship Specialty Start Date End Date Lucía Roman, SLEEP LAB TECHNICIAN [address] [place] [address] PCP - General Nurse Practitioner 04/25/23 Ranjan Talley MD [address] [place] [address] [address] Chemical Cell Changer Electrophysiology 08/17/24 documented as of this encounter
--- OUTSIDE RECORDS SUMMARY | 2025-04-19 12:26 | XMS_ITS | Encounter Summary ---
Author Organization [facility]atives Address [address] [place] [address] Care Team Providers Care Intelligence Operations Specialist Name Role Phone Lucía Roman APRN Primary Care Provider Ranjan Talley MD Unavailable Encounter Details Date Type Department Care Team (Late st Contact Info) Description 08/02/2021 Transcribed Document [facility] [place] [address] [place] [address] ProviderSharla MD [address] [place] [address] Social History Tobacco Use Types Packs/Day Years Used Date Smoking Tobacco: Never Assessed Comments Unknown Sex and Gender Information Value Date Recorded Sex Assigned at Not on file Legal Sex Female 5:07 PM CDT Gender Identity Not on file Sexual Orientation Not on file documented as of this encounter Miscellaneous Notes * Cerner Conversion Note - Sharla ProviderMD - 08/02/2021 9:52 AM CDT Pain Assessment Entered On: 08/03/2021 6:44 EDT Performed On: 08/03/2021 0:54 EDT by Kary Haskins RN Intervention Information: oxyCODONE Performed by Kary Haskins RN on 08/02/2021 23:54:00 EDT oxyCODONE,5mg Oral,Pain (Moderate 4-6) Pain Assessment Pain Assessment : Follow-up assessment Pain Scale Used : 0-10 Scale Kary Haskins RN - 08/03/2021 6:44 EDT Pain Scale Intensity : 3 Kary Haskins RN - 08/03/2021 6:44 EDT Image 4 - Images currently included in the form version of this document have not been included in the text rendition version of the form. documented in this encounter Plan of Treatment Upcoming Encounters Date Type Department Care Team (Late st Contact Info) Description 04/27/2025 8:30 AM EDT Office Visit [facility] Electrophysiology [address] [facility] [address] [place] [address] [place] [address] [place] [address] [address] [place], [place] [id number] documented as of this encounter Visit Diagnoses Not on filedocumented in this encounter Care Teams Intelligence Operations Specialist Relationship Specialty Start Date End Date Lucía Roman, HYDROLOGIST [address] [address] PCP - General Nurse Practitioner 04/25/23 [place] [address] [place] [address] [address] [place] [address] Outdoor Emergency Care Technician Electrophysiology 08/17/24 documented as of this encounter
--- OUTSIDE RECORDS SUMMARY | 2025-04-19 12:26 | XMS_ITS | Encounter Summary ---
Author Organization [email or web address] Init iatives Address [address] [place] [address] Care Team Providers Care Commercial Baker Helper Name Role Phone Lucía Roman APRN Primary Care Provider Ranjan Talley MD Unavailable Encounter Details Date Type Department Care Team (Late st Contact Info) Description 08/02/2021 Transcribed Document [facility] [place] [address] [place] [address] ProviderSharla MD [address] [place] [address] Social History Tobacco Use Types Packs/Day Years Used Date Smoking Tobacco: Never Assessed Comments Unknown Sex and Gender Information Value Date Recorded Sex Assigned at Not on file Legal Sex Female 5:07 PM CDT Gender Identity Not on file Sexual Orientation Not on file documented as of this encounter Miscellaneous Notes * Cerner Conversion Note - Sharla ProviderMD - 08/02/2021 7:06 AM CDT Pre Procedure Adult Entered On: 08/02/2021 7:11 EDT Performed On: 08/02/2021 7:06 EDT by JOAO BAKER RN Height and Weight, Clinical Dosing Height Source : Stated Height Entry Format : Divide Height, Feet : 5 ft(Converted to: 152 cm, 60 Inch) Height, Inches : 1 Inch(Converted to: 0 ft 1 Inch, 2.54 cm) Clinical Height : 154.94 cm Weight Source : Standing scale Weight Entry Format : Divide Clinical Dosing Weight : 89.09 kg Weight, Pounds : 196 lb Body Surface Area (BSA) : 1.87 m2 Body Mass Index : 37.1 kg/m2 (HI) Tiro Body Weight : 47 kg JOAO BAKER RN - 08/02/2021 7:06 EDT Health Histories Smoking Status : Former smoker, quit more than 30 days ago Smokeless Tobacco Status : Never JOAO BAKER RN - 08/02/2021 7:06 EDT Social History (As Of: 08/02/2021 07:11:32 EDT) Tobacco: Last Used: pt quit smoking in 2013. (Last Updated: 03/06/2016 08:03:54 EDT by RADHA GLEZ, RN) Alcohol: Alcohol Use History Yes. Alcohol Use Frequency Socially. (Last Updated: 02/28/2016 10:26:01 EDT by Wendie Daly RN) Substance Abuse: Drug Use Hx: No. (Last Updated: 03/06/2016 08:03:58 EDT by RADHA GLEZ, RN) Infectious Disease History Does patient have symptoms of COVID-19? : No Has the Patient Been Tested for COVID-19 in the last 14 days? : Yes, Patient stated results Negative Does the Patient state known exposure to a COVID-19 positive case in the last 14 days? : No Patient Vaccinated for COVID-19 : Fully vaccinated JOAO BAKER RN - 08/02/2021 7:06 EDT Infectious Disease Risk Screening Grid Cough < 2 wks of unknown origin : NO Cough > 2 weeks : NO Blood in Sputum : NO Fever or self-reported Fever : NO Rash of unknown origin : NO Headache : NO Stiff neck : NO Night Sweats : NO Unexplained Weight Loss : NO Diarrhea (3 episode per day) : NO JOAO BAKER RN - 08/02/2021 7:06 EDT Physical contact outside [place] in the last 30 days : No Hospitalized in Foreign Country : No Infectious Disease History : Chicken pox/Shingles, Influenza, Measles, Mumps INF Disease TB Screening Calc : 0 INF Disease Recent Travel Calc : 0 JOAO BAKER RN - 08/02/2021 7:06 EDT COVID19 PreProcedure Screening Is this an Emergent or Add on Procedure? : No Date PreProcedure COVID-19 test known? : Yes Date of PreProcedure COVID-19 : 07/31/2021 EDT Has patient been isolated since the test : Yes Exposed to COVID19 symptoms since test? : No JOAO BAKER RN - 08/02/2021 7:06 EDT Anesthesia/Transfusion History Family History of Anesthesia Reaction : No prior transfusion(s) Blood Transfusion Acceptable to Patient : Yes Transfusion History : Prior anesthesia without reaction Family History of Anesthesia Reaction : None Intubation History : Unknown JOAO BAKER RN - 08/02/2021 7:06 EDT Functional Assessment Living Situation : Home Patient Lives With : Significant other(s) Current Home Treatments : None JOAO BAKER RN - 08/02/2021 7:06 EDT Gosper Suicide Severity Rating Scale (C-SSRS) CSSRS Past Month Wish to be : No CSSRS Past Month Suicidal Thoughts : No CSSRS Lifetime Suicide Behavior : No Suicide Severity Rating Score : 0 Suicide Severity Rating : No Additional Care Required at this time JOAO BAKER RN - 08/02/2021 7:06 EDT Psychosocial History Do You Have a History of the Following? : Anxiety, Depression Currently in Unsafe Situation : No JOAO BAKER RN - 08/02/2021 7:06 EDT Advance Directive Patient has Advance Directive *Q : No, patient refuses Advance Directive information JOAO BAKER RN - 08/02/2021 7:06 EDT General Info Preferred Name : Melida Support Person/Pt Rep Name : Nichole jenkins Contact Password : David Support Person/Pt Rep Contact Information : [phone] Want Family/Rep/Phys Notified of Admit : No Emergency Contact #1 : Nichole Emergency Contact #1 Phone Number : daughter Emergency Contact #1 Relationship : [phone] Emergency Contact #2 : none Emergency Contact #2 Phone Number : none Emergency Contact #2 Relationship : none Primary Language : Lao Preferred Communication Mode : Verbal Communication Barrier : None Order Picker/Assembler Needed : No JOAO BAKER RN - 08/02/2021 7:06 EDT Sleep Apnea Risk Assmt BiPAP/CPAP Ordered for Home Use : Yes Hx of Obstructive Sleep Apnea Diagnosis : Yes BiPAP/CPAP Used at Home : No Reason BiPAP/CPAP Not Used at Home : just don't wear it Age over 50 Years Old : Yes Gender Male : No JOAO BAKER RN - 08/02/2021 7:06 EDT Steve Scale Steve Sensory Perception : No impairment Steve Moisture : Rarely moist Steve Activity : Walks frequently Steve Mobility : No limitation Steve Nutrition : Probably inadequate Steve Friction and Shear : Potential problem Steve Score : 20 JOAO BAKER RN - 08/02/2021 7:06 EDT Fall Risk Scales ABCs Fall Injury Risk Identification : Coagulation ABC Fall Injury Risk : Moderate to high injury risk ELLISON Hx Falls Immediate/Within 3 Months : No Ellison Secondary Diagnosis : No ELLISON Use of Ambulatory Aid : None ELLISON IV Therapy or IV Access : Yes Ellison Gait/Transferring : Normal, bedrest, immobile Ellison Mental Status : Oriented to own ability Ellison Fall Risk Score : 20 ELLISON Fall Scale Risk Level : 0-24 Low Risk [place] Fall Interventions : Adequate lighting, Assistive devices within reach, Bed in low position, Call device within reach, Fall prevention handout/education per facility policy, Hourly comfort/safety rounds, Non-slip footwear, Personal items within reach, Reinforced to call for assistance before getting out of bed, Room free of clutter/spills, Upper side-rails up, Wheels locked, Wires/Cords secured JOAO BAKER RN - 08/02/2021 7:06 EDT documented in this encounter Plan of Treatment Upcoming Encounters Date Type Department Care Team (Late st Contact Info) Description 04/27/2025 8:30 AM EDT Office Visit [facility] Electrophysiology [address] [place] [address] Ranjan Talley MD [address] [facility] [address] [place] [address] documented as of this encounter Visit Diagnoses Not on filedocumented in this encounter Care Teams Commercial Baker Helper Relationship Specialty Start Date End Date Lucía Roman APRN [address] [place] [address] PCP - General Nurse Practitioner 04/25/23 Ranjan Talley MD [address] [place] [address] Dental Professional Electrophysiology 08/17/24 documented as of this encounter
--- OUTSIDE RECORDS SUMMARY | 2025-04-19 12:26 | XMS_ITS | Encounter Summary ---
Author Organization [employer] [facility] Address [address] [place] [address] Care Team Providers Care Automotive Service Cashier Name Role Phone AbelLucía TITO Primary Care Provider Ranjan Talley MD Unavailable Reason for Visit * Reason Onset Date Comments Medication Refill 02/23/2025 Encounter Details Date Type Department Care Team (Late st Contact Info) Description 02/23/2025 Telephone [facility] Cardiology [address] [facility] [address] [place] [address] Ranjan Talley MD [address] [facility] [address] [place] [address] Medication Refill Social History Tobacco Use Types [...] Date Wicho rded Speak language other than Nicaraguan at home Not on file 11/19/2023 Want [...] encounter Miscellaneous Notes * Telephone Encounter - Temo Mcdaniel RN - 02/23/2025 1:32 PM EDT Refill sent per patient request to [facility] * Telephone Encounter - Lizbeth Bradley - 02/23/2025 10:52 AM EDT Patient needs refill on Entresto sent to [facility] for 90 days supply documented in this encounter Plan of Treatment Upcoming Encounters Date Type Department Care Team (Late st Contact Info) Description 04/27/2025 8:30 AM EDT Office Visit [facility] Electrophysiology [address] [facility] [address] [place] [address] Ranjan Talley MD [address] [facility] [address] [place] [address] documented as of this encounter Visit Diagnoses Not on filedocumented in this encounter Care Teams Automotive Service Cashier Relationship Specialty Start Date End Date Lucía Roman APRN [address] [place] [address] PCP - General Nurse Practitioner 04/25/23 [place] [address] [place] [address] Salesperson New Cars Electrophysiology 08/17/24 documented as of this encounter
--- OUTSIDE RECORDS SUMMARY | 2025-04-19 12:26 | XMS_ITS | Encounter Summary ---
Author Organization [employer] [facility]atives Address [address] [place] [address] Care Team Providers Care Abattoir Supervisor Name Role Phone Lucía Roman APRN Primary Care Provider Ranjan Talley MD Unavailable Encounter Details Date Type Department Care Team (Late st Contact Info) Description 08/03/2021 Transcribed Document [facility] [place] Family Medicine [address] [place] [address] ProviderSharla MD [address] [place], [place] [id number] Social History Tobacco Use Types Packs/Day Years Used Date Smoking Tobacco: Never Assessed Comments Unknown Sex and Gender Information Value Date Recorded Sex Assigned at Not on file Legal Sex Female 5:07 PM CDT Gender Identity Not on file Sexual Orientation Not on file documented as of this encounter Miscellaneous Notes * Cerner Conversion Note - Sharla ProviderMD - 08/03/2021 2:15 PM CDT Patient Education Materials Follows: Cardiac Ablation Cardiac ablation is a procedure [...] include vitamins, herbs, eye drops, creams, and blgy-hwz-ozjwndg medicines. ??? Any problems you or family [...] provider. Document Revised: 09/29/2020 Document Reviewed: 09/29/2020 [employer] Patient Education ? 2020 [employer]. Cardiac Ablation, Care After This sheet gives [...] and water are not available, use hand substance abuse nurse. ? Change your dressing as told by [...] safe for you. General instructions ??? Take nzzy-wvv-zzjtdzt and prescription medicines only as told by [...] provider. Document Revised: 09/05/2020 Document Reviewed: 09/05/2020 [employer] Patient Education ? 2020 [employer] documented in this encounter Plan of Treatment Upcoming Encounters Date Type Department Care Team (Late st Contact Info) Description 04/27/2025 8:30 AM EDT Office Visit [facility] Electrophysiology [address] [place] [address] [address] Ranjan Talley MD [address] [place] [address] [address] [place] [address] documented as of this encounter Visit Diagnoses Not on filedocumented in this encounter Care Teams Abattoir Supervisor Relationship Specialty Start Date End Date Lucía Roman, RUBBER GOODS SUPERVISOR [address] [place] [address] PCP - General Nurse Practitioner 04/25/23 Ranjan Talley MD [address] [facility] [address] [place] [address] Hvac Installer Electrophysiology 08/17/24 documented as of this encounter
--- OUTSIDE RECORDS SUMMARY | 2025-04-19 12:26 | XMS_ITS | Clinical Summary ---
Author Organization [employer] Address [address] [place] [address] Care Team Providers Care Real Estate Sales Agent Name Role Phone Lucía Roman APRN Primary Care Provider Ranjan Talley MD Unavailable Allergies No known active allergies Medications atorvastatin [...] 04/01/2024 12/28/2024 Arteriosclerosis of coronary artery 11/26/201904/0112/28/2024 Encounters Date Type Department Care Team Description 04/11/2025 Refill [facility] Electrophysiology [address] [place] [address] Ranjan Talley MD 03/29/2025 6:00 AM EDT Clinical Support [facility] Electrophysiology [address] [place] [address] Ranjan Talley MD Encounter for adjustment or management of cardiac device (Primary Dx) 03/17/2025 6:00 AM EDT Clinical Support [facility] Electrophysiology [address] [place] [address] Ranjan Talley MD Encounter for adjustment or management of cardiac device (Primary Dx) 02/23/2025 Orders Only [facility] Electrophysiology [address] [place], [place] [id number] Temo Mcdaniel, RN Palpitations 02/23/2025 Orders Only [facility] Electrophysiology [address] [place], [place] [address] Temo Mcdaniel, RN Palpitations 02/23/2025 Telephone [facility] Cardiology [address] [place] [address] Ranjan Talley MD Medication Refill 02/15/2025 8:00 PM EDT Clinical Support [facility] Electrophysiology [address] [place] [address] Ranjan Talley MD Encounter for adjustment or management of cardiac device (Primary Dx) from Last 3 Months Social History Tobacco Use Types Packs/Day Years [...] Date Wicho rded Speak language other than Equatorial Guinean at home Not on file 11/19/2023 Want [...] Description 04/27/2025 8:30 AM EDT Office Visit [facility] Electrophysiology [address] [facility] [address] [place] [address] [place] [address] [place] [address] [address] [place] [id number] Health Maintenance Due Date Last Done Comments CT Colonography 1955 Colonoscopy 1955 Colorectal Cancer Screening 1955 DXA SCAN 1955 FOBT/FIT 1955 Fit-DNA (Cologuard) 1955 Sigmoidoscopy 1955 Depression Screening (12+) 1967 Hepatitis C Screening 1973 Breast Cancer Screening 1995 Lung cancer screening 2005 Shingles Vaccine (Zoster) (1 of 2) 2005 Respiratory Syncytial Virus (RSV) Adult or (1 - Risk 60-74 years 1-dose series) 2015 Pneumococcal 50+ years (2 of 2 - PCV) 10/31/2015 10/31/2014 COVID-19 VACCINE (2023-2 5 season) 2024 08/29/2022, 08/29/2022, 09/08/2021, Additional history exists Falls Risk Screening 11/11/2024 Medicare IPPE (Welcome to Medicare) [id number] 11/11/2024 Influenza Vaccine (Season Ended) 2025 Tobacco Cessation Counseling and Screening (12+) 01/07/2026 01/07/2025 DTAP/TDAP/TD VACCINES (2 - T d or Tdap) 02/05/2030 02/06/2020 Medical Devices Implanted Type Area Outreach Representative Device Identifier Shelf Expiration Date Model / Serial / Lot Icd-08/06/2016 Implanted: (Quantity not on file) ICD [employer] 2411-36 / [id number] / Description:DEPENDENT Defib [place] Vr Df-1 [id number] - [id number] Implanted:Qty : 1 on 12/28/[address] [facility] PACEMAKER/ ICD BI VALVE DEVICE Chest Wall GRIMM LAB:VASC DEV [id number] / / Insurance [employer] MEDICARE HMO Advance Directives For more information, please contact: [phone] Documents on File Type Date Recorded Patient Critical Care Clinical Nurse Specialist Expl anation Advance Directives and Livin g Will 06/25/2023 6:35 AM * Full Code (Latest Code Status on File) Date Activated Date Inactivated Comments 12/28/2024 3:46 PM 12/29/2024 4:27 AM * Full Code Date Activated Date Inactivated Comments 12/28/2024 11:51 AM 12/28/2024 3:46 PM Care Teams Real Estate Sales Agent Relationship Specialty Start Date End Date Lucía Roman APRN [address] [place] [address] PCP - General Nurse Practitioner 04/25/23 Ranjan Talley MD [address] [facility] [address] [place] [address] Home Attendant Electrophysiology 08/17/24
--- OUTSIDE RECORDS SUMMARY | 2025-04-19 12:26 | XMS_ITS | Encounter Summary ---
Author Organization [facility] Address [address] [place] [address] Care Team Providers Care Typesetter Apprentice Name Role Phone Lucía Roman APRN Primary Care Provider [phone] Ranjan Talley MD Unavailable Encounter Details Date Type Department Care Team (Late st Contact Info) Description 08/03/2021 Transcribed Document [facility] Family Medicine Replaced by [facility] [address] ProviderSharla MD [address] [place] [address] Social History Tobacco Use Types Packs/Day [...] Sharla ProviderMD - 08/03/2021 2:15 PM CDT Stroke/Warfarin Instructions Entered On: 08/03/2021 14:15 EDT Performed On: 08/03/2021 14:15 EDT by Marti Joyner LPN-LVN-PATIENT CARE BEDSIDE Stroke/Warfarin Instructions Stroke/TIA Discharge Ins : N/A Warfarin Discharge Ins : N/A Marti Joyner LPN-LVN-PATIENT CARE BEDSIDE - 08/03/2021 14:15 EDT documented in this encounter Plan of Treatment Upcoming Encounters Date Type Department Care Team (Late st Contact Info) Description 04/27/2025 8:30 AM EDT Office Visit [facility] Electrophysiology [address] [facility] [address] [place] [address] Ranjan Talley MD [address] [facility] [address] [place], [place] [id number] documented as of this encounter Visit Diagnoses Not on filedocumented in this encounter Care Teams Typesetter Apprentice Relationship Specialty Start Date End Date Lucía Roman, VP PUBLISHER DEVELOPMENT [address] [place] [address] PCP - General Nurse Practitioner 04/25/23 Ranjan Talley MD [address] [facility] [address] [place] [address] Microbiological Lab Technician Electrophysiology 08/17/24 documented as of this encounter
[2025-04-19 13:08] LABS: Basophils # 0.1 K/mm3 (0-0.2); Basophils % 0.8 % (0.1-2.0); Eosinophils # 0.1 Kmm3 (0.0-0.4); Eosinophils % 1.8 % (0.1-12.0); Hematocrit 44.3 % (37.0-47.0); Hemoglobin 14.2 g/dL (12.2-16.2); Immature Granulocytes # 0.01 10^3uL; Immature Granulocytes % 0.2 %; Lymphocytes # 2.1 K/mm3 (0.7-4.5); Lymphocytes % 33.5 % (10-50); Mean Corpuscular HGB Conc 32.1 g/dL (31.8-35.4); Mean Corpuscular Hemoglobin 29.7 pg (27.0-31.2); Mean Corpuscular Volume 92.7 fl (81-99); Mean Platelet Volume 13.7 fl (7.4-10.4); Monocytes # 0.4 K/mm3 (0.1-1.0); Monocytes % 6.6 % (1.7-9.3); Neutrophils # 3.6 K/mm3 (1.8-7.8); Neutrophils % 57.1 % (37.0-80.0); Nucleated Red Blood Cells # 0 10^3/uL; Nucleated Red Blood Cells % 0 %; Platelet Count 126 K/mm3 (142-424); Red Blood Count 4.78 M/mm3 (4.20-5.40); Red Cell Distribution Width 14.6 % (11.5-17.5); White Blood Count 6.2 K/mm3 (4.8-10.8)
[2025-04-19 13:35] LABS: C-Reactive Protein 0.9 mg/L (0-4)
[2025-04-19 13:46] LABS: Free T4 (Free Thyroxine) 1.15 ng/dl (0.78-2.19)
[2025-04-19 13:48] LABS: T4 (Thyroxine) 8.1 ug/dl (5.53-11.0)
[2025-04-19 14:01] LABS: Thyroid Stimulating Hormone 0.09 uIU/mL (0.465-4.68)
[2025-04-20 08:15] LABS: Thyroid Peroxidase Antibodies <9 IU/mL (0-34); Triiodothyronine (T3) Free 2.8 pg/mL (2.0-4.4)
[2025-04-20 15:11] LABS: Thyroglobulin Level <1.0 IU/mL (0.0-0.9)
== END 2025-04-19 23:59 | disposition home or self-care (01) ==
LOC: LAB 12:24
PROVIDERS: PCP Nurse Practitioner Family; Visit Provider Nurse Practitioner Family
DX: E03.9 Hypothyroidism, unspecified (principal); L30.9 Dermatitis, unspecified
CPT/HCPCS: 36415; 84436; 84439; 84443; 84481; 85025; 86140; 86376; 86800

== ENCOUNTER 2025-06-02 11:54 | Outpatient (CLI) | payer MEDICARE, SELFPAY ==
--- OUTSIDE RECORDS SUMMARY | 2025-03-17 06:00 | XMS_ITS | Encounter Summary ---
Author Organization [email or web address] ([place], [place], [place], [place]) Address [address] [place] [address] Care Team Providers Care Ammonia Solution Preparer Name Role Phone Lucía Roman APRN Primary Care Provider Ranjan Talley MD Unavailable Reason for Visit * Reason Comments Pacemaker /ICD Home Monitoring Encounter Details Date Type Department Care Team (Late st Contact Info) Description 03/17/2025 6:00 AM EDT Clinical Support [facility] Electrophysiology [address] [place] [phone] Ranjan Talley MD [address] [place] [address] [address] [place] [address] Encounter for adjustment or management of cardiac device (Primary Dx) Social History Tobacco Use Types Packs/Day Years Used Date Smoking Tobacco: Former Cigarettes 1.8 40 1 974 - 2014 Passive Smoke Exposure: Never Smokeless Tobacco: Never Alcohol Use Standard Drinks/Week Comments Not Currently 0 (1 standard drink = 0.6 oz pur e alcohol) Family and Community Support Answer Alonzo e Recorded Help with Day to Day Activities Not on file 11/19/2023 Feeling Lonely or Isolated Not on file 11/19 Educational Attainment Answer Date Wicho rded Speak language other than Chinese at home Not on file 11/19/2023 Want help with school or training Not on file 11/19/2023 Substance Use Answer Date Recorded Used [...] Care Team (Late st Contact Info) Description 04/28/2026 8:30 AM EDT Office Visit [facility] Electrophysiology [address] [place] [phone] Ranjan Talley MD [address] [place] [address] [address] documented as of this encounter Visit Diagnoses Diagnosis Encounter for adjustment or management of cardiac device- Primary documented in this encounter Care Teams Ammonia Solution Preparer Relationship Specialty Start Date End Date Lucía Roman, VALET SERVICE ATTENDANT [address] [place] [phone] PCP - General Nurse Practitioner 04/25/23 Ranjan Talley MD [address] [place] [address] Supervisor Metal Fabricating Electrophysiology 08/17/24 documented as of this encounter
--- OUTSIDE RECORDS SUMMARY | 2025-03-29 06:00 | XMS_ITS | Encounter Summary ---
Author Organization [employer] ([place], [place], [place], [place]) Address [address] [place] [address] Care Team Providers Care Civil Engineer Name Role Phone Lucía Roman APRN Primary Care Provider [phone] Ranjan Talley MD Unavailable Reason for Visit * Reason Comments Pacemaker /ICD Home Monitoring Encounter Details Date Type Department Care Team (Late st Contact Info) Description 03/29/2025 6:00 AM EDT Clinical Support [facility] Electrophysiology [address] [place] [phone] Ranjan Talley MD [address] [place] [address] [address] [place] [address] Encounter for adjustment or management of cardiac [...] Date Wicho rded Speak language other than [place] Islander at home Not on file 11/19/2023 Want [...] Description 04/28/2026 8:30 AM EDT Office Visit [facility] Electrophysiology [address] [place] [phone] Ranjan Talley MD [address] [place] [address] [address] documented as of this encounter Visit Diagnoses Diagnosis Encounter for adjustment or management of cardiac device- Primary documented in this encounter Care Teams Civil Engineer Relationship Specialty Start Date End Date Lucaí Roman, SALES CENTER ASSOCIATE [address] [place] [address] PCP - General Nurse Practitioner 04/25/23 Ranjan Talley MD [address] [place] [address] Dental Secretary Electrophysiology 08/17/24 documented as of this encounter
--- OUTSIDE RECORDS SUMMARY | 2025-04-21 05:00 | XMS_ITS | Encounter Summary ---
Author Organization [employer] ([place], [place], [place], [place]) Address [address] [place] [address] Care Team Providers Care Precision Structural Metal Fitter Name Role Phone Lucía Roman APRN Primary Care Provider [phone] Ranjan Talley MD Unavailable Reason for Visit * Reason Comments Pacemaker /ICD Home Monitoring Encounter Details Date Type Department Care Team (Late st Contact Info) Description 04/21/2025 5:00 AM EDT Clinical Support [facility] Electrophysiology [address] [place] [phone] Ranjan Talley MD [address] [place] [address] [address] [place] [address] Encounter for adjustment or management of cardiac [...] Date Wicho rded Speak language other than Mosotho at home Not on file 11/19/2023 Want [...] [facility] Electrophysiology [address] [place] [phone] Ranjan Talley MD [address] [place] [address] [address] documented as of this encounter Visit Diagnoses Diagnosis Encounter for adjustment or management of cardiac device- Primary documented in this encounter Care Teams Precision Structural Metal Fitter Relationship Specialty Start Date End Date Lucía Roman, POTATO SPOTTER [address] [place] [address] PCP - General Nurse Practitioner 04/25/23 Ranjan Talely MD [address] [place] [address] [employer] Fruit Crop Farmer Electrophysiology 08/17/24 documented as of this encounter
--- OUTSIDE RECORDS SUMMARY | 2025-04-27 08:30 | XMS_ITS | Encounter Summary ---
Author Organization [employer] ([place], [place], [place], [place]) Address [address] [place] [address] Care Team Providers Care Firm Administrator Name Role Phone Lucía Roman APRN Primary Care Provider [phone] Ranjan Talley MD Unavailable Reason for Visit * Reason Comments Follow-up 3 month follow up fo r final healing Encounter Details Date Type Department Care Team (Late st Contact Info) Description 04/27/2025 8:30 AM EDT Office Visit [facility] Electrophysiology [address] [place] [address] Ranjan Talley MD [address] [place] [address] [address] [place] [address] Palpitations (Primary Dx) Social History Tobacco Use [...] Date Wicho rded Speak language other than Mozambican at home Not on file 11/19/2023 Want [...] Normal range of motion. Integumentary: Warm, Dry, [place]. Neurologic: Alert, Oriented. Psychiatric: Cooperative, Appropriate mood [...] pulmonary vein isolation performed on 08/02/2021 by amrik but the CTI was notperformed because it [...] that works as an OR nurse in [employer]. Patient underwent a dual-chamber Vallejo ICD [...] said she had an echo done in [place] and her EF is still 20%. Follow-up in 1 year. documented in this encounter Plan of Treatment Upcoming Encounters Date Type Department Care Team (Late st Contact Info) Description 04/28/2026 8:30 AM EDT Office Visit [facility] Electrophysiology [address] [place] [phone] Ranjan Talley MD [address] [place] [address] [address] [place] [address] documented as of this encounter Procedures Procedure Name Priority Date/Time Associated Diagnosis Comments FS_MODEL_IP_ECG 12-LEAD Routine 04/27/2025 8:17 A M EDT Palpitations documented in this encounter Results * ECG 12 lead (04/27/2025 8:17 AM EDT) us Ranjan Talley MD ECG ORDERABLES Final Result documented in this encounter Visit Diagnoses Diagnosis Palpitations- Primary documented in this encounter Care Teams Firm Administrator Relationship Specialty Start Date End Date Lucía Roman, COMMERCIAL DRONE PILOT [address] [address] PCP - General Nurse Practitioner 04/25/23 Ranjan Talley MD [address] [facility] [address] [place] [address] Outside Sales Inspector Electrophysiology 08/17/24 documented as of this encounter
--- OUTSIDE RECORDS SUMMARY | 2025-05-18 06:00 | XMS_ITS | Encounter Summary ---
Author Organization [employer] ([place], [place], [place], [place]) Address [address] [place] [address] Care Team Providers Care Analytical Chemist Name Role Phone Lucía Roman APRN Primary Care Provider Ranjan Talley MD Unavailable Reason for Visit * Reason Comments Pacemaker /ICD Home Monitoring Encounter Details Date Type Department Care Team (Late st Contact Info) Description 05/18/2025 6:00 AM EDT Clinical Support [facility] Electrophysiology [address] [place] [phone] Ranjan Talley MD [address] [place] [address] [address] [place] [address] Encounter for adjustment or management of cardiac [...] Description 04/28/2026 8:30 AM EDT Office Visit [facility] Electrophysiology [address] [place] [phone] Ranjan Talley MD [address] [place] [address] [address] documented as of this encounter Visit Diagnoses Diagnosis Encounter for adjustment or management of cardiac device- Primary documented in this encounter Care Teams Analytical Chemist Relationship Specialty Start Date End Date Lucía Roman, SOAPING MACHINE BACK TENDER [address] [place] [address] PCP - General Nurse Practitioner 04/25/23 Ranjan Talley MD [address] [place] [address] Scribing Machine Operator Electrophysiology 08/17/24 documented as of this encounter
[2025-06-02 18:38] LABS: Thyroid Stimulating Hormone 1.05 uIU/mL (0.465-4.68)
--- OUTSIDE RECORDS SUMMARY | 2025-06-03 15:23 | XMS_ITS | Encounter Summary ---
Author Organization [employer] ([place], [place], [place], [place]) Address [address] [place] [address] Care Team Providers Care Alteration Tailor Apprentice Name Role Phone AbelLucía TITO Primary Care Provider [phone] Ranjan Talley MD Unavailable Reason for Visit * Reason Onset Date Comments Medication Refill Medication Refill 01/03/2023 Encounter Details Date Type Department Care Team (Late st Contact Info) Description 01/02/2023 Telephone [facility] Electrophysiology [address] [place] [phone] Ranjan Talley MD [address] [place] [address] [address] [place] [phone] Medication Refill; Medication Refill Social History Tobacco [...] Gabe Strickland RN completed this on 01/03/2023 CONTROL OFFICE MANAGER * Telephone Encounter - Lizbeth Bradley - 01/03/2023 8:31 AM EST PT Calling needs refill on her Potassium Chloride CONTROL OFFICE MANAGER documented in this encounter Plan of Treatment Upcoming Encounters Date Type Department Care Team (Late st Contact Info) Description 04/28/2026 8:30 AM EDT Office Visit [facility] Electrophysiology [address] [place] [phone] Ranjan Talley MD [address] [place] [address] [address] [place] [phone] documented as of this encounter Visit Diagnoses Diagnosis Ischemic cardiomyopathy with implantable cardioverter-defibrillator (ICD)- Primary documented in this encounter Care Teams Alteration Tailor Apprentice Relationship Specialty Start Date End Date Lucía Roman, PHARMACY CLERK [address] [address] PCP - General Nurse Practitioner 04/25/23 Ranjan Talley MD [address] [place] [address] Zipper Trimmer Hand Electrophysiology 08/17/24 documented as of this encounter
--- OUTSIDE RECORDS SUMMARY | 2025-06-03 15:23 | XMS_ITS | Encounter Summary ---
Author Organization [employer] ([place], [place], [place], [place]) Address [address] [place] [address] Care Team Providers Care Electrical Equipment Assembler Name Role Phone Lucía Roman APRN Primary Care Provider Ranjan Talley MD Unavailable Reason for Visit * Reason Comments Medication Refill Encounter Details Date Type Department Care Team ([facility] Contact Info) Description 11/12/2023 Refill [facility] Electrophysiology [address] [place], [place] [phone] Ranjan Talley MD [address] [place] [address] [address] [place] [address] Ischemic cardiomyopathy with implantable cardioverter-defibrillat or (ICD) Social History Tobacco Use Types Packs/Day Years Used Date Smoking Tobacco: Former Cigarettes 1.8 40 1 974 - 2013 Passive Smoke Exposure: Never Smokeless Tobacco: Never [...] Department Care Team (Late Contact Info) Description 04/28/2026 8:30 AM EDT Office Visit [facility] Electrophysiology [address] [place] [phone] Ranjan Talley MD [address] [address] documented as of this encounter Visit Diagnoses Diagnosis Ischemic cardiomyopathy with implantable cardioverter-defibrillator (ICD) documented in this encounter Care Teams Electrical Equipment Assembler Relationship Specialty Start Date End Date Lucía Roman, CORPORATE RECEPTIONIST [address] [address] PCP - General Nurse Practitioner 04/25/23 Ranjan Talley MD [address] [facility] [address] [address] Channeler Runner Electrophysiology 08/17/24 documented as of this encounter
--- OUTSIDE RECORDS SUMMARY | 2025-06-03 15:23 | XMS_ITS | Clinical Summary ---
Author Organization [employer] ([place], [place], [place], [place]) Address [address] [place] [address] Care Team Providers Care Criminal Justice Faculty Name Role Phone Lucía Roman APRN Primary Care Provider Ranjan Talley MD Unavailable Allergies No known active allergies Medications atorvastatin (LIPITOR) 80 MG tablet Take 1 tablet (80 mg total) by mouth daily. 3 Active furosemide (LASIX) 20 MG tablet Take 1 tablet (20 mg total) by mouth daily. 3 Active levothyroxine (SYNTHROID, LEVOTHROID) 75 MCG tablet Take 1 tablet (75 mcg total) by mouth daily. 3 Active metFORMIN (GLUCOPHAGE-XR) 500 MG 24 hr tablet Take 1 tablet (500 mg total) by mouth daily. 3 Active isosorbide mononitrate (IMDUR) 30 MG 24 hr tabletIndications:P alpitations TAKE 1 TABLET BY MOUTH DAILY. 90 tablet 4 4 Active rivaroxaban (Xarelto) 20 mg tabletIndications:I schemic cardiomyopathy with implantable cardioverter-defibr illator (ICD) TAKE 1 TABLET BY MOUTH DAILY WITH DINNER. 90 tablet 3 4 Active potassium chloride (KLOR-CON) 20 MEQ tabletIndications:I schemic cardiomyopathy with implantable cardioverter-defibr illator (ICD) TAKE 1 TABLET BY MOUTH ONCE DAILY 30 tablet 9 4 Active gabapentin (NEURONTIN) 300 MG capsule Take 1 capsule (300 mg total) by mouth 3 (three) times daily. 4 Active fluticasone propionate (FLONASE) 50 mcg/actuation nasal spray 1 spray daily. 4 Active albuterol 90 mcg/actuation inhaler Inhale by mouth via inhaler every 6 (six) hours as needed for wheezing. Active dapagliflozin propanediol (Farxiga) 5 mg tabletIndications:C hronic combined systolic and diastolic congestive heart failure (HCC) Take 1 tablet (5 mg total) by mouth daily. 90 tablet 3 4 Active sacubitriL-valsarta n (ENTRESTO) 49-51 mg tabletIndications:P alpitations Take 1 tablet by mouth 2 (two) times daily. 180 tablet 3 5 Active sotaloL (BETAPACE) 80 MG tablet Take 1 tablet by mouth twice daily 180 tablet 3 5 Active metoprolol succinate (TOPROL-XL) 50 MG 24 hr tablet Take 1 tablet (50 mg total) by mouth daily. Active tirzepatide (Mounjaro) 2.5 mg/0.5 mL pnij Inject under the skin. Active Active Problems Problem Noted Date Diagnosed Date Pacemaker 04/28/2025 Pacemaker at end of battery life 04/28/2025 A-fib 04/28/2025 Resolved Problems Problem Noted Date Diagnosed Date Resolved Date Encounter for adjustment or management of cardiac device 11/25/2024 12/28/2024 Hyperlipidemia 04/01/2024 04/01/2024 12/28/2024 COPD (chronic obstructive pulmonary disease) 04/01/2024 12/28/2024 Chronic ITP (idiopathic thrombocytopenia) 04/01/2024 04/01/2024 12/28/2024 AICD (automatic cardioverter /defibrillator) present 04/01/2024 12/28/2024 Atrial fibrillation, persistent 12/05/2021 12/28/2024 Overview (04/01/2024): H.o multiple cardioversions H.o amiodarone toxicity Sick sinus syndrome 12/05/2021 04/01/2024 02/17/20 25 Chronic combined systolic an d diastolic congestive heart failure 06/27/2021 04/01/2024 12/28/2024 Cardiomyopathy, ischemic 01/24/2021 04/01/2024 Hypothyroidism 07/21/2020 04/01/2024 12/28/2024 Hypertension 07/21/2020 04/01/2024 12/28/2024 Arteriosclerosis of coronary artery 11/26/201904/0112/28/2024 Encounters Date Type Department Care Team Description 05/18/2025 6:00 AM EDT Clinical Support [facility] Electrophysiology [address] [place] [phone] Ranjan Talley MD Encounter for adjustment or management of cardiac device (Primary Dx) 04/27/2025 8:30 AM EDT Office Visit [facility] Electrophysiology [address] [place] [phone] Ranjan Talley MD Palpitations (Primary Dx) 04/27/2025 Travel 04/21/2025 5:00 AM EDT Clinical Support [facility] Electrophysiology [address] [place] [phone] Ranjan Talley MD Encounter for adjustment or management of cardiac device (Primary Dx) 04/11/2025 Refill [facility] Electrophysiology [address] [place] [phone] Ranjan Talley MD 03/29/2025 6:00 AM EDT Clinical Support [facility] Electrophysiology [address] [place] [phone] Ranjan Talley MD Encounter for adjustment or management of cardiac device (Primary Dx) 03/17/2025 6:00 AM EDT Clinical Support [facility] Electrophysiology [address] [place] [phone] Ranjan Talley MD Encounter for adjustment or [...] Pulse 60 04/27/2025 8:22 AM EDT Temperature 36.8 C (98.3 F) 12/28/2024 1:12 PM EST Respiratory Rate 14 12/28/2024 6:15 PM EST Oxygen Saturation 96% 04/27/2025 8:22 AM EDT Inhaled Oxygen Concentration - - Weight 86.8 kg (191 lb 6.4 oz) 04/27/2025 8:22 A M EDT Height 157.5 cm (5' 2 ) 04/27/2025 8:22 AM EDT Body Mass Index 35.01 04/27/2025 8:22 AM EDT Plan of Treatment Upcoming Encounters Date Type Department Care Team (Late st Contact Info) Description 04/28/2026 8:30 AM EDT Office Visit [facility] Electrophysiology [address] [place] [address] [place] [address] [place] [address] [address] [place] [address] Health Maintenance Due Date Last Done Comments [...] 2 - PCV) 10/31/2015 10/31/2014 COVID-19 VACCINE (5 - 2023-2 5 season) 2024 08/29/2022, 09/08/2021, 02/08/2021, Additional history exists Falls Risk Screening 11/11/2024 Medicare IPPE (Welcome to Medicare) G0402 11/11/2024 Influenza Vaccine (#1) 2025 Tobacco Cessation Counseling and Screening (12+) 04/27/2026 04/27/2025 DTAP/TDAP/TD VACCINES (2 - T d or Tdap) 02/05/2030 02/06/2020 Medical Devices Implanted Type Area Clinical Assistant Device Identifier Shelf Expiration Date Model / Serial / Lot Icd-08/06/2016 Implanted: (Quantity not on file) ICD [employer] 2411-36 / [id number] / Description:DEPENDENT Defib Sterling Vr Df-1 [id number] - [id number] Implanted:Qty : 1 on 12/28/2024 at [facility] PACEMAKER/ ICD BI VALVE DEVICE Chest Wall GRIMM LAB:VASC DEV [id number] / / Procedures Procedure Name Priority Date/Time Associated Diagnosis Comments FS_MODEL_IP_ECG 12-LEAD Routine 04/27/2025 8:17 A M EDT Palpitations from Last 3 Months Results * ECG 12 lead (04/27/2025 8:17 AM EDT) Ranjan Talley MD ECG ORDERABLES Final Result from Last 3 Months Insurance [employer] HMO Advance Directives For more information, please contact: [phone] Documents on File Type Date Recorded Patient Software Developer Consultant Expl anation Advance Directives and Livin g Will 06/25/2023 6:35 AM * Full Code (Latest Code Status on File) Date Activated Date Inactivated Comments 12/28/2024 3:46 PM 12/29/2024 4:27 AM * Full Code Date Activated Date Inactivated Comments 12/28/2024 11:51 AM 12/28/2024 3:46 PM Care Teams Criminal Justice Faculty Relationship Specialty Start Date End Date Lucía Roman, TITO [address] [place] [address] PCP - General Nurse Practitioner 04/25/23 Ranjan Talley MD [address] [facility] [address] [place] [address] Respooler Electrophysiology 08/17/24
--- OUTSIDE RECORDS SUMMARY | 2025-06-03 15:23 | XMS_ITS | Clinical Summary ---
Author Organization [facility] Address [address] [facility] [address] [place] [address] Phone Care Team Providers Care Enamel Buffer Name Role Phone Wally POLLACK, Branden Rai [phone] [ ] Conditions or Problems Problem Name Problem Code Onset Date Status Entry Date Provider Comment Standard Description Annotate ACUTE RESPIRATORY FAILURE 05737714 (SNOMED CT) 11/18 Active 11/18 Joyce Koo Acute respiratory failure ELEVATED LFTS 481174109 (SNOMED CT) 11/18 Active 11/18 Joyce Koo Liver function tests outside reference range ANEMIA 833095419 (SNOMED CT) 11/18 Active 11/18 Joyce Koo Anemia LEUKOCYTOSIS 253833948 (SNOMED CT) 11/18 Active 11/18 Joyce Koo Leukocytosis PNEUMONIA 037633949 (SNOMED CT) 11/18 Active 11/18 Joyce Koo Pneumonia PULMONARY INFILTRATE 23962960 (SNOMED CT) 11/18 Active 11/18 Joyce Koo Disorder of lung PLEURAL EFFUSION 27958955 (SNOMED CT) 11/18 Active 11/18 Joyce Koo Pleural effusion CAD 83998642 (SNOMED CT) 11/18 Active 11/18 Joyce Koo Coronary arteriosclerosis HX OF CABG 324100021 (SNOMED CT) 11/18 Active 11/18 Joyce Koo History of coronary artery bypass grafting Medications Medication Instructions Start Date Stop Date Generic Name NDC Provider LISINOPRIL 10 MG TABS p.o. b.i.d. 5 LISINOPRIL 79606680974 Jozef Omer DIGOXIN 125 MCG TABS p.o. daily 5 DIGOXIN 96207473970 Jozef Omer CARVEDILOL 3.125 MG TABS p.o. b.i.d. 5 CARVEDILOL 12338547646 Jozef Omer LIPITOR 40 MG TABS 2 tabs p.o. at bedtime 5 ATORVASTATIN CALCIUM 95176725442 Jozef Omer ASPIRIN 81 MG ORAL TABLET p.o. daily 5 ASPIRIN 43965805026 Jozef Omer NORVASC 5 MG TABS p.o. b.i.d. 5 AMLODIPINE BESYLATE 41705939122 Jozef Omer Medications Administered No information available. [...]
--- OUTSIDE RECORDS SUMMARY | 2025-06-03 15:23 | XMS_ITS | Referral Summary ---
Author Organization [employer] ([place], [place], [place], [place]) Address [address] [place] [address] Care Team Providers Care Billiard Parlor Manager Name Role Phone RomanLucía crisostomo APRN Primary Care Provider [phone] Ranjan Talley MD Unavailable Encounters Date Type Department Care Team Description 05/18/2025 6:00 AM EDT Clinical Support [facility] Electrophysiology [address] [place], [place] [phone] Ranjan Talley MD Encounter for adjustment or management of cardiac device (Primary Dx) 04/27/2025 Travel 04/27/2025 8:30 AM EDT Office Visit [facility] Electrophysiology [address] [place], [place] [phone] Ranjan Talley MD Palpitations (Primary Dx) 04/21/2025 5:00 AM EDT Clinical Support [facility] Electrophysiology [address] [place], [place] [phone] Ranjan Talley MD Encounter for adjustment or management of cardiac device (Primary Dx) 04/11/2025 Refill [facility] Electrophysiology [address] [place] [phone] Ranjan Talley MD 03/29/2025 6:00 AM EDT Clinical Support [facility] Electrophysiology [address] [place] [phone] Ranjan Talley MD Encounter for adjustment or management of cardiac device (Primary Dx) 03/17/2025 6:00 AM EDT Clinical Support [facility] Electrophysiology [address] [place] [phone] Ranjan Talley MD Encounter for adjustment or [...] 2 (two) times daily. 180 tablet 3 Active sotaloL (BETAPACE) 80 MG tablet Take 1 tablet by mouth twice daily 180 tablet 3 Active metoprolol succinate (TOPROL-XL) 50 MG 24 [...] toxicity Sick sinus syndrome 12/05/2021 04/01/2024 12/28/19 Chronic combined systolic an d diastolic congestive [...] Date Wicho rded Speak language other than Iranian at home Not on file 11/19/2023 Want [...] Description 04/28/2026 8:30 AM EDT Office Visit [facility] Electrophysiology [address] [place] [address] [place] [address] [place] [address] [address] [place] [address] Medical Devices Implanted Type Area Courier Driver Device Identifier Shelf Expiration Date Model / Serial / Lot Icd-08/06/2016 Implanted: (Quantity not on file) ICD [employer] 2411-36 / [id number] / Description:DEPENDENT David Ba Vr Df-1 [id number] - [id number] Implanted:Qty : 1 on 12/28/2024 at [facility] PACEMAKER/ ICD BI VALVE DEVICE Chest Wall GRIMM LAB:VASC DEV [id number] / / Procedures Procedure Name Priority Date/Time Associated Diagnosis Comments FS_MODEL_IP_ECG 12-LEAD Routine 04/27/2025 8:17 A M EDT Palpitations from Last 3 Months Results * ECG 12 lead (04/27/2025 8:17 AM EDT) us Ranjan Talley MD ECG ORDERABLES Final Result from Last 3 Months Insurance [employer] MEDIC[employer] HMO Advance Directives For more information, please contact: [phone] Documents on File Type Date Recorded Patient Mixer And Scaler Expl anation Advance Directives and Livin g Will 06/25/2023 6:35 AM * Full Code (Latest Code Status on File) Date Activated Date Inactivated Comments 12/28/2024 3:46 PM 12/29/2024 4:27 AM * Full Code Date Activated Date Inactivated Comments 12/28/2024 11:51 AM 12/28/2024 3:46 PM Care Teams Billiard Parlor Manager Relationship Specialty Start Date End Date Lucía Roman APRN [address] [address] PCP - General Nurse Practitioner 04/25/23 Ranjan Talely MD [address] [place] [address] Farm Manager Electrophysiology 08/17/24
--- OUTSIDE RECORDS SUMMARY | 2025-06-03 15:24 | XMS_ITS | Encounter Summary ---
Author Organization [employer] ([place], [place], [place], [place]) Address [address] [place] [address] Care Team Providers Care Ion Implant Machine Operator Name Role Phone Lucía Roman APRN Primary Care Provider Ranjan Talley MD Unavailable Encounter Details Date Type Department Care Team (Late st Contact Info) Description 08/02/2021 Transcribed Document [facility] Family Medicine [address] [place] [address] Sharla Robledo MD [address] [place], [place] [address] Social History Tobacco Use Types Packs/Day Years [...] Source : Stated Height Entry Format : [place] Height, Feet : 5 ft(Converted to: 152 cm, 60 Inch) Height, Inches : 1 Inch(Converted to: 0 ft 1 Inch, 2.54 cm) Clinical Height : 154.94 cm Weight Source : Standing scale Weight Entry Format : [place] Clinical Dosing Weight : 89.09 kg Weight, Pounds : 196 lb Body Surface Area (BSA) : 1.87 m2 Body Mass Index : 37.1 kg/m2 (HI) [place] Body Weight : 47 kg JOAO BAKER [...] JOAO BAKER RN - 08/02/2021 7:06 EDT [place] Suicide Severity Rating Scale (C-SSRS) CSSRS Past [...] David Support Person/Pt Rep Contact Information : [phone] Want Family/Rep/Phys Notified of Admit : No Emergency Contact #1 : Nichole Emergency Contact #1 Phone Number : daughter Emergency Contact #1 Relationship : [phone] Emergency Contact #2 : none Emergency Contact #2 Phone Number : none Emergency Contact #2 Relationship : none Primary Language : Central African Preferred Communication Mode : Verbal Communication Barrier : None Director Title Needed : JOAO Pedraza RN - 08/02/2021 7:06 EDT Sleep Apnea [...] Mental Status : Oriented to own ability [place]il[place] Fall Risk Score : 20 ELLISON Fall Scale Risk Level : 0-24 Low Risk [place] Fall Interventions : Adequate lighting, Assistive devices [...] Description 04/28/2026 8:30 AM EDT Office Visit [facility] Electrophysiology [address] [place] [address] Ranjan Talley MD [address] [facility] [address] [place] [address] documented as of this encounter Visit Diagnoses Not on filedocumented in this encounter Care Teams Ion Implant Machine Operator Relationship Specialty Start Date End Date Lucía Roman APRN [address] [place] [address] PCP - General Nurse Practitioner 04/25/23 Ranjan Talley MD [address] [place] [address] Will Call Order Clerk Electrophysiology 08/17/24 documented as of this encounter
--- OUTSIDE RECORDS SUMMARY | 2025-06-03 15:24 | XMS_ITS | Encounter Summary ---
Author Organization [employer] ([place], [place], [place], [place]) Address [address] [place] [address] Care Team Providers Care Utility Worker Woolen Mill Name Role Phone Lucía Roman APRN Primary Care Provider [phone] Ranjan Talley MD Unavailable Encounter Details Date Type Department Care Team (Late st Contact Info) Description 08/03/2021 Transcribed Document [facility] [place] [facility] [place] [address] Sharla Robledo MD [address] [place] [id number] Social History Tobacco Use Types Packs/Day Years Used Date Smoking Tobacco: Never Assessed Comments Unknown Sex and Gender Information Value Date Recorded Sex Assigned at Not on file Legal Sex Female 5:07 PM CDT Gender Identity Not on file Sexual Orientation Not on file documented as of this encounter Miscellaneous Notes * Cerner Conversion Note - Sharla Robledo MD - 08/03/2021 11:24 AM CDT Final Discharge Planning Entered On: 08/03/2021 11:27 EDT Performed On: 08/03/2021 11:24 EDT by STEFAN CORONADO, RN-Care Management Final Discharge Planning Discharge Arrangements : Patient Post-Acute Information Patient Name: MITZI MCDUFFIE Gender: Female : 55 Age: 66 Years No Post-Acute Placement(s) Listed No Post-Acute Service(s) Listed No [place] Referral(s) Listed Discharge To Care Management : Home/Residential/Detention or Self Care -01 STEFAN CORONADO RN-Care Management - 08/03/2021 11:24 EDT Final Narrative Note Final Narrative Note : OPA-Cardiac ablation, ICD reprogramming, pulmonary vein isolation, Isuprel infusion and LV pacing. Pt. DC to home, no CM orders, Nursing to schedule f/u appointments. STEFAN CORONADO RN-Care Management - 08/03/2021 11:24 EDT Electronically signed by [facility] Conversion Appraisal Specialist Cerner at 02/26/2023 4:36 PM CDT documented in this encounter Plan of Treatment Upcoming Encounters Date Type Department Care Team (Late st Contact Info) Description 04/28/2026 8:30 AM EDT Office Visit [facility] Electrophysiology [address] [place] [phone] Ranjan Talley MD [address] [place] [address] [address] [place] [address] documented as of this encounter Visit Diagnoses Not on filedocumented in this encounter Care Teams Utility Worker [employer]en Mill Relationship Specialty Start Date End Date Lucía RomanTITO [address] [place] [address] PCP - General Nurse Practitioner 04/25/23 Ranjan Talley MD [address] [place] [address] [address] [place] [address] Supervisor Burling And Joining Electrophysiology 08/17/24 documented as of this encounter
--- OUTSIDE RECORDS SUMMARY | 2025-06-03 15:24 | XMS_ITS | Encounter Summary ---
Author Organization [employer] ([place], [place], [place], [place]) Address [address] [place] [address] Care Team Providers Care Walnut Dehydrator Operator Name Role Phone Lucía Roman APRN Primary Care Provider Ranjan Talley MD Unavailable Encounter Details Date Type Department Care Team (Late st Contact Info) Description 08/02/2021 Transcribed Document [facility] Family Medicine [address] [place] [address] ProviderSharla MD [address] [place], [place] [address] Social History Tobacco Use Types Packs/Day Years [...] Description 04/28/2026 8:30 AM EDT Office Visit [facility] Electrophysiology [address] [place] [address] Ranjan Talley MD [address] [facility] [address] [place] [address] documented as of this encounter Visit Diagnoses Not on filedocumented in this encounter Care Teams Walnut Dehydrator Operator Relationship Specialty Start Date End Date Lucía Roman, GAMING DEPARTMENT HEAD [address] [address] PCP - General Nurse Practitioner 04/25/23 Ranjan Talley MD [address] [facility] [address] [address] Puppet Developer Electrophysiology 08/17/24 documented as of this encounter
--- OUTSIDE RECORDS SUMMARY | 2025-06-03 15:24 | XMS_ITS | Encounter Summary ---
Author Organization [employer] ([place], [place], [place], [place]) Address [address] [place] [address] Care Team Providers Care Dewaterer Operator Name Role Phone Lucía Roman APRN Primary Care Provider Ranjan Talley MD Unavailable Encounter Details Date Type Department Care Team (Late st Contact Info) Description 08/03/2021 Transcribed Document [facility] Family Medicine [address] [place] [address] ProviderSharla MD [address] [place] [address] Social History Tobacco Use Types Packs/Day Years [...] Policy Numbers : Insurance 1 Health Plan: ANTHEM MEDICARE REPL Policy Number: [id number] Authorization Number: [id number] Insurance Primary Name : ANTHEM MEDICARE REPL Policy Number: [id number] Observation Authorization Nbr-Primary : [id number] Historical Authorization Comments-Primary : No Authorization Comments Found ROSS, JESSI M, Rn-Utilization Review - 08/03/2021 12:07 EDT Electronically signed by [facility], [facility] Conversion Letter Of Credit Document Examiner Cerner at 02/26/2023 4:42 PM CDT documented in this encounter Plan of Treatment Upcoming Encounters Date Type Department Care Team (Late st Contact Info) Description 04/28/2026 8:30 AM EDT Office Visit [facility] Electrophysiology [address] [place] [phone] Ranjan Talley MD [address] [place] [address] [place] [address] documented as of this encounter Visit Diagnoses Not on filedocumented in this encounter Care Teams Dewaterer Operator Relationship Specialty Start Date End Date Lucía Roman, PRODUCT SAFETY TECHNICIAN [address] [address] PCP - General Nurse Practitioner 04/25/23 Ranjan Talley MD [address] [place] [address] [place] [phone] Plastic Products Sales Representative Electrophysiology 08/17/24 documented as of this encounter
--- OUTSIDE RECORDS SUMMARY | 2025-06-03 15:24 | XMS_ITS | Encounter Summary ---
Author Organization [employer] ([place], [place], [place], [place]) Address [address] [place] [address] Care Team Providers Care Asset Protection Detective Name Role Phone Abel Lucía FRANCIS Primary Care Provider Ranjan Talley MD Unavailable Encounter Details Date Type Department Care Team (Latest Contact Info) Description 04/27/2025 Travel Social History Tobacco Use Types Packs/Day Years [...] Date Wicho rded Speak language other than Bermudian at home Not on file 11/19/2023 Want [...] Description 04/28/2026 8:30 AM EDT Office Visit [address] [phone] Ranjan Talley MD [address] [facility] [address] [place] [address] documented as of this encounter Visit Diagnoses Not on filedocumented in this encounter Care Teams Asset Protection Detective Relationship Specialty Start Date End Date Lucía Roman, NATIONAL RECRUITER [address] [place] [address] PCP - General Nurse Practitioner 04/25/23 Ranjan Talley MD [address] [facility] [address] [place] [address] Exhaust Emissions Automotive Technician Electrophysiology 08/17/24 documented as of this encounter
--- OUTSIDE RECORDS SUMMARY | 2025-06-03 15:24 | XMS_ITS | Encounter Summary ---
Author Organization [employer] ([place], [place], [place], [place]) Address [address] [place] [address] Care Team Providers Care Reshipping Clerk Name Role Phone Lucía Roman TITO Primary Care Provider Ranjan Talley MD Unavailable Reason for Visit * Reason Comments Medication Refill Encounter Details Date Type Department Care Team (Late st Contact Info) Description 04/11/2025 Refill [facility] Electrophysiology [address] [place], [place] [phone] Ranjan Talley MD [address] [place] [address] [address] [place] [address] Social History Tobacco Use Types Packs/Day Years [...] Date Wicho rded Speak language other than Montserratian at home Not on file 11/19/2023 Want [...] Description 04/28/2026 8:30 AM EDT Office Visit [facility] Electrophysiology [address] [place] [phone] Ranjan Talley MD [address] [place] [address] Suite [place] [phone] documented as of this encounter Visit Diagnoses Not on filedocumented in this encounter Care Teams Reshipping Clerk Relationship Specialty Start Date End Date Lucía Roman, ORACLE TECHNICAL DEVELOPER [address] [address] PCP - General Nurse Practitioner 04/25/23 Ranjan Talley MD [address] [place] [address] [address] Food Service Associate Electrophysiology 08/17/24 documented as of this encounter
--- OUTSIDE RECORDS SUMMARY | 2025-06-03 15:24 | XMS_ITS | Encounter Summary ---
Author Organization [employer] ([place], [place], [place], [place]) Address [address] [facility] [place] [address] Care Team Providers Care Management Lead Name Role Phone Lucía Roman APRN Primary Care Provider Hernandez Talley MD Unavailable Encounter Details Date Type Department Care Team (Late st Contact Info) Description 08/03/2021 Transcribed Document [facility] [place] [facility] [place] [address] ProviderSharla MD [address] [place] [address] Social History Tobacco Use Types Packs/Day Years [...] Ben Cardiology Discharge Note - EP Primary Take Out Waiter/Waitress: PCP: Lucía Roman Consults: NONE History of [...] 03) L 101 (AUG 02) Na 139 (SEP ) 140 (AUG 02) K L 3.2 (AUG 03) 4.0 (AUG 02) Cl 108 (AUG 03) 110 (AUG 02) CO2 25 (AUG 03) 23 (SEP ) BUN 14 (AUG 03) 19 (AUG 02) [...] Normal range of motion. Integumentary: Warm, Dry, [place]. Bilateral groins stable no hematoma or bleeding. [...] PCP in 5 - 7 days. Primary Take Out Waiter/Waitress in [address] Talley [...] Description 04/28/2026 8:30 AM EDT Office Visit [facility] Electrophysiology [address] [place] [phone] Hernandez Talley MD [address] [facility] [address] [place] [address] documented as of this encounter Visit Diagnoses Not on filedocumented in this encounter Care Teams Management Lead Relationship Specialty Start Date End Date Lucía Roman, FORMING PRESS OPERATOR [address] [place] [address] PCP - General Nurse Practitioner 04/25/23 Hernandez Talley MD [address] [facility] [address] [place] [address] Take Out Waiter/Waitress Electrophysiology 08/17/24 documented as of this encounter
--- OUTSIDE RECORDS SUMMARY | 2025-06-03 15:24 | XMS_ITS | Encounter Summary ---
Author Organization [employer] ([place], [place], [place], [place]) Address [address] [place] [address] Care Team Providers Care Crane Hoist Or Lift Operator Name Role Phone Lucía Roman APRN Primary Care Provider Ranjan Talley MD Unavailable Encounter Details Date Type Department Care Team (Late st Contact Info) Description 08/03/2021 Transcribed Document [facility] [place] [address] [place] [address] ProviderSharla MD [address] [place] [phone] Social History Tobacco Use Types Packs/Day Years [...] Spiritual Care Spiritual Care Referred by : Air Traffic Control Manager follow-up Reason for Visit : Follow [...] Office Visit [facility] Electrophysiology [address] [place] [phone] [place] [address] [place] [address] [address] [place], [place] [phone] documented as of this encounter Visit Diagnoses Not on filedocumented in this encounter Care Teams Crane Hoist Or Lift Operator Relationship Specialty Start Date End Date Lucía Roman, HANDS AND DIAL INSPECTOR [address] [place] [address] PCP - General Nurse Practitioner 04/25/23 [place] [address] [place] [address] [address] [place] [address] Roof Bolting Coal Miner Electrophysiology 08/17/24 documented as of this encounter
--- OUTSIDE RECORDS SUMMARY | 2025-06-03 15:24 | XMS_ITS | Encounter Summary ---
Author Organization [employer] ([place], [place], [place], [place]) Address [address] [place] [address] Care Team Providers Care Visual Merchandising Assistant Name Role Phone Lucía Roman APRN Primary Care Provider Ranjan Talley MD Unavailable Encounter Details Date Type Department Care Team (Late st Contact Info) Description 08/02/2021 Transcribed Document [facility] Family Medicine [address] [place] [address] ProviderSharla MD [address] [place], [place] 9[address]161 Social History Tobacco Use Types Packs/Day Years Used Date Smoking Tobacco: Never Assessed Comments Unknown Sex and Gender Information Value Date Recorded Sex Assigned at Not on file Legal Sex Female 5:07 PM CDT Gender Identity Not on file Sexual Orientation Not on file documented as of this encounter Miscellaneous Notes * Cerner Conversion Note - Sharla Robledo MD - 08/02/2021 4:50 PM CDT Admission History, [...] David Support Person/Pt Rep Contact Information : [phone] Want Family/Rep/Phys Notified of Admit : No Emergency Contact #1 : Nichole Emergency Contact #1 Phone Number : daughter Emergency Contact #1 Relationship : [phone] Emergency Contact #2 : none Emergency Contact #2 Phone Number : none Emergency Contact #2 Relationship : none Primary Language : Sudanese Preferred Communication Mode : Verbal Communication Barrier : None Telecommunications Network Engineer Needed : No TAVARES CARROLL RN - 08/02/2021 16:50 EDT Fall Risk Scales ABCs Fall Injury Risk Identification : None LING Hx Falls Immediate/Within 3 Months : No Ling Secondary Diagnosis : Yes LING Use of Ambulatory Aid : None LING IV Therapy or IV Access : No Ling Gait/Transferring : Normal, bedrest, immobile Ling Mental Status : Oriented to own ability Ling Fall Risk Score : 15 LING Fall Scale Risk Level : 0-24 Low Risk [place] Fall Interventions : Bed in low position, [...] (Last Updated: 03/06/2016 08:03:58 EDT by RADHA GLEZ RN) Height and Weight, Clinical Dosing Height Source : Stated Height Entry Format : Vanduser Height, Feet : 5 ft(Converted to: 152 cm, 60 Inch) Height, Inches : 1 Inch(Converted to: 0 ft 1 Inch, 2.54 cm) Clinical Height : 154.94 cm Weight Source : Standing scale Weight Entry Format : Vanduser Clinical Dosing Weight : 89.09 kg Weight, Pounds : 196 lb Body Surface Area (BSA) : 1.87 m2 Body Mass Index : 37.1 kg/m2 ([place]) [place] Body Weight : 47 kg TAVARES CARROLL [...] TAVARES CARROLL RN - 08/02/2021 16:50 EDT Potter Suicide Severity Rating Scale (C-SSRS) CSSRS Past [...] Description 04/28/2026 8:30 AM EDT Office Visit [facility] Electrophysiology [address] [place] [address] Ranjan Talley MD [address] [facility] [address] [place] [address] documented as of this encounter Visit Diagnoses Not on filedocumented in this encounter Care Teams Visual Merchandising Assistant Relationship Specialty Start Date End Date Lucía Roman APRN [address] [place] [address] PCP - General Nurse Practitioner 04/25/23 Ranjan Talley MD [address] [place] [address] Forest Examiner Electrophysiology 08/17/24 documented as of this encounter
--- OUTSIDE RECORDS SUMMARY | 2025-06-03 15:24 | XMS_ITS | Encounter Summary ---
Author Organization [employer] ([place], [place], [place], [place]) Address [address] [facility] [place] [address] Care Team Providers Care Morals Squad Police Officer Name Role Phone Lucía Roman APRN Primary Care Provider Ranjan Talley MD Unavailable Encounter Details Date Type Department Care Team (Late st Contact Info) Description 08/02/[address] [facility] Family Medicine [facility] [place] [address] ProviderSharla MD [address] [place] [address] 854381 Social History Tobacco Use Types Packs/Day Years Used Date Smoking Tobacco: Never Assessed Comments Unknown Sex and Gender Information Value Date Recorded Sex Assigned at Not on file Legal Sex Female 5:07 PM CDT Gender Identity Not on file Sexual Orientation Not on file documented as of this encounter Miscellaneous Notes * Cerner Conversion Note - Sharla Robledo MD - 08/02/2021 2:52 PM CDT Patient: MITZI MCDUFFIE Age: 66 Years Sex: Female : 1955 Heel Dipper: Ranjan Talley MD Indication: 65 year old [...] ICD reprogramming pre-and postprocedure Plan: Monitor overnight. documented in this encounter Plan of Treatment Upcoming Encounters Date Type Department Care Team (Late st Contact Info) Description 04/28/2026 8:30 AM EDT Office Visit [facility] Electrophysiology [address] [place] [phone] Ranjan Talley MD [address] [facility] [address] [place] [address] documented as of this encounter Visit Diagnoses Not on filedocumented in this encounter Care Teams Morals Squad Police Officer Relationship Specialty Start Date End Date Lucía Roman, SHAFT HEADMAN [address] [place] [address] PCP - General Nurse Practitioner 04/25/23 Ranjan Talley MD [address] [facility] [address] [place] [address] Marketing Communications Leader Electrophysiology 08/17/24 documented as of this encounter
--- OUTSIDE RECORDS SUMMARY | 2025-06-03 15:24 | XMS_ITS | Encounter Summary ---
Author Organization [employer] ([place], [place], [place], [place]) Address [address] [place] [address] Care Team Providers Care Vacuum Pan Operator Name Role Phone Lucía Rmoan APRN Primary Care Provider Ranjan Talley MD Unavailable Encounter Details Date Type Department Care Team (Late st Contact Info) Description 08/03/2021 Transcribed Document [facility] Family Medicine [address] [place] [address] ProviderSharla MD [address] [place] [address] Social History Tobacco Use Types Packs/Day Years Used Date Smoking Tobacco: Never Assessed Comments Unknown Sex and Gender Information Value Date Recorded Sex Assigned at Not on file Legal Sex Female 5:07 PM CDT Gender Identity Not on file Sexual Orientation Not on file documented as of this encounter Miscellaneous Notes * Cerner Conversion Note - Sharla Robledo MD - 08/03/2021 2:42 PM CDT [facility] [place] [id number] ANDREWYESSYMichael Carrillo :1955 Visit Time:08/02/2021 Your Visit Summary Your Care Team Admitting Physician - RANJAN TALLEY MD-CAR Attending Physician - RANJAN TALLEY MD-CAR Primary Care Physician - DARREL BELL MD-FAM Referring Physician - RANJAN TALLEY MD-CAR These [...] TALLEY When 09/05/2021 08:30 AM EDT Where: [address] [place] [address] [place] [address]- Business (1) Medications What How Much When [...] include vitamins, herbs, eye drops, creams, and nljo-edj-vsqrmch medicines. ??? Any problems you or family [...] provider. Document Revised: 09/29/2020 Document Reviewed: 09/29/2020 [employer] Patient Education ?? 2020 [employer] Cardiac Ablation, Care After This sheet [...] and water are not available, use hand oil mixer. ? Change your dressing as told by [...] safe for you. General instructions ??? Take bpty-ogz-fzrdjcg and prescription medicines only as told by [...] provider. Document Revised: 09/05/2020 Document Reviewed: 09/05/2020 [employer] Patient Education ?? 2020 [employer]. potassium chloride (oral/injection) (denny TASS ee um) [...] may report side effects to FDA at 4-998-CFM-0637. What other drugs will affect potassium chloride? Tell your doctor about all your other medicines, especially: ?? medicine to prevent organ transplant rejection; ?? a diuretic or 'water pill'; or ?? heart or blood pressure medication. This list is not complete. Other drugs may affect potassium chloride, including prescription and qkzh-ldd-vkcdsca medicines, vitamins, and herbal products. Not all [...] to ensure that the information provided by [employer]. ('[employer]') is accurate, up-to-date, and complete, but no guarantee is made to that effect. Drug information contained herein may be time sensitive. [employer] information has been compiled for use by healthcare practitioners and consumers in the [place] and therefore [employer] does not warrant that uses outside of the [place] are appropriate, unless specifically indicated otherwise. [employer] drug information does not endorse drugs, diagnose patients or recommend therapy. [employer] drug information is an informational resource designed [...] effective or appropriate for any given patient. [employer] does not assume any responsibility for any aspect of healthcare administered with the aid of information [employer] provides. The information contained herein is not intended to cover all possible uses, directions, precautions, warnings, drug interactions, allergic reactions, or adverse effects. If you have questions about the drugs you are taking, check with your doctor, nurse or pharmacist. Copyright 3412-6209 [employer]. Version: 14.01. Revision Date: 04/07/2020. Emergency Awareness [...] Assistance with quitting is available by contacting 1-854-DIHP-NOW. This is a free resource providing counseling, [...] range between ( 0.0 and 7.0 ) Cameron #: 0.64 K/uL -- Normal range between ( 0.16 and 1.00 ) Eos #: 0.10 x10(3)/uL -- Normal range between ( 0.00 and 0.80 ) Cameron %: 10.5 % -- Normal range between [...] was given the opportunity to ask questions. Patient/Payment Analyst Name: Patient/Payment Analyst Signature: Relationship to Patient: Clinician/Hospital Payment Analyst Signature: Date: Electronically signed by [facility], [facility] Conversion Miller Head Cerner at 02/26/2023 4:37 PM CDT documented in this encounter Plan of Treatment Upcoming Encounters Date Type Department Care Team (Late st Contact Info) Description 04/28/2026 8:30 AM EDT Office Visit [facility] Electrophysiology [address] [place] [phone] Ranjan Talley MD [address] [place] [address] [place] [address] documented as of this encounter Visit Diagnoses Not on filedocumented in this encounter Care Teams Vacuum Pan Operator Relationship Specialty Start Date End Date Lucía Roman, DRAINLAYER [address] [address] PCP - General Nurse Practitioner 04/25/23 Ranjan Talley MD [address] [place] [address] [place] [id number] Farm Agent Electrophysiology 08/17/24 documented as of this encounter
--- OUTSIDE RECORDS SUMMARY | 2025-06-03 15:24 | XMS_ITS | Encounter Summary ---
Author Organization [employer] ([place], [place], [place], [place]) Address [address] [place] [address] Care Team Providers Care Daily Sales Audit Clerk Name Role Phone Lucía Roman APRN Primary Care Provider Ranjan Talley MD Unavailable Encounter Details Date Type Department Care Team (Late st Contact Info) Description 08/02/2021 Transcribed Document [facility] [place] [address] [place] [address] Sharla Robledo MD [address] [place], [place] 597[address] Social History Tobacco Use Types Packs/Day Years Used Date Smoking Tobacco: Never Assessed Comments Unknown Sex and Gender Information Value Date Recorded Sex Assigned at Not on file Legal Sex Female 5:07 PM CDT Gender Identity Not on file Sexual Orientation Not on file documented as of this encounter Miscellaneous Notes * Cerner Conversion Note - Sharla Robledo MD - 08/02/2021 8:10 PM CDT Meds to Bed Enrollment Entered On: 08/03/2021 9:02 EDT Performed On: 08/02/2021 20:10 EDT by Chidi Medina Radio Aerial Installer Cert Lead Meds to Bed Enrollment Patient Enrollment Decision: : Yes/enroll in meds to bed program Chidi Medina Radio Aerial Installer Cert Lead - 08/03/2021 9:02 EDT documented in this encounter Plan of Treatment Upcoming Encounters Date Type Department Care Team (Late st Contact Info) Description 04/28/2026 8:30 AM EDT Office Visit [facility] Electrophysiology [address] [place] [address] Ranjan Talley MD [address] [facility] [address] [place], [place] [id number] documented as of this encounter Visit Diagnoses Not on filedocumented in this encounter Care Teams Daily Sales Audit Clerk Relationship Specialty Start Date End Date Lucía Roman, PERSONNEL RECRUITER [address] [place] [address] PCP - General Nurse Practitioner 04/25/23 Ranjan Talley MD [address] [facility] [address] [place] [address] Open Hearth Melter Electrophysiology 08/17/24 documented as of this encounter
--- OUTSIDE RECORDS SUMMARY | 2025-06-03 15:24 | XMS_ITS | Encounter Summary ---
Author Organization [employer] ([place], [place], [place], [place]) Address [address] [place] [address] Care Team Providers Care Chief Transfer And Pumphouse Operator Name Role Phone Lucía Roman APRN Primary Care Provider Ranjan Talley MD Unavailable Encounter Details Date Type Department Care Team (Late st Contact Info) Description 08/02/2021 Transcribed Document [facility] Family Medicine [address] [place] [address] ProviderSharla MD [address] [place], [place] 082741 Social History Tobacco Use Types Packs/Day Years Used Date Smoking Tobacco: Never Assessed Comments Unknown Sex and Gender Information Value Date Recorded Sex Assigned at Not on file Legal Sex Female 5:07 PM CDT Gender Identity Not on file Sexual Orientation Not on file documented as of this encounter Miscellaneous Notes * Cerner Conversion Note - Sharla Robledo MD - 08/02/2021 9:52 AM CDT Pain Assessment [...] Description 04/28/2026 8:30 AM EDT Office Visit [facility] Electrophysiology [address] [place] [phone] Ranjan Talley MD [address] [place] [address] [address] documented as of this encounter Visit Diagnoses Not on filedocumented in this encounter Care Teams Chief Transfer And Pumphouse Operator Relationship Specialty Start Date End Date Lucía Roman, PLAYGROUND DIRECTOR [address] [place] [address] PCP - General Nurse Practitioner 04/25/23 Ranjan Talley MD [address] [place] [address] [address] Inventory Clerk Electrophysiology 08/17/24 documented as of this encounter
--- OUTSIDE RECORDS SUMMARY | 2025-06-03 15:24 | XMS_ITS | Encounter Summary ---
Author Organization [employer] ([place], [place], [place], [place]) Address [address] [place] [address] Care Team Providers Care Operating Systems Specialist Name Role Phone Lucía Roman APRN Primary Care Provider [phone] Ranjan Talley MD Unavailable Encounter Details Date Type Department Care Team (Late st Contact Info) Description 08/03/2021 Transcribed Document [facility] Family Medicine [address] [place] [address] ProviderSharla MD [address] [place] [address] Social History Tobacco Use Types Packs/Day Years [...] - 08/03/2021 14:41 EDT Electronically signed by Arabella, [facility] Conversion Asl Interpreter Cerner at 02/26/2023 4:29 PM CDT documented in this encounter Plan of Treatment Upcoming Encounters Date Type Department Care Team (Late st Contact Info) Description 04/28/2026 8:30 AM EDT Office Visit [facility] Electrophysiology [address] [place] [phone] Ranjan Talley MD [address] [place] [address] [place] [phone] documented as of this encounter Visit Diagnoses Not on filedocumented in this encounter Care Teams Operating Systems Specialist Relationship Specialty Start Date End Date Lucía Roman, TITO [address] [address] PCP - General Nurse Practitioner 04/25/23 Ranjan Talley MD [address] [place] [address] [address] Air Sealing Technician Electrophysiology 08/17/24 documented as of this encounter
--- OUTSIDE RECORDS SUMMARY | 2025-06-03 15:24 | XMS_ITS | Encounter Summary ---
Author Organization [employer] ([place], [place], [place], [place]) Address [address] [place] [address] Care Team Providers Care Aadc Plans Staff Officer Name Role Phone Lucía Roman APRN Primary Care Provider [phone] Ranjan Talley MD Unavailable Encounter Details Date Type Department Care Team (Late st Contact Info) Description 08/03/2021 Transcribed Document [facility] Family Medicine [address] [place] [address] ProviderSharla MD [address] [place] [address] Social History Tobacco Use Types Packs/Day Years Used Date Smoking Tobacco: Never Assessed Comments Unknown Sex and Gender Information Value Date Recorded Sex Assigned at Not on file Legal Sex Female 5:07 PM CDT Gender Identity Not on file Sexual Orientation Not on file documented as of this encounter Miscellaneous Notes * Cerner Conversion Note - Sharla ProviderMD - 08/03/2021 2:15 PM CDT Nursing [...] - 08/03/2021 14:15 EDT Electronically signed by [facility] Conversion Crane Engineer Cerner at 02/26/2023 4:38 PM CDT documented in this encounter Plan of Treatment Upcoming Encounters Date Type Department Care Team (Late st Contact Info) Description 04/28/2026 8:30 AM EDT Office Visit [facility] Electrophysiology [address] [place], [place] [phone] Ranjan Talley MD [address] [place] [address] [place] [phone] documented as of this encounter Visit Diagnoses Not on filedocumented in this encounter Care Teams Aadc Plans Staff Officer Relationship Specialty Start Date End Date Lucía Roman, TITO [address] [address] PCP - General Nurse Practitioner 04/25/23 Ranjan Talley MD [address] [place] [address] Grader Patrol Electrophysiology 08/17/24 documented as of this encounter
--- OUTSIDE RECORDS SUMMARY | 2025-06-03 15:24 | XMS_ITS | Encounter Summary ---
Author Organization [employer] ([place], [place], [place], [place]) Address [address] [place] [address] Care Team Providers Care Rn Social Work Name Role Phone Lucía Roman APRN Primary Care Provider Ranjan Talley MD Unavailable Encounter Details Date Type Department Care Team (Late st Contact Info) Description 08/02/2021 Transcribed Document [facility] [place] Family Medicine [facility] [place] [address] ProviderSharla MD [address] [place] [address] [phone] Social History Tobacco Use Types Packs/Day Years [...] Jolly CUELLO on 4IC. Pt transferred to [facility] via wheelchair with all belongings. TAVARES CARROLL RN - 08/02/2021 19:51 EDT Electronically signed by Arabella [facility] Conversion Media Arts Professor Cerner at 02/26/2023 4:46 PM CDT documented in this encounter Plan of Treatment Upcoming Encounters Date Type Department Care Team (Late st Contact Info) Description 04/28/2026 8:30 AM EDT Office Visit [facility] Electrophysiology [address] [place] [address] Ranjan Talley MD [address] [facility] [address] [place] [address] documented as of this encounter Visit Diagnoses Not on filedocumented in this encounter Care Teams Rn Social Work Relationship Specialty Start Date End Date Lucía Roman, PRODUCT SPECIALIST [address] [address] PCP - General Nurse Practitioner 04/25/23 Ranjan Talley MD 1401 [facility] [address] [address] Webbing Seamer Pound Net Electrophysiology 08/17/24 documented as of this encounter
--- OUTSIDE RECORDS SUMMARY | 2025-06-03 15:24 | XMS_ITS | Encounter Summary ---
Author Organization [employer] ([place], [place]) Address [address] [place] [address] Care Team Providers Care Bellman Captain Name Role Phone Lucía Roman APRN Primary Care Provider Ranjan Talley MD Unavailable Encounter Details Date Type Department Care Team (Late st Contact Info) Description 08/03/2021 Transcribed Document [facility] Family Medicine [address] [place] [address] Sharla Robledo MD [address] [place], [place] 332801 Social History Tobacco Use Types Packs/Day Years Used Date Smoking Tobacco: Never Assessed Comments Unknown Sex and Gender Information Value Date Recorded Sex Assigned at Not on file Legal Sex Female 5:07 PM CDT Gender Identity Not on file Sexual Orientation Not on file documented as of this encounter Miscellaneous Notes * Cerner Conversion Note - Sharla Robledo MD - 08/03/2021 2:15 PM CDT Patient Education [...] include vitamins, herbs, eye drops, creams, and gfpk-ydr-kcxdxqg medicines. ??? Any problems you or family [...] provider. Document Revised: 09/29/2020 Document Reviewed: 09/29/2020 [employer] Patient Education ? 2020 [employer]. Cardiac Ablation, Care After This sheet gives [...] and water are not available, use hand lease administrator. ? Change your dressing as told by [...] safe for you. General instructions ??? Take qrmn-wqr-ylhkgwn and prescription medicines only as told by [...] provider. Document Revised: 09/05/2020 Document Reviewed: 09/05/2020 [employer] Patient Education ? 2020 [employer]. documented in this encounter Plan of Treatment Upcoming Encounters Date Type Department Care Team (Late st Contact Info) Description 04/28/2026 8:30 AM EDT Office Visit [facility] Electrophysiology [address] [place] [phone] Ranjan Talley MD 1401 [facility] [address] [place] [address] documented as of this encounter Visit Diagnoses Not on filedocumented in this encounter Care Teams Bellman Captain Relationship Specialty Start Date End Date Lucía Roman, MEAT PUMPER [address] [place] [address] PCP - General Nurse Practitioner 04/25/23 Ranjan Talley MD [address] [facility] [address] [place] [address] Geodetic Advisor Electrophysiology 08/17/24 documented as of this encounter
--- OUTSIDE RECORDS SUMMARY | 2025-06-03 15:24 | XMS_ITS | Clinical Summary ---
[facility] Organization [facility] Address [address] [place] [address] Care Team Providers Care Etcher Electrolytic Name Role Phone Provider, No Known Primary Care Provider Unavail able Social History Tobacco Use Types Packs/Day Years Used Date Smoking Tobacco: Never Assessed Abuse Screen Answer Date Recorded Unsafe at Home or Work/School Not on file Feels Threatened by Someone? Not on file 10/2023 Does Anyone Keep You from Co ntacting Others or Doint Things Outside the Home? Not on file 08/22/2023 Physical Sign of Abuse Present Not on file 1 Housing Stability Answer Date Recorded Current Living Arrangements Not on file 08/11 Potentially Unsafe Housing Conditions Not on merna e 08/22/2023 Family and Community Support Answer Alonoz e Recorded Help with Day-to-Day Activities Not on file 08/22/2023 Lonely or Isolated Not on file 08/22/2023 Employment Answer Date Recorded Do you want help finding or keeping work or a mehdi b? Not on file 08/22/2023 Disabilities Answer Date Recorded Concentrating, Remembering, or Making Decisions Difficulty Not on file 08/22/2023 Doing Errands Independently Difficulty Not on fi le 08/22/2023 Education Answer Date Recorded Help with school or training? Not on file Preferred Language Not on file 08/22/2023 Comments Unknown Sex and Gender Information Value Date Recorded Sex Assigned at Not on file Legal Sex Female 9:28 AM EDT Gender Identity Not on file Sexual Orientation Not on file Plan of Treatment Health Maintenance Due Date Last Done Comments ANNUAL PHYSICAL 1955 DXA SCAN 1955 HEPATITIS C SCREENING 1955 TDAP/TD VACCINES (1 - Tdap) 1974 MAMMOGRAM 1995 COLOGUARD 2000 COLON CANCER SCREENING 5 YEAR SIGMOIDOSCOPY 2000 COLONOSCOPY 2000 COL[address]AL CANCER SCREENING 2000 CT COLONOGRAPHY 2000 FECAL OCCULT BLOOD TEST 2000 FIT Testing (1 year) 2000 Pneumococcal Vaccine 50+ (1 of 1 - PCV) 2005 ZOSTER VACCINE (1 of 2) 2005 COVID-19 Vaccine (1 - season) 2024 INFLUENZA VACCINE 08/11/2025 Insurance MEDICARE A & B Care Teams Etcher Electrolytic Relationship Specialty Start Date End Date Provider, No Known [facility] [place] [address] PCP - General 08/13/19
--- OUTSIDE RECORDS SUMMARY | 2025-06-03 15:25 | XMS_ITS | Encounter Summary ---
Author Organization [email or web address] ([place], [place], [place], [place]) Address [address] [address] Care Team Providers Care Economic Development Coordinator Name Role Phone Lucía Roman APRN Primary Care Provider Ranjan Talley MD Unavailable Encounter Details Date Type Department Care Team (Late st Contact Info) Description 08/03/2021 Transcribed Document [facility] Family Medicine [address] [place] [address] ProviderSharla MD [address] [place] [phone] Social History Tobacco Use Types Packs/Day Years Used Date Smoking Tobacco: Never Assessed Comments Unknown Sex and Gender Information Value Date Recorded Sex Assigned at Not on file Legal Sex Female 5:07 PM CDT Gender Identity Not on file Sexual Orientation Not on file documented as of this encounter Miscellaneous Notes * Cerner Conversion Note - Historical ProviderMD - 08/03/2021 2:15 PM CDT Stroke/Warfarin [...] Description 04/28/2026 8:30 AM EDT Office Visit [facility] Electrophysiology [address] [place] [address] [place] [address] [place] [address] [address] [place] [address] documented as of this encounter Visit Diagnoses Not on filedocumented in this encounter Care Teams Economic Development Coordinator Relationship Specialty Start Date End Date Lucía Roman, CHIEF LOCK TENDER OPERATOR [address] [place] [address] PCP - General Nurse Practitioner 04/25/23 [place] [address] [place] [address] [address] [place] [address] Stroke Belt Sander Operator Electrophysiology 08/17/24 documented as of this encounter
[2025-06-04 08:14] LABS: Triiodothyronine (T3) Free 2.4 pg/mL (2.0-4.4)
== END 2025-06-02 23:59 | disposition home or self-care (01) ==
LOC: LAB.DROPOF 06-03 15:19
PROVIDERS: PCP Nurse Practitioner Family; Visit Provider Nurse Practitioner Family
DX: R79.89 Other specified abnormal findings of blood chemistry (principal); I48.91 Unspecified atrial fibrillation
CPT/HCPCS: 84443; 84481

== ENCOUNTER 2025-06-22 09:17 | Outpatient (CLI) | payer MEDICARE, SELFPAY ==
--- OUTSIDE RECORDS SUMMARY | 2025-03-29 06:00 | XMS_ITS | Encounter Summary ---
Author Organization [employer] ([place], [place], [place], [place]) Address [address] [place] [address] [address] Care [address] Lab Technician Name Role Phone Lucía Roman APRN Primary Care Provider Ranjan Talley MD Unavailable Reason for Visit * Reason Comments Pacemaker /ICD Home Monitoring Encounter Details Date Type Department Care Team (Late st Contact Info) Description 03/29/2025 6:00 AM EDT Clinical Support [facility] Electrophysiology [address] [place] [phone] Ranjan Talley MD [address] [place] [address] [address] [place] [address] Encounter for adjustment or management of cardiac [...] Date Wicho rded Speak language other than Tunisian at home Not on file 11/19/2023 Want [...] Description 04/28/2026 8:30 AM EDT Office Visit [facility] Electrophysiology [address] [place] [phone] Ranjan Talley MD [address] [place] [address] [address] documented as of this encounter Visit Diagnoses Diagnosis Encounter for adjustment or management of cardiac device- Primary documented in this encounter Care Teams Rd Lab Technician Relationship Specialty Start Date End Date Lucía Roman, LEAD SYSTEMS ENGINEER [address] [place] [address] PCP - General Nurse Practitioner 04/25/23 Ranjan Talley MD [address] [place] [address] [facility] Electrophysiology 08/17/24 documented as of this encounter
--- OUTSIDE RECORDS SUMMARY | 2025-04-21 05:00 | XMS_ITS | Encounter Summary ---
Author Organization [employer] ([place], [place], [place], [place]) Address [address] [place] [address] Care Team Providers Care Supply Chain Coordinator Name Role Phone Lucía Roman APRN Primary Care Provider Ranjan Talley MD Unavailable Reason for Visit * Reason Comments Pacemaker /ICD Home Monitoring Encounter Details Date Type Department Care Team (Late st Contact Info) Description 04/21/2025 5:00 AM EDT Clinical Support [facility] Electrophysiology [address] [place] [phone] Ranjan Talley MD [address] [place] [address] [address] [place] [address] Encounter for adjustment or management of cardiac [...] Date Wicho rded Speak language other than Lithuanian at home Not on file 11/19/2023 Want [...] Description 04/28/2026 8:30 AM EDT Office Visit [facility] Electrophysiology [address] [place] [phone] Ranjan Talley MD [address] [place] [address] [address] documented as of this encounter Visit Diagnoses Diagnosis Encounter for adjustment or management of cardiac device- Primary documented in this encounter Care Teams Supply Chain Coordinator Relationship Specialty Start Date End Date Lucía Roman, PHOTOCOPY OPERATOR [address] [place] [address] PCP - General Nurse Practitioner 04/25/23 Ranjan Talley MD [address] [place] [address] Iso Coordinator Electrophysiology 08/17/24 documented as of this encounter
--- OUTSIDE RECORDS SUMMARY | 2025-04-27 08:30 | XMS_ITS | Encounter Summary ---
Author Organization [employer] ([place], [place], [place], [place]) Address [address] [place] [address] Care Team Providers Care School Health Assistant Name Role Phone Lucía Roman APRN Primary Care Provider [phone] Ranjan Talley MD Unavailable Reason for Visit * Reason Comments Follow-up 3 month follow up fo r final healing Encounter Details Date Type Department Care Team (Late st Contact Info) Description 04/27/2025 8:30 AM EDT Office Visit [facility] Electrophysiology [address] [place] [address] Ranjan Talley MD [address] [place] [address] [address] [place] [address] Palpitations (Primary Dx) Social History Tobacco Use Types [...] Date Wicho rded Speak language other than Slovak at home Not on file 11/19/2023 Want [...] on file documented as of this encounter Last Filed Vital Signs Vital Sign Reading Time Taken Comments Blood Pressure 130/70 04/27/2025 8:22 AM EDT Pulse 60 04/27/2025 8:22 AM EDT Temperature - - Respiratory Rate - - Oxygen Saturation 96% 04/27/2025 8:22 AM EDT Inhaled Oxygen Concentration - - Weight 86.8 kg (191 lb 6.4 oz) 04/27/2025 8:22 A M EDT Height 157.5 cm (5' 2 ) 04/27/2025 8:22 AM EDT Body Mass Index 35.01 04/27/2025 8:22 AM EDT documented in this encounter Progress Notes * Ranjan Talley MD - 04/27/2025 8:30 AM EDT Reason For Visit: 69 y.o. female here for a follow-up visit Medications: Scheduled Medications: More meds Current Outpatient Medications on File Prior to Visit Medication Sig Dispense Refill albuterol 90 mcg/actuation inhaler Inhale by mouth via inhaler every 6 (six) hours as needed for wheezing. atorvastatin (LIPITOR) 80 MG tablet Take 1 tablet (80 mg total) by mouth daily. dapagliflozin propanediol (Farxiga) 5 mg tablet Take 1 tablet (5 mg total) by mouth daily. 90 tablet 3 fluticasone propionate (FLONASE) 50 mcg/actuation nasal spray 1 spray daily. furosemide (LASIX) 20 MG tablet Take 1 tablet (20 mg total) by mouth daily. gabapentin (NEURONTIN) 300 MG capsule Take 1 capsule (300 mg total) by mouth 3 (three) times daily. isosorbide mononitrate (IMDUR) 30 MG 24 hr tablet TAKE 1 TABLET BY MOUTH DAILY. 90 tablet 4 levothyroxine (SYNTHROID, LEVOTHROID) 75 MCG tablet Take 1 tablet (75 mcg total) by mouth daily. (Patient taking differently: Take 1 tablet (50 mcg total) by mouth daily.) metoprolol succinate (TOPROL-XL) 50 MG 24 hr tablet Take 1 tablet (50 mg total) by mouth daily. potassium chloride (KLOR-CON) 20 MEQ tablet TAKE 1 TABLET BY MOUTH ONCE DAILY 30 tablet 9 rivaroxaban (Xarelto) 20 mg tablet TAKE 1 TABLET BY MOUTH DAILY WITH DINNER. 90 tablet 3 sacubitriL-valsartan (ENTRESTO) 49-51 mg tablet Take 1 tablet by mouth 2 (two) times daily. 180 tablet 3 sotaloL (BETAPACE) 80 MG tablet Take 1 tablet by mouth twice daily 180 tablet 3 tirzepatide (Mounjaro) 2.5 mg/0.5 mL pnij Inject under the skin. [DISCONTINUED] carvediloL (COREG) 25 MG tablet TAKE 1 TABLET BY MOUTH 2 (TWO) TIMES DAILY. 180 tablet 3 metFORMIN (GLUCOPHAGE-XR) 500 MG 24 hr tablet Take 1 tablet (500 mg total) by mouth daily. (Patientnot taking: Reported on 04/27/2025.) No current facility-administered medications on file prior to visit. Problem list and diagnosis Patient Active Problem List Diagnosis (none) - all problems resolved or deleted 1. Palpitations ECG 12 lead Allergies: No Known Allergies Physical Exam: Blood pressure 130/70, pulse 60, height 1.575 m (5' 2 ), weight 86.8 kg (191 lb 6.4 oz), SpO2 96%. General: Alert and oriented. Eye: Pupils are equal, round and reactive to light. HENT: Normocephalic. Neck: Supple, Non-tender, No carotid bruit, No jugular venous distention. Respiratory: Lungs are clear to auscultation, Respirations are non-labored. Cardiovascular: regular rhythm, No murmur, Good pulses equal in all extremities. Jugular Veins: Not distended. Gastrointestinal: Soft, Non-tender, Non-distended, Normal bowel sounds. Musculoskeletal: Normal range of motion. Integumentary: Warm, Dry, [place]. Neurologic: Alert, Oriented. Psychiatric: Cooperative, Appropriate mood & affect. Labs, Imaging, and Other Studies: Echo Results (last 7 days) No results found for the last 168 hours. Lab Results Component Value Date K 4.3 12/28/2024 Lab Results Component Value Date CREATININE 0.98 12/28/2024 eGFR (mL/min/1.73m2) Date Value Ref Range Status 12/28/2024 >60 >=60 mL/min/1.73m2 Final Comment: ESTIMATED GFR IS NOT ACCURATE CREATININE CLEARANCE IN PREDICTING GLOMERULAR FILTRATION RATE. ESTIMATED GFR IS NOT APPLICABLE FOR DIALYSIS PATIENTS. Lab Results Component Value Date HGB 13.1 12/28/2024 Lab Results Component Value Date PLT 130 (L) 12/28/2024 No results found for: TSH Magnesium Level Date Value Ref Range Status 08/03/2021 2.0 1.5 - 2.4 mg/dL Final AST Date Value Ref Range Status 12/28/2024 18 5 - 37 U/L Final ALT Date Value Ref Range Status 12/28/2024 36 13 - 56 U/L Final HPI: Patient is here for follow-up on 04/27/2025. She needed further device for optimization for the rate response and has been responding better with the changes. Assessment and Plan: Melida Mcduffie is a 69 y.o. female, with PMH significant for CAD s/p CABG 2013, ICM s/p [facility] [facility] ICD in 2015, used to follow-up with Dr. Blanton so prefers EP f/u only for now Inappropriate ICD shocks, Paroxysmal Afib CHADS VASC [...] so far with the sotalol with a borderlineQT. We discussed the interaction with some antibiotics and hypokalemia in the past. She wants to fol low-up with EP as she saw harvinder in the past. In her life she get 2 shocks in the past. Device was reprogrammed to increase the VF zone 2/2/40 beats per minutes and extended delay detection. The amiodarone is not an option because of prior toxicity so we were left trying to Tikosyn or doing an ablation. Ms. Mcduffie had simply pulmonary vein isolation performed on 08/02/2021 by marik but the CTI was notperformed because it was short and we did not have the appropriate short curve catheter and no posterior wall was ablated. In the past we wanted to increase her sotalol but her GFR was 45 at the time. More recently in June 2021 it was more than 60 so increasing the sotalol is definitely an optionif we need to. Patient is here for follow-up on 05/09/2023. Last time, we did some readjustment of the device as the rate response was kicking in too quickly. Her EKG today is fine after the sotalol increased to 80 mg twice a day since she was having elevated more A-fib still less than 1% but 1 episode lasting 53 minutes even though is still much better than before ablation.. The device interrogation shows no A-fib at all for the last week. However she has some PMT so device was reprogrammed accordingly. We will not increase her sotalol to 120 mg twice a day at this point of time and see her back in 6 months. Patient is here for follow-up on 06/20/2023. She still has less 1% A-fib but had an episode but she did feel on an evening that correlates with his tracings that show an A-fib around 20 minutes. Looking at everything with bill, it seems that there was some inappropriate a pacing that constantly induce A-fib, so the PVARP is an issue. If it is too long, it induces PMT but if too short and used to match a pacing and triggers A-fib monitor. Therefore the device was reprogrammed to AAI R. In addition during the A-fib at night, the patient had typical chest pain was very uncomfortable. At this stage I will add some Imdur 30 at night, order an echo and a stress test Lexiscan. I will see her back in 6 weeks. Patient is here for follow-up on 07/30/2023. Her EF is 20% on the echocardiogram. She had an abnormal Lexiscan Myoview perfusion study. No evidence of ischemia. Large area of anteroapical scar. Dilated left ventricle with severe left ventricular systolic dysfunction post stress. Her heart failure NYHA is class II. We briefly discussed about new medication options such as Entresto or Jardiance but patient does not want to change anything at this point of time. She says she feels better since we adjusted the pacemaker to AAIR mode. Follow- up in 6 months. Patient here for follow-up on 01/28/2024. She was finally switch to Entresto so I will increase it to 49/51 today. Device interrogation unremarkable especially no A-fib 10 months of battery.. Werediscussed the salt as she likes chips. Follow-up in 9 months Patient is here for follow-up on 10/29/2024. She has been doing well. Device interrogation shows she has no A-fib battery left 3 to 4 months. She has not reached antibiotics. She is on the remotes and we showed her the vibration for the SENTHIL. We discussed also starting Farxiga we will start at 5 mg give her sample then we will send her prescription. Follow-up in 5 months Patient is here for follow-up on 12/03/2024. She did hit SENTHIL a few days ago. She is here with Nichole her daughter that works as an OR nurse in [employer]. Patient underwent a dual-chamber Vallejo ICD change on 12/28/2024 by amrik. Patient was reprogrammed for optimization specially rate response to have her do more. Incision looks good. Follow-up in a few months for final healing. Patient is here for follow-up on 04/27/2025. She needed further device for optimization for the rateresponse and has been responding better with the changes. She said she had an echo done in [place] and her EF is still 20%. Follow-up in 1 year. documented in this encounter Plan of Treatment Upcoming Encounters Date Type Department Care Team (Late st Contact Info) Description 04/28/2026 8:30 AM EDT Office Visit [facility] Electrophysiology [address] [place] [phone] Ranjan Talley MD [address] [place] [address] [address] [place] [address] documented as of this encounter Procedures Procedure Name Priority Date/Time Associated Diagnosis Comments FS_MODEL_IP_ECG 12-LEAD Routine 04/27/2025 8:17 A M EDT Palpitations documented in this encounter Results * ECG 12 lead (04/27/2025 8:17 AM EDT) us Ranjan Talley MD ECG ORDERABLES Final Result documented in this encounter Visit Diagnoses Diagnosis Palpitations- Primary documented in this encounter Care Teams School Health Assistant Relationship Specialty Start Date End Date Lucía Roman, METAL CUTTER [address] [address] PCP - General Nurse Practitioner 04/25/23 Ranjan Talley MD [address] [facility] [address] [place] [address] Lodging Manager Electrophysiology 08/17/24 documented as of this encounter
--- OUTSIDE RECORDS SUMMARY | 2025-05-18 06:00 | XMS_ITS | Encounter Summary ---
Author Organization [employer] ([place], [place], [place], [place]) Address [address] [place] [address] Care Team Providers Care Email Developer Name Role Phone Lucía Roman APRN Primary Care Provider Ranjan Talley MD Unavailable Reason for Visit * Reason Comments Pacemaker /ICD Home Monitoring Encounter Details Date Type Department Care Team (Late st Contact Info) Description 05/18/2025 6:00 AM EDT Clinical Support [facility] Electrophysiology [address] [place] [phone] Ranjan Talley MD [address] [place] [address] [address] [place] [address] Encounter for adjustment or management of cardiac [...] Description 04/28/2026 8:30 AM EDT Office Visit [facility] Electrophysiology [address] [place] [phone] Ranjan Talley MD [address] [place] [address] [address] documented as of this encounter Visit Diagnoses Diagnosis Encounter for adjustment or management of cardiac device- Primary documented in this encounter Care Teams Email Developer Relationship Specialty Start Date End Date Lucía Roman, PALLIATIVE CARE COORDINATOR [address] [place] [address] PCP - General Nurse Practitioner 04/25/23 Ranjan Talley MD [address] [place] [address] Hangar Attendant Electrophysiology 08/17/24 documented as of this encounter
--- OUTSIDE RECORDS SUMMARY | 2025-06-18 03:00 | XMS_ITS | Encounter Summary ---
Author Organization [employer] ([place], [place], [place], [place]) Address [address] [place] [address] Care Team Providers Care Pump House Operator Name Role Phone Lucía Roman APRN Primary Care Provider Ranjan Talley MD Unavailable Reason for Visit * Reason Comments Pacemaker /ICD Home Monitoring Encounter Details Date Type Department Care Team (Late st Contact Info) Description 06/18/2025 3:00 AM EDT Clinical Support [facility] Electrophysiology [address] [place] [phone] Ranjan Talley MD [address] [place] [address] [address] [place] [address] Encounter for adjustment or management of cardiac [...] Date Wicho rded Speak language other than Indian at home Not on file 11/19/2023 Want [...] Description 04/28/2026 8:30 AM EDT Office Visit [facility] Electrophysiology [address] [place] [phone] Ranjan Talley MD [address] [place] [address] [address] documented as of this encounter Visit Diagnoses Diagnosis Encounter for adjustment or management of cardiac device- Primary documented in this encounter Care Teams Pump House Operator Relationship Specialty Start Date End Date Lucía Roman, ELECTRONIC PARTS DESIGNER [address] [place] [address] PCP - General Nurse Practitioner 04/25/23 Ranjan Talley MD [address] [place] [address] Community Assistant Electrophysiology 08/17/24 documented as of this encounter
[2025-06-22 14:36] LABS: Alanine Aminotransferase 37 U/L (12-78); Albumin Level 4.6 g/dl (3.5-5.0); Albumin/Globulin Ratio 1.6 (1.1-1.8); Alkaline Phosphatase 113 U/L (38-126); Anion Gap 13.1 mEq/L (5-15); Aspartate Amino Transferase 31 U/L (14-36); Bilirubin,Total 0.7 mg/dl (0.2-1.3); Blood Urea Nitrogen 17 mg/dl (7-17); Calcium 9.5 mg/dl (8.4-10.2); Carbon Dioxide 25 mmol/L (22.0-30.0); Chloride 107 mmol/L (98-107); Cholesterol 117 mg/dl (140-200); Creatinine,Serum 0.90 mg/dl (0.52-1.04); Estimated Glomerular Filt Rate 62 ml/min (>60); GFR (African American) 75 ML/MIN (>60); Globulin 2.8 g/dL (1.3-3.2); Glucose 75 mg/dl (74-100); HDL Cholesterol 49 mg/dl (40-60); Potassium 5.1 mmoL/L (3.5-5.1); Sodium 140 mmol/L (136-145); Total Protein,Serum 7.4 g/dl (6.3-8.2); Triglycerides 98 mg/dl (30-150)
[2025-06-22 15:06] LABS: Thyroid Stimulating Hormone 1.17 uIU/mL (0.465-4.68)
[2025-06-22 18:16] LABS: Hemoglobin A1C 6.0 % (4.0-6.0)
--- OUTSIDE RECORDS SUMMARY | 2025-06-23 12:06 | XMS_ITS | Clinical Summary ---
Author Organization [facility] Address [address] [facility] [address] [place] [address] Phone Care Team Providers Care Liquor Commissioner Name Role Phone Wally POLLACK, Branden Rai [ ] Conditions or Problems Problem Name Problem Code Onset Date Status Entry Date Provider Comment Standard Description Annotate ACUTE RESPIRATORY FAILURE 41930787 (SNOMED CT) 11/18 Active 11/18 Joyce Koo Acute respiratory failure ELEVATED LFTS 542266610 (SNOMED CT) 11/18 Active 11/18 Joyce Koo Liver function tests outside reference range ANEMIA 793859941 (SNOMED CT) 11/18 Active 11/18 Joyce Koo Anemia LEUKOCYTOSIS 470330225 (SNOMED CT) 11/18 Active 11/18 Joyce Koo Leukocytosis PNEUMONIA 386903427 (SNOMED CT) 11/18 Active 11/18 Joyce Koo Pneumonia PULMONARY INFILTRATE 15602779 (SNOMED CT) 11/18 Active 11/18 Joyce Koo Disorder of lung PLEURAL EFFUSION 43466840 (SNOMED CT) 11/18 Active 11/18 Joyce Koo Pleural effusion CAD 24153453 (SNOMED CT) 11/18 Active 11/18 Joyce Koo Coronary arteriosclerosis HX OF CABG 977901806 (SNOMED CT) 11/18 Active 11/18 Joyce Koo History of coronary artery bypass grafting Medications Medication Instructions Start Date Stop Date Generic Name NDC Provider LISINOPRIL 10 MG TABS p.o. b.i.d. 5 LISINOPRIL 16761667791 Jozef Omer DIGOXIN 125 MCG TABS p.o. daily 5 DIGOXIN 40189284797 Jozef Omer CARVEDILOL 3.125 MG TABS p.o. b.i.d. 5 CARVEDILOL 71612506631 Jozef Omer LIPITOR 40 MG TABS 2 tabs p.o. at bedtime 5 ATORVASTATIN CALCIUM 62792471342 Jozef Omer ASPIRIN 81 MG ORAL TABLET p.o. daily 5 ASPIRIN 68618468850 Jozef Omer NORVASC 5 MG TABS p.o. b.i.d. 5 AMLODIPINE BESYLATE 58976300115 Jozef Omer Medications Administered No information available. [...]
--- OUTSIDE RECORDS SUMMARY | 2025-06-23 12:06 | XMS_ITS | Encounter Summary ---
Author Organization [employer] ([place], [place], [place], [place]) Address [address] [place] [address] Care Team Providers Care Sex Crimes Detective Name Role Phone AbelLucía TITO Primary Care Provider Ranjan Talley MD Unavailable Reason for Visit * Reason Onset Date Comments Medication Refill Medication Refill 01/03/2023 Encounter Details Date Type Department Care Team (Late st Contact Info) Description 01/02/2023 Telephone [facility] Electrophysiology [address] [place] [phone] Ranjan Talley MD [address] [place] [address] [address] [place] [phone] Medication Refill; Medication Refill Social History Tobacco [...] Gabe Strickland RN completed this on 01/03/2023 SAW OPERATOR * Telephone Encounter - Lizbeth Bradley - 01/03/2023 8:31 AM EST PT Calling needs refill on her Potassium Chloride SAW OPERATOR documented in this encounter Plan of Treatment Upcoming Encounters Date Type Department Care Team (Late st Contact Info) Description 04/28/2026 8:30 AM EDT Office Visit [facility] Electrophysiology [address] [place] [phone] Ranjan Talley MD [address] [place] [address] [place] [phone] documented as of this encounter Visit Diagnoses Diagnosis Ischemic cardiomyopathy with implantable cardioverter-defibrillator (ICD)- Primary documented in this encounter Care Teams Sex Crimes Detective Relationship Specialty Start Date End Date Lucía Roman, AUTOMOBILE ACCESSORIES SALESPERSON [address] [address] PCP - General Nurse Practitioner 04/25/23 Ranjan Talley MD [address] [place] [address] Quick Sketch Artist Electrophysiology 08/17/24 documented as of this encounter
--- OUTSIDE RECORDS SUMMARY | 2025-06-23 12:06 | XMS_ITS | Referral Summary ---
Author Organization [employer] ([place], [place], [place], [place]) Address [address] [place] [address] Care Team Providers Care Military Nurse Name Role Phone RomanLucía crisostomo APRN Primary Care Provider Ranjan Talley MD Unavailable Encounters Date Type Department Care Team Description 06/18/2025 3:00 AM EDT Clinical Support [facility] Electrophysiology [address] [place], [place] [phone] Ranjan Talley MD Encounter for adjustment or management of cardiac device (Primary Dx) 05/18/2025 6:00 AM EDT Clinical Support [facility] Electrophysiology [address] [place], [place] [phone] Ranjan Talley MD Encounter for adjustment or management of cardiac device (Primary Dx) 04/27/2025 Travel 04/27/2025 8:30 AM EDT Office Visit [facility] Electrophysiology [address] [place], [place] [phone] Ranjan Talley MD Palpitations (Primary Dx) 04/21/2025 5:00 AM EDT Clinical Support [facility] Electrophysiology [address] [place] [phone] Ranjan Talley MD Encounter for adjustment or management of cardiac device (Primary Dx) 04/11/2025 Refill [facility] Electrophysiology [address] [place] [phone] Ranjan Talley MD 03/29/2025 6:00 AM EDT Clinical Support [facility] Electrophysiology [address] [place] [phone] Ranjan Talley MD Encounter for adjustment [...] Date Wicho rded Speak language other than [place] Zealander at home Not on file 11/19/2023 Want [...] Description 04/28/2026 8:30 AM EDT Office Visit [facility] Electrophysiology [address] [place] [address] [place] [address] [place] [address] [address] [place] [address] Medical Devices Implanted Type Area Staying Machine Operator Device Identifier Shelf Expiration Date Model / Serial / Lot Icd-08/06/2016 Implanted: (Quantity not on file) ICD [employer] 2411-36 / [id number] / Description:DEPENDENT David Ba Vr Df-1 [id number] - [id number] Implanted:Qty : 1 on 12/28/[address] [facility] PACEMAKER/ ICD BI VALVE DEVICE Chest Wall GRIMM LAB:VASC DEV [id number] / / Procedures Procedure Name Priority Date/Time Associated Diagnosis Comments FS_MODEL_IP_ECG 12-LEAD Routine 04/27/2025 8:17 A M EDT Palpitations from Last 3 Months Results * ECG 12 lead (04/27/2025 8:17 AM EDT) us Ranjan Talley MD ECG ORDERABLES Final Result from Last 3 Months Insurance [employer] MEDICARE HMO Advance Directives For more information, please contact: [phone] Documents on File Type Date Recorded Patient Research Environmental Scientist Expl anation Advance Directives and Livin g Will 06/25/2023 6:35 AM * Full Code (Latest Code Status on File) Date Activated Date Inactivated Comments 12/28/2024 3:46 PM 12/29/2024 4:27 AM * Full Code Date Activated Date Inactivated Comments 12/28/2024 11:51 AM 12/28/2024 3:46 PM Care Teams Military Nurse Relationship Specialty Start Date End Date Lucía Roman APRN [address] [address] PCP - General Nurse Practitioner 04/25/23 Ranjan Talley MD [address] [place] [address] Women'S Lacrosse Coach Electrophysiology 08/17/24
--- OUTSIDE RECORDS SUMMARY | 2025-06-23 12:07 | XMS_ITS | Encounter Summary ---
Author Organization [employer] ([place], [place], [place], [place]) Address [address] [place] [address] Care Team Providers Care Eyeglass Frames Polisher Name Role Phone Abel Lucía FRANCIS Primary [...] Date Wicho rded Speak language other than [place] at home Not on file 11/19/2023 [...] Description 04/28/2026 8:30 AM EDT Office Visit [address] [phone] Ranjan Talley MD [address] [facility] [address] [place] [address] documented as of this encounter Visit Diagnoses Not on filedocumented in this encounter Care Teams Eyeglass Frames Polisher Relationship Specialty Start Date End Date Lucía Roman, DUMP TRUCK OPERATOR [address] [place] [address] PCP - General Nurse Practitioner 04/25/23 Ranjan Talley MD [address] [facility] [address] [place] [address] Gatekeeper Electrophysiology 08/17/24 documented as of this encounter
--- OUTSIDE RECORDS SUMMARY | 2025-06-23 12:07 | XMS_ITS | Clinical Summary ---
[facility] Organization [facility] Address [address] [place] [address] Care Team Providers Care Traffic Routing Engineer Name Role Phone Provider, No Known Primary [...] e 08/22/2023 Family and Community Support Answer Alonzo e Recorded Help with Day-to-Day Activities Not [...] Insurance MEDICARE A & B Care Teams Traffic Routing Engineer Relationship Specialty Start Date End Date Provider, No Known [facility] [place] [place] [address] PCP - General 08/13/19
--- OUTSIDE RECORDS SUMMARY | 2025-06-23 12:07 | XMS_ITS | Encounter Summary ---
Author Organization [employer] ([place], [place], [place], [place]) Address [address] [place] [address] Care Team Providers Care Cut Press Operator Name Role Phone Lucía Roman APRN Primary Care Provider Ranjan Talley MD Unavailable Reason for Visit * Reason Comments Medication Refill Encounter Details Date Type Department Care Team (Late Contact Info) Description 11/12/2023 Refill [facility] Electrophysiology [address] [place], [place] [phone] Ranjan Talley MD [address] [place] [address] [address] [place] [address] Ischemic cardiomyopathy with implantable cardioverter-defibrillat or (ICD) [...] Description 04/28/2026 8:30 AM EDT Office Visit [facility] Electrophysiology [address] [place] [phone] Ranjan Talley MD [address] [address] documented as of this encounter Visit Diagnoses Diagnosis Ischemic cardiomyopathy with implantable cardioverter-defibrillator (ICD) documented in this encounter Care Teams Cut Press Operator Relationship Specialty Start Date End Date Lucía Rmoan, DIRECTOR OF EARLY CHILDHOOD EDUCATION [address] [address] PCP - General Nurse Practitioner 04/25/23 Ranjan Talley MD 1401 [facility] [address] [address] Oleo Hasher And Renderer Electrophysiology 08/17/24 documented as of this encounter
--- OUTSIDE RECORDS SUMMARY | 2025-06-23 12:07 | XMS_ITS | Clinical Summary ---
Author Organization [employer] ([place], [place], [place], [place]) Address [address] [place] [address] Care Team Providers Care Reaming Machine Operator For Plastic Name Role Phone Lucía Roman APRN Primary [...] Description 06/18/2025 3:00 AM EDT Clinical Support [facility] Electrophysiology [address] [place] [phone] Ranjan Talley MD Encounter for adjustment or management of cardiac device (Primary Dx) 05/18/2025 6:00 AM EDT Clinical Support [facility] Electrophysiology [address] [place] [phone] Ranjan Talley MD Encounter for adjustment or management of cardiac device (Primary Dx) 04/27/2025 8:30 AM EDT Office Visit [facility] Electrophysiology [address] [place] [phone] Ranjan Talley MD Palpitations (Primary Dx) 04/27/2025 Travel 04/21/2025 5:00 AM EDT Clinical Support [facility] Electrophysiology [address] [place] [phone] Ranjan Talley MD Encounter for adjustment or management of cardiac device (Primary Dx) 04/11/2025 Refill [facility] Electrophysiology [address] [place] [phone] Ranjan Talley MD 03/29/2025 6:00 AM EDT Clinical Support [facility] Electrophysiology [address] [place] [phone] Ranjan Talley MD Encounter for adjustment or [...] Date Wicho rded Speak language other than Jordanian at home Not on file 11/19/2023 Want [...] Description 04/28/2026 8:30 AM EDT Office Visit [facility] Electrophysiology [address] [place] [address] [place] [address] [place] [address] [address] [place] [address] Health Maintenance Due Date Last Done Comments [...] 02/05/2030 02/06/2020 Medical Devices Implanted Type Area Seismic Survey Assistant Device Identifier Shelf Expiration Date Model / Serial / Lot Icd-08/06/2016 Implanted: (Quantity not on file) ICD [employer] 2411-36 / [id number] / Description:DEPENDENT Defib Brewster Vr Df-1 [id number] - [id number] Implanted:Qty : 1 on 12/28/2024 at [facility] PACEMAKER/ ICD BI VALVE DEVICE Chest Wall GRIMM LAB:VASC DEV [id number] / / Procedures Procedure Name Priority Date/Time Associated Diagnosis Comments FS_MODEL_IP_ECG 12-LEAD Routine 04/27/2025 8:17 A M EDT Palpitations from Last 3 Months Results * ECG 12 lead (04/27/2025 8:17 AM EDT) Ranjan Talley MD ECG ORDERABLES Final Result from Last 3 Months Insurance [facility] MEDICARE HMO Advance Directives For more information, please contact: [phone] Documents on File Type Date Recorded Patient Travel Registered Nurse Nicu Expl anation Advance Directives and Livin g Will 06/25/2023 6:35 AM * Full Code (Latest Code Status on File) Date Activated Date Inactivated Comments 12/28/2024 3:46 PM 12/29/2024 4:27 AM * Full Code Date Activated Date Inactivated Comments 12/28/2024 11:51 AM 12/28/2024 3:46 PM Care Teams Reaming Machine Operator For Plastic Relationship Specialty Start Date End Date Lucía Roman, TITO [address] [place] [address] PCP - General Nurse Practitioner 04/25/23 Ranjan Talley MD [address] [facility] [address] [place] [address] Shank Paperer Electrophysiology 08/17/24
--- OUTSIDE RECORDS SUMMARY | 2025-06-23 12:08 | XMS_ITS | Encounter Summary ---
Author Organization [employer] ([place], [place], [place], [place]) Address [address] [place] [address] Care Team Providers Care Special Education Kindergarten Teacher Name Role Phone Lucía Roman APRN Primary Care Provider Ranjna Talley MD Unavailable Encounter Details Date Type Department Care Team (Late st Contact Info) Description 08/03/2021 Transcribed Document [facility] [place] [address] [place] [address] Sharla Robledo MD [address] [place], [place] 840751 Social History Tobacco Use Types Packs/Day Years [...] include vitamins, herbs, eye drops, creams, and utee-cdf-fogsatf medicines. ??? Any problems you or family [...] provider. Document Revised: 09/29/2020 Document Reviewed: 09/29/2020 Ripl Patient Education ? 2020 [employer]. Cardiac Ablation, Care After This sheet gives [...] and water are not available, use hand dynamics ax technical architect. ? Change your dressing as told by [...] safe for you. General instructions ??? Take jrpr-yrt-oumvzxg and prescription medicines only as told by [...] provider. Document Revised: 09/05/2020 Document Reviewed: 09/05/2020 [employer] TV Patient Education ? 2020 [employer]. Electronically signed by Simon Bell Conversion Venetian Blind Cleaner And Repairer Blancaner at 02/26/2023 4:51 PM CDT documented in this encounter Plan of Treatment Upcoming Encounters Date Type Department Care Team (Late st Contact Info) Description 04/28/2026 8:30 AM EDT Office Visit [facility] Electrophysiology [address] [place] [phone] Ranjan Talley MD [address] [facility] [address] [place] [address] documented as of this encounter Visit Diagnoses Not on filedocumented in this encounter Care Teams Special Education Kindergarten Teacher Relationship Specialty Start Date End Date Lucía Roman, TILE LAYER DRAINAGE [address] [place] [address] PCP - General Nurse Practitioner 04/25/23 Ranjan Talley MD [address] [facility] [address] [place] [address] Web Ui Designer Electrophysiology 08/17/24 documented as of this encounter
--- OUTSIDE RECORDS SUMMARY | 2025-06-23 12:08 | XMS_ITS | Encounter Summary ---
Author Organization [employer] ([place], [place], [place], [place]) Address [address] [place] [address] Care Team Providers Care Mechanical Service Technician Name Role Phone Lucía Roman APRN Primary Care Provider Ranjan Talley MD Unavailable Encounter Details Date Type Department Care Team (Late st Contact Info) Description 08/02/2021 Transcribed Document [facility] [place] Family Medicine [address] [place] [address] ProviderSharla MD [address] [place], [place] 501391 Social History Tobacco Use Types Packs/Day Years [...] Description 04/28/2026 8:30 AM EDT Office Visit [facility] Electrophysiology [address] [place] [phone] Ranjan Talley MD [address] [place] [address] [address] documented as of this encounter Visit Diagnoses Not on filedocumented in this encounter Care Teams Mechanical Service Technician Relationship Specialty Start Date End Date Lucía Roman, CONVEYOR LINE BAKERY WORKER [address] [place] [address] PCP - General Nurse Practitioner 04/25/23 Ranjan Talley MD [address] [place] [address] [address] Ekg/Ecg Technician Electrophysiology 08/17/24 documented as of this encounter
--- OUTSIDE RECORDS SUMMARY | 2025-06-23 12:08 | XMS_ITS | Encounter Summary ---
Author Organization [employer] ([place], [place], [place], [place]) Address [address] [place] [address] Care Team Providers Care Information And Referral Director Name Role Phone Lucía Roman APRN Primary Care Provider Ranjan Talley MD Unavailable Encounter Details Date Type Department Care Team (Late st Contact Info) Description 08/03/2021 Transcribed Document [facility] [place] Family Medicine [address] [place] [address] ProviderSharla MD [address] [place] [address] [phone] Social History Tobacco Use Types Packs/Day Years [...] - 08/03/2021 14:15 EDT Electronically signed by [facility] Conversion Medical Case Worker Cerner at 02/26/2023 4:38 PM CDT documented in this encounter Plan of Treatment Upcoming Encounters Date Type Department Care Team (Late st Contact Info) Description 04/28/2026 8:30 AM EDT Office Visit [facility] Electrophysiology [address] [place], [place] [phone] Ranjan Talley MD [address] [place] [address] [place] [phone] documented as of this encounter Visit Diagnoses Not on filedocumented in this encounter Care Teams Information And Referral Director Relationship Specialty Start Date End Date Lucía Roman, TITO [address] [address] PCP - General Nurse Practitioner 04/25/23 Ranjan Talley MD [address] [place] [address] Circus Supervisor Electrophysiology 08/17/24 documented as of this encounter
--- OUTSIDE RECORDS SUMMARY | 2025-06-23 12:08 | XMS_ITS | Encounter Summary ---
Author Organization [employer] ([place], [place], [place], [place]) Address [address] [facility] [place] [address] Care Team Providers Care Brake Operator Sheet Metal Name Role Phone Lucía Roman APRN Primary Care Provider Ranjan Talley MD Unavailable Encounter Details Date Type Department Care Team (Late st Contact Info) Description 08/02/2021 Transcribed Document [facility] [place] [facility] [place] [address] ProviderSharla MD [address] [place] [address] [phone] Social History Tobacco Use Types Packs/Day Years Used Date Smoking Tobacco: Never Assessed Comments Unknown Sex and Gender Information Value Date Recorded Sex Assigned at Not on file Legal Sex Female 5:07 PM CDT Gender Identity Not on file Sexual Orientation Not on file documented as of this encounter Miscellaneous Notes * Cerner Conversion Note - Historical MD Venkat - 08/02/2021 2:52 PM CDT Patient: MITZI MCDUFFIE Age: 66 Years Sex: Female : 1955 Drupal Web Developer: Ranjan Talley MD Indication: 65 year old [...] Description 04/28/2026 8:30 AM EDT Office Visit [facility] Electrophysiology [address] [place] [phone] Ranjan Talley MD [address] [facility] [address] [place] [address] documented as of this encounter Visit Diagnoses Not on filedocumented in this encounter Care Teams Brake Operator Sheet Metal Relationship Specialty Start Date End Date Lucía Roman, PER DIEM PHYSICAL THERAPIST [address] [place] [address] PCP - General Nurse Practitioner 04/25/23 Ranjan Talley MD [address] [facility] [address] [place] [address] Brake Operator Sheet Metal Electrophysiology 08/17/24 documented as of this encounter
--- OUTSIDE RECORDS SUMMARY | 2025-06-23 12:08 | XMS_ITS | Encounter Summary ---
Author Organization [employer] ([place], [place], [place], [place]) Address [address] [place] [address] Care Team Providers Care Food Service Associate Name Role Phone Lucía Roman APRN Primary Care Provider Hernandez Talley MD Unavailable Encounter Details Date Type Department Care Team (Late st Contact Info) Description 08/03/2021 Transcribed Document [facility] [place] Family Medicine [facility] [place] [address] ProviderSharla MD [address] [place] [address] Social History Tobacco Use Types Packs/Day Years [...] Ben Cardiology Discharge Note - EP Primary College Teacher: PCP: Lucía Roman Consults: NONE History of [...] transfer her monitoring to us today on [place]. In addition, we reprogrammed her device to [...] Normal range of motion. Integumentary: Warm, Dry, [place]. Bilateral groins stable no hematoma or bleeding. [...] PCP in 5 - 7 days. Primary College Teacher in [address] Talley [...] Office Visit [facility] Electrophysiology [address] [place] [phone] Hernandez Talley MD [address] [facility] [address] [place] [address] documented as of this encounter Visit Diagnoses Not on filedocumented in this encounter Care Teams Food Service Associate Relationship Specialty Start Date End Date Lucía Roman, FIELD LABORER [address] [place] [address] PCP - General Nurse Practitioner 04/25/23 Hernandez Talley MD [address] [facility] [address] [place] [address] College Teacher Electrophysiology 08/17/24 documented as of this encounter
--- OUTSIDE RECORDS SUMMARY | 2025-06-23 12:08 | XMS_ITS | Encounter Summary ---
Author Organization [employer] ([place], [place], [place], [place]) Address [address] [place] [address] Care Team Providers Care Stable Cleaner Name Role Phone Lucía Roman APRN Primary Care Provider Ranjan Talley MD Unavailable Encounter Details Date Type Department Care Team (Late st Contact Info) Description 08/03/2021 Transcribed Document [facility] [place] [address] [place] [address] ProviderSharla MD [address] [place] [address] [phone] Social History Tobacco Use Types Packs/Day Years [...] Spiritual Care Spiritual Care Referred by : Computer Lab Aide follow-up Reason for Visit : Follow Up Ministry Provided to : Patient Intervention/Comment/Summary Points : Post-op visit. Provided active listening and spiritual support. Patient anticipates discharge today. DANIEL HOWARD - 08/03/2021 14:11 EDT documented in this encounter Plan of Treatment Upcoming Encounters Date Type Department Care Team (Late st Contact Info) Description 04/28/2026 8:30 AM EDT Office Visit [facility] Electrophysiology [address] [place] [phone] [place] [address] [place] [address] [address] [place], [place] [phone] documented as of this encounter Visit Diagnoses Not on filedocumented in this encounter Care Teams Stable Cleaner Relationship Specialty Start Date End Date Lucía Roman, LAYOUT WORKER [address] [place] [address] PCP - General Nurse Practitioner 04/25/23 [place] [address] [place] [address] [address] [place] [address] Associate Electrophysiology 08/17/24 documented as of this encounter
--- OUTSIDE RECORDS SUMMARY | 2025-06-23 12:08 | XMS_ITS | Encounter Summary ---
Author Organization [employer] ([place], [place], [place], [place]) Address [address] [place] [address] Care Team Providers Care Collar Setter Name Role Phone Lucía Roman APRN Primary Care Provider Ranjan Talley MD Unavailable Encounter Details Date Type Department Care Team (Late st Contact Info) Description 08/03/2021 Transcribed Document [facility] [place] Family Medicine [address] [place] [address] ProviderSharla MD [address] [place] [address] [phone] Social History Tobacco Use Types Packs/Day Years [...] Description 04/28/2026 8:30 AM EDT Office Visit [facility] Electrophysiology [address] [place] [address] [place] [address] [place] [address] [address] [place] [address] documented as of this encounter Visit Diagnoses Not on filedocumented in this encounter Care Teams Collar Setter Relationship Specialty Start Date End Date Lucía Roman, APPLIED SCIENCE AND TECHNOLOGIES DEAN [address] [place] [address] PCP - General Nurse Practitioner 04/25/23 [place] [address] [place] [address] [address] [place] [address] Healthcare Economics Manager Electrophysiology 08/17/24 documented as of this encounter
--- OUTSIDE RECORDS SUMMARY | 2025-06-23 12:08 | XMS_ITS | Encounter Summary ---
Author Organization [employer] ([place], [place], [place], [place]) Address [address] [place] [address] Care Team Providers Care Hardware Press Operator Name Role Phone Lucía Roman APRN Primary Care Provider Ranjan Talley MD Unavailable Encounter Details Date Type Department Care Team (Late st Contact Info) Description 08/02/2021 Transcribed Document [facility] [address] [place] [address] Sharla Robledo MD [address] [place], [place] 409871 Social History Tobacco Use Types Packs/Day Years [...] Source : Stated Height Entry Format : [place] Height, Feet : 5 ft(Converted to: 152 cm, 60 Inch) Height, Inches : 1 Inch(Converted to: 0 ft 1 Inch, 2.54 cm) Clinical Height : 154.94 cm Weight Source : Standing scale Weight Entry Format : [place] Clinical Dosing Weight : 89.09 kg Weight, Pounds : 196 lb Body Surface Area (BSA) : 1.87 m2 Body Mass Index : 37.1 kg/m2 (HI) [place] Body Weight : 47 kg JOAO BAKER [...] JOAO BAKER RN - 08/02/2021 7:06 EDT [place] Suicide Severity Rating Scale (C-SSRS) CSSRS Past [...] David Support Person/Pt Rep Contact Information : [phone] Want Family/Rep/Phys Notified of Admit : No Emergency Contact #1 : Nichole Emergency Contact #1 Phone Number : daughter Emergency Contact #1 Relationship : [phone] Emergency Contact #2 : none Emergency Contact #2 Phone Number : none Emergency Contact #2 Relationship : none Primary Language : Kinyarwanda Preferred Communication Mode : Verbal Communication Barrier : None Trading Assistant Needed : JOAO Pedraza RN - 08/02/2021 [...] Scale Risk Level : 0-24 Low Risk [place] Fall Interventions : Adequate lighting, Assistive devices [...] EDT Office Visit [facility] Electrophysiology [address] [place] [address] Ranjan Talley MD [address] [facility] [address] [place] [address] documented as of this encounter Visit Diagnoses Not on filedocumented in this encounter Care Teams Hardware Press Operator Relationship Specialty Start Date End Date Lucía Roman APRN [address] [place] [address] PCP - General Nurse Practitioner 04/25/23 Ranjan Talley MD [address] [place] [address] Network Management Specialist Electrophysiology 08/17/24 documented as of this encounter
--- OUTSIDE RECORDS SUMMARY | 2025-06-23 12:08 | XMS_ITS | Encounter Summary ---
Author Organization [employer] ([place], [place], [place], [place]) Address [address] [place] [address] Care Team Providers Care Loader Magazine Grinder Name Role Phone Lucía Roman APRN Primary Care Provider Ranjan Talley MD Unavailable Encounter Details Date Type Department Care Team (Late st Contact Info) Description 08/02/2021 Transcribed Document [facility] [place] [address] [place] [address] Sharla Robledo MD [address] [place], [place] 679141 Social History Tobacco Use Types Packs/Day Years [...] On: 08/02/2021 20:10 EDT by Chidi Medina Psychiatric Therapist Cert Lead Meds to Bed Enrollment Patient Enrollment Decision: : Yes/enroll in meds to bed program Chidi Medina Psychiatric Therapist Cert Lead - 08/03/2021 9:02 EDT documented in this encounter Plan of Treatment Upcoming Encounters Date Type Department Care Team (Late st Contact Info) Description 04/28/2026 8:30 AM EDT Office Visit [facility] Electrophysiology [address] [place] [address] Ranjan Talely MD [address] [facility] [address] [place], [place] [phone] documented as of this encounter Visit Diagnoses Not on filedocumented in this encounter Care Teams Loader Magazine Grinder Relationship Specialty Start Date End Date Lucía Roman, PICTURE PAINTER [address] [place] [address] PCP - General Nurse Practitioner 04/25/23 Ranjan Talley MD [address] [facility] [address] [place] [address] Digital Media Planner Electrophysiology 08/17/24 documented as of this encounter
--- OUTSIDE RECORDS SUMMARY | 2025-06-23 12:08 | XMS_ITS | Encounter Summary ---
Author Organization [employer] ([place], [place], [place], [place]) Address [address] [place] [address] Care Team Providers Care Dustless Operator Name Role Phone Lucía Roman APRN Primary Care Provider Ranjan Talley MD Unavailable Encounter Details Date Type Department Care Team (Late st Contact Info) Description 08/03/2021 Transcribed Document [facility] [place] Family Medicine [facility] [place] [address] Sharla Robledo MD [address] [place] [phone] Social History Tobacco Use Types Packs/Day Years [...] Referral(s) Listed Discharge To Care Management : Home/Residential/Fpc or Self Care -01 STEFAN CORONADO RN-Care Management - 08/03/2021 11:24 EDT Final Narrative Note Final Narrative Note : OPA-Cardiac ablation, ICD reprogramming, pulmonary vein isolation, Isuprel infusion and LV pacing. Pt. DC to home, no CM orders, Nursing to schedule f/u appointments. STEFAN CORONADO RN-Care Management - 08/03/2021 11:24 EDT Electronically signed by [facility] Conversion Personal Insurance Advisor Cerner at 02/26/2023 4:36 PM CDT documented in this encounter Plan of Treatment Upcoming Encounters Date Type Department Care Team (Late st Contact Info) Description 04/28/2026 8:30 AM EDT Office Visit [facility] Electrophysiology [address] [place] [phone] Ranjan Talley MD [address] [place] [address] [address] [place] [address] documented as of this encounter Visit Diagnoses Not on filedocumented in this encounter Care Teams Dustless Operator Relationship Specialty Start Date End Date Lucía RomanTITO [address] [place] [address] PCP - General Nurse Practitioner 04/25/23 Ranjan Talley MD [address] [place] [address] [address] [place] [address] Receptionist Scheduler Electrophysiology 08/17/24 documented as of this encounter
--- OUTSIDE RECORDS SUMMARY | 2025-06-23 12:08 | XMS_ITS | Encounter Summary ---
Author Organization [employer] ([place], [place], [place], [place]) Address [address] [place] [address] Care Team Providers Care Assessment Manager Name Role Phone Lucía Roman APRN Primary Care Provider [phone] Ranjan Talley MD Unavailable Encounter Details Date Type Department Care Team (Late st Contact Info) Description 08/03/2021 Transcribed Document [facility] [place] Family Medicine [address] [place] [address] ProviderSharla MD [address] [place] [address] Social History Tobacco Use Types Packs/Day Years [...] 08/03/2021 14:41 EDT Electronically signed by Arabella, [facility] Conversion Hourly Shift Manager Cerner at 02/26/2023 4:29 PM CDT documented in this encounter Plan of Treatment Upcoming Encounters Date Type Department Care Team (Late st Contact Info) Description 04/28/2026 8:30 AM EDT Office Visit [facility] Electrophysiology [address] [place] [phone] Ranjan Talley MD [address] [place] [address] [place] [phone] documented as of this encounter Visit Diagnoses Not on filedocumented in this encounter Care Teams Assessment Manager Relationship Specialty Start Date End Date Lucía Roman, TITO [address] [address] PCP - General Nurse Practitioner 04/25/23 Ranjan Talley MD [address] [place] [address] [address] Before And After School Daycare Worker Electrophysiology 08/17/24 documented as of this encounter
--- OUTSIDE RECORDS SUMMARY | 2025-06-23 12:08 | XMS_ITS | Encounter Summary ---
Author Organization [employer] ([place], [place], [place], [place]) Address [address] [place] [address] Care Team Providers Care Technical Services Consultant Name Role Phone Lucía Roman APRN Primary Care Provider [phone] Ranjan Talley MD Unavailable Encounter Details Date Type Department Care Team (Late st Contact Info) Description 08/02/2021 Transcribed Document [facility] [place] Family Medicine [address] [place] [address] ProviderSharla MD [address] [place], [place] [phone] Social History Tobacco Use Types Packs/Day Years [...] David Support Person/Pt Rep Contact Information : [phone] Want Family/Rep/Phys Notified of Admit : No Emergency Contact #1 : Nichole Emergency Contact #1 Phone Number : daughter Emergency Contact #1 Relationship : [phone] Emergency Contact #2 : none Emergency Contact #2 Phone Number : none Emergency Contact #2 Relationship : none Primary Language : Burmese Preferred Communication Mode : Verbal Communication Barrier : None Image Processing Engineer Needed : No TAVARES CARROLL RN - 08/02/2021 16:50 EDT Fall Risk Scales ABCs Fall Injury Risk Identification : None LIGN Hx Falls Immediate/Within 3 Months : No Ling Secondary Diagnosis : Yes LING Use of Ambulatory Aid : None LING IV Therapy or IV Access : No Ling Gait/Transferring : Normal, bedrest, immobile Ling Mental Status : Oriented to own ability Ling Fall Risk Score : 15 LING Fall Scale Risk Level : 0-24 Low Risk [place] Fall Interventions : Bed in low position, [...] Source : Stated Height Entry Format : [place] Height, Feet : 5 ft(Converted to: 152 cm, 60 Inch) Height, Inches : 1 Inch(Converted to: 0 ft 1 Inch, 2.54 cm) Clinical Height : 154.94 cm Weight Source : Standing scale Weight Entry Format : [place] Clinical Dosing Weight : 89.09 kg Weight, Pounds : 196 lb Body Surface Area (BSA) : 1.87 m2 Body Mass Index : 37.1 kg/m2 (HI) [place] Body Weight : 47 kg TAVARES CARROLL [...] TAVARES CARROLL RN - 08/02/2021 16:50 EDT [place] Suicide Severity Rating Scale (C-SSRS) CSSRS Past [...] : Yes Gender Male : No TAVARES CRAROLL RN - 08/02/2021 16:50 EDT Valuables and Belongings Valuables and Belongings : Clothing Clothing : Common streetwear Clothing Disposition : Bedside TAVARES CARROLL RN - 08/02/2021 16:50 EDT documented in this encounter Plan of Treatment Upcoming Encounters Date Type Department Care Team (Late st Contact Info) Description 04/28/2026 8:30 AM EDT Office Visit [facility] Electrophysiology [address] [place] [address] Ranjan Talley MD [address] [facility] [address] [place] [address] documented as of this encounter Visit Diagnoses Not on filedocumented in this encounter Care Teams Technical Services Consultant Relationship Specialty Start Date End Date Lucía Roman APRN [address] [place] [address] PCP - General Nurse Practitioner 04/25/23 Ranjan Talley MD [address] [place] [address] Commodity Manager Electrophysiology 08/17/24 documented as of this encounter
--- OUTSIDE RECORDS SUMMARY | 2025-06-23 12:08 | XMS_ITS | Encounter Summary ---
Author Organization [employer] ([place], [place], [place], [place]) Address [address] [place] [address] Care Team Providers Care Sales Manager [place] Name Role Phone Lucía Roman APRN Primary Care Provider Ranjan Talley MD Unavailable Encounter Details Date Type Department Care Team (Late st Contact Info) Description 08/03/2021 Transcribed Document [facility] Family Medicine [address] [place] [address] ProviderSharla MD [address] [place] [address] Social History Tobacco Use Types [...] Robledo MD - 08/03/2021 2:42 PM CDT [facility] [place] [place] [id number] ANDREWYESSYMichael Carrillo :1955 Visit Time:08/02/2021 Your Visit [...] TALLEY When 09/05/2021 08:30 AM EDT Where: [address] [place] [address] [place] [address]- Business (1) Medications What How Much When [...] include vitamins, herbs, eye drops, creams, and whjg-ibn-qwgkhhk medicines. ??? Any problems you or family [...] provider. Document Revised: 09/29/2020 Document Reviewed: 09/29/2020 [employer]ek[employer]k Patient Education ?? 2020 [employer] Cardiac Ablation, Care After This sheet [...] and water are not available, use hand head refrigeration engineer. ? Change your dressing as told by [...] safe for you. General instructions ??? Take eqve-alc-meahmzo and prescription medicines only as told by [...] provider. Document Revised: 09/05/2020 Document Reviewed: 09/05/2020 [employer] Patient Education ?? 2020 [employer]. potassium chloride (oral/injection) (denny TASS ee um) [...] may report side effects to FDA at 6-614-YDD-7913. What other drugs will affect potassium chloride? Tell your doctor about all your other medicines, especially: ?? medicine to prevent organ transplant rejection; ?? a diuretic or 'water pill'; or ?? heart or blood pressure medication. This list is not complete. Other drugs may affect potassium chloride, including prescription and oyqt-rya-jkpxduq medicines, vitamins, and herbal products. Not all [...] to ensure that the information provided by [employer]. ('[employer]') is accurate, up-to-date, and complete, but no guarantee is made to that effect. Drug information contained herein may be time sensitive. [employer] information has been compiled for use by healthcare practitioners and consumers in the [place] and therefore [employer] does not warrant that uses outside of the [place] are appropriate, unless specifically indicated otherwise. [employer] drug information does not endorse drugs, diagnose patients or recommend therapy. Happ[employer] drug information is an informational resource designed [...] effective or appropriate for any given patient. [employer] does not assume any responsibility for any aspect of healthcare administered with the aid of information Sh[employer] provides. The information contained herein is not intended to cover all possible uses, directions, precautions, warnings, drug interactions, allergic reactions, or adverse effects. If you have questions about the drugs you are taking, check with your doctor, nurse or pharmacist. Copyright 2110-1914 [employer]. Version: 14.01. Revision Date: 04/07/2020. Emergency Awareness [...] Assistance with quitting is available by contacting 6-622-BKZZ-NOW. This is a free resource providing counseling, [...] range between ( 0.0 and 7.0 ) [place] #: 0.64 K/uL -- Normal range between ( 0.16 and 1.00 ) [place] #: 0.10 x10(3)/uL -- Normal range between ( 0.00 and 0.80 ) [place] %: 10.5 % -- Normal range between [...] was given the opportunity to ask questions. Patient/Sample Card Maker Name: Patient/Sample Card Maker Signature: Relationship to Patient: Clinician/Hospital Sample Card Maker Signature: Date: Electronically signed by [facility] Conversion Golf Tournament Consultant Cerner at 02/26/2023 4:37 PM CDT documented in this encounter Plan of Treatment Upcoming Encounters Date Type Department Care Team (Late st Contact Info) Description 04/28/2026 8:30 AM EDT Office Visit [facility] Electrophysiology [address] [place] [address] Ranjan Talley MD [address] [place] [address] [place] [address] documented as of this encounter Visit Diagnoses Not on filedocumented in this encounter Care Teams Sales Manager [place] Relationship Specialty Start Date End Date Lucía Roman, MANAGER ROOFING [address] [address] PCP - General Nurse Practitioner 04/25/23 Ranjan Talley MD [address] [place] [address] [place] [id number] Truck Technician Electrophysiology 08/17/24 documented as of this encounter
--- OUTSIDE RECORDS SUMMARY | 2025-06-23 12:08 | XMS_ITS | Encounter Summary ---
Author Organization [employer] ([place], [place], [place], [place]) Address [address] [place] [address] Care Team Providers Care Farm Equipment Engineer Name Role Phone Lucía Roman APRN Primary Care Provider Ranjan Talley MD Unavailable Encounter Details Date Type Department Care Team (Late st Contact Info) Description 08/02/[address] [facility] Family Medicine [facility] [place] [address] ProviderSharla MD [address] [place] [id number] Social History Tobacco Use Types Packs/Day Years [...] Jolly CUELLO on 4IC. Pt transferred to [facility] via wheelchair with all belongings. TAVARES CARROLL RN - 08/02/2021 19:51 EDT Electronically signed by Arabella [facility] Conversion Fnps Cerner at 02/26/2023 4:46 PM CDT documented in this encounter Plan of Treatment Upcoming Encounters Date Type Department Care Team (Late st Contact Info) Description 04/28/2026 8:30 AM EDT Office Visit [facility] Electrophysiology [address] [place] [address] Ranjan Talley MD [address] [facility] [address] [place] [address] documented as of this encounter Visit Diagnoses Not on filedocumented in this encounter Care Teams Farm Equipment Engineer Relationship Specialty Start Date End Date Lucía Roman, HOG PUSHER [address] [address] PCP - General Nurse Practitioner 04/25/23 Ranjan Talley MD [address] [facility] [address] [address] Head Operator Sulfide Electrophysiology 08/17/24 documented as of this encounter
--- OUTSIDE RECORDS SUMMARY | 2025-06-23 12:08 | XMS_ITS | Encounter Summary ---
Author Organization [employer] ([place], [place], [place], [place]) Address [address] [place] [address] Care Team Providers Care Part Maker Name Role Phone Lucía Roman APRN Primary Care Provider Ranjan Talley MD Unavailable Encounter Details Date Type Department Care Team (Late st Contact Info) Description 08/03/2021 Transcribed Document [facility] Family Medicine [address] [place] [address] ProviderSharla MD [address] [place] [address] Social History Tobacco Use Types Packs/Day Years [...] Health Plan: [employer] MEDICARE REPL Policy Number: [id number] Authorization Number: [id number] Insurance Primary Name : AN[employer]M MEDICARE REPL Policy Number: [id number] Observation Authorization Nbr-Primary : [id number] Historical Authorization Comments-Primary : No Authorization Comments Found ROSS, JESSI M, Rn-Utilization Review - 08/03/2021 12:07 EDT Electronically signed by [facility] Conversion Master [employer] Cerner at 02/26/2023 4:42 PM CDT documented in this encounter Plan of Treatment Upcoming Encounters Date Type Department Care Team (Late st Contact Info) Description 04/28/2026 8:30 AM EDT Office Visit [facility] Electrophysiology [address] [place] [address] Ranjan Talley MD [address] [place] [address] [place] [address] documented as of this encounter Visit Diagnoses Not on filedocumented in this encounter Care Teams Part Maker Relationship Specialty Start Date End Date Lucía Roman, CANAL EQUIPMENT MECHANIC [address] [address] PCP - General Nurse Practitioner 04/25/23 Ranjan Talley MD [address] [place] [address] [place] [phone] Masonry Inspector Electrophysiology 08/17/24 documented as of this encounter
--- OUTSIDE RECORDS SUMMARY | 2025-06-23 12:08 | XMS_ITS | Encounter Summary ---
Author Organization [employer] ([place], [place], [place], [place]) Address [address] [place] [address] Care Team Providers Care Cleaner Carpet And Upholstery Name Role Phone Lucía Roman APRN Primary Care Provider Ranjan Talley MD Unavailable Encounter Details Date Type Department Care Team (Late st Contact Info) Description 08/02/2021 Transcribed Document [facility] [place] [address] [place] [address] ProviderSharla MD [address] [place], [place] 486341 Social History Tobacco Use Types Packs/Day Years [...] Description 04/28/2026 8:30 AM EDT Office Visit [facility] Electrophysiology [address] [place] [address] Ranjan Talley MD 14[address] [facility] [address] [place] [address] documented as of this encounter Visit Diagnoses Not on filedocumented in this encounter Care Teams Cleaner Carpet And Upholstery Relationship Specialty Start Date End Date Lucía Roman, FACILITY DESIGNER [address] [address] PCP - General Nurse Practitioner 04/25/23 Ranjan Talley MD 14[address] [facility] [address] [address] Presser First Electrophysiology 08/17/24 documented as of this encounter
== END 2025-06-22 23:59 | disposition home or self-care (01) ==
LOC: LAB.DROPOF 06-23 12:05
PROVIDERS: PCP Nurse Practitioner Family; Visit Provider Nurse Practitioner Family
DX: E78.5 Hyperlipidemia, unspecified (principal); E03.9 Hypothyroidism, unspecified; E11.9 Type 2 diabetes mellitus without complications
CPT/HCPCS: 80053; 80061; 83036; 84443

== ENCOUNTER 2025-07-27 10:08 | Outpatient (CLI) | payer MEDICARE, SELFPAY ==
--- OUTSIDE RECORDS SUMMARY | 2025-05-18 06:00 | XMS_ITS | Encounter Summary ---
Author Organization [employer] ([place], [place], [place], [place]) Address [address] [place] [address] Care Team Providers Care Business Services Associate Name Role Phone Lucía Roman APRN Primary Care Provider Ranjan Talley MD Unavailable Reason for Visit * Reason Comments Pacemaker /ICD Home Monitoring Encounter Details Date Type Department Care Team (Late st Contact Info) Description 05/18/2025 6:00 AM EDT Clinical Support [facility] Electrophysiology [address] [place] [phone] Ranjan Talley MD [address] [place] [address] [address] [place] [address] Encounter for adjustment or management of cardiac [...] Date Wicho rded Speak language other than Bhutanese at home Not on file 11/19/2023 Want [...] Description 04/28/2026 8:30 AM EDT Office Visit [facility] Electrophysiology [address] [place] [phone] Ranjan Talley MD [address] [place] [address] [address] documented as of this encounter Visit Diagnoses Diagnosis Encounter for adjustment or management of cardiac device- Primary documented in this encounter Care Teams Business Services Associate Relationship Specialty Start Date End Date Lucía Roman, LAUNDRY WORKER [address] [place] [address] PCP - General Nurse Practitioner 04/25/23 Ranjan Talley MD [address] [place] [address] Doughmaker Electrophysiology 08/17/24 documented as of this encounter
--- OUTSIDE RECORDS SUMMARY | 2025-06-18 03:00 | XMS_ITS | Encounter Summary ---
Author Organization [employer] ([place], [place], [place], [place]) Address [address] [place] [address] Care Team Providers Care Accounts Payable Lead Name Role Phone Lucía Roman APRN Primary Care Provider Ranjan Talley MD Unavailable Reason for Visit * Reason Comments Pacemaker /ICD Home Monitoring Encounter Details Date Type Department Care Team (Late st Contact Info) Description 06/18/2025 3:00 AM EDT Clinical Support [facility] Electrophysiology [address] [place] [phone] Ranjan Talley MD [address] [place] [address] [address] [place] [address] Encounter for adjustment or management of cardiac [...] Date Wicho rded Speak language other than Ugandan at home Not on file 11/19/2023 Want [...] Description 04/28/2026 8:30 AM EDT Office Visit [facility] Electrophysiology [address] [place] [phone] Ranjan Talley MD [address] [place] [address] [address] documented as of this encounter Visit Diagnoses Diagnosis Encounter for adjustment or management of cardiac device- Primary documented in this encounter Care Teams Accounts Payable Lead Relationship Specialty Start Date End Date Lucía Roman, CARBONIZER TESTER [address] [place] [address] PCP - General Nurse Practitioner 04/25/23 Ranjan Talley MD [address] [place] [address] Floor Layer Helper Electrophysiology 08/17/24 documented as of this encounter
--- OUTSIDE RECORDS SUMMARY | 2025-06-28 03:00 | XMS_ITS | Encounter Summary ---
Author Organization [employer] ([place], [place], [place], [place]) Address [address] [place] [address] Care Team Providers Care Primer Powder Blender Wet Name Role Phone Lucía Roman APRN Primary Care Provider Ranjan Talley MD Unavailable Reason for Visit * Reason Comments Pacemaker /ICD Home Monitoring Encounter Details Date Type Department Care Team (Late st Contact Info) Description 06/28/2025 3:00 AM EDT Clinical Support [facility] Electrophysiology [address] [place] [address] Ranjan Talley MD [address] [place] [address] [address] [place] [address] Encounter for adjustment or management of cardiac [...] Date Wicho rded Speak language other than Puerto Rican at home Not on file 11/19/2023 Want [...] Description 04/28/2026 8:30 AM EDT Office Visit [facility] Electrophysiology [address] [place] [phone] Ranjan Talley MD [address] [place] [address] [address] documented as of this encounter Visit Diagnoses Diagnosis Encounter for adjustment or management of cardiac device- Primary documented in this encounter Care Teams Primer Powder Blender Wet Relationship Specialty Start Date End Date Lucía Roman, METAL EXPEDITER [address] [place] [address] PCP - General Nurse Practitioner 04/25/23 Ranjan Talley MD [address] [place] [address] Telecommunications Network Planner Electrophysiology 08/17/24 documented as of this encounter
[2025-07-27 14:44] LABS: Hematocrit 45.7 % (37.0-47.0); Hemoglobin 14.6 g/dL (12.2-16.2); Immature Granulocytes % 0.2 %; Mean Corpuscular HGB Conc 31.9 g/dL (31.8-35.4); Mean Corpuscular Hemoglobin 29.6 pg (27.0-31.2); Mean Corpuscular Volume 92.5 fl (81-99); Nucleated Red Blood Cells % 0 %; Platelet Count 102 K/mm3 (142-424); Red Blood Count 4.94 M/mm3 (4.20-5.40); Red Cell Distribution Width-SD 49.0 fL; White Blood Count 5.3 K/mm3 (4.8-10.8)
[2025-07-27 15:53] LABS: Albumin Level 4.6 g/dl (3.5-5.0); Chloride 103 mmol/L (98-107); Potassium 5.2 mmoL/L (3.5-5.1); Sodium 140 mmol/L (136-145)
[2025-07-27 15:56] LABS: Alanine Aminotransferase 30 U/L (12-78); Albumin/Globulin Ratio 1.8 (1.1-1.8); Alkaline Phosphatase 102 U/L (38-126); Anion Gap 15.2 mEq/L (5-15); Aspartate Amino Transferase 33 U/L (14-36); Bilirubin,Total 0.7 mg/dl (0.2-1.3); Blood Urea Nitrogen 14 mg/dl (7-17); Carbon Dioxide 27 mmol/L (22.0-30.0); Creatinine,Serum 0.90 mg/dl (0.52-1.04); Estimated Glomerular Filt Rate 62 ml/min (>60); GFR (African American) 75 ML/MIN (>60); Globulin 2.6 g/dL (1.3-3.2); Total Protein,Serum 7.2 g/dl (6.3-8.2)
[2025-07-27 15:57] LABS: Calcium 9.5 mg/dl (8.4-10.2); Glucose 83 mg/dl (74-100)
[2025-07-27 16:17] LABS: 25-OH Vitamin D, Total 27.3 ng/mL (30-100)
[2025-07-27 16:28] LABS: Thyroid Stimulating Hormone 1.05 uIU/mL (0.465-4.68)
[2025-07-27 16:32] LABS: Ferritin 35.5 ng/ml (11.1-264)
[2025-07-27 16:37] LABS: C-Reactive Protein 0.4 mg/L (0-4)
--- OUTSIDE RECORDS SUMMARY | 2025-07-28 12:12 | XMS_ITS | Encounter Summary ---
Author Organization [employer] ([place], [place], [place], [place]) Address [address] [place] [address] Care Team Providers Care Airplane Dispatch Clerk Name Role Phone Lucía Roman APRN Primary Care Provider [phone] Ranjan Talley MD Unavailable Encounter Details Date Type Department Care Team (Late st Contact Info) Description 08/02/2021 Transcribed Document [facility] [place] Family Medicine [address] [place] [address] Sharla Robledo MD [address] [place], [place] 136[address] Social History Tobacco Use Types Packs/Day Years [...] Source : Stated Height Entry Format : [place] Height, Feet : 5 ft(Converted to: 152 cm, 60 Inch) Height, Inches : 1 Inch(Converted to: 0 ft 1 Inch, 2.54 cm) Clinical Height : 154.94 cm Weight Source : Standing scale Weight Entry Format : [place] Clinical Dosing Weight : 89.09 kg Weight, Pounds : 196 lb Body Surface Area (BSA) : 1.87 m2 Body Mass Index : 37.1 kg/m2 (HI) [place] Body Weight : 47 kg JOAO BAKER [...] JOAO BAKER RN - 08/02/2021 7:06 EDT [place] Suicide Severity Rating Scale (C-SSRS) CSSRS Past [...] David Support Person/Pt Rep Contact Information : [phone] Want Family/Rep/Phys Notified of Admit : No Emergency Contact #1 : Nichole Emergency Contact #1 Phone Number : daughter Emergency Contact #1 Relationship : [phone] Emergency Contact #2 : none Emergency Contact #2 Phone Number : none Emergency Contact #2 Relationship : none Primary Language : Saudi Arabian Preferred Communication Mode : Verbal Communication Barrier : None Clothespin Drier Operator Needed : JOAO Pedraza RN - 08/02/2021 [...] Scale Risk Level : 0-24 Low Risk [place] Fall Interventions : Adequate lighting, Assistive devices within reach, Bed in low position, Call device within reach, Fall prevention handout/education per facility policy, Hourly comfort/safety rounds, Non-slip footwear, Personal items within reach, Reinforced to call for assistance before getting out of bed, Room free of clutter/spills, Upper side-rails up, Wheels locked, Wires/Cords secured JOAO BAEKR RN - 08/02/2021 7:06 EDT documented in this encounter Plan of Treatment Upcoming Encounters Date Type Department Care Team (Late st Contact Info) Description 04/28/2026 8:30 AM EDT Office Visit [facility] Electrophysiology [address] [place] [address] Ranjan Talley MD 1401 [facility] [address] [place] [address] documented as of this encounter Visit Diagnoses Not on filedocumented in this encounter Care Teams Airplane Dispatch Clerk Relationship Specialty Start Date End Date Lucía Roman APRN [address] [place] [address] PCP - General Nurse Practitioner 04/25/23 Ranjan Talley MD [address] [place] [address] Lamination Inspector Electrophysiology 08/17/24 documented as of this encounter
--- OUTSIDE RECORDS SUMMARY | 2025-07-28 12:12 | XMS_ITS | Encounter Summary ---
Author Organization [employer] ([place], [place], [place], [place]) Address [address] [place] [address] Care Team Providers Care Reamer Hand Name Role Phone Lucía Roman APRN Primary Care Provider Ranjan Talley MD Unavailable Reason for Visit * Reason Comments Medication Refill Encounter Details Date Type Department Care Team (Late Contact Info) Description 11/12/2023 Refill [facility] Electrophysiology [address] [place], [place] [phone] Ranjan Talley MD [address] [place] [address] [address] [place] [address] Ischemic cardiomyopathy with implantable cardioverter-defibrillat or (ICD) [...] EDT Office Visit [facility] Electrophysiology [address] [place] [address] Ranjan Talley MD [address] [address] documented as of this encounter Visit Diagnoses Diagnosis Ischemic cardiomyopathy with implantable cardioverter-defibrillator (ICD) documented in this encounter Care Teams Reamer Hand Relationship Specialty Start Date End Date Lucía Roman, DENTURE FINISHER [address] [address] PCP - General Nurse Practitioner 04/25/23 Ranjan Talley MD 1401 [facility] [address] [address] Television Schedule Coordinator Electrophysiology 08/17/24 documented as of this encounter
--- OUTSIDE RECORDS SUMMARY | 2025-07-28 12:12 | XMS_ITS | Clinical Summary ---
Author Organization [facility] Address [address] [facility] [address] [place] [address] Phone Care Team Providers Care Pediatric Psychiatrist Name Role Phone Wally POLLACK, Branden Rai [ ] Conditions or Problems Problem Name Problem Code Onset Date Status Entry Date Provider Comment Standard Description Annotate ACUTE RESPIRATORY FAILURE 34588295 (SNOMED CT) 11/18 Active 11/18 Joyce Koo Acute respiratory failure ELEVATED LFTS 769801975 (SNOMED CT) 11/18 Active 11/18 Joyce Koo Liver function tests outside reference range ANEMIA 653134763 (SNOMED CT) 11/18 Active 11/18 Joyce Koo Anemia LEUKOCYTOSIS 732875304 (SNOMED CT) 11/18 Active 11/18 Joyce Koo Leukocytosis PNEUMONIA 437743048 (SNOMED CT) 11/18 Active 11/18 Joyce Koo Pneumonia PULMONARY INFILTRATE 17577480 (SNOMED CT) 11/18 Active 11/18 Joyce Koo Disorder of lung PLEURAL EFFUSION 26706934 (SNOMED CT) 11/18 Active 11/18 Joyce Koo Pleural effusion CAD 07682187 (SNOMED CT) 11/18 Active 11/18 Joyce Koo Coronary arteriosclerosis HX OF CABG 731515379 (SNOMED CT) 11/18 Active 11/18 Joyce Koo History of coronary artery bypass grafting Medications Medication Instructions Start Date Stop Date Generic Name NDC Provider LISINOPRIL 10 MG TABS p.o. b.i.d. 5 LISINOPRIL [id number] Jozef Omer DIGOXIN 125 MCG TABS p.o. daily 5 DIGOXIN 30879261326 Jozef Omer CARVEDILOL 3.125 MG TABS p.o. b.i.d. 5 CARVEDILOL 79619766711 Jozef Omer LIPITOR 40 MG TABS 2 tabs p.o. at bedtime 5 ATORVASTATIN CALCIUM 85886209823 Jozef Omer ASPIRIN 81 MG ORAL TABLET p.o. daily 5 ASPIRIN 68572525174 Jozef Omer NORVASC 5 MG TABS p.o. b.i.d. 5 AMLODIPINE BESYLATE 15576358820 Jozef Omer Medications Administered No information available. [...]
--- OUTSIDE RECORDS SUMMARY | 2025-07-28 12:12 | XMS_ITS | Encounter Summary ---
Author Organization [employer] ([place], [place], [place], [place]) Address [address] [place] [address] Care Team Providers Care Audiology Director Name Role Phone Lucía Roman APRN Primary Care Provider Ranjan Talley MD Unavailable Encounter Details Date Type Department Care Team (Late st Contact Info) Description 08/03/2021 Transcribed Document [facility] Family Medicine [address] [place] [address] ProviderSharla MD [address] [place] [address] Social History Tobacco Use Types Packs/Day Years [...] 08/03/2021 14:41 EDT Electronically signed by Arabella, [facility] Conversion Personal Banker Cerner at 02/26/2023 4:29 PM CDT documented in this encounter Plan of Treatment Upcoming Encounters Date Type Department Care Team (Late st Contact Info) Description 04/28/2026 8:30 AM EDT Office Visit [facility] Electrophysiology [address] [place] [phone] Ranjan Talley MD [address] [place] [address] [place] [phone] documented as of this encounter Visit Diagnoses Not on filedocumented in this encounter Care Teams Audiology Director Relationship Specialty Start Date End Date Lucía Roman, TITO [address] [address] PCP - General Nurse Practitioner 04/25/23 Ranjan Talley MD [address] [place] [address] [address] Bleach Mixer Electrophysiology 08/17/24 documented as of this encounter
--- OUTSIDE RECORDS SUMMARY | 2025-07-28 12:12 | XMS_ITS | Referral Summary ---
Author Organization [employer] ([place], [place], [place]) Address [address] [place] [address] Care Team Providers Care Volcanologist Name Role Phone RomanLucía crisostomo APRN Primary Care Provider Ranjan Talley MD Unavailable Encounters Date Type Department Care Team Description 06/28/2025 3:00 AM EDT Clinical Support [facility] Electrophysiology [address] [place], [place] [phone] Ranjan Talley MD Encounter for adjustment or management of cardiac device (Primary Dx) 06/18/2025 3:00 AM EDT Clinical Support [facility] Electrophysiology [address] [place], [place] [phone] Ranjan Talley MD Encounter for adjustment or management of cardiac device (Primary Dx) 05/18/2025 6:00 AM EDT Clinical Support [facility] Electrophysiology [address] [place], [place] [phone] Ranjan Talley MD Encounter for adjustment or management of cardiac device (Primary Dx) 04/27/2025 Travel 04/27/2025 8:30 AM EDT Office Visit [facility] Electrophysiology [address] [place] [phone] Ranjan Talley MD Palpitations (Primary Dx) from Last 3 Months Allergies [...] tablet (50 mg total) by mouth daily. 5 Active tirzepatide (Mounjaro) 2.5 mg/0.5 mL pnij [...] Description 04/28/2026 8:30 AM EDT Office Visit [facility] Electrophysiology [address] [place], [place] [phone] Ranjan Talley MD [address] [place] [address] [address] [place] [address] Medical Devices Implanted Type Area Bean Roaster Device Identifier Shelf Expiration Date Model / Serial / Lot Icd-08/06/2016 Implanted: (Quantity not on file) ICD [employer] 2411-36 / [id number] / Description:DEPENDENT Defib [place] Vr Df-1 [id number] - [id number] Implanted:Qty : 1 on 12/28/2024 at [facility] PACEMAKER/ ICD BI VALVE DEVICE Chest Wall GRIMM LAB:VASC DEV [id number] / / Procedures Procedure Name Priority Date/Time Associated Diagnosis Comments FS_MODEL_IP_ECG 12-LEAD Routine 04/27/2025 8:17 A M EDT Palpitations from Last 3 Months Results * ECG 12 lead (04/27/2025 8:17 AM EDT) Ranjan Talley MD ECG ORDERABLES Final Result from Last 3 Months Insurance [employer] MEDICARE HMO Advance Directives For more information, please contact: [phone] Documents on File Type Date Recorded Patient Clutch Operator Expl anation Advance Directives and Livin g Will 06/25/2023 6:35 AM * Full Code (Latest Code Status on File) Date Activated Date Inactivated Comments 12/28/2024 3:46 PM 12/29/2024 4:27 AM * Full Code Date Activated Date Inactivated Comments 12/28/2024 11:51 AM 12/28/2024 3:46 PM Care Teams Volcanologist Relationship Specialty Start Date End Date Lucía Roman APRN [address] [place] [address] PCP - General Nurse Practitioner 04/25/23 Ranjan Talley MD [address] [facility] [address] [place] [address] Museum Informatics Specialist Electrophysiology 08/17/24
--- OUTSIDE RECORDS SUMMARY | 2025-07-28 12:12 | XMS_ITS | Clinical Summary ---
[facility] Organization [facility] Address [address] [place] [address] Care Team Providers Care Adult High School Instructor Name Role Phone Provider, No Known Primary [...] 2) 2005 COVID-19 Vaccine (1 - season) 2025 INFLUENZA VACCINE 08/11/2025 Insurance MEDICARE A & B Care Teams Adult High School Instructor Relationship Specialty Start Date End Date Provider, No Known [facility] [place] [address] PCP - General 08/13/19
--- OUTSIDE RECORDS SUMMARY | 2025-07-28 12:12 | XMS_ITS | Clinical Summary ---
Author Organization [employer] ([place], [place], [place], [place]) Address [address] [place] [address] Care Team Providers Care Chin Strap Cutter Name Role Phone Lucía Roman APRN Primary [...] Description 06/28/2025 3:00 AM EDT Clinical Support [facility] Electrophysiology [address] [place] [address] Ranjan Talley MD Encounter for adjustment or management of cardiac device (Primary Dx) 06/18/2025 3:00 AM EDT Clinical Support [facility] Electrophysiology [address] [place] [address] Ranjan Talley MD Encounter for adjustment or management of cardiac device (Primary Dx) 05/18/2025 6:00 AM EDT Clinical Support [facility] Electrophysiology [address] [place] [address] Ranjan Talley MD Encounter for adjustment or management of cardiac device (Primary Dx) 04/27/2025 8:30 AM EDT Office Visit [facility] Electrophysiology [address] [place] [address] Ranjan Talley MD Palpitations (Primary Dx) 04/27/2025 Travel from Last 3 Months Social History Tobacco [...] Date Wicho rded Speak language other than Uzbek at home Not on file 11/19/2023 Want [...] 04/28/2026 8:30 AM EDT Office Visit [facility] Electrophysiology [address] [place], [place] [phone] Ranjan Talley MD [address] [place] [address] [address] [place] [address] Health Maintenance Due Date Last Done Comments [...] (2 of 2 - PCV) 10/31/2015 10/31/2014 Falls Risk Screening 11/11/2024 Medicare IPPE (Welcome to Medicare) [id number] 11/11/2024 COVID-19 VACCINE (5 - 2024-2 6 season) 2025 08/29/2022, 08/29/2022, 09/08/2021, Additional history exists Influenza Vaccine (#1) 2025 Tobacco Cessation Counseling and Screening (12+) 04/27/2026 04/27/2025 DTAP/TDAP/TD VACCINES (2 - T d or Tdap) 02/05/2030 02/06/2020 Medical Devices Implanted Type Area Group Insurance Specialist Device Identifier Shelf Expiration Date Model / Serial / Lot Icd-08/06/2016 Implanted: (Quantity not on file) ICD [employer] 2411-36 / [id number] / Description:DEPENDENT Defib [place] Vr Df-1 [id number] - [id number] Implanted:Qty : 1 on 12/28/2024 at [facility] PACEMAKER/ ICD BI VALVE DEVICE Chest Wall GRIMM LAB:VASC DEV [id number] / / Procedures Procedure Name Priority Date/Time Associated Diagnosis Comments FS_MODEL_IP_ECG 12-LEAD Routine 04/27/2025 8:17 A M EDT Palpitations from Last 3 Months Results * ECG 12 lead (04/27/2025 8:17 AM EDT) Ranjan Talley MD ECG ORDERABLES Final Result from Last 3 Months Insurance [facility] MEDICARE HMO Advance Directives For more information, please contact: [phone] Documents on File Type Date Recorded Patient Lithograph Press Feeder Expl anation Advance Directives and Livin g Will 06/25/2023 6:35 AM * Full Code (Latest Code Status on File) Date Activated Date Inactivated Comments 12/28/2024 3:46 PM 12/29/2024 4:27 AM * Full Code Date Activated Date Inactivated Comments 12/28/2024 11:51 AM 12/28/2024 3:46 PM Care Teams Chin Strap Cutter Relationship Specialty Start Date End Date Lucía Roman APRN [address] [place] [address] PCP - General Nurse Practitioner 04/25/23 Ranjan Talley MD [address] [facility] [address] [place] [address] Resource Protection Specialist Electrophysiology 08/17/24
--- OUTSIDE RECORDS SUMMARY | 2025-07-28 12:12 | XMS_ITS | Encounter Summary ---
Author Organization [employer] ([place], [place], [place]) Address [address] [facility] [place] [address] Care Team Providers Care Combination Welder Name Role Phone AbelLucía TITO Primary Care Provider Ranjan Talley MD Unavailable Reason for Visit * Reason Onset Date Comments Medication Refill Medication Refill 01/03/2023 Encounter Details Date Type Department Care Team (Late st Contact Info) Description 01/02/2023 Telephone [facility] Electrophysiology [address] [place] [phone] Ranjan Talley MD [address] [place] [address] [address] [place] [phone] Medication Refill; Medication Refill Social History Tobacco [...] Gabe Strickland RN completed this on 01/03/2023 AND REWINDER OPERATOR * Telephone Encounter - Lizbeth Bradley - 01/03/2023 8:31 AM EST PT Calling needs refill on her Potassium Chloride AND REWINDER OPERATOR documented in this encounter Plan of Treatment Upcoming Encounters Date Type Department Care Team (Late st Contact Info) Description 04/28/2026 8:30 AM EDT Office Visit [facility] Electrophysiology [address] [place] [phone] Ranjan Talley MD [address] [place] [address] [place] [phone] documented as of this encounter Visit Diagnoses Diagnosis Ischemic cardiomyopathy with implantable cardioverter-defibrillator (ICD)- Primary documented in this encounter Care Teams Combination Welder Relationship Specialty Start Date End Date Lucía Roman, PET CARE ATTENDANT [address] [address] PCP - General Nurse Practitioner 04/25/23 Ranjan Talley MD [address] [place] [address] Steward/Stewardess Third Electrophysiology 08/17/24 documented as of this encounter
--- OUTSIDE RECORDS SUMMARY | 2025-07-28 12:13 | XMS_ITS | Encounter Summary ---
Author Organization [employer] ([place], [place], [place], [place]) Address [address] [place] [address] Care Team Providers Care Pipeline Operator Name Role Phone Lucía Roman APRN Primary Care Provider Ranjan Talley MD Unavailable Encounter Details Date Type Department Care Team (Late st Contact Info) Description 08/02/2021 Transcribed Document [facility] [place] [address] [place] [address] ProviderSharla MD [address] [place], [place] [phone] Social History Tobacco Use Types Packs/Day Years [...] David Support Person/Pt Rep Contact Information : [phone] Want Family/Rep/Phys Notified of Admit : No Emergency Contact #1 : Nichole Emergency Contact #1 Phone Number : daughter Emergency Contact #1 Relationship : [phone] Emergency Contact #2 : none Emergency Contact #2 Phone Number : none Emergency Contact #2 Relationship : none Primary Language : Samoan Preferred Communication Mode : Verbal Communication Barrier : None Mortgage Loan Officer Originator Needed : No TAVARES CARROLL RN - [...] Scale Risk Level : 0-24 Low Risk [place] Fall Interventions : Bed in low position, [...] Source : Stated Height Entry Format : [place] Height, Feet : 5 ft(Converted to: 152 cm, 60 Inch) Height, Inches : 1 Inch(Converted to: 0 ft 1 Inch, 2.54 cm) Clinical Height : 154.94 cm Weight Source : Standing scale Weight Entry Format : [place] Clinical Dosing Weight : 89.09 kg Weight, Pounds : 196 lb Body Surface Area (BSA) : 1.87 m2 Body Mass Index : 37.1 kg/m2 (HI) [place]win Body Weight : 47 kg TAVARES CARROLL [...] TAVARES CARROLL RN - 08/02/2021 16:50 EDT [place] Suicide Severity Rating Scale (C-SSRS) CSSRS Past [...] Description 04/28/2026 8:30 AM EDT Office Visit [facility] Electrophysiology [address] [place] [address] Ranjan Talley MD [address] [facility] [address] [place] [address] documented as of this encounter Visit Diagnoses Not on filedocumented in this encounter Care Teams Pipeline Operator Relationship Specialty Start Date End Date Lucía Roman APRN [address] [place] [address] PCP - General Nurse Practitioner 04/25/23 Ranjan Talley MD [address] [place] [address] Research Assistant Member Electrophysiology 08/17/24 documented as of this encounter
--- OUTSIDE RECORDS SUMMARY | 2025-07-28 12:13 | XMS_ITS | Encounter Summary ---
Author Organization [employer] ([place], [place], [place], [place]) Address [address] [place] [address] Care Team Providers Care Power House Engineer Name Role Phone Lucía Roman APRN Primary Care Provider Ranjan Talley MD Unavailable Encounter Details Date Type Department Care Team (Late st Contact Info) Description 08/03/2021 Transcribed Document [facility] Family Medicine [address] [place] [address] ProviderSharla MD [address] [place] [address] Social History Tobacco Use Types Packs/Day Years [...] Health Plan: [employer] MEDICARE REPL Policy Number: [id number] Authorization Number: [id number] Insurance Primary Name : [employer]M MEDICARE REPL Policy Number: [id number] Observation Authorization Nbr-Primary : [id number] Historical Authorization Comments-Primary : No Authorization Comments Found ROSS, JESSI M, Rn-Utilization Review - 08/03/2021 12:07 EDT Electronically signed by [facility], [facility] Conversion Assembler Type Bar And Segment Cerner at 02/26/2023 4:42 PM CDT documented in this encounter Plan of Treatment Upcoming Encounters Date Type Department Care Team (Late st Contact Info) Description 04/28/2026 8:30 AM EDT Office Visit [facility] Electrophysiology [address] [place] [phone] Ranjan Talley MD [address] [place] [address] [place] [address] documented as of this encounter Visit Diagnoses Not on filedocumented in this encounter Care Teams Power House Engineer Relationship Specialty Start Date End Date Lucía Roman, GLOBAL SAFETY OFFICER [address] [address] PCP - General Nurse Practitioner 04/25/23 Ranjan Talley MD [address] [place] [address] [place] [phone] Garment Manufacturer Electrophysiology 08/17/24 documented as of this encounter
--- OUTSIDE RECORDS SUMMARY | 2025-07-28 12:13 | XMS_ITS | Encounter Summary ---
Author Organization [employer] ([place], [place], [place], [place]) Address [address] [place] [address] Care Team Providers Care Support Services Coordinator Name Role Phone Lucía Roman APRN Primary Care Provider Ranjan Talley MD Unavailable Encounter Details Date Type Department Care Team (Late st Contact Info) Description 08/03/2021 Transcribed Document [facility] Family Medicine [address] [place] [address] ProviderSharla MD [address] [place] [phone] Social History Tobacco Use Types Packs/Day Years [...] Description 04/28/2026 8:30 AM EDT Office Visit [facility] Electrophysiology [address] [place] [address] [place] [address] [place] [address] [address] [place] [address] documented as of this encounter Visit Diagnoses Not on filedocumented in this encounter Care Teams Support Services Coordinator Relationship Specialty Start Date End Date Lucía Roman, FREIGHT LOADER [address] [place] [address] PCP - General Nurse Practitioner 04/25/23 [place] [address] [place] [address] [address] [place] [address] Deadener Electrophysiology 08/17/24 documented as of this encounter
--- OUTSIDE RECORDS SUMMARY | 2025-07-28 12:13 | XMS_ITS | Encounter Summary ---
Author Organization [employer] ([place], [place], [place], [place]) Address [address] [place] [address] Care Team Providers Care Product Development Ecologist Name Role Phone Lucía Roman APRN Primary Care Provider Ranjan Talley MD Unavailable Encounter Details Date Type Department Care Team (Late st Contact Info) Description 08/02/2021 Transcribed Document [facility] [place] [address] [place] [address] Sharla Robledo MD [address] [place], [place] 36[address] Social History Tobacco Use Types Packs/Day Years [...] On: 08/02/2021 20:10 EDT by Chidi Medina Stencil Typist Cert Lead Meds to Bed Enrollment Patient Enrollment Decision: : Yes/enroll in meds to bed program Chidi Medina Stencil Typist Cert Lead - 08/03/2021 9:02 EDT documented in this encounter Plan of Treatment Upcoming Encounters Date Type Department Care Team (Late st Contact Info) Description 04/28/2026 8:30 AM EDT Office Visit [facility] Electrophysiology [address] [place] [address] Ranjan Talley MD [address] [facility] [address] [place], [place] [phone] documented as of this encounter Visit Diagnoses Not on filedocumented in this encounter Care Teams Product Development Ecologist Relationship Specialty Start Date End Date Lucía Roman, ATTENDING RADIOLOGIST [address] [place] [address] PCP - General Nurse Practitioner 04/25/23 Ranjan Talley MD [address] [facility] [address] [place] [address] Capacity Planner Electrophysiology 08/17/24 documented as of this encounter
--- OUTSIDE RECORDS SUMMARY | 2025-07-28 12:13 | XMS_ITS | Encounter Summary ---
Author Organization [employer] ([place], [place], [place], [place]) Address [address] [place] [address] Care Team Providers Care Electrolytic De Scaler Name Role Phone Lucía Roman APRN Primary Care Provider Ranjan Talley MD Unavailable Encounter Details Date Type Department Care Team (Late st Contact Info) Description 08/02/2021 Transcribed Document [facility] [place] [address] [place] [address] ProviderSharla MD [address] [place], [place] 4735[address] Social History Tobacco Use Types Packs/Day Years [...] Description 04/28/2026 8:30 AM EDT Office Visit [facility] Electrophysiology [address] [place] [address] Ranjan Talley MD [address] [facility] [address] [place] [address] documented as of this encounter Visit Diagnoses Not on filedocumented in this encounter Care Teams Electrolytic De Scaler Relationship Specialty Start Date End Date Lucía Roman, VALET CASHIER [address] [address] PCP - General Nurse Practitioner 04/25/23 Ranjan Talley MD [address] [facility] [address] [address] Rebeamer Electrophysiology 08/17/24 documented as of this encounter
--- OUTSIDE RECORDS SUMMARY | 2025-07-28 12:13 | XMS_ITS | Encounter Summary ---
Author Organization [employer] ([place], [place], [place], [place]) Address [address] [facility] [address] Care Team Providers Care Candle Molder Machine Name Role Phone Lucía Roman APRN Primary Care Provider Ranjan Talley MD Unavailable Encounter Details Date Type Department Care Team (Late st Contact Info) Description 08/02/2021 Transcribed Document [facility] [place] [facility] [place] [address] ProviderSharla MD [address] [place] [address] Social History Tobacco Use Types Packs/Day Years [...] Age: 66 Years Sex: Female : 1955 Organ Pipe Voicer: Ranjan Talley MD Indication: 65 year old [...] Description 04/28/2026 8:30 AM EDT Office Visit [facility] Electrophysiology [address] [place] [address] Ranjan Talley MD [address] [facility] [address] [place] [address] documented as of this encounter Visit Diagnoses Not on filedocumented in this encounter Care Teams Candle Molder Machine Relationship Specialty Start Date End Date Lucía Roman, PRODUCT MANUFACTURING PROFESSIONAL [address] [place] [address] PCP - General Nurse Practitioner 04/25/23 Ranjan Talley MD [address] [facility] [address] [place] [address] Roll Threader Operator Electrophysiology 08/17/24 documented as of this encounter
--- OUTSIDE RECORDS SUMMARY | 2025-07-28 12:13 | XMS_ITS | Encounter Summary ---
Author Organization [employer] ([place], [place], [place], [place]) Address [address] [place] [address] Care Team Providers Care Payroll Administrative Assistant Name Role Phone Lucía Roman APRN Primary Care Provider Ranjan Talley MD Unavailable Encounter Details Date Type Department Care Team (Late st Contact Info) Description 08/02/2021 Transcribed Document [facility] Family Medicine [facility] [place] [address] ProviderSharla MD [address] [place] [phone] Social History Tobacco Use Types Packs/Day Years [...] on 4IC. Pt transferred to [facility] via wheelchair with all belongings. TAVARES CARROLL RN - 08/02/2021 19:51 EDT Electronically signed by Arabella [facility] Conversion Rn Clinical Quality Cerner at 02/26/2023 4:46 PM CDT documented in this encounter Plan of Treatment Upcoming Encounters Date Type Department Care Team (Late st Contact Info) Description 04/28/2026 8:30 AM EDT Office Visit [facility] Electrophysiology [address] [place] [address] Ranjan Talley MD [address] [facility] [address] [place] [address] documented as of this encounter Visit Diagnoses Not on filedocumented in this encounter Care Teams Payroll Administrative Assistant Relationship Specialty Start Date End Date Lucía Roman, DEPENDENCY CASE MANAGER [address] [address] PCP - General Nurse Practitioner 04/25/23 Ranjan Talley MD [address] [facility] [address] [address] Data Abstractor Electrophysiology 08/17/24 documented as of this encounter
--- OUTSIDE RECORDS SUMMARY | 2025-07-28 12:13 | XMS_ITS | Encounter Summary ---
Author Organization [employer] ([place], [place], [place], [place]) Address [address] [facility] [place] [address] Care Team Providers Care Ground Host/Hostess Name Role Phone Lucía Roman APRN Primary Care Provider Hernandez Talley MD Unavailable Encounter Details Date Type Department Care Team (Late st Contact Info) Description 08/03/2021 Transcribed Document [facility] Family Medicine [facility] [place] [address] ProviderSharla MD [address] [place] [address] Social History Tobacco Use Types Packs/Day Years [...] Ben Cardiology Discharge Note - EP Primary Aviation Boatswain'S Mate: PCP: Lucía Roman Consults: NONE History of [...] transfer her monitoring to us today on [place]. In addition, we reprogrammed her device to [...] Normal range of motion. Integumentary: Warm, Dry, Simla. Bilateral groins stable no hematoma or bleeding. [...] PCP in 5 - 7 days. Primary Aviation Boatswain'S Mate in [address] Talley [...] Description 04/28/2026 8:30 AM EDT Office Visit [facility] Electrophysiology [address] [place] [phone] Hernandez Talley MD [address] [facility] [address] [place] [address] documented as of this encounter Visit Diagnoses Not on filedocumented in this encounter Care Teams Ground Host/Hostess Relationship Specialty Start Date End Date Lucía Roman, BINDER FOLDER OPERATOR [address] [place] [address] PCP - General Nurse Practitioner 04/25/23 Hernandez Talley MD [address] [facility] [address] [place] [address] Aviation Boatswain'S Mate Electrophysiology 08/17/24 documented as of this encounter
--- OUTSIDE RECORDS SUMMARY | 2025-07-28 12:13 | XMS_ITS | Encounter Summary ---
Author Organization [employer] ([place], [place], [place], [place]) Address [address] [place] [address] Care Team Providers Care Product Managent Intern Name Role Phone Lucía Roman APRN Primary Care Provider Ranjan Talley MD Unavailable Encounter Details Date Type Department Care Team (Late st Contact Info) Description 08/03/2021 Transcribed Document [facility] Family Medicine [address] [place] [address] ProviderSharla MD [address] [place] [address] Social History Tobacco Use Types [...] Robledo MD - 08/03/2021 2:42 PM CDT [facility] [place] [id number] ANDREWYESSYMichael Carrillo :1955 Visit Time:08/02/2021 Your Visit [...] TALLEY When 09/05/2021 08:30 AM EDT Where: [address] [place] [address] [place] [address]- Business (1) Medications What How Much When [...] include vitamins, herbs, eye drops, creams, and nqtl-otv-uzutfqc medicines. ??? Any problems you or family [...] provider. Document Revised: 09/29/2020 Document Reviewed: 09/29/2020 [employer] Patient Education ?? 2020 [employer] Cardiac Ablation, Care After This sheet [...] and water are not available, use hand residence leasing agent. ? Change your dressing as told by [...] safe for you. General instructions ??? Take jyta-ujr-hduxbxe and prescription medicines only as told by [...] provider. Document Revised: 09/05/2020 Document Reviewed: 09/05/2020 [employer] Patient Education ?? 2020 [employer]. potassium chloride (oral/injection) (denny TASS ee um) [...] may report side effects to FDA at 3-841-QRV-3006. What other drugs will affect potassium chloride? Tell your doctor about all your other medicines, especially: ?? medicine to prevent organ transplant rejection; ?? a diuretic or 'water pill'; or ?? heart or blood pressure medication. This list is not complete. Other drugs may affect potassium chloride, including prescription and icfu-tpc-dnuihly medicines, vitamins, and herbal products. Not all [...] to ensure that the information provided by [employer]. ('[employer]') is accurate, up-to-date, and complete, but no guarantee is made to that effect. Drug information contained herein may be time sensitive. [employer] information has been compiled for use by healthcare practitioners and consumers in the [place] and therefore Fiz does not warrant that uses outside of the [place] are appropriate, unless specifically indicated otherwise. [employer] drug information does not endorse drugs, diagnose patients or recommend therapy. [employer] drug information is an informational resource designed [...] effective or appropriate for any given patient. F[employer] does not assume any responsibility for any aspect of healthcare administered with the aid of information Fiz provides. The information contained herein is not intended to cover all possible uses, directions, precautions, warnings, drug interactions, allergic reactions, or adverse effects. If you have questions about the drugs you are taking, check with your doctor, nurse or pharmacist. Copyright 8489-0631 [employer]. Version: 14.01. Revision Date: 04/07/2020. Emergency Awareness [...] Assistance with quitting is available by contacting 6-113-ITMG-NOW. This is a free resource providing counseling, [...] range between ( 0.0 and 7.0 ) Barry #: 0.64 K/uL -- Normal range between ( 0.16 and 1.00 ) Eos #: 0.10 x10(3)/uL -- Normal range between ( 0.00 and 0.80 ) Barry %: 10.5 % -- Normal range between [...] was given the opportunity to ask questions. Patient/Inside Polisher Name: Patient/Inside Polisher Signature: Relationship to Patient: Clinician/Hospital Inside Polisher Signature: Date: Electronically signed by [facility], [facility] Conversion Field Artillery Crewmember Cerner at 02/26/2023 4:37 PM CDT documented in this encounter Plan of Treatment Upcoming Encounters Date Type Department Care Team (Late st Contact Info) Description 04/28/2026 8:30 AM EDT Office Visit [facility] Electrophysiology [address] [place] [phone] Ranjan Talley MD [address] [place] [address] [place] [address] documented as of this encounter Visit Diagnoses Not on filedocumented in this encounter Care Teams Product Managent Intern Relationship Specialty Start Date End Date Lucía Roman, GRANT COORDINATOR [address] [address] PCP - General Nurse Practitioner 04/25/23 Ranjan Talley MD [address] [place] [address] [place] [id number] Payloader Operator Electrophysiology 08/17/24 documented as of this encounter
--- OUTSIDE RECORDS SUMMARY | 2025-07-28 12:13 | XMS_ITS | Encounter Summary ---
Author Organization [employer] ([place], [place], [place], [place]) Address [address] [place] [address] Care Team Providers Care Aluminum Siding Mechanic Name Role Phone Lucía Roman APRN Primary Care Provider [phone] Ranjan Talley MD Unavailable Encounter Details Date Type Department Care Team (Late st Contact Info) Description 08/03/2021 Transcribed Document [facility] [place] Medicine [address] [place] [address] ProviderSharla MD [address] [place] [phone] Social History Tobacco Use Types Packs/Day Years [...] Spiritual Care Spiritual Care Referred by : Driver Service Technician follow-up Reason for Visit : Follow Up Ministry Provided to : Patient Intervention/Comment/Summary Points : Post-op visit. Provided active listening and spiritual support. Patient anticipates discharge today. DANIEL HOWARD - 08/03/2021 14:11 EDT documented in this encounter Plan of Treatment Upcoming Encounters Date Type Department Care Team (Late st Contact Info) Description 04/28/2026 8:30 AM EDT Office Visit [facility] Electrophysiology [address] [place] [phone] [place] [address] [place] [address] [address] [place], [place] [id number] documented as of this encounter Visit Diagnoses Not on filedocumented in this encounter Care Teams Aluminum Siding Mechanic Relationship Specialty Start Date End Date Lucía Roman, HOSPITALIST MEDICAL DIRECTOR [address] [place] [address] PCP - General Nurse Practitioner 04/25/23 [place] [address] [place] [address] [address] [place] [address] Chemical Worker Electrophysiology 08/17/24 documented as of this encounter
--- OUTSIDE RECORDS SUMMARY | 2025-07-28 12:13 | XMS_ITS | Encounter Summary ---
Author Organization [employer] ([place], [place], [place], [place]) Address [address] [place] [address] Care Team Providers Care Security Team Lead Name Role Phone Lucía Roman APRN Primary Care Provider Ranjan Talley MD Unavailable Encounter Details Date Type Department Care Team (Late st Contact Info) Description 08/02/2021 Transcribed Document [facility] Family Medicine [address] [place] [address] ProviderSharal MD [address] [place], [place] [phone] Social History Tobacco Use Types Packs/Day Years [...] Description 04/28/2026 8:30 AM EDT Office Visit [facility] Electrophysiology [address] [place] [phone] Ranjan Talley MD [address] [place] [address] [address] documented as of this encounter Visit Diagnoses Not on filedocumented in this encounter Care Teams Security Team Lead Relationship Specialty Start Date End Date Lucía Roman, DROP WIRE STRINGER [address] [place] [address] PCP - General Nurse Practitioner 04/25/23 Ranjan Talley MD [address] [place] [address] [address] Basting Puller Electrophysiology 08/17/24 documented as of this encounter
--- OUTSIDE RECORDS SUMMARY | 2025-07-28 12:13 | XMS_ITS | Encounter Summary ---
Author Organization [employer] ([place], [place], [place], [place]) Address [address] [place] [address] Care Team Providers Care Patron Attendant Name Role Phone Lucía Roman APRN Primary Care Provider Ranjan Talley MD Unavailable Encounter Details Date Type Department Care Team (Late st Contact Info) Description 08/03/2021 Transcribed Document [facility] Family Medicine [facility] [place] [address] ProviderSharla MD [address] [place] [address] Social History Tobacco Use Types Packs/Day Years [...] - 08/03/2021 14:15 EDT Electronically signed by [facility], [facility] Conversion Latex Foam Worker Cerner at 02/26/2023 4:38 PM CDT documented in this encounter Plan of Treatment Upcoming Encounters Date Type Department Care Team (Late st Contact Info) Description 04/28/2026 8:30 AM EDT Office Visit [facility] Electrophysiology [address] [place], [place] [phone] Ranjan Talley MD [address] [place] [address] [place] [phone] documented as of this encounter Visit Diagnoses Not on filedocumented in this encounter Care Teams Patron Attendant Relationship Specialty Start Date End Date Lucía Roman, TITO [address] [address] PCP - General Nurse Practitioner 04/25/23 Ranjan Talley MD [address] [place] [address] Commanding Officer Traffic Division Electrophysiology 08/17/24 documented as of this encounter
--- OUTSIDE RECORDS SUMMARY | 2025-07-28 12:13 | XMS_ITS | Encounter Summary ---
Author Organization [employer] ([place], [place], [place], [place]) Address [address] [place] [address] Care Team Providers Care Education Instructor Name Role Phone Lucía Roman APRN Primary Care Provider [phone] Ranjan Talley MD Unavailable Encounter Details Date Type Department Care Team (Late st Contact Info) Description 08/03/2021 Transcribed Document [facility] Family Medicine [facility] [place] [address] Sharla Robledo MD [address] [place] [address] [phone] Social History Tobacco Use Types Packs/Day Years [...] Referral(s) Listed Discharge To Care Management : Home/Residential/Jail or Self Care -01 STEFAN CORONADO RN-Care Management - 08/03/2021 11:24 EDT Final Narrative Note Final Narrative Note : OPA-Cardiac ablation, ICD reprogramming, pulmonary vein isolation, Isuprel infusion and LV pacing. Pt. DC to home, no CM orders, Nursing to schedule f/u appointments. STEFAN CORONADO RN-Care Management - 08/03/2021 11:24 EDT Electronically signed by [facility] Conversion Toolroom Keeper Cerner at 02/26/2023 4:36 PM CDT documented in this encounter Plan of Treatment Upcoming Encounters Date Type Department Care Team (Late st Contact Info) Description 04/28/2026 8:30 AM EDT Office Visit [facility] Electrophysiology [address] [place] [phone] Ranjan Talley MD [address] [place] [address] [address] [place] [address] documented as of this encounter Visit Diagnoses Not on filedocumented in this encounter Care Teams Education Instructor Relationship Specialty Start Date End Date Lucía RomanTITO [address] [place] [address] PCP - General Nurse Practitioner 04/25/23 Ranjan Talley MD [address] [place] [address] [address] [place] [address] Venetian Blind Cleaner And Repairer Electrophysiology 08/17/24 documented as of this encounter
--- OUTSIDE RECORDS SUMMARY | 2025-07-28 12:13 | XMS_ITS | Encounter Summary ---
Author Organization [employer] ([place], [place], [place], [place]) Address [address] [place] [address] Care Team Providers Care Highway Maintenance Supervisor Name Role Phone Lucía Roman APRN Primary Care Provider Ranjan Talley MD Unavailable Encounter Details Date Type Department Care Team (Late st Contact Info) Description 08/03/2021 Transcribed Document [facility] Family Medicine [address] [place] [address] Sharla Robledo MD [address] [place], [place] 059621 Social History Tobacco Use Types Packs/Day Years [...] include vitamins, herbs, eye drops, creams, and izez-ivz-nxrmuob medicines. ??? Any problems you or family [...] provider. Document Revised: 09/29/2020 Document Reviewed: 09/29/2020 [employer] Patient Education ? 2020 [employer]. Cardiac Ablation, Care After This sheet gives [...] and water are not available, use hand supervisor benzene refining. ? Change your dressing as told by [...] safe for you. General instructions ??? Take nmho-nbj-ontrxvh and prescription medicines only as told by [...] provider. Document Revised: 09/05/2020 Document Reviewed: 09/05/2020 [employer] Patient Education ? 2020 [employer]. documented in this encounter Plan of Treatment Upcoming Encounters Date Type Department Care Team (Late st Contact Info) Description 04/28/2026 8:30 AM EDT Office Visit [facility] Electrophysiology [address] [place] [phone] Ranjan Talley MD [address] [facility] [address] [place] [address] documented as of this encounter Visit Diagnoses Not on filedocumented in this encounter Care Teams Highway Maintenance Supervisor Relationship Specialty Start Date End Date Lucía Roman, FARM EQUIPMENT MECHANIC APPRENTICE [address] [place] [address] PCP - General Nurse Practitioner 04/25/23 Ranjan Talley MD [address] [facility] [address] [place] [address] Record Label Internship Electrophysiology 08/17/24 documented as of this encounter
[2025-07-29 10:14] LABS: Triiodothyronine (T3) Free 2.4 pg/mL (2.0-4.4)
[2025-07-29 17:11] LABS: Cortisol,AM 11.5 ug/dL (6.2-19.4)
[2025-07-30 12:32] LABS: Antinuclear Antibodies (ANA) Negative (Negative)
== END 2025-07-27 23:59 | disposition home or self-care (01) ==
LOC: LAB.DROPOF 07-28 12:10
PROVIDERS: PCP Nurse Practitioner Family; Visit Provider Nurse Practitioner Family
DX: E11.9 Type 2 diabetes mellitus without complications (principal); L65.9 Nonscarring hair loss, unspecified; R79.89 Other specified abnormal findings of blood chemistry; E78.6 Lipoprotein deficiency; D64.9 Anemia, unspecified; L85.3 Xerosis cutis
CPT/HCPCS: 80053; 82306; 82533; 82728; 84443; 84481; 84630; 85025; 86140

== ENCOUNTER 2025-09-22 14:52 | Outpatient (CLI) | payer MEDICARE, SELFPAY ==
--- OUTSIDE RECORDS SUMMARY | 2025-06-28 02:00 | XMS_ITS | Encounter Summary ---
Author Organization [employer] ([place], [place], [place], [place], [place]) Address [address] [place] [address] Care Team Providers Care Superintendent Plant Protection Name Role Phone Lucía Roman APRN Primary Care Provider Ranjan Talley MD Unavailable Reason for Visit * Reason Comments Pacemaker /ICD Home Monitoring Encounter Details Date Type Department Care Team (Late st Contact Info) Description 06/28/2025 3:00 AM EDT Clinical Support [facility] [address]rophysiology [address] [place] [address] Ranjan Talley MD [address] [place] [address] [address] [place] [address] Encounter for adjustment or management of cardiac [...] Date Wicho rded Speak language other than Vietnamese at home Not on file 11/19/2023 Want [...] Description 04/28/2026 8:30 AM EDT Office Visit [facility] [address]rophys[address] [place] [phone] Ranjan Talley MD [address] [place] [address] [address] documented as of this encounter Visit Diagnoses Diagnosis Encounter for adjustment or management of cardiac device- Primary documented in this encounter Care Teams Superintendent Plant Protection Relationship Specialty Start Date End Date Lucía Roman, SUPPORT SERVICE TECH [address] [address] PCP - General Nurse Practitioner 04/25/23 Ranjan Talley MD [address] [place] [address] Casino Games Dealer Electrophysiology 08/17/24 documented as of this encounter
--- OUTSIDE RECORDS SUMMARY | 2025-07-19 02:00 | XMS_ITS | Encounter Summary ---
Author Organization [employer] ([place], [place], [place], [place], [place]) Address [address] [place] [address] Care Team Providers Care Leguillon Debeader Name Role Phone Lucía Roman APRN Primary Care Provider Ranjan Talley MD Unavailable Reason for Visit * Reason Comments Pacemaker /ICD Home Monitoring Encounter Details Date Type Department Care Team (Late st Contact Info) Description 07/19/2025 3:00 AM EDT Clinical Support [facility] Electrophysiology [address] [place] [phone] Ranjan Talley MD [address] [place] [address] [address] [place] [address] Encounter for adjustment or management of cardiac [...] Date Wicho rded Speak language other than Yakut at home Not on file 11/19/2023 Want [...] Description 04/28/2026 8:30 AM EDT Office Visit [facility] Electrophysiology [address] [place] [phone] Ranjan Talley MD [address] [place] [address] [address] documented as of this encounter Visit Diagnoses Diagnosis Encounter for adjustment or management of cardiac device- Primary documented in this encounter Care Teams Leguillon Debeader Relationship Specialty Start Date End Date Lucía Roman, FOUR H CLUB AGENT [address] [address] PCP - General Nurse Practitioner 04/25/23 Ranjan Talley MD [address] [place] [address] Metal Flow Coordinator Electrophysiology 08/17/24 documented as of this encounter
--- OUTSIDE RECORDS SUMMARY | 2025-08-19 02:00 | XMS_ITS | Encounter Summary ---
Author Organization [employer] ([place], [place], [place], [place], [place]) Address [address] [place] [address] Care Team Providers Care Development Coach Name Role Phone Lucía Roman APRN Primary Care Provider Ranjan Talley MD Unavailable Reason for Visit * Reason Comments Pacemaker /ICD Home Monitoring Encounter Details Date Type Department Care Team (Late st Contact Info) Description 08/19/2025 3:00 AM EDT Clinical Support [facility] Electrophysiology [address] [place] [phone] Ranjan Talley MD [address] [place] [address] [address] [place] [address] Encounter for adjustment or management of cardiac [...] Date Wicho rded Speak language other than Irish at home Not on file 11/19/2023 Want [...] [facility] Electrophysiology [address] [place] [phone] Ranjan Talley MD [address] [place] [address] [address] documented as of this encounter Visit Diagnoses Diagnosis Encounter for adjustment or management of cardiac device- Primary documented in this encounter Care Teams Development Coach Relationship Specialty Start Date End Date Lucía Roman, CONFIGURATION MANAGEMENT ANALYST [address] [address] PCP - General Nurse Practitioner 04/25/23 Ranjan Talley MD [address] [place] [address] Stock Preparation Supervisor Electrophysiology 08/17/24 documented as of this encounter
--- OUTSIDE RECORDS SUMMARY | 2025-09-20 03:00 | XMS_ITS | Encounter Summary ---
Author Organization [employer] ([place], [place], [place], [place], [place]) Address [address] [place] [address] Care Team Providers Care Supply Chain Business Analyst Name Role Phone Lucía Roman APRN Primary Care Provider Ranjan Talley MD Unavailable Reason for Visit * Reason Comments Pacemaker /ICD Home Monitoring Encounter Details Date Type Department Care Team (Late st Contact Info) Description 09/20/2025 3:00 AM EST Clinical Support [facility] Electrophysiology [address] [place] [phone] Ranajn Talley MD [address] [place] [address] [address] [place] [address] Encounter for adjustment or management of cardiac [...] Date Wicho rded Speak language other than Bulgarian at home Not on file 11/19/2023 Want [...] Description 04/28/2026 8:30 AM EDT Office Visit [facility] Electrophysiology [address] [place] [phone] Ranjan Talley MD [address] [place] [address] [address] [place] [phone] documented as of this encounter Visit Diagnoses Diagnosis Encounter for adjustment or management of cardiac device- Primary documented in this encounter Care Teams Supply Chain Business Analyst Relationship Specialty Start Date End Date Lucía Roman, WET END SUPERVISOR [address] [place] [address] PCP - General Nurse Practitioner 04/25/23 Ranjan Talley MD [address] [place] [address] Satellite Tv Technician Installer Electrophysiology 08/17/24 documented as of this encounter
--- OUTSIDE RECORDS SUMMARY | 2025-09-22 14:55 | XMS_ITS | Clinical Summary ---
Author Organization [employer] ([place], [place], [place], [place], [place]) Address [address] [place] [address] Care Team Providers Care Fruit Shipper Name Role Phone Lucía Roman APRN Primary Care Provider [phone] Ranjan Talley MD Unavailable Allergies No known [...] MOUTH DAILY. 90 tablet 4 4 Active potassium chloride (KLOR-CON) 20 MEQ [...] mL pnij Inject under the skin. 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 90 tablet 3 5 Active Active Problems Problem Noted Date Diagnosed [...] Encounters Date Type Department Care Team Description 09/20/2025 3:00 AM EST Clinical Support [facility] Electrophysiology [address] [place], [place] [phone] Ranjan Talley MD Encounter for adjustment or management of cardiac device (Primary Dx) 08/19/2025 3:00 AM EDT Clinical Support [facility] Electrophysiology [address] [place], [place] [phone] Ranjan Talley MD Encounter for adjustment or management of cardiac device (Primary Dx) 08/16/2025 Telephone [facility] Electrophysiology [address] [place], [place] [phone] Ranjan Talley MD Medication Refill 07/19/2025 3:00 AM EDT Clinical Support [facility] Electrophysiology [address] [place], [place] [phone] Ranjan Talley MD Encounter for adjustment or management of cardiac device (Primary Dx) 06/28/2025 3:00 AM EDT Clinical Support [facility] Electrophysiology [address] [place], [place] [phone] Ranjan Talley MD Encounter for adjustment or [...] Description 04/28/2026 8:30 AM EDT Office Visit [facility] Electrophysiology [address] [place] [phone] Ranjan Talley MD [address] [place] [address] [address] [place] [address] Health Maintenance Due Date Last Done Comments CT Colonography 1955 Colonoscopy 1955 Colorectal Cancer Screening 1955 DXA SCAN 1955 FOBT/FIT 1955 Fit-DNA (Cologuard) 1955 Sigmoidoscopy 1955 Depression Screening (12+) 1967 Hepatitis C Screening 1973 Breast Cancer Screening 1995 Lung Cancer Screening 2005 Shingles Vaccine (Zoster) (1 of 2) [...] 02/05/2030 02/06/2020 Medical Devices Implanted Type Area Sanding Machine Buffer Device Identifier Shelf Expiration Date Model / Serial / Lot Icd-08/06/2016 Implanted: (Quantity not on file) ICD [employer] 2411-36 / [id number] / Description:DEPENDENT Defib Stanford Vr Df-1 [id number] - [id number] Implanted:Qty : 1 on 12/28/2024 at [facility] PACEMAKER/ ICD BI VALVE DEVICE Chest Wall [facility] LAB:VASC DEV [id number] / / Insurance [facility] MEDICARE HMO Advance Directives For more information, please contact: [phone] Documents on File Type Date Recorded Patient Shoe Polisher Expl anation Advance Directives and Livin g Will 06/25/2023 6:35 AM * Full Code (Latest Code Status on File) Date Activated Date Inactivated Comments 12/28/2024 3:46 PM 12/29/2024 4:27 AM * Full Code Date Activated Date Inactivated Comments 12/28/2024 11:51 AM 12/28/2024 3:46 PM Care Teams Fruit Shipper Relationship Specialty Start Date End Date Lucía Roman APRN [address] [place] [address] PCP - General Nurse Practitioner 04/25/23 Ranjan Talley MD [address] [facility] [place] [address] Cop Breaker Electrophysiology 08/17/24
--- OUTSIDE RECORDS SUMMARY | 2025-09-22 14:55 | XMS_ITS | Encounter Summary ---
Author Organization [employer] ([place], [place], [place], [place], [place]) Address [address] [place] [address] Care Team Providers Care Data Entry Assistant Name Role Phone Lucía Roman APRN Primary Care Provider Ranjan Talley MD Unavailable Encounter Details Date Type Department Care Team (Late st Contact Info) Description 08/02/2021 Transcribed Document [facility] [place] [facility] [place] [address] ProviderSharla MD [address] [place] [address] [phone] Social History Tobacco Use Types Packs/Day Years [...] Office Visit [facility] Electrophysiology [address] [place] [address] [place] [address] [place] [address] [address] [place] [address] documented as of this encounter Visit Diagnoses Not on filedocumented in this encounter Care Teams Data Entry Assistant Relationship Specialty Start Date End Date Lucía Roman, DORMITORY COUNSELOR [address] [place] [address] PCP - General Nurse Practitioner 04/25/23 [place] [address] [place] [address] [address] Procurement Engineer Electrophysiology 08/17/24 documented as of this encounter
--- OUTSIDE RECORDS SUMMARY | 2025-09-22 14:55 | XMS_ITS | Encounter Summary ---
Author Organization [employer] ([place], [place], [place], [place], [place]) Address [address] [place] [address] Care Team Providers Care Plaster Pattern Caster Name Role Phone Lucía Roman APRN Primary Care Provider Ranjan Talley MD Unavailable Encounter Details Date Type Department Care Team (Late st Contact Info) Description 08/02/2021 Transcribed Document [facility] [place] [facility] [place] [address] ProviderSharla MD [address] [place] [address] [phone] Social History Tobacco Use Types Packs/Day Years Used Date Smoking Tobacco: Never Assessed Comments Unknown Sex and Gender Information Value Date Recorded Sex Assigned at Not on file Legal Sex Female 5:07 PM CDT Gender Identity Not on file Sexual Orientation Not on file documented as of this encounter Miscellaneous Notes * Cerner Conversion Note - Sharla Robledo MD - 08/02/2021 7:06 AM CDT Pre Procedure Adult Entered On: 08/02/2021 7:11 EDT Performed On: 08/02/2021 7:06 EDT by JOAO BAKER RN Height and Weight, Clinical Dosing Height Source : Stated Height Entry Format : [place] Height, Feet : 5 ft(Converted to: 152 cm, 60 Inch) Height, Inches : 1 Inch(Converted to: 0 ft 1 Inch, 2.54 cm) Clinical Height : 154.94 cm Weight Source : Standing scale Weight Entry Format : [place] Clinical Dosing Weight : 89.09 kg Weight, Pounds : 196 lb Body Surface Area (BSA) : 1.87 m2 Body Mass Index : 37.1 kg/m2 (HI) [place] Body Weight : 47 kg JOAO BAKER [...] Diarrhea (3 episode per day) : NO JOOA BAKER RN - 08/02/2021 7:06 EDT Physical [...] JOAO BAKER RN - 08/02/2021 7:06 EDT [place] Suicide Severity Rating Scale (C-SSRS) CSSRS Past [...] David Support Person/Pt Rep Contact Information : [phone] Want Family/Rep/Phys Notified of Admit : No Emergency Contact #1 : Nichole Emergency Contact #1 Phone Number : daughter Emergency Contact #1 Relationship : [phone] Emergency Contact #2 : none Emergency Contact #2 Phone Number : none Emergency Contact #2 Relationship : none Primary Language : Rwandan Preferred Communication Mode : Verbal Communication Barrier : None Strategic Planning Analyst Needed : No JOAO BAKER RN - [...] Rarely moist Steve Activity : Walks frequently Steev Mobility : No limitation Steve Nutrition : [...] Mental Status : Oriented to own ability Elliosn Fall Risk Score : 20 ELLISON Fall Scale Risk Level : 0-24 Low Risk [place] Fall Interventions : Adequate lighting, Assistive devices [...] Description 04/28/2026 8:30 AM EDT Office Visit [facility] Electrophysiology [address] [place] [address] Ranjan Talley MD [address] [facility] [address] [place] [address] documented as of this encounter Visit Diagnoses Not on filedocumented in this encounter Care Teams Plaster Pattern Caster Relationship Specialty Start Date End Date Lucía Roman APRN [address] [place], [place] [phone] PCP - General Nurse Practitioner 04/25/23 Ranjan Talley MD [address] [place] [address] Barber Stylist Electrophysiology 08/17/24 documented as of this encounter
--- OUTSIDE RECORDS SUMMARY | 2025-09-22 14:55 | XMS_ITS | Encounter Summary ---
Author Organization [employer] ([place], [place], [place], [place], [place]) Address [address] [place] [address] Care Team Providers Care Hall Porter Name Role Phone Lucía Roman APRN Primary Care Provider Ranjan Talley MD Unavailable Encounter Details Date Type Department Care Team (Late st Contact Info) Description 08/02/2021 Transcribed Document [facility] [place] Family [place] [facility] [place] [address] ProviderSharla MD [address] [place] [address] [phone] Social History Tobacco Use Types Packs/Day Years [...] EDT Pain Scale Intensity : 3 Kary Haskins, RN - 08/03/2021 6:44 EDT Image 4 - Images currently included in the form version of this document have not been included in the text rendition version of the form. documented in this encounter Plan of Treatment Upcoming Encounters Date Type Department Care Team (Late st Contact Info) Description 04/28/2026 8:30 AM EDT Office Visit [facility] Electrophysiology [address] [place], [place] [phone] Ranjan Talley MD [address] [place] [address] [place] [address] documented as of this encounter Visit Diagnoses Not on filedocumented in this encounter Care Teams Hall Porter Relationship Specialty Start Date End Date Lucía Roman, METAL GRADER [address] [place] [address] PCP - General Nurse Practitioner 04/25/23 Ranjan Talley MD [address] [place] [address] [address] Tumbling Instructor Electrophysiology 08/17/24 documented as of this encounter
--- OUTSIDE RECORDS SUMMARY | 2025-09-22 14:55 | XMS_ITS | Encounter Summary ---
Author Organization [employer] ([place], [place], [place], [place], [place]) Address [address] [facility] [address] Care Team Providers Care Stamping Die Maker Name Role Phone Lucía Roman APRN Primary Care Provider Ranjan Talley MD Unavailable Encounter Details Date Type Department Care Team (Late st Contact Info) Description 08/02/2021 Transcribed Document [facility] [place] Family Medicine [facility] [place] [address] ProviderSharla MD [address] [place] [address] [phone] Social History Tobacco Use Types Packs/Day Years [...] Age: 66 Years Sex: Female : 1955 Machine Bunch Maker: Ranjan Talley MD Indication: 65 year old [...] EDT Office Visit [facility] Electrophysiology [address] [place] [phone] Ranjan Talley MD [address] [facility] [address] [place] [address] documented as of this encounter Visit Diagnoses Not on filedocumented in this encounter Care Teams Stamping Die Maker Relationship Specialty Start Date End Date Lucía Roman, IP PARALEGAL [address] [place] [address] PCP - General Nurse Practitioner 04/25/23 Ranjan Talley MD [address] [facility] [address] [place] [address] Addiction Treatment Counselor Electrophysiology 08/17/24 documented as of this encounter
--- OUTSIDE RECORDS SUMMARY | 2025-09-22 14:55 | XMS_ITS | Encounter Summary ---
Author Organization [employer] ([place], [place], [place], [place], [place]) Address [address] [place] [address] Care Team Providers Care Ribbon Winder Name Role Phone Lucía Roman APRN Primary Care Provider Ranjan Talley MD Unavailable Encounter Details Date Type Department Care Team (Late st Contact Info) Description 08/03/2021 Transcribed Document [facility] [place] [facility] [place] [address] ProviderSharla MD [address] [place] [address] [phone] Social History Tobacco Use Types Packs/Day Years Used Date Smoking Tobacco: Never Assessed Comments Unknown Sex and Gender Information Value Date Recorded Sex Assigned at Not on file Legal Sex Female 5:07 PM CDT Gender Identity Not on file Sexual Orientation Not on file documented as of this encounter Miscellaneous Notes * Cerner Conversion Note - Sharla ProviderMD - 08/03/2021 2:41 PM CDT Nursing [...] - 08/03/2021 14:41 EDT Electronically signed by [facility] Conversion Vpk Teacher Cerner at 02/26/2023 4:29 PM CDT documented in this encounter Plan of Treatment Upcoming Encounters Date Type Department Care Team (Late st Contact Info) Description 04/28/2026 8:30 AM EDT Office Visit [facility] Electrophysiology [address] [place] [address] Ranjan Talley MD [address] [place] [address] [place] [address] documented as of this encounter Visit Diagnoses Not on filedocumented in this encounter Care Teams Ribbon Winder Relationship Specialty Start Date End Date Lucía Roman, TITO [address] [place] [address] [address] PCP - General Nurse Practitioner 04/25/23 Ranjan Talley MD [address] [place] [address] Director Medical Writing Electrophysiology 08/17/24 documented as of this encounter
--- OUTSIDE RECORDS SUMMARY | 2025-09-22 14:55 | XMS_ITS | Clinical Summary ---
[facility] Organization [facility] Address [address] [place] [address] Care Team Providers Care Operating Room Nurse Name Role Phone Provider, No Known Primary [...] 2005 ZOSTER VACCINE (1 of 2) 2005 INFLUENZA VACCINE 06/11/2025 COVID-19 Vaccine ( - season) 2025 Insurance MEDICARE A & B Care Teams Operating Room Nurse Relationship Specialty Start Date End Date Provider, No Known [facility] [place] [address] PCP - General 08/13/19
--- OUTSIDE RECORDS SUMMARY | 2025-09-22 14:55 | XMS_ITS | Encounter Summary ---
Author Organization [employer] ([place], [place], [place], [place], [place]) Address [address] [place] [address] Care Team Providers Care Instructor Of Nursing Name Role Phone Lucía Roman APRN Primary Care Provider Ranjan Talley MD Unavailable Encounter Details Date Type Department Care Team (Late st Contact Info) Description 08/02/2021 Transcribed Document [facility] [place] [facility] [address] ProviderSharla MD [address] [place] [phone] Social History Tobacco Use Types Packs/Day Years [...] David Support Person/Pt Rep Contact Information : [phone] Want Family/Rep/Phys Notified of Admit : No Emergency Contact #1 : Nichole Emergency Contact #1 Phone Number : daughter Emergency Contact #1 Relationship : [phone] Emergency Contact #2 : none Emergency Contact #2 Phone Number : none Emergency Contact #2 Relationship : none Primary Language : South African Preferred Communication Mode : Verbal Communication Barrier : None Window Decorator Needed : No TAVARES CARROLL RN - [...] Scale Risk Level : 0-24 Low Risk [place] Fall Interventions : Bed in low position, [...] Source : Stated Height Entry Format : [place] Height, Feet : 5 ft(Converted to: 152 cm, 60 Inch) Height, Inches : 1 Inch(Converted to: 0 ft 1 Inch, 2.54 cm) Clinical Height : 154.94 cm Weight Source : Standing scale Weight Entry Format : [place] Clinical Dosing Weight : 89.09 kg Weight, Pounds : 196 lb Body Surface Area (BSA) : 1.87 m2 Body Mass Index : 37.1 kg/m2 (HI) [place] Body Weight : 47 kg TAVARES CARROLL [...] TAVARES CARROLL RN - 08/02/2021 16:50 EDT [place] Suicide Severity Rating Scale (C-SSRS) CSSRS Past [...] Office Visit [facility] Electrophysiology [address] [place] [address] Ranjan Talley MD [address] [place] [address] [address] [place] [address] documented as of this encounter Visit Diagnoses Not on filedocumented in this encounter Care Teams Instructor Of Nursing Relationship Specialty Start Date End Date Lucía Roman, INSULATION INSTALLER [address] [place] [address] PCP - General Nurse Practitioner 04/25/23 Ranjan Talley MD [address] [place] [address] Human Projectile Electrophysiology 08/17/24 documented as of this encounter
--- OUTSIDE RECORDS SUMMARY | 2025-09-22 14:55 | XMS_ITS | Referral Summary ---
Author Organization [employer] ([place], [place], [place], [place], [place]) Address [address] [place] [address] Care Team Providers Care Professional Development Director Name Role Phone Lucía Roman APRN Primary Care Provider Ranjan Talley MD Unavailable Encounters Date Type Department Care Team Description 09/20/2025 3:00 AM EST Clinical Support [facility] Electrophysiology [address] [place], [place] [phone] Ranjan Talley MD Encounter for adjustment or management of cardiac device (Primary Dx) 08/19/2025 3:00 AM EDT Clinical Support [facility] Electrophysiology [address] [place], [place] [phone] Ranjan Talley MD Encounter for adjustment or management of cardiac device (Primary Dx) 08/16/2025 Telephone [facility] Electrophysiology [address] [place], [place] [phone] Ranjan Talley MD Medication Refill 07/19/2025 3:00 AM EDT Clinical Support [facility] Electrophysiology [address] [place] [address] Ranjan Talley MD Encounter for adjustment or management of cardiac device (Primary Dx) 06/28/2025 3:00 AM EDT Clinical Support [facility] Electrophysiology [address] [place] [address] Ranjan Talley MD Encounter for adjustment [...] mouth daily with dinner. 90 tablet 3 Active Active Problems Problem Noted Date Diagnosed [...] Date Wicho rded Speak language other than Guyanese at home Not on file 11/19/2023 Want [...] [facility] Electrophysiology [address] [place], [place] [phone] Ranjan Talley MD [address] [place] [address] [address] [place] [address] Medical Devices Implanted Type Area Woods Manager Device Identifier Shelf Expiration Date Model / Serial / Lot Icd-08/06/2016 Implanted: (Quantity not on file) ICD [employer] 2411-36 / [id number] / Description:DEPENDENT Defib [place] Vr Df-1 [id number] - [id number] Implanted:Qty : 1 on 12/28/2024 at [facility] PACEMAKER/ ICD BI VALVE DEVICE Chest Wall GRIMM LAB:VASC DEV [id number] / / Insurance [facility] MEDICARE HMO Advance Directives For more information, please contact: [phone] Documents on File Type Date Recorded Patient Accounting Policy Consultant Expl anation Advance Directives and Livin g Will 06/25/2023 6:35 AM * Full Code (Latest Code Status on File) Date Activated Date Inactivated Comments 12/28/2024 3:46 PM 12/29/2024 4:27 AM * Full Code Date Activated Date Inactivated Comments 12/28/2024 11:51 AM 12/28/2024 3:46 PM Care Teams Professional Development Director Relationship Specialty Start Date End Date Lucía Roman APRN [address] [place] [address] PCP - General Nurse Practitioner 04/25/23 Ranjan Talley MD [address] [facility] [address] [place] [address] School Athletic Director Electrophysiology 08/17/24
--- OUTSIDE RECORDS SUMMARY | 2025-09-22 14:55 | XMS_ITS | Encounter Summary ---
Author Organization [employer] ([place], [place], [place], [place], [place]) Address [address] [place] [address] Care Team Providers Care Emery Wheel Worker Name Role Phone Lucía Roman APRN Primary Care Provider [phone] Ranjan Talley MD Unavailable Encounter Details Date Type Department Care Team (Late st Contact Info) Description 08/03/2021 Transcribed Document [facility] [place] Family Medicine [address] [place] [address] ProviderSharla MD [address] [place], [place] [phone] Social History Tobacco Use Types Packs/Day Years [...] include vitamins, herbs, eye drops, creams, and fqfe-gyn-mfcdoun medicines. ??? Any problems you or family [...] provider. Document Revised: 09/29/2020 Document Reviewed: 09/29/2020 [employer] Patient Education ? 2020 [employer]. Cardiac Ablation, Care After This sheet gives [...] and water are not available, use hand security rover. ? Change your dressing as told by [...] safe for you. General instructions ??? Take tcbx-itg-kwqfubm and prescription medicines only as told by [...] provider. Document Revised: 09/05/2020 Document Reviewed: 09/05/2020 [employer] Patient Education ? 2020 [employer] documented in this encounter Plan of Treatment Upcoming Encounters Date Type Department Care Team (Late st Contact Info) Description 04/28/2026 8:30 AM EDT Office Visit [address] [address] Ranjan Talley MD [address] [facility] [address] [place] [address] documented as of this encounter Visit Diagnoses Not on filedocumented in this encounter Care Teams Emery Wheel Worker Relationship Specialty Start Date End Date Lucía Roman, SETUP TECHNICIAN [address] [place] [address] PCP - General Nurse Practitioner 04/25/23 Ranjan Talley MD [address] [facility] [address] [place] [address] Bobbin Handler Electrophysiology 08/17/24 documented as of this encounter
--- OUTSIDE RECORDS SUMMARY | 2025-09-22 14:55 | XMS_ITS | Encounter Summary ---
Author Organization [employer] ([place], [place], [place], [place], [place]) Address [address] [place] [address] Care Team Providers Care Ferry Terminal Agent Name Role Phone RomanLucía crisostomo TITO Primary Care Provider Ranjan Talley MD Unavailable Reason for Visit * Reason Onset Date Comments Medication Refill Medication Refill 01/03/2023 Encounter Details Date Type Department Care Team (Late st Contact Info) Description 01/02/2023 Telephone [facility] Electrophysiology [address] [place] [phone] Ranjan Talley MD [address] [place] [address] [address] [place] [phone] Medication Refill; Medication Refill Social History Tobacco [...] Gabe Strickland RN completed this on 01/03/2023 DING CUSTODIAN * Telephone Encounter - Lizbeth Bradley - 01/03/2023 8:31 AM EST PT Calling needs refill on her Potassium Chloride DING CUSTODIAN documented in this encounter Plan of Treatment Upcoming Encounters Date Type Department Care Team (Late st Contact Info) Description 04/28/2026 8:30 AM EDT Office Visit [facility] Electrophysiology [address] [place] [phone] Ranjan Talley MD [address] [place] [address] [place] [phone] documented as of this encounter Visit Diagnoses Diagnosis Ischemic cardiomyopathy with implantable cardioverter-defibrillator (ICD)- Primary documented in this encounter Care Teams Ferry Terminal Agent Relationship Specialty Start Date End Date Lucía Roman, PHILOSOPHY AND RELIGION INSTRUCTOR [address] [address] PCP - General Nurse Practitioner 04/25/23 Ranjan Talley MD [address] [place] [address] [phone] Operations Associate Electrophysiology 08/17/24 documented as of this encounter
--- OUTSIDE RECORDS SUMMARY | 2025-09-22 14:55 | XMS_ITS | Encounter Summary ---
Author Organization [employer] ([place], [place], [place], [place], [place]) Address [address] [place] [address] Care Team Providers Care Senior Net C Developer Name Role Phone Lucía Roman APRN Primary Care Provider Ranjan Talley MD Unavailable Encounter Details Date Type Department Care Team (Late st Contact Info) Description 08/03/2021 Transcribed Document [facility] [place] Family Medicine [facility] [place] [address] ProviderSharla MD [address] [place] [address] [phone] Social History Tobacco Use Types Packs/Day Years [...] Spiritual Care Spiritual Care Referred by : School Cook follow-up Reason for Visit : Follow Up Ministry Provided to : Patient Intervention/Comment/Summary Points : Post-op visit. Provided active listening and spiritual support. Patient anticipates discharge today. DANIEL HOWARD - 08/03/2021 14:11 EDT documented in this encounter Plan of Treatment Upcoming Encounters Date Type Department Care Team (Late st Contact Info) Description 04/28/2026 8:30 AM EDT Office Visit [facility] Electrophysiology [address] [place] [phone] [place] [address] [place] [address] [address] [place] [phone] documented as of this encounter Visit Diagnoses Not on filedocumented in this encounter Care Teams Senior Net C Developer Relationship Specialty Start Date End Date Lucía Roman, HOTEL CONCIERGE [address] [place] [address] PCP - General Nurse Practitioner 04/25/23 [place] [address] [place] [address] [address] [place] [address] Cancer Program Consultant Electrophysiology 08/17/24 documented as of this encounter
--- OUTSIDE RECORDS SUMMARY | 2025-09-22 14:55 | XMS_ITS | Encounter Summary ---
Author Organization [employer] ([place], [place], [place], [place], [place]) Address [address] [place] [facility] [place] [address] Care Team Providers Care Vinyl Installer Name Role Phone Lucía Roman APRN Primary Care Provider Hernandez Talley MD Unavailable Encounter Details Date Type Department Care Team (Late st Contact Info) Description 08/03/2021 Transcribed Document [facility] [place] Family [place] [facility] [place] [address] ProviderSharla MD [address] [place] [address] [phone] Social History Tobacco Use Types Packs/Day Years [...] Ben Cardiology Discharge Note - EP Primary Mechanical Facilities Technician: PCP: Lucía Roman Consults: NONE History of [...] Normal range of motion. Integumentary: Warm, Dry, Cal[place]. Bilateral groins stable no hematoma or bleeding. [...] PCP in 5 - 7 days. Primary Mechanical Facilities Technician in [address] Talley in 1 month Patient has been instructed on and verbalized an understanding of the above discharge instructions. Plan has been discussed and is in agreement with Dr. Gerri Velasco RN documenting for Dr. Talley Electronically signed by Simon Bell Conversion [employer]iconductor Wafers Etch Operator Cerner at 02/26/2023 4:33 PM CDT documented in this encounter Plan of Treatment Upcoming Encounters Date Type Department Care Team (Late st Contact Info) Description 04/28/2026 8:30 AM EDT Office Visit [facility] Electrophysiology [address] [place] [phone] Hernandez Talley MD [address] [facility] [address] [place], [place] [phone] documented as of this encounter Visit Diagnoses Not on filedocumented in this encounter Care Teams Vinyl Installer Relationship Specialty Start Date End Date Lucía Roman, TRIM INSTALLER [address] [place] [address] PCP - General Nurse Practitioner 04/25/23 Hernandez Talley MD [address] [facility] [address] [place] [address] Mechanical Facilities Technician Electrophysiology 08/17/24 documented as of this encounter
--- OUTSIDE RECORDS SUMMARY | 2025-09-22 14:55 | XMS_ITS | Encounter Summary ---
Author Organization [employer] ([place], [place], [place], [place], [place]) Address [address] [place] [address] Care Team Providers Care City Routeman Name Role Phone Lucía Roman APRN Primary Care Provider Ranjan Talley MD Unavailable Encounter Details Date Type Department Care Team (Late st Contact Info) Description 08/02/2021 Transcribed Document [facility] [place] [facility] [place] [address] Sharla Robledo MD [address] [place] [address] Social History Tobacco Use Types Packs/Day [...] On: 08/02/2021 20:10 EDT by Chidi Medina Plant Breeder Cert Lead Meds to Bed Enrollment Patient Enrollment Decision: : Yes/enroll in meds to bed program Chidi Medina Plant Breeder Cert Lead - 08/03/2021 9:02 EDT documented in this encounter Plan of Treatment Upcoming Encounters Date Type Department Care Team (Late st Contact Info) Description 04/28/2026 8:30 AM EDT Office Visit [facility] Electrophysiology [address] [place] [address] Ranjan Talley MD [address] [facility] [address] [place] [phone] documented as of this encounter Visit Diagnoses Not on filedocumented in this encounter Care Teams City Routeman Relationship Specialty Start Date End Date Lucía Roman, DIRECTOR OF COUNTERINTELLIGENCE [address] [place] [address] PCP - General Nurse Practitioner 04/25/23 Ranjan Talley MD [address] [facility] [address] [place], [place] [id number] Assembly Loader Electrophysiology 08/17/24 documented as of this encounter
--- OUTSIDE RECORDS SUMMARY | 2025-09-22 14:55 | XMS_ITS | Encounter Summary ---
Author Organization [employer] ([place], [place], [place], [place], [place]) Address [address] [place] [address] Care Team Providers Care Passenger Vessel Chef Name Role Phone RomanLucía crisostomo TITO Primary Care Provider Ranjan Talley MD Unavailable Reason for Visit * Reason Onset Date Comments Medication Refill 08/16/2025 Encounter Details Date Type Department Care Team (Late st Contact Info) Description 08/16/2025 Telephone [facility] Electrophysiology [address] [place] [phone] Ranjan Talley MD [address] [place] [address] [address] [place] [address] Medication Refill Social History Tobacco Use Types [...] Date Wicho rded Speak language other than Romanian at home Not on file 11/19/2023 Want [...] encounter Miscellaneous Notes * Telephone Encounter - Olive Reid - 08/16/2025 1:25 PM EDT [facility] [place] * Telephone Encounter - Bhargavi Khan - 08/16/2025 1:00 PM EDT Patient requesting a 90 days supply of the xarelto be send to [facility] [place] documented in this encounter Plan of Treatment Upcoming Encounters Date Type Department Care Team (Late st Contact Info) Description 04/28/2026 8:30 AM EDT Office Visit [facility] Electrophysiology [address] [place], [place] [phone] Ranjan Talley MD [address] [place] [address] documented as of this encounter Visit Diagnoses Diagnosis Ischemic cardiomyopathy with implantable cardioverter-defibrillator (ICD) documented in this encounter Care Teams Passenger Vessel Chef Relationship Specialty Start Date End Date Lucía Roman APRN [address] [address] PCP - General Nurse Practitioner 04/25/23 Ranjan Talley MD [address] [place] [address] [place] [address] Triple Drum Operator Electrophysiology 08/17/24 documented as of this encounter
--- OUTSIDE RECORDS SUMMARY | 2025-09-22 14:55 | XMS_ITS | Encounter Summary ---
Author Organization [employer] ([place], [place], [place], [place], [place]) Address [address] [place] [address] Care Team Providers Care Air Brake Man Name Role Phone Lucía Roman APRN Primary Care Provider Ranjan Talley MD Unavailable Encounter Details Date Type Department Care Team (Late st Contact Info) Description 08/03/2021 Transcribed Document [facility] [place] [address] [place] [address] ProviderSharla MD [address] [place] [phone] Social History Tobacco Use Types Packs/Day Years [...] Referral(s) Listed Discharge To Care Management : Home/Residential/Residential or Self Care -01 STEFAN CORONADO RN-Care Management - 08/03/2021 11:24 EDT Final Narrative Note Final Narrative Note : OPA-Cardiac ablation, ICD reprogramming, pulmonary vein isolation, Isuprel infusion and LV pacing. Pt. DC to home, no CM orders, Nursing to schedule f/u appointments. STEFAN CORONADO RN-Care Management - 08/03/2021 11:24 EDT Electronically signed by [facility] Conversion Cardiac Rehabilitation Program Director Cerner at 02/26/2023 4:36 PM CDT documented in this encounter Plan of Treatment Upcoming Encounters Date Type Department Care Team (Late st Contact Info) Description 04/28/2026 8:30 AM EDT [facility]iology [address] [place], [place] [phone] Ranjan Talley MD [address] [place] [address] [address] [place] [address] documented as of this encounter Visit Diagnoses Not on filedocumented in this encounter Care Teams Air Brake Man Relationship Specialty Start Date End Date Lucía Roman, SHREDDER/GRANULATOR OPERATOR [address] [address] PCP - General Nurse Practitioner 04/25/23 Ranjan Talley MD [address] [place] [address] [address] [place] [phone] Shortage Worker Electrophysiology 08/17/24 documented as of this encounter
--- OUTSIDE RECORDS SUMMARY | 2025-09-22 14:55 | XMS_ITS | Clinical Summary ---
Author Organization [facility] Address [address] [facility] [address] [place] [address] Phone Care Team Providers Care Receptionist Airline Lounge Name Role Phone Wally POLLACK, Branden Rai [ ] Conditions or Problems Problem Name Problem Code Onset Date Status Entry Date Provider Comment Standard Description Annotate ACUTE RESPIRATORY FAILURE 26596300 (SNOMED CT) 11/18 Active 11/18 Joyce Koo Acute respiratory failure ELEVATED LFTS 781843549 (SNOMED CT) 11/18 Active 11/18 Joyce Koo Liver function tests outside reference range ANEMIA 151436102 (SNOMED CT) 11/18 Active 11/18 Joyce Koo Anemia LEUKOCYTOSIS 134600624 (SNOMED CT) 11/18 Active 11/18 Joyce Koo Leukocytosis PNEUMONIA 195468491 (SNOMED CT) 11/18 Active 11/18 Joyce Koo Pneumonia PULMONARY INFILTRATE 20453238 (SNOMED CT) 11/18 Active 11/18 Joyce Koo Disorder of lung PLEURAL EFFUSION 47471856 (SNOMED CT) 11/18 Active 11/18 Joyce Koo Pleural effusion CAD 68149934 (SNOMED CT) 11/18 Active 11/18 Joyce Koo Coronary arteriosclerosis HX OF CABG 136733828 (SNOMED CT) 11/18 Active 11/18 Joyce Koo History of coronary artery bypass grafting Medications Medication Instructions Start Date Stop Date Generic Name NDC Provider LISINOPRIL 10 MG TABS p.o. b.i.d. 5 LISINOPRIL 27385761962 Jozef Omer DIGOXIN 125 MCG TABS p.o. daily 5 DIGOXIN 37317442080 Jozef Omer CARVEDILOL 3.125 MG TABS p.o. b.i.d. 5 CARVEDILOL 60609890435 Jozef Omer LIPITOR 40 MG TABS 2 tabs p.o. at bedtime 5 ATORVASTATIN CALCIUM 71415403517 Jozef Omer ASPIRIN 81 MG ORAL TABLET p.o. daily 5 ASPIRIN 79122703075 Jozef Omer NORVASC 5 MG TABS p.o. b.i.d. 5 AMLODIPINE BESYLATE 36850931812 Jozef Omer Medications Administered No information available. [...]
--- OUTSIDE RECORDS SUMMARY | 2025-09-22 14:55 | XMS_ITS | Encounter Summary ---
Author Organization [employer] ([place], [place], [place], [place], [place]) Address [address] [place] [address] Care Team Providers Care Head Of It Name Role Phone Lucía Roman APRN Primary Care Provider Ranjan Talley MD Unavailable Encounter Details Date Type Department Care Team (Late st Contact Info) Description 08/02/2021 Transcribed Document [facility] [place] [facility] [place] [address] ProviderSharla MD [address] [place] [address] Social History Tobacco Use Types Packs/Day [...] Jolly CUELLO on 4IC. Pt transferred to [facility] via wheelchair with all belongings. TAVARES CARROLL RN - 08/02/2021 19:51 EDT Electronically signed by [facility] Conversion Weapons Electrical Engineering Officer Cerner at 02/26/2023 4:46 PM CDT documented in this encounter Plan of Treatment Upcoming Encounters Date Type Department Care Team (Late st Contact Info) Description 04/28/2026 8:30 AM EDT Office Visit [facility] Electrophysiology [address] [place] [address] [place] [address] [place] [address] [address] [place] [address] documented as of this encounter Visit Diagnoses Not on filedocumented in this encounter Care Teams Head Of It Relationship Specialty Start Date End Date Lucía Roman, TITLE ONE TEACHER [address] [place] [address] PCP - General Nurse Practitioner 04/25/23 [place] [address] [place] [address] [address] Office Automation Clerk Electrophysiology 08/17/24 documented as of this encounter
--- OUTSIDE RECORDS SUMMARY | 2025-09-22 14:56 | XMS_ITS | Encounter Summary ---
Author Organization [employer] ([place], [place], [place], [place], [place]) Address [address] [place] [address] Care Team Providers Care Sole Cutter Name Role Phone Lucía Roman APRN Primary Care Provider Ranjan Talley MD Unavailable Encounter Details Date Type Department Care Team (Late st Contact Info) Description 08/03/2021 Transcribed Document [facility] [place] [facility] [place] [address] ProviderSharla MD [address] [place] [phone] Social History Tobacco Use Types Packs/Day Years [...] - 08/03/2021 14:15 EDT Electronically signed by [facility], [facility] Conversion Pulmonary Function Technologist Cerner at 02/26/2023 4:38 PM CDT documented in this encounter Plan of Treatment Upcoming Encounters Date Type Department Care Team (Late st Contact Info) Description 04/28/2026 8:30 AM EDT Office Visit [facility] Electrophysiology [address] [place] [phone] Ranjan Talley MD [address] [place] [address] [place] [phone] documented as of this encounter Visit Diagnoses Not on filedocumented in this encounter Care Teams Sole Cutter Relationship Specialty Start Date End Date Lucía Roman, ROD HANGER [address] [place] [address] PCP - General Nurse Practitioner 04/25/23 Ranjan Talley MD [address] [place] [address] [address] Real Estate Services Administrator Electrophysiology 08/17/24 documented as of this encounter
--- OUTSIDE RECORDS SUMMARY | 2025-09-22 14:56 | XMS_ITS | Encounter Summary ---
Author Organization [employer] ([place], [place], [place], [place], [place]) Address [address] [place] [address] Care Team Providers Care Automobile Lights Assembler Name Role Phone Lucía Roman APRN Primary Care Provider Ranjan Talley MD Unavailable Encounter Details Date Type Department Care Team (Late st Contact Info) Description 08/03/2021 Transcribed Document [facility] [place] [facility] [place] [address] ProviderSharla MD [address] [place] [address] Social History Tobacco Use Types Packs/Day [...] Description 04/28/2026 8:30 AM EDT Office Visit [facility] Electrophysiology [address] [place] [address] Ranjan Talley MD [address] [facility] [address] [place] [address] documented as of this encounter Visit Diagnoses Not on filedocumented in this encounter Care Teams Automobile Lights Assembler Relationship Specialty Start Date End Date Lucía Roman, MENS LOCKER ROOM ATTENDANT [address] [address] PCP - General Nurse Practitioner 04/25/23 Ranjan Talley MD [address] [facility] [address] [place] [address] Pulp Machine Operator Electrophysiology 08/17/24 documented as of this encounter
--- OUTSIDE RECORDS SUMMARY | 2025-09-22 14:56 | XMS_ITS | Encounter Summary ---
Author Organization [employer] ([place], [place], [place], [place], [place]) Address [address] [place] [address] Care Team Providers Care Melt Down Furnace Operator Name Role Phone Abel Lucíasheryl FRANCIS Primary Care Provider Ranjan Talley MD Unavailable Encounter Details Date Type Department Care Team (Late st Contact Info) Description 08/03/2021 Transcribed Document [facility] Family Medicine [address] [place] [address] ProviderSharla MD [address] [place] [address] Social History Tobacco Use Types Packs/Day [...] Robledo MD - 08/03/2021 2:42 PM CDT [facility] [place], [place] [id number] ANDREW MITZI M :1955 Visit Time:08/02/2021 Your Visit Summary Your Care Team Admitting Physician - RANJAN TALLEY MD-CAR Attending Physician - RANJAN TALLEY MD-CAR Primary Care Physician - DARREL BELL MD-HILDA Referring Physician - RANJAN TALLEY MD-CAR These [...] TALLEY When 09/05/2021 08:30 AM EDT Where: [address] [place] [address] [place] [address]- Business (1) Medications What How Much When [...] include vitamins, herbs, eye drops, creams, and glpp-auo-ydijase medicines. ??? Any problems you or family [...] provider. Document Revised: 09/29/2020 Document Reviewed: 09/29/2020 [employer] Patient Education ?? 2020 [employer] Cardiac Ablation, Care After This sheet [...] and water are not available, use hand grocery specialist. ? Change your dressing as told by [...] safe for you. General instructions ??? Take hrno-yeq-gnunksq and prescription medicines only as told by [...] provider. Document Revised: 09/05/2020 Document Reviewed: 09/05/2020 [employer] Patient Education ?? 2020 [employer]. potassium chloride (oral/injection) (denny TASS ee um) [...] may report side effects to FDA at 5-088-WBM-8320. What other drugs will affect potassium chloride? Tell your doctor about all your other medicines, especially: ?? medicine to prevent organ transplant rejection; ?? a diuretic or 'water pill'; or ?? heart or blood pressure medication. This list is not complete. Other drugs may affect potassium chloride, including prescription and dhlr-hcx-tejiauu medicines, vitamins, and herbal products. Not all [...] to ensure that the information provided by [employer]. ('[employer]') is accurate, up-to-date, and complete, but no guarantee is made to that effect. Drug information contained herein may be time sensitive. [employer] information has been compiled for use by healthcare practitioners and consumers in the [place] and therefore [employer] does not warrant that uses outside of the [place] are appropriate, unless specifically indicated otherwise. [employer] drug information does not endorse drugs, diagnose patients or recommend therapy. [employer] drug information is an informational resource designed [...] effective or appropriate for any given patient. [employer] does not assume any responsibility for any aspect of healthcare administered with the aid of information [employer] provides. The information contained herein is not intended to cover all possible uses, directions, precautions, warnings, drug interactions, allergic reactions, or adverse effects. If you have questions about the drugs you are taking, check with your doctor, nurse or pharmacist. Copyright 5158-2828 [employer]. Version: 14.01. Revision Date: 04/07/2020. Emergency Awareness [...] Assistance with quitting is available by contacting 8-608-AGYV-NOW. This is a free resource providing counseling, [...] range between ( 0.0 and 7.0 ) Cataño #: 0.64 K/uL -- Normal range between ( 0.16 and 1.00 ) Eos #: 0.10 x10(3)/uL -- Normal range between ( 0.00 and 0.80 ) Cataño %: 10.5 % -- Normal range between [...] Echo Complete: EC Echo Complete Patient Name:MITZI CMDUFFIE I have received and understand this information and was given the opportunity to ask questions. Patient/Product Test Engineer Name: Patient/Product Test Engineer Signature: Relationship to Patient: Clinician/Hospital Product Test Engineer Signature: Date: Electronically signed by [facility], [facility] Conversion Neighborhood Aide Cerner at 02/26/2023 4:37 PM CDT documented in this encounter Plan of Treatment Upcoming Encounters Date Type Department Care Team (Late st Contact Info) Description 04/28/2026 8:30 AM EDT Office Visit [facility] Electrophysiology [address] [place] [phone] Ranjan Talley MD [address] [place] [address] documented as of this encounter Visit Diagnoses Not on filedocumented in this encounter Care Teams Melt Down Furnace Operator Relationship Specialty Start Date End Date Lucía Roman, TURBINE ENGINE ASSEMBLER [address] [address] PCP - General Nurse Practitioner 04/25/23 Ranjan Talley MD [address] [place], [place] [phone] Dry Mill Worker Electrophysiology 08/17/24 documented as of this encounter
--- OUTSIDE RECORDS SUMMARY | 2025-09-22 14:56 | XMS_ITS | Encounter Summary ---
Author Organization [employer] ([place], [place], [place], [place], [place]) Address [address] [place] [address] Care Team Providers Care Manager Drug Name Role Phone Lucía Roman APRN Primary Care Provider Ranjan Talley MD Unavailable Encounter Details Date Type Department Care Team (Late st Contact Info) Description 08/03/2021 Transcribed Document [facility] [place] [address] ProviderSharla MD [address] [place] [phone] Social History Tobacco Use Types Packs/Day Years Used Date Smoking Tobacco: Never Assessed Comments Unknown Sex and Gender Information Value Date Recorded Sex Assigned at Not on file Legal Sex Female 5:07 PM CDT Gender Identity Not on file Sexual Orientation Not on file documented as of this encounter Miscellaneous Notes * Cerner Conversion Note - Sharla Robledo MD - 08/03/2021 12:07 PM CDT UM Authorization Entered On: 08/03/2021 12:07 EDT Performed On: 08/03/2021 12:07 EDT by JESSI ANDREW Rn-Utilization Review Primary Insurance Authorization Authorization and Policy Numbers : Insurance 1 Health Plan: [employer] REPL Policy Number: [id number] Authorization Number: [id number] Insurance Primary Name : [employer] REPL Policy Number: [id number] Observation Authorization Nbr-Primary : [id number] Historical Authorization Comments-Primary : No Authorization Comments Found ROSS, JESSI M, Rn-Utilization Review - 08/03/2021 12:07 EDT Electronically signed by [facility], [facility] Conversion Topographic Computator Cerner at 02/26/2023 4:42 PM CDT documented in this encounter Plan of Treatment Upcoming Encounters Date Type Department Care Team (Late st Contact Info) Description 04/28/2026 8:30 AM EDT Office Visit [facility] Electrophysiology [address] [place] [phone] Ranjan Talley MD [address] [place] [address] [place] [address] documented as of this encounter Visit Diagnoses Not on filedocumented in this encounter Care Teams Manager Drug Relationship Specialty Start Date End Date Lucía Roman, LOGISTICAL ENGINEER [address] [address] PCP - General Nurse Practitioner 04/25/23 Ranjan Talley MD [address] [place], [place] [phone] Office Machines Teacher Electrophysiology 08/17/24 documented as of this encounter
[2025-09-22 15:47] LABS: Cholesterol 113 mg/dl (140-200); HDL Cholesterol 48 mg/dl (40-60); Triglycerides 92 mg/dl (30-150)
[2025-09-22 16:36] LABS: Vitamin B12 430 pg/mL (239-931)
[2025-09-22 17:02] LABS: Hemoglobin A1C 5.5 % (4.0-6.0)
[2025-09-23 13:42] LABS: Testosterone,Total 39 ng/dL (3-67)
[2025-09-23 14:13] LABS: Antinuclear Antibodies (ANA) Negative (Negative)
== END 2025-09-22 23:59 | disposition home or self-care (01) ==
LOC: LAB.DROPOF 14:52
PROVIDERS: PCP Nurse Practitioner Family; Visit Provider Nurse Practitioner Family
DX: L65.9 Nonscarring hair loss, unspecified (principal); E11.9 Type 2 diabetes mellitus without complications; E78.5 Hyperlipidemia, unspecified
CPT/HCPCS: 80061; 82607; 83036; 84402; 84403; 84630

== ENCOUNTER 2025-10-22 09:38 | Outpatient (CLI) | payer MEDICARE, SELFPAY ==
[2025-10-22 14:17] LABS: Chloride 99 mmol/L (98-107); Potassium 5.4 mmoL/L (3.5-5.1); Sodium 139 mmol/L (136-145)
[2025-10-22 14:20] LABS: Alanine Aminotransferase 19 U/L (12-78); Alkaline Phosphatase 94 U/L (38-126); Aspartate Amino Transferase 25 U/L (14-36); Bilirubin,Total 0.6 mg/dl (0.2-1.3); Blood Urea Nitrogen 18 mg/dl (7-17); Calcium 9.3 mg/dl (8.4-10.2); Carbon Dioxide 29 mmol/L (22.0-30.0); Cholesterol 203 mg/dl (140-200); Creatinine,Serum 1.10 mg/dl (0.52-1.04); Estimated Glomerular Filt Rate 49 ml/min (>60); GFR (African American) 59 ML/MIN (>60); Glucose 76 mg/dl (74-100); Total Protein,Serum 7.4 g/dl (6.3-8.2); Triglycerides 118 mg/dl (30-150)
[2025-10-22 14:21] LABS: HDL Cholesterol 47 mg/dl (40-60)
[2025-10-22 14:22] LABS: Anion Gap 16.4 mEq/L (5-15)
[2025-10-22 16:05] LABS: Albumin Level 4.5 g/dl (3.5-5.0); Albumin/Globulin Ratio 1.6 (1.1-1.8); Globulin 2.9 g/dL (1.3-3.2)
== END 2025-10-22 23:59 | disposition home or self-care (01) ==
LOC: LAB.DROPOF 10-25 09:38
PROVIDERS: PCP Nurse Practitioner Family; Visit Provider Nurse Practitioner Family
DX: E78.6 Lipoprotein deficiency (principal)
CPT/HCPCS: 80053; 80061

== ENCOUNTER 2025-11-08 15:40 | Outpatient (CLI) | payer MEDICARE, SELFPAY ==
--- OUTSIDE RECORDS SUMMARY | 2025-08-19 02:00 | XMS_ITS | Encounter Summary ---
Author Organization [employer] ([place], [place], [place], [place], [place]) Address [address] [place] [address] Care Team Providers Care Contracting Analyst Name Role Phone Lucía Roman APRN Primary Care Provider Ranjan Talley MD Unavailable Reason for Visit * Reason Comments Pacemaker /ICD Home Monitoring Encounter Details Date Type Department Care Team (Late st Contact Info) Description 08/19/2025 3:00 AM EDT Clinical Support [facility] Electrophysiology [address] [place] [phone] Ranjan Talley MD [address] [place] [address] [address] [place] [address] Encounter for adjustment or management of cardiac [...] Date Wicho rded Speak language other than Urdu at home Not on file 11/19/2023 Want [...] 04/28/2026 8:30 AM EDT Office Visit [facility] Electrophysiology [address] [place] [phone] Ranjan Talley MD [address] [place] [address] [address] documented as of this encounter Visit Diagnoses Diagnosis Encounter for adjustment or management of cardiac device- Primary documented in this encounter Care Teams Contracting Analyst Relationship Specialty Start Date End Date Lucía Roman, MOTOR POOL CLERK [address] [address] PCP - General Nurse Practitioner 04/25/23 Ranjan Talley MD [address] [place] [address] Document Control Associate Electrophysiology 08/17/24 documented as of this encounter
--- OUTSIDE RECORDS SUMMARY | 2025-09-20 03:00 | XMS_ITS | Encounter Summary ---
Author Organization [employer] ([place], [place], [place], [place], [place]) Address [address] [place] [address] Care Team Providers Care Information Technology Security Analyst Name Role Phone Lucía Roman APRN Primary Care Provider Ranjan Talley MD Unavailable Reason for Visit * Reason Comments Pacemaker /ICD Home Monitoring Encounter Details Date Type Department Care Team (Late st Contact Info) Description 09/20/2025 3:00 AM EST Clinical Support [facility] Electrophysiology [address] [place] [phone] Ranjan Talley MD [address] [place] [address] [address] [place] [address] Encounter for adjustment or management of cardiac [...] Date Wicho rded Speak language other than Frisian at home Not on file 11/19/2023 Want [...] Description 04/28/2026 8:30 AM EDT Office Visit [facility] Electrophysiology [address] [place] [phone] Ranjan Talley MD [address] [place] [address] [place] [phone] documented as of this encounter Visit Diagnoses Diagnosis Encounter for adjustment or management of cardiac device- Primary documented in this encounter Care Teams Information Technology Security Analyst Relationship Specialty Start Date End Date Lucía Roman, CAFETERIA MANAGER [address] [place] [address] PCP - General Nurse Practitioner 04/25/23 Ranjan Talley MD [address] [place] [address] Electronic Engineering Technician Electrophysiology 08/17/24 documented as of this encounter
--- OUTSIDE RECORDS SUMMARY | 2025-09-28 03:00 | XMS_ITS | Encounter Summary ---
Author Organization [employer] ([place], [place], [place], [place], [place]) Address [address] [place] [address] Care Team Providers Care Load Test Mechanic Name Role Phone Lucía Roman APRN Primary Care Provider Ranjan Talley MD Unavailable Reason for Visit * Reason Comments Pacemaker /ICD Home Monitoring Encounter Details Date Type Department Care Team (Late st Contact Info) Description 09/28/2025 3:00 AM EST Clinical Support [facility] Electrophysiology [address] [place] [phone] Ranjan Talley MD [address] [place] [address] [address] [place] [address] Encounter for adjustment or management of cardiac [...] Date Wicho rded Speak language other than Faroese at home Not on file 11/19/2023 Want [...] Description 04/28/2026 8:30 AM EDT Office Visit [facility] Electrophysiology [address] [place] [phone] Ranjan Talley MD [address] [place] [address] [place] [phone] documented as of this encounter Visit Diagnoses Diagnosis Encounter for adjustment or management of cardiac device- Primary documented in this encounter Care Teams Load Test Mechanic Relationship Specialty Start Date End Date Lucía Roman, PLC ENGINEER [address] [place] [address] PCP - General Nurse Practitioner 04/25/23 Ranjan Talley MD [address] [place] [address] Sales And Marketing Analyst Electrophysiology 08/17/24 documented as of this encounter
--- OUTSIDE RECORDS SUMMARY | 2025-10-21 03:00 | XMS_ITS | Encounter Summary ---
Author Organization [employer] ([place], [place], [place], [place], [place]) Address [address] [place] [address] Care Team Providers Care Pipe Fittings Molder Name Role Phone Lucía Roman APRN Primary Care Provider Ranjan Talley MD Unavailable Reason for Visit * Reason Comments Pacemaker /ICD Home Monitoring Encounter Details Date Type Department Care Team (Late st Contact Info) Description 10/21/2025 3:00 AM EST Clinical Support [facility] Electrophysiology [address] [place] [phone] Ranjan Talley MD [address] [place] [address] [address] [place] [address] Encounter for adjustment or management of cardiac [...] Date Wicho rded Speak language other than Belarusian at home Not on file 11/19/2023 Want [...] EDT Office Visit [facility] Electrophysiology [address] [place] [phone] Ranjan Talley MD [address] [place] [address] [place] [phone] documented as of this encounter Visit Diagnoses Diagnosis Encounter for adjustment or management of cardiac device- Primary documented in this encounter Care Teams Pipe Fittings Molder Relationship Specialty Start Date End Date uLcía oRman, CONE PICKER [address] [place] [address] PCP - General Nurse Practitioner 04/25/23 Ranjan Talley MD [address] [place] [address] Leather Patcher Electrophysiology 08/17/24 documented as of this encounter
[2025-11-08 17:43] LABS: Albumin Level 4.8 g/dl (3.5-5.0); Chloride 102 mmol/L (98-107); Potassium 4.5 mmoL/L (3.5-5.1); Sodium 138 mmol/L (136-145)
[2025-11-08 17:46] LABS: Anion Gap 13.5 mEq/L (5-15); Blood Urea Nitrogen 16 mg/dl (7-17); Calcium 10.0 mg/dl (8.4-10.2); Carbon Dioxide 27 mmol/L (22.0-30.0); Creatinine,Serum 1.00 mg/dl (0.52-1.04); Estimated Glomerular Filt Rate 55 ml/min (>60); GFR (African American) 66 ML/MIN (>60); Glucose 77 mg/dl (74-100); Phosphorous 3.8 mg/dl (2.5-4.5)
--- OUTSIDE RECORDS SUMMARY | 2025-11-09 10:04 | XMS_ITS | Clinical Summary ---
Author Organization [facility] Address [address] [place] [address] Care Team Providers Care Credit Risk Modeler Name Role Phone Provider, No Known Primary [...] Insurance MEDICARE A & B Care Teams Credit Risk Modeler Relationship Specialty Start Date End Date Provider, No Known [facility] [place] [address] PCP - General 08/13/19
--- OUTSIDE RECORDS SUMMARY | 2025-11-09 10:04 | XMS_ITS | Clinical Summary ---
Author Organization [facility] Address [address] [facility] [address] [place] [address] Phone Care Team Providers Care Medical Staff Director Name Role Phone Wally POLLACK, Branden Rai [ ] Conditions or Problems Problem Name Problem Code Onset Date Status Entry Date Provider Comment Standard Description Annotate ACUTE RESPIRATORY FAILURE 77581472 (SNOMED CT) 11/18 Active 11/18 Joyce Koo Acute respiratory failure ELEVATED LFTS 144191506 (SNOMED CT) 11/18 Active 11/18 Joyce Koo Liver function tests outside reference range ANEMIA 466906686 (SNOMED CT) 11/18 Active 11/18 Joyce Koo Anemia LEUKOCYTOSIS 405345054 (SNOMED CT) 11/18 Active 11/18 Joyce Koo Leukocytosis PNEUMONIA 298693212 (SNOMED CT) 11/18 Active 11/18 Joyce Koo Pneumonia PULMONARY INFILTRATE 68773494 (SNOMED CT) 11/18 Active 11/18 Joyce Koo Disorder of lung PLEURAL EFFUSION 57757778 (SNOMED CT) 11/18 Active 11/18 Joyce Koo Pleural effusion CAD 30773481 (SNOMED CT) 11/18 Active 11/18 Joyce Koo Coronary arteriosclerosis HX OF CABG 226938919 (SNOMED CT) 11/18 Active 11/18 Joyce Koo History of coronary artery bypass grafting Medications Medication Instructions Start Date Stop Date Generic Name NDC Provider LISINOPRIL 10 MG TABS p.o. b.i.d. 5 LISINOPRIL 16968011095 Jozef Omer DIGOXIN 125 MCG TABS p.o. daily 5 DIGOXIN 66791028820 Jozef Omer CARVEDILOL 3.125 MG TABS p.o. b.i.d. 5 CARVEDILOL 69401298092 Jozef Omer LIPITOR 40 MG TABS 2 tabs p.o. at bedtime 5 ATORVASTATIN CALCIUM 86187026447 Jozef Omer ASPIRIN 81 MG ORAL TABLET p.o. daily 5 ASPIRIN 05722662700 Jozef Omer NORVASC 5 MG TABS p.o. b.i.d. 5 AMLODIPINE BESYLATE 41529433740 Jozef Omer Medications Administered No information available. [...]
--- OUTSIDE RECORDS SUMMARY | 2025-11-09 10:04 | XMS_ITS | Referral Summary ---
Author Organization [employer] ([place], [place], [place], [place], [place]) Address [address] [place] [address] Care Team Providers Care Sat Math Tutor Name Role Phone Lucía Roman APRN Primary Care Provider Ranjan Talley MD Unavailable Encounters Date Type Department Care Team Description 10/21/2025 3:00 AM EST Clinical Support [facility] Electrophysiology [address] [place], [place] [phone] Ranjan Talley MD Encounter for adjustment or management of cardiac device (Primary Dx) 09/28/2025 3:00 AM EST Clinical Support [facility] Electrophysiology [address] [place], [place] [phone] Ranjan Talley MD Encounter for adjustment or management of cardiac device (Primary Dx) 09/20/2025 3:00 AM EST Clinical Support [facility] Electrophysiology [address] [place], [place] [phone] Ranjan Talley MD Encounter for adjustment or management of cardiac device (Primary Dx) 08/19/2025 3:00 AM EDT Clinical Support [facility] Electrophysiology [address] [place] [phone] Ranjan Talley MD Encounter for adjustment or management of cardiac device (Primary Dx) 08/16/2025 Telephone [facility] Electrophysiology [address] [place] [phone] Ranjan Talley MD Medication Refill from Last 3 Months Allergies No known [...] mg total) by mouth daily. 3 Active potassium chloride (KLOR-CON) 20 MEQ tabletIndications:I [...] daily with dinner. 90 tablet 3 Active isosorbide mononitrate (IMDUR) 30 MG 24 hr tabletIndications:P alpitations Take 1 tablet by mouth once daily 90 tablet 4 Active Active Problems Problem Noted Date Diagnosed [...] Date Wicho rded Speak language other than Swiss at home Not on file 11/19/2023 Want [...] EDT Office Visit [facility] Electrophysiology [address] [place], [place] [phone] Ranjan Talley MD [address] [place] [address] [address] [place] [address] Medical Devices Implanted Type Area Glass Maker Device Identifier Shelf Expiration Date Model / Serial / Lot Icd-08/06/2016 Implanted: (Quantity not on file) ICD [employer] 2411-36 / [id number] / Description:DEPENDENT Defib [place] Vr Df-1 [id number] - [id number] Implanted:Qty : 1 on 12/28/2024 at [facility] PACEMAKER/ ICD BI VALVE DEVICE Chest Wall GRIMM LAB:VASC DEV [id number] / / Insurance [employer] MEDICARE HMO Advance Directives For more information, please contact: [phone] Documents on File Type Date Recorded Patient Lumber Press Operator Expl anation Advance Directives and Livin g Will 06/25/2023 6:35 AM * Full Code (Latest Code Status on File) Date Activated Date Inactivated Comments 12/28/2024 3:46 PM 12/29/2024 4:27 AM * Full Code Date Activated Date Inactivated Comments 12/28/2024 11:51 AM 12/28/2024 3:46 PM Care Teams Sat Math Tutor Relationship Specialty Start Date End Date Lucía Roman APRN [address] [place] [address] PCP - General Nurse Practitioner 04/25/23 Ranjan Talley MD [address] [facility] [address] [place] [address] Rivet Maker Electrophysiology 08/17/24
--- OUTSIDE RECORDS SUMMARY | 2025-11-09 10:04 | XMS_ITS | Clinical Summary ---
Author Organization [employer] ([place], [place], [place], [place], [place]) Address [address] [place] [address] Care Team Providers Care Fern Picker Name Role Phone Lucía Roman APRN Primary Care Provider [phone] Ranjan Talley MD Unavailable Allergies No known [...] with dinner. 90 tablet 3 5 Active isosorbide mononitrate (IMDUR) 30 MG 24 hr tabletIndications:P alpitations Take 1 tablet by mouth once daily 90 tablet 4 5 Active Active Problems Problem Noted Date [...] Description 10/21/2025 3:00 AM EST Clinical Support [facility] Electrophysiology [address] [place] [phone] Ranjan Talley MD Encounter for adjustment or management of cardiac device (Primary Dx) 09/28/2025 3:00 AM EST Clinical Support [facility] Electrophysiology [address] [place], [place] [phone] Ranjan Talley MD Encounter for adjustment or management of cardiac device (Primary Dx) 09/20/2025 3:00 AM EST Clinical Support [facility] Electrophysiology [address] [place] [phone] Ranjan Talley MD Encounter for adjustment or management of cardiac device (Primary Dx) 08/19/2025 3:00 AM EDT Clinical Support [facility] Electrophysiology [address] [place] [phone] Ranjan Talley MD Encounter for adjustment or management of cardiac device (Primary Dx) 08/16/2025 Telephone [facility] Electrophysiology [address] [place] [phone] Ranjan Talley MD Medication Refill from Last 3 Months Social History Tobacco [...] Date Wicho rded Speak language other than Djiboutian at home Not on file 11/19/2023 Want [...] AM EDT Office Visit [facility] [address] [place] [phone] Ranjan Talley MD [address] [place] [address] [address] [place] [address] Health Maintenance Due Date Last Done Comments [...] 02/05/2030 02/06/2020 Medical Devices Implanted Type Area Assistant Womens Volleyball Coach Device Identifier Shelf Expiration Date Model / Serial / Lot Icd-08/06/2016 Implanted: (Quantity not on file) ICD [employer] 2411-36 / [id number] / Description:DEPENDENT Defib Drake Vr Df-1 [id number] - [id number] Implanted:Qty : 1 on 12/28/2024 at [facility] PACEMAKER/ ICD BI VALVE DEVICE Chest Wall GRIMM LAB:VASC DEV [id number] / / Insurance [facility] MEDIC[facility] HMO Advance Directives For more information, please contact: [phone] Documents on File Type Date Recorded Patient Seasoner Hand Expl anation Advance Directives and Livin g Will 06/25/2023 6:35 AM * Full Code (Latest Code Status on File) Date Activated Date Inactivated Comments 12/28/2024 3:46 PM 12/29/2024 4:27 AM * Full Code Date Activated Date Inactivated Comments 12/28/2024 11:51 AM 12/28/2024 3:46 PM Care Teams Fern Picker Relationship Specialty Start Date End Date Lucía Roman, TITO [address] [place] [address] PCP - General Nurse Practitioner 04/25/23 Ranjan Talley MD [address] [facility] [place] [address] Body Cleaner Electrophysiology 08/17/24
--- OUTSIDE RECORDS SUMMARY | 2025-11-09 10:04 | XMS_ITS ---
Laboratory report Created on: October 12, 2025 MORALESMITZI : 1955 Sex: Female Author Organization Unknown PROBLEMS Problems List Code Description RESULTS Laboratory Orders Date Order Code Test 2025-03-16 [id number] CORTISOL - AM Laboratory Results Date LOINC Test Value Unit Reference Range Interpre tation 2025-03-16 9813-7 CORTISOL - AM 17.6 UG/DL 6.2-19.4
--- OUTSIDE RECORDS SUMMARY | 2025-11-09 10:04 | XMS_ITS | Encounter Summary ---
Author Organization [employer] ([place], [place], [place], [place], [place]) Address [address] [place] [address] Care Team Providers Care Cargo And Container Inspector Name Role Phone RomanLucía crisostomo TITO Primary Care Provider Ranjan Talley MD Unavailable Reason for Visit * Reason Onset Date Comments Medication Refill Medication Refill 01/03/2023 Encounter Details Date Type Department Care Team (Late st Contact Info) Description 01/02/2023 Telephone [facility] Electrophysiology [address] [place] [phone] Ranjan Talley MD [address] [place] [address] [address] [place] [id number] Medication Refill; Medication Refill Social History Tobacco [...] Gabe Strickland RN completed this on 01/03/2023 F OF STAFF DOCTOR * Telephone Encounter - Lizbeth Bradley - 01/03/2023 8:31 AM EST PT Calling needs refill on her Potassium Chloride F OF STAFF DOCTOR documented in this encounter Plan of Treatment Upcoming Encounters Date Type Department Care Team (Late st Contact Info) Description 04/28/2026 8:30 AM EDT Office Visit [facility] Electrophysiology [address] [place] [phone] Ranjan Talley MD [address] [place] [address] [address] [place] [phone] documented as of this encounter Visit Diagnoses Diagnosis Ischemic cardiomyopathy with implantable cardioverter-defibrillator (ICD)- Primary documented in this encounter Care Teams Cargo And Container Inspector Relationship Specialty Start Date End Date Lucía Roman, STAMPING OPERATOR [address] [address] PCP - General Nurse Practitioner 04/25/23 Ranjan Talley MD [address] [place] [phone] Superintendent Maintenance Electrophysiology 08/17/24 documented as of this encounter
--- OUTSIDE RECORDS SUMMARY | 2025-11-09 10:05 | XMS_ITS | Encounter Summary ---
Author Organization [employer] ([place], [place], [place], [place], [place]) Address [address] [place] [address] Care Team Providers Care Kennel Manager Dog Track Name Role Phone Lucía Roman APRN Primary Care Provider Ranjan Talley MD Unavailable Encounter Details Date Type Department Care Team (Late st Contact Info) Description 08/02/2021 Transcribed Document [facility] [place] Family Medicine [facility] [place] [address] ProviderSharla MD [address] [place] [address] Social History Tobacco Use Types Packs/Day [...] Jolly CUELLO on 4IC. Pt transferred to [facility] via wheelchair with all belongings. TAVARES CARROLL RN - 08/02/2021 19:51 EDT Electronically signed by [facility] Conversion Aircraft Structural Design Engineer Cerner at 02/26/2023 4:46 PM CDT documented in this encounter Plan of Treatment Upcoming Encounters Date Type Department Care Team (Late st Contact Info) Description 04/28/2026 8:30 AM EDT Office Visit [facility] Electrophysiology [address] [place] [address] [place] [address] [place] [address] [address] [place] [address] documented as of this encounter Visit Diagnoses Not on filedocumented in this encounter Care Teams Kennel Manager Dog Track Relationship Specialty Start Date End Date Lucía Roman, INTEGRATED MARKETING INTERN [address] [place] [address] PCP - General Nurse Practitioner 04/25/23 [place] [address] [place] [address] [address] Computer Analyst Supervisor Electrophysiology 08/17/24 documented as of this encounter
--- OUTSIDE RECORDS SUMMARY | 2025-11-09 10:05 | XMS_ITS | Encounter Summary ---
Author Organization [employer] ([place], [place], [place], [place], [place]) Address [address] [place] [address] Care Team Providers Care Traveling Electrician Name Role Phone Lucía Roman APRN Primary Care Provider Rajnan Talley MD Unavailable Encounter Details Date Type Department Care Team (Late st Contact Info) Description 08/02/2021 Transcribed Document [facility] [place] Family Medicine [facility] [place] [address] ProviderSharla MD [address] [place] [address] [phone] Social History Tobacco Use Types Packs/Day Years [...] AM EDT Office Visit [facility] Electrophysiology [address] [place], [place] [phone] Ranjan Talley MD [address] [place] [address] [place] [address] documented as of this encounter Visit Diagnoses Not on filedocumented in this encounter Care Teams Traveling Electrician Relationship Specialty Start Date End Date Lucía Roman, MANAGER ROOFING [address] [place] [address] PCP - General Nurse Practitioner 04/25/23 Ranjan Talley MD [address] [place] [address] [address] Integration Developer Electrophysiology 08/17/24 documented as of this encounter
--- OUTSIDE RECORDS SUMMARY | 2025-11-09 10:05 | XMS_ITS | Encounter Summary ---
Author Organization [employer] ([place], [place], [place], [place], [place]) Address [address] [place] [address] Care Team Providers Care Sql Server Developer Name Role Phone Lucía Roman APRN Primary Care Provider Ranjan Talley MD Unavailable Encounter Details Date Type Department Care Team (Late st Contact Info) Description 08/02/2021 Transcribed Document [facility] [address] Sharla Robledo MD [address] [place] [address] Social History Tobacco Use Types Packs/Day [...] On: 08/02/2021 20:10 EDT by Chidi Medina Police Crime Scene Technician Cert Lead Meds to Bed Enrollment Patient Enrollment Decision: : Yes/enroll in meds to bed program Chidi Medina Police Crime Scene Technician Cert Lead - 08/03/2021 9:02 EDT documented in this encounter Plan of Treatment Upcoming Encounters Date Type Department Care Team (Late st Contact Info) Description 04/28/2026 8:30 AM EDT Office Visit [facility] Electrophysiology [address] [place] [address] Ranjan Talley MD [address] [facility] [address] [place] [phone] documented as of this encounter Visit Diagnoses Not on filedocumented in this encounter Care Teams Sql Server Developer Relationship Specialty Start Date End Date Lucía Roman, FINAL INSPECTOR AND TESTER [address] [place] [address] PCP - General Nurse Practitioner 04/25/23 Ranjan Talley MD [address] [facility] [address] [place], [place] [phone] Forest Management Teacher Electrophysiology 08/17/24 documented as of this encounter
--- OUTSIDE RECORDS SUMMARY | 2025-11-09 10:05 | XMS_ITS ---
Laboratory report Created on: October 12, 2025 MORALESMITZI : 1955 Sex: Female Author Organization Unknown PROBLEMS Problems List Code Description RESULTS Laboratory Orders Date Order Code Test 2025-07-27 [id number] CORTISOL - AM Laboratory Results Date LOINC Test Value Unit Reference Range Interpre tation 2025-07-27 9813-7 CORTISOL - AM 11.5 UG/DL 6.2-19.4
--- OUTSIDE RECORDS SUMMARY | 2025-11-09 10:05 | XMS_ITS | Encounter Summary ---
Author Organization [employer] ([place], [place], [place], [place], [place]) Address [address] [place] [address] Care Team Providers Care Peanut Shaker Name Role Phone Abel Lucíasheryl FRANCIS Primary Care Provider Ranjan Talley MD Unavailable Encounter Details Date Type Department Care Team (Late st Contact Info) Description 08/03/2021 Transcribed Document [facility] [place] [place] Family Medicine [address] [place] [address] ProviderSharla MD [address] [place] [address] Social History Tobacco Use Types Packs/Day [...] Robledo MD - 08/03/2021 2:42 PM CDT [facility] [place], [place] [id number] ANDREW MITZI M :1955 Visit Time:08/02/2021 Your [...] TALLEY When 09/05/2021 08:30 AM EDT Where: [address] [place] [address] [place] [address]- Business (1) Medications What How Much When [...] include vitamins, herbs, eye drops, creams, and yuir-xji-afjcrme medicines. ??? Any problems you or family [...] provider. Document Revised: 09/29/2020 Document Reviewed: 09/29/2020 [employer] Patient Education ?? 2020 [employer] Cardiac Ablation, Care After This sheet [...] and water are not available, use hand batchmaker. ? Change your dressing as told by [...] safe for you. General instructions ??? Take ypsz-vny-uuenvlk and prescription medicines only as told by [...] provider. Document Revised: 09/05/2020 Document Reviewed: 09/05/2020 [employer] Patient Education ?? 2020 Be[employer]. potassium chloride (oral/injection) (denny TASS ee um) [...] may report side effects to FDA at 2-899-ZDR-3036. What other drugs will affect potassium chloride? Tell your doctor about all your other medicines, especially: ?? medicine to prevent organ transplant rejection; ?? a diuretic or 'water pill'; or ?? heart or blood pressure medication. This list is not complete. Other drugs may affect potassium chloride, including prescription and tjsw-adv-gemjtbp medicines, vitamins, and herbal products. Not all [...] to ensure that the information provided by [employer]. ('[employer]') is accurate, up-to-date, and complete, but no guarantee is made to that effect. Drug information contained herein may be time sensitive. [employer] information has been compiled for use by healthcare practitioners and consumers in the [place] and therefore [employer] does not warrant that uses outside of the [place] are appropriate, unless specifically indicated otherwise. [employer] drug information does not endorse drugs, diagnose patients or recommend therapy. [employer] drug information is an informational resource designed [...] effective or appropriate for any given patient. [employer] does not assume any responsibility for any aspect of healthcare administered with the aid of information [employer] provides. The information contained herein is not intended to cover all possible uses, directions, precautions, warnings, drug interactions, allergic reactions, or adverse effects. If you have questions about the drugs you are taking, check with your doctor, nurse or pharmacist. Copyright 4522-4982 [employer]. Version: 14.01. Revision Date: 04/07/2020. Emergency Awareness [...] Assistance with quitting is available by contacting 1-615-SBST-NOW. This is a free resource providing counseling, [...] range between ( 0.0 and 7.0 ) Dolores #: 0.64 K/uL -- Normal range between ( 0.16 and 1.00 ) Eos #: 0.10 x10(3)/uL -- Normal range between ( 0.00 and 0.80 ) Dolores %: 10.5 % -- Normal range between [...] was given the opportunity to ask questions. Patient/Ip Counsel Name: Patient/Ip Counsel Signature: Relationship to Patient: Clinician/Hospital Ip Counsel Signature: Date: Electronically signed by [facility], [facility] Conversion Retail Delivery Driver Cerner at 02/26/2023 4:37 PM CDT documented in this encounter Plan of Treatment Upcoming Encounters Date Type Department Care Team (Late st Contact Info) Description 04/28/2026 8:30 AM EDT Office Visit [facility] Electrophysiology [address] [place] [phone] Ranjan Talley MD [address] [place] [address] documented as of this encounter Visit Diagnoses Not on filedocumented in this encounter Care Teams Peanut Shaker Relationship Specialty Start Date End Date Lucía Roman, CAREER PORTALS TEACHER [address] [address] PCP - General Nurse Practitioner 04/25/23 Ranjan Talley MD [address] [place], [place] [phone] Labor Trainer Electrophysiology 08/17/24 documented as of this encounter
--- OUTSIDE RECORDS SUMMARY | 2025-11-09 10:05 | XMS_ITS | Encounter Summary ---
Author Organization [employer] ([place], [place], [place], [place], [place]) Address [address] [place] [address] Care Team Providers Care Communication Lecturer Name Role Phone Lucía Roman APRN Primary Care Provider Ranjan Talley MD Unavailable Encounter Details Date Type Department Care Team (Late st Contact Info) Description 08/03/2021 Transcribed Document [facility] [facility] [place] [address] ProviderSharla MD [address] [place] [phone] Social History Tobacco Use Types Packs/Day Years [...] - 08/03/2021 14:41 EDT Electronically signed by [facility], [facility] Conversion Board Catcher Cerner at 02/26/2023 4:29 PM CDT documented in this encounter Plan of Treatment Upcoming Encounters Date Type Department Care Team (Late st Contact Info) Description 04/28/2026 8:30 AM EDT Office Visit [facility] Electrophysiology [address] [place] [phone] Ranjan Talley MD [address] [place] [address] [place] [address] documented as of this encounter Visit Diagnoses Not on filedocumented in this encounter Care Teams Communication Lecturer Relationship Specialty Start Date End Date Lucía Roman, TITO [address] [address] PCP - General Nurse Practitioner 04/25/23 Ranjan Talley MD [address] [place] [address] Technical Solutions Consultant Electrophysiology 08/17/24 documented as of this encounter
--- OUTSIDE RECORDS SUMMARY | 2025-11-09 10:05 | XMS_ITS | Encounter Summary ---
Author Organization [employer] ([place], [place], [place], [place], [place]) Address [address] [place] [address] Care Team Providers Care Piece Presser Name Role Phone Lucía Roman APRN Primary Care Provider Ranjan Talley MD Unavailable Encounter Details Date Type Department Care Team (Late st Contact Info) Description 08/03/2021 Transcribed Document [facility] [place] Family Medicine [address] [place] [address] ProviderSharla MD [address] [place], [place] [phone] Social History Tobacco Use Types Packs/Day Years [...] include vitamins, herbs, eye drops, creams, and klwe-kzj-dlpsvdw medicines. ??? Any problems you or family [...] provider. Document Revised: 09/29/2020 Document Reviewed: 09/29/2020 [employer] Patient Education ? 2020 [employer]. Cardiac Ablation, Care After This sheet gives [...] and water are not available, use hand boat repairer. ? Change your dressing as told by [...] safe for you. General instructions ??? Take meem-hdp-tgvuvtw and prescription medicines only as told by [...] provider. Document Revised: 09/05/2020 Document Reviewed: 09/05/2020 ElseM[employer] Patient Education ? 2020 [employer] documented in this encounter Plan of Treatment Upcoming Encounters Date Type Department Care Team (Late st Contact Info) Description 04/28/2026 8:30 AM EDT Office Visit [address] [phone] Ranjan Talley MD [address] [facility] [address] [place] [address] documented as of this encounter Visit Diagnoses Not on filedocumented in this encounter Care Teams Piece Presser Relationship Specialty Start Date End Date Lucía Roman, AREA OPERATIONS MANAGER [address] [place] [address] PCP - General Nurse Practitioner 04/25/23 Ranjan Talley MD [address] [facility] [address] [place] [address] Telesales Specialist Electrophysiology 08/17/24 documented as of this encounter
--- OUTSIDE RECORDS SUMMARY | 2025-11-09 10:05 | XMS_ITS | Encounter Summary ---
Author Organization [employer] ([place], [place], [place], [place], [place]) Address [address] [place] [address] Care Team Providers Care Manager Product Support Name Role Phone Lucía Roman APRN Primary Care Provider Ranjan Talley MD Unavailable Encounter Details Date Type Department Care Team (Late st Contact Info) Description 08/03/2021 Transcribed Document [facility] [place] Family Medicine [address] [place] [address] ProviderSharla MD [address] [place] [address] [phone] Social History Tobacco Use Types Packs/Day Years [...] - 08/03/2021 11:24 EDT Electronically signed by [facility], [facility] Conversion Railway Station Manager Cerner at 02/26/2023 4:36 PM CDT documented in this encounter Plan of Treatment Upcoming Encounters Date Type Department Care Team (Late st Contact Info) Description 04/28/2026 8:30 AM EDT Office Visit [facility] Electrophysiology [address] [place], [place] [phone] Ranjan Talley MD [address] [place] [address] [address] [place] [address] documented as of this encounter Visit Diagnoses Not on filedocumented in this encounter Care Teams Manager Product Support Relationship Specialty Start Date End Date Lucía Roman, POT SANDER [address] [address] PCP - General Nurse Practitioner 04/25/23 Ranjan Talley MD [address] [place] [address] [address] [place] [id number] Drafter Electromechanical Electrophysiology 08/17/24 documented as of this encounter
--- OUTSIDE RECORDS SUMMARY | 2025-11-09 10:05 | XMS_ITS | Encounter Summary ---
Author Organization [employer] ([place], [place], [place], [place], [place]) Address [address] [place] [address] Care Team Providers Care Orthopedic Coder Name Role Phone Lucía Roman APRN Primary Care Provider Ranjan Talley MD Unavailable Encounter Details Date Type Department Care Team (Late st Contact Info) Description 08/02/2021 Transcribed Document [facility] [place] [facility] [place] [address] ProviderSharla MD [address] [place] [address] [id number] Social History Tobacco Use Types Packs/Day Years [...] David Support Person/Pt Rep Contact Information : [phone] Want Family/Rep/Phys Notified of Admit : No Emergency Contact #1 : Nichole Emergency Contact #1 Phone Number : daughter Emergency Contact #1 Relationship : [phone] Emergency Contact #2 : none Emergency Contact #2 Phone Number : none Emergency Contact #2 Relationship : none Primary Language : Mauritian Preferred Communication Mode : Verbal Communication Barrier : None Hvac Technician Needed : No TAVARES CARROLL RN - [...] Scale Risk Level : 0-24 Low Risk [place] Fall Interventions : Bed in low position, [...] Source : Stated Height Entry Format : [place] Height, Feet : 5 ft(Converted to: 152 cm, 60 Inch) Height, Inches : 1 Inch(Converted to: 0 ft 1 Inch, 2.54 cm) Clinical Height : 154.94 cm Weight Source : Standing scale Weight Entry Format : [place] Clinical Dosing Weight : 89.09 kg Weight, Pounds : 196 lb Body Surface Area (BSA) : 1.87 m2 Body Mass Index : 37.1 kg/m2 (HI) [place] Body Weight : 47 kg TAVARES CARROLL [...] TAVARES CARROLL RN - 08/02/2021 16:50 EDT [place] Suicide Severity Rating Scale (C-SSRS) CSSRS Past [...] EDT Office Visit [facility] Electrophysiology [address] [place] [address] Ranjan Talley MD [address] [place] [address] [address] [place] [address] documented as of this encounter Visit Diagnoses Not on filedocumented in this encounter Care Teams Orthopedic Coder Relationship Specialty Start Date End Date Lucía Roman, TIE FASTENER [address] [place] [address] PCP - General Nurse Practitioner 04/25/23 Ranjan Talley MD [address] [place] [address] Staff Air Tactical Officer Electrophysiology 08/17/24 documented as of this encounter
--- OUTSIDE RECORDS SUMMARY | 2025-11-09 10:05 | XMS_ITS ---
Laboratory report Created on: September 28, 2025 MITZI MORALES : 1955 Sex: Female Author Organization Unknown PROBLEMS Problems List Code Description RESULTS Laboratory Orders Date Order Code Test 2025-09-22 [id number] TESTOSTERONE 2025-09-22 [id number] TESTOSTERONE, FR EE, DIRECT 2025-09-22 [id number] ANTINUCLEAR AB M ULTIPLEX RFX 9 2025-09-22 [id number] ZINC, PLASMA OR SERUM Laboratory Results Date LOINC Test Value Unit Reference Range Interpre tation 2025-09-22 2986-8 TESTOSTERONE 39 NG/DL 3-67 2025-09-22 2991-8 FREE TESTOSTERONE(DIRECT) 4.5 PG/ML 0.0-4.2 H 2025-09-22 8061-4 MONO DIRECT N NEGATIVE 2025-09-22 5763-8 ZINC, PLASMA OR SERUM 64 UG/DL 44-115
--- OUTSIDE RECORDS SUMMARY | 2025-11-09 10:05 | XMS_ITS ---
Laboratory report Created on: October 12, 2025 MITZI MORALES : 1955 Sex: Female Author Organization Unknown PROBLEMS Problems List Code Description RESULTS Laboratory Orders Date Order Code Test 2025-07-27 [id number] ANTINUCLEAR AB M ULTIPLEX RFX 9 2025-07-27 [id number] ZINC, PLASMA OR SERUM Laboratory Results Date LOINC Test Value Unit Reference Range Interpre tation 2025-07-27 8061-4 MONO DIRECT N NEGATIVE 2025-07-27 5763-8 ZINC, PLASMA OR SERUM 74 UG/DL 44-115
--- OUTSIDE RECORDS SUMMARY | 2025-11-09 10:05 | XMS_ITS | Encounter Summary ---
Author Organization [employer] ([place], [place], [place], [place], [place]) Address [address] [place] [address] Care Team Providers Care Tank House Operator Helper Name Role Phone Lucía Roman APRN Primary Care Provider Ranjan Talley MD Unavailable Encounter Details Date Type Department Care Team (Late st Contact Info) Description 08/02/2021 Transcribed Document [facility] [place] [facility] [place] [address] ProviderSharla MD [address] [place] [address] [phone] Social History Tobacco Use Types Packs/Day Years [...] Source : Stated Height Entry Format : [place] Height, Feet : 5 ft(Converted to: 152 cm, 60 Inch) Height, Inches : 1 Inch(Converted to: 0 ft 1 Inch, 2.54 cm) Clinical Height : 154.94 cm Weight Source : Standing scale Weight Entry Format : [place] Clinical Dosing Weight : 89.09 kg Weight, Pounds : 196 lb Body Surface Area (BSA) : 1.87 m2 Body Mass Index : 37.1 kg/m2 (HI) [place] Body Weight : 47 kg JOAO BAKER [...] JOAO BAKER RN - 08/02/2021 7:06 EDT [place] Suicide Severity Rating Scale (C-SSRS) CSSRS Past [...] David Support Person/Pt Rep Contact Information : [phone] Want Family/Rep/Phys Notified of Admit : No Emergency Contact #1 : Nichole Emergency Contact #1 Phone Number : daughter Emergency Contact #1 Relationship : [phone] Emergency Contact #2 : none Emergency Contact #2 Phone Number : none Emergency Contact #2 Relationship : none Primary Language : British Preferred Communication Mode : Verbal Communication Barrier : None Manager Photography Needed : No JOAO BAKER RN - [...] Scale Risk Level : 0-24 Low Risk [place] Fall Interventions : Adequate lighting, Assistive devices [...] Office Visit [facility] Electrophysiology [address] [place] [address] Ranjan Talley MD [address] [facility] [address] [place] [address] documented as of this encounter Visit Diagnoses Not on filedocumented in this encounter Care Teams Tank House Operator Helper Relationship Specialty Start Date End Date Lucía Roman APRN [address] [place], [place] [phone] PCP - General Nurse Practitioner 04/25/23 Ranjan Talley MD [address] [place] [address] Tubing Supervisor Electrophysiology 08/17/24 documented as of this encounter
--- OUTSIDE RECORDS SUMMARY | 2025-11-09 10:05 | XMS_ITS ---
Laboratory report Created on: October 12, 2025 MITZI MORALES : 1955 Sex: Female Author Organization Unknown PROBLEMS Problems List Code Description RESULTS Laboratory Orders Date Order Code Test 2025-07-27 [id number] TRIIODOTHYRONINE (T3), FREE Laboratory Results Date LOINC Test Value Unit Reference Range Interpre tation 2025-07-27 3051-0 TRIIODOTHYRONINE (T3), FREE 2.4 PG/ML 2.0-4.4
--- OUTSIDE RECORDS SUMMARY | 2025-11-09 10:05 | XMS_ITS | Encounter Summary ---
Author Organization [employer] ([place], [place], [place], [place], [place]) Address [address] [place] [address] Care Team Providers Care Packager Hand Name Role Phone Lucía Roman APRN Primary Care Provider Ranjan Talley MD Unavailable Encounter Details Date Type Department Care Team (Late st Contact Info) Description 08/03/2021 Transcribed Document [facility] [place] [address] ProviderSharla MD [address] [place] [address] [id number] Social History Tobacco Use Types Packs/Day Years [...] Health Plan: [employer] REPL Policy Number: [id number] Authorization Number: [id number] Insurance Primary Name : [employer] MEDICARE REPL Policy Number: [id number] Observation Authorization Nbr-Primary : [id number] Historical Authorization Comments-Primary : No Authorization Comments Found ROSS, JESSI M, Rn-Utilization Review - 08/03/2021 12:07 EDT Electronically signed by [facility], [facility] Conversion Business Performance Advisor Cerner at 02/26/2023 4:42 PM CDT documented in this encounter Plan of Treatment Upcoming Encounters Date Type Department Care Team (Late st Contact Info) Description 04/28/2026 8:30 AM EDT Office Visit [facility] Electrophysiology [address] [place] [address] Ranjan Talley MD [address] [place] [address] [place] [address] documented as of this encounter Visit Diagnoses Not on filedocumented in this encounter Care Teams Packager Hand Relationship Specialty Start Date End Date Lucía Roman, SOFTWARE QUALITY AUTOMATION ENGINEER [address] [address] PCP - General Nurse Practitioner 04/25/23 Ranjan Talley MD [address] [place], [place] [phone] Lamps Tester And Inspector Electrophysiology 08/17/24 documented as of this encounter
--- OUTSIDE RECORDS SUMMARY | 2025-11-09 10:05 | XMS_ITS | Encounter Summary ---
Author Organization [employer] ([place], [place], [place], [place], [place]) Address [address] [place] [address] Care Team Providers Care Sap Data Architect Name Role Phone Lucía Roman APRN Primary Care Provider Ranjan Talley MD Unavailable Encounter Details Date Type Department Care Team (Late st Contact Info) Description 08/03/2021 Transcribed Document [facility] [place] [address] ProviderSharla MD [address] [place] [address] [phone] Social History Tobacco Use Types Packs/Day Years [...] Spiritual Care Spiritual Care Referred by : Supervisor Costuming follow-up Reason for Visit : Follow Up Ministry Provided to : Patient Intervention/Comment/Summary Points : Post-op visit. Provided active listening and spiritual support. Patient anticipates discharge today. DANIEL HOWARD - 08/03/2021 14:11 EDT documented in this encounter Plan of Treatment Upcoming Encounters Date Type Department Care Team (Late st Contact Info) Description 04/28/2026 8:30 AM EDT Office Visit [facility] Electrophysiology [address] [place] [phone] [place] [address] [place] [address] [address] [place] [phone] documented as of this encounter Visit Diagnoses Not on filedocumented in this encounter Care Teams Sap Data Architect Relationship Specialty Start Date End Date Lucía Roman, ASSOCIATE FINANCIAL ADVISOR [address] [place] [address] PCP - General Nurse Practitioner 04/25/23 [place] [address] [place] [address] [address] [place] [address] Tape Cutter Electrophysiology 08/17/24 documented as of this encounter
--- OUTSIDE RECORDS SUMMARY | 2025-11-09 10:05 | XMS_ITS | Encounter Summary ---
Author Organization [employer] ([place], [place], [place], [place], [place]) Address [address] [place] [address] Care Team Providers Care Metalsmith Helper Name Role Phone Lucía Roman APRN Primary Care Provider [phone] Ranjan Talley MD Unavailable Encounter Details Date Type Department Care Team (Late st Contact Info) Description 08/03/2021 Transcribed Document [facility] [place] [facility] [place] [address] ProviderSharla MD [address] [place] [address] [phone] Social History Tobacco Use Types Packs/Day Years [...] - 08/03/2021 14:15 EDT Electronically signed by [facility], [facility] Conversion Electronic Health Records Specialist Cerner at 02/26/2023 4:38 PM CDT documented in this encounter Plan of Treatment Upcoming Encounters Date Type Department Care Team (Late st Contact Info) Description 04/28/2026 8:30 AM EDT Office Visit [facility] Electrophysiology [address] [place] [phone] Ranjan Talley MD [address] [place] [address] [place] [phone] documented as of this encounter Visit Diagnoses Not on filedocumented in this encounter Care Teams Metalsmith Helper Relationship Specialty Start Date End Date Lucía Roman, OIL WELL ENGINEER [address] [place] [address] PCP - General Nurse Practitioner 04/25/23 Ranjan Talley MD [address] [place] [address] [address] Investigations Manager Electrophysiology 08/17/24 documented as of this encounter
--- OUTSIDE RECORDS SUMMARY | 2025-11-09 10:05 | XMS_ITS | Encounter Summary ---
Author Organization [employer] ([place], [place], [place], [place], [place]) Address [address] [place] [address] Care Team Providers Care Customer Engagement Analyst Name Role Phone Lucía Roman APRN Primary Care Provider Ranjan Talley MD Unavailable Encounter Details Date Type Department Care Team (Late st Contact Info) Description 08/03/2021 Transcribed Document [facility] [place] [address] ProviderSharla MD [address] [place] [address] Social History Tobacco Use Types Packs/Day [...] Description 04/28/2026 8:30 AM EDT Office Visit [facility] Electrophysiology [address] [place] [address] Ranjan Talley MD [address] [facility] [address] [place] [address] documented as of this encounter Visit Diagnoses Not on filedocumented in this encounter Care Teams Customer Engagement Analyst Relationship Specialty Start Date End Date Lucía Roman, WELDER SHIELDED METAL ARC [address] [address] PCP - General Nurse Practitioner 04/25/23 Ranjan Talley MD [address] [facility] [address] [place] [address] Ela Teacher Electrophysiology 08/17/24 documented as of this encounter
--- OUTSIDE RECORDS SUMMARY | 2025-11-09 10:05 | XMS_ITS | Encounter Summary ---
Author Organization [employer] ([place], [place], [place], [place], [place]) Address [address] [facility] [place] [address] Care Team Providers Care Construction Carpenters Helper Name Role Phone Lucía Roman APRN Primary Care Provider Hernandez Talley MD Unavailable Encounter Details Date Type Department Care Team (Late st Contact Info) Description 08/03/2021 Transcribed Document [facility] [place] [address] ProviderSharla MD [address] [place] [address] [phone] Social History Tobacco Use Types Packs/Day Years [...] Ben Cardiology Discharge Note - EP Primary High School Math Tutor: PCP: Lucía Roman Consults: NONE History of [...] Normal range of motion. Integumentary: Warm, Dry, [place]. Bilateral groins stable no hematoma or bleeding. [...] PCP in 5 - 7 days. Primary High School Math Tutor in [address] Talley [...] Office Visit [facility] Electrophysiology [address] [place] [phone] Hernandez Talley MD [address] [facility] [address] [place], [place] [phone] documented as of this encounter Visit Diagnoses Not on filedocumented in this encounter Care Teams Construction Carpenters Helper Relationship Specialty Start Date End Date Lucía Roman, EDUCATIONAL RESOURCE COORDINATOR [address] [place] [address] PCP - General Nurse Practitioner 04/25/23 Hernandez Talley MD [address] [facility] [address] [place] [address] High School Math Tutor Electrophysiology 08/17/24 documented as of this encounter
--- OUTSIDE RECORDS SUMMARY | 2025-11-09 10:05 | XMS_ITS | Encounter Summary ---
Author Organization [employer] ([place], [place], [place], [place], [place]) Address [address] [place] [address] Care Team Providers Care Salvage Engineering Technician Name Role Phone Lucía Roman APRN Primary Care Provider [phone] Ranjan Talley MD Unavailable Encounter Details Date Type Department Care Team (Late st Contact Info) Description 08/02/2021 Transcribed Document [facility] [place] [facility] [place] [address] ProviderShalra MD [address] [place] [address] [phone] Social History Tobacco Use Types Packs/Day Years [...] Office Visit [facility] Electrophysiology [address] [place] [address] [place] [address] [place] [address] [address] [place] [address] documented as of this encounter Visit Diagnoses Not on filedocumented in this encounter Care Teams Salvage Engineering Technician Relationship Specialty Start Date End Date Lucía Roman, CLASS C DRIVER [address] [place] [address] PCP - General Nurse Practitioner 04/25/23 [place] [address] [place] [address] [address] Snow Removal/Plowing Electrophysiology 08/17/24 documented as of this encounter
--- OUTSIDE RECORDS SUMMARY | 2025-11-09 10:05 | XMS_ITS | Encounter Summary ---
Author Organization [employer] ([place], [place], [place], [place], [place]) Address [address] [facility] [place] [address] Care Team Providers Care Finishing Room Operator Name Role Phone Lucía Roman APRN Primary Care Provider Ranjan Talley MD Unavailable Encounter Details Date Type Department Care Team (Late st Contact Info) Description 08/02/2021 Transcribed Document [facility] [place] [facility] [place] [address] ProviderSharla MD [address] [place] [address] [phone] Social History Tobacco Use Types Packs/Day Years [...] Age: 66 Years Sex: Female : 1955 Health Center Associate: Ranjan Talley MD Indication: 65 year old [...] Office Visit [facility] Electrophysiology [address] [place] [address] Ranjan Talley MD [address] [facility] [address] [place] [address] documented as of this encounter Visit Diagnoses Not on filedocumented in this encounter Care Teams Finishing Room Operator Relationship Specialty Start Date End Date Lucía Roman, ADULT SERVICES LIBRARIAN [address] [place] [address] PCP - General Nurse Practitioner 04/25/23 Ranjan Talley MD [address] [facility] [address] [place] [address] Premises Technician Electrophysiology 08/17/24 documented as of this encounter
--- OUTSIDE RECORDS SUMMARY | 2025-11-09 10:05 | XMS_ITS ---
Laboratory report Created on: October 12, 2025 MITZI MORALES : 1955 Sex: Female Author Organization Unknown PROBLEMS Problems List Code Description RESULTS Laboratory Orders Date Order Code Test 2025-04-19 [id number] THYROGLOBULIN AN TIBODY 2025-04-19 [id number] THYROID PEROXIDA SE (TPO) AB Laboratory Results Date LOINC Test Value Unit Reference Range Interpre tation 2025-04-19 8098-6 THYROGLOBULIN ANTIBODY LTTA IU/ML 0.0-0. 9 2025-04-19 8099-4 THYROID PEROXIDA SE (TPO) AB <9 IU/ML 0-34
== END 2025-11-08 23:59 | disposition home or self-care (01) ==
LOC: LAB.DROPOF 11-09 09:54
PROVIDERS: PCP Nurse Practitioner Family; Visit Provider Nurse Practitioner Family
DX: N28.9 Disorder of kidney and ureter, unspecified (principal); E11.9 Type 2 diabetes mellitus without complications
CPT/HCPCS: 80069; 82043; 82570